=== PATIENT | female | born 1955 | race Caucasian/White ===

== ENCOUNTER 2022-05-15 10:56 | Day surgery (SDC) | payer MEDICARE, BC, SELFPAY ==
[2022-05-15] VITALS (10 sets, daily range): BP systolic 118–163; BP diastolic 70–92; PULSE 62–66; RESP 16–20; TEMP 36.3–36.8; O2SAT 92–98; BMI 39.1
[2022-05-15] MEDS: LACTATED RINGERS 1000 ML 1,000 ML 100 ML IV (11:00)
[2022-05-15] MEDS: SODIUM CHLORIDE 0.9 % (FLUSH) 10 ML SYRINGE IVF (12:00)
[2022-05-15] MEDS: CLINDAMYCIN 900 MG/6 ML VIAL IVPB (12:46)
--- NOTE | 2022-05-15 14:04 | P.GSOP_ITS ---
Operative Note Date of procedure: 05/15/22 Pre-op diagnosis: Right axillary adenopathy Post-op diagnosis: same Type of Procedure: Right axillary lymph node biopsy Indication: The patient is a 66-year-old female who was noted to have enlarged right axillary lymph nodes. Core biopsy was performed which showed a malignant neoplasm favoring lymphoma, however, the sample was not sufficient to complete the diagnosis. Therefore a surgical biopsy was requested. Procedure Description: After discussing the risks and benefits of the procedure, the patient signed informed consent. The operative site was marked and the patient was brought to the operating room and placed on the operating table in supine position. Care was taken to pad the patient's pressure points. The patient was then intubated by anesthesia. The operative site was then prepped and draped in the usual sterile fashion. A time-out was then performed. Local anesthetic was injected into the skin and subcutaneous tissue just inferior to the axillary hairline. An incision was then created with a knife. dissection was taken down through the subcutaneous fat using cautery. The clavipectoral fascia was incised and the axilla was entered. I was able to palpate several nodes deep within the axilla close to the chest wall. I carefully dissected down until I encountered 1 of the lymph nodes. The perinodal tissue was grasped with an Allis and gently pulled into view. I then carefully dissected the lymph node circumferentially with cautery with care not to disrupt the capsule. Small feeding vessels Were clipped. This node measured 2 cm. Once the node was removed this was divided and sent to pathology in RPMI solution as well as formalin. The wound was examined for hemostasis. Small oozing vessels were clipped or cauterized. Hemostasis appeared excellent at this point, however because of the depth of the wound, I did place a piece of Surgicel in the bed where the lymph node was removed. The wound was then closed in layers with 3 0 Vicryl dermal and 4 0 Monocryl running subcuticular suture. Sterile dressings were then applied. The patient was then woken and transported to the recovery area in stable c ondition. The patient tolerated the procedure well. Findings: Multiple enlarged right axillary lymph nodes. Anesthesia: GETA Surgeon: Daisy Edwards MD Estimated blood loss (mL): 10 Pathology: other Pathology Details: 1. right axillary lymph node portion in RPMI solution 2. Right axillary lymph node portion in formalin Condition: stable Disposition: PACU
[2022-05-15] MEDS: HYDROCODONE-ACETAMIN 5-325 MG 1 TAB PO ×2 (14:50→15:10)
--- NOTE | 2022-05-15 15:30 | W.ANESCHARGE ---
Anesthesia Charges Start Date/Time Anesthesia Start Date: 05/15/22 Anesthesia Start Time: 12:38 Stop Date/Time Anesthesia Stop Date: 05/15/22 Anesthesia Stop Time: 14:00 Summary Emergency: No
--- NOTE | 2022-05-15 15:35 | W.ANESCHARGE ---
Anesthesia Charges Start Date/Time Anesthesia Start Date: 05/15/22 Anesthesia Start Time: 12:38 Stop Date/Time Anesthesia Stop Date: 05/15/22 Anesthesia Stop Time: 14:00 Summary Emergency: No
== END 2022-05-15 15:46 | disposition home or self-care (01) ==
PROVIDERS: PCP Family Medicine; Visit Provider Surgery
PROC: (CPT 38500; principal; 2022-05-15 12:30)
DX: C85.94 Non-Hodgkin lymphoma, unspecified, lymph nodes of axilla and upper limb (principal); R59.0 Localized enlarged lymph nodes
CPT/HCPCS: 38525; 00400; 88184; 88305; 88341; 88342; 88365; A9270; J1100; J2405; J2704; J3010; J3490; J7120; S0077

== ENCOUNTER 2022-05-23 10:07 | Outpatient (CLI) | payer MEDICARE, BC, SELFPAY | END 2022-05-23 10:08 | disposition home or self-care (01) | LOC: RAD 10:08 | PROVIDERS: PCP Family Medicine; Visit Provider Family Medicine | DX: C85.90 Non-Hodgkin lymphoma, unspecified, unspecified site (principal) | CPT/HCPCS: 93306 ==

== ENCOUNTER 2022-05-26 08:06 | Outpatient (RCR) | payer MEDICARE, BC, SELFPAY | END 2022-09-09 09:36 | disposition home or self-care (01) | PROVIDERS: PCP Family Medicine; Visit Provider Orthopaedic Surgery Sports Medicine | DX: M25.561 Pain in right knee (principal); Z51.89 Encounter for other specified aftercare | CPT/HCPCS: 97110; 97140 ==

== ENCOUNTER 2022-05-29 11:25 | Outpatient (RCR) | payer MEDICARE, BC, SELFPAY | END 2022-06-15 23:59 | disposition home or self-care (01) | LOC: CCIC 11:25 | PROVIDERS: PCP Family Medicine; Visit Provider Internal Medicine Hematology & Oncology | DX: C81.99 Hodgkin lymphoma, unspecified, extranodal and solid organ sites (principal) | CPT/HCPCS: 99202; 99204; 99205 ==

== ENCOUNTER 2022-09-01 07:01 | Outpatient (CLI) | payer MEDICARE, BC, SELFPAY ==
--- NOTE | 2022-09-01 07:15 | MR_ITS ---
[address] [address] Phone:?[phone] Fax:?[phone] Referring Physician Information: Chang Lacy M.D. [id number] [facility] [address] Phone:?[phone] Fax:?[phone] Patient:Danilo Lara D.O.B:?1955 Sex:?Female Phone:?[phone] [facility] MRN:?[id number] Exam Date:?09/01/2022 ? EXAM: MRI EXAMINATION OF THE RIGHT KNEE CLINICAL INFORMATION: Right knee pain. Status post fall with injury. Possible medial tibial contusion. History of prior surgery. TECHNICAL INFORMATION: Coronal PD and STIR. Sagittal PD and PD fat saturation. Axial PD and T2 fat saturation images acquired. INTERPRETATION: Bones: Minimal subchondral edema signal cystic change involves the series 7 image 20 as well as series 5 image 21 demonstrate residua a 1.9 x 1.3 cm subchondral fracture of the weightbearing surface of the medial tibial plateau. No subchondral collapse. Poorly defined surrounding bone marrow edema signal. Mild marrow edema signal involves the posterior periphery of the medial femoral condyle. Tiny subchondral cystic changes involving the patella. No other fracture. No other abnormal bone marrow edema pattern is identified. Ligaments and tendons: Residua of a subacute to chronic MCL injury. Prominent thickening involves the proximal third of the ligament with moderate attenuation of the femoral attachment. The iliotibial band, fibular collateral ligament, biceps femoris tendon and popliteus tendon all are intact. The anterior cruciate ligament is intact without acute sprain or tear. The posterior cruciate ligament is intact. Extensor Mechanism: The patellar and quadriceps tendons are intact. The medial and lateral retinacula are intact. Knee Joint: There is a small knee joint effusion. There is a moderately large popliteal cyst. There are changes of synovitis within the joint. Do not see evidence for a loose body. Medial Compartment: There is a postsurgical appearance of repair of the posterior root insertion of the medial meniscus. Poorly visualized of meniscal fibers directly adjacent to the repair site, with complex tearing of the directly adjacent portion of the meniscus. No displaced flap fragment or parameniscal cyst. There is no focal chondral defect. 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 Lateral Compartment: There is a horizontal appearance of tearing involving the far posterior horn and posterior root insertion lateral meniscus. No root avulsion injury. No displaced flap fragment or parameniscal cyst. There is no focal chondral defect. No other significant changes of chondromalacia. Patellofemoral articulation: Chondromalacia with associated full-thickness cartilage loss involves the superior two thirds of the midline patella and adjacent medial facet. No other significant chondromalacia. CONCLUSION: 1. There is a 1.9 x 1.3 cm subchondral fracture of the central weightbearing surface of the medial tibial plateau. No subchondral collapse. Poorly defined surrounding bone marrow edema signal and may be subacute. 2. Residua of a subacute to chronic MCL injury. Prominent thickening of the proximal one third of the ligament with moderate attenuation of the femoral attachment. 3. Status post posterior root repair of the medial meniscus. Poor visualization of fibers traversing adjacent to the repair site. Complex tearing of the adjacent portion of the meniscus. 4. Horizontal tearing involves the far posterior horn and posterior root insertion lateral meniscus. No root avulsion injury. 5. Grade II to III chondromalacia through the central weightbearing surfaces of the medial joint compartment. 6. Chondromalacia with full-thickness cartilage loss involving the superior two thirds of the midline patella and directly adjacent medial facet, with tiny subchondral cystic changes. KES Electronically signed on 09/01/2022 9:59:00 AM by Helio Patel M.D.
== END 2022-09-01 07:02 | disposition home or self-care (01) ==
PROVIDERS: PCP Family Medicine; Visit Provider Orthopaedic Surgery Sports Medicine
DX: M25.561 Pain in right knee (principal); M84.361A Stress fracture, right tibia, initial encounter for fracture; M23.251 Derangement of posterior horn of lateral meniscus due to old tear or injury, right knee; M22.41 Chondromalacia patellae, right knee
CPT/HCPCS: 73721

== ENCOUNTER 2022-09-19 14:06 | Emergency (ER) | payer MEDICARE, BC, SELFPAY ==
[2022-09-19] VITALS (12 sets, daily range): BP systolic 149–163; BP diastolic 101–114; PULSE 70–95; TEMP 36; O2SAT 94–99; BMI 37.4
--- NOTE | 2022-09-19 14:21 | ED_ITS ---
HPI - General Adult General Time Seen by Provider: 14:22 Date Seen: 09/19/22 Chief complaint: Nausea/Vomiting Stated complaint: COVID+, vomiting Time Seen by Provider: 09/19/22 14:09 Source: patient Mode of arrival: ambulatory Limitations: no limitations History of Present Illness HPI narrative: 66-year-old female who presents today with nausea vomiting. Patient is on immune therapy for Hodgkin lymphoma has been doing well with that. Diagnosed with COVID 4 days ago, has had cough and some intermittent shortness of breath but no chest pain, no abdominal pain. Started having vomiting today. No lower extremity swelling. No diarrhea. No urinary symptoms. Started Paxil over the couple days ago, also currently taking doxycycline for an ear infection diagnos ed in urgent care a couple days ago. Some lightheadedness with standing, no headache. Has not taken anything for her symptoms at home. Related Data Home Medications Medication Instructions Recorded Confirmed amlodipine 5 mg tablet 5 mg PO DAILY 05/13/22 09/15/22 albuterol sulfate 90 mcg/actuation 2 puff inhalation Q4-6H PRN 05/14/22 09/15/22 aerosol inhaler (ProAir HFA) ascorbate calcium (vitamin C) 500 500 mg PO QDAY 05/14/22 09/15/22 mg tablet biotin 1,000 mcg chewable tablet 1,000 mcg PO QDAY 05/14/22 09/15/22 celecoxib 100 mg capsule (Celebrex) 100 mg PO BID 05/14/22 09/15/22 cholecalciferol (vitamin D3) 1,250 1,250 mcg PO QWEEK 05/14/22 09/15/22 mcg (50,000 unit) tablet diclofenac sodium 75 mg 75 mg PO BID 05/14/22 09/15/22 tablet,delayed release finasteride 5 mg tablet 2.5 mg PO QDAY 05/14/22 09/15/22 furosemide 40 mg tablet (Lasix) 40 mg PO QDAY 05/14/22 09/15/22 levothyroxine 75 mcg capsule 75 mcg PO QDAY 05/14/22 09/15/22 nystatin-triamcinolone topical ea topical 05/14/22 09/15/22 ointment sertraline 200 mg capsule 200 mg PO QDAY 05/14/22 09/15/22 zinc sulfate 50 mg zinc (220 mg) 50 mg PO QDAY 05/14/22 09/15/22 capsule allopurinol 300 mg tablet 300 mg PO QDAY 07/24/22 09/15/22 aspirin 325 mg tablet 325 mg PO QDAY 07/25/22 09/15/22 ondansetron HCl 4 mg tablet 4 mg PO Q12H 07/25/22 09/15/22 prochlorperazine maleate 10 mg 10 mg PO QDAY 07/25/22 09/15/22 tablet gabapentin 300 mg capsule 100 mg PO QDAY 08/19/22 09/15/22 nirmatrelvir 150 mg-ritonavir 100 See Rx Instructions PO .COMPLEX 09/19/22 09/19/22 mg tablets in a dose pack (EUA) (Paxlovid) Previous Rx's Medication Instructions Recorded lisinopril 40 mg tablet See Rx Instructions .Route 05/22/22 .COMPLEX #180 tabs lorazepam 0.5 mg tablet 0.5 mg PO BID-TID PRN anxiety #30 05/30/22 tabs duloxetine 60 mg capsule,delayed 60 mg PO QDAY #30 caps 07/18/22 release metoprolol succinate 100 mg 100 mg PO QDAY #30 tabs 07/18/22 tablet,extended release 24 hr doxycycline hyclate 100 mg tablet 100 mg PO BID 7 days #14 tabs 09/15/22 rivaroxaban 15 mg (42)-20 mg (9) See Rx Instructions PO .COMPLEX 09/19/22 tablets in a starter pack (Xarelto #51 ea DVT-PE Treatment 30-Day Starter) Allergies Allergy/AdvReac Type Severity Reaction Status Date / Time Cephalosporins Allergy Mild Rash Verified 09/19/22 16:18 propoxyphene Allergy Mild Rash Verified 09/19/22 16:18 cefuroxime Allergy Unknown Verified 09/19/22 16:18 chlorthalidone Allergy Unknown Unknown Verified 09/19/22 16:18 clavulanic acid Allergy Unknown Unknown Verified 09/19/22 16:18 Penicillins Allergy Unknown Unknown Verified 09/19/22 16:18 spironolactone Allergy Unknown Unknown Verified 09/19/22 16:18 Sulfa (Sulfonamide Allergy Unknown Unknown Verified 09/19/22 16:18 Antibiotics) Review of Systems Status of ROS: Reports: 10 or more systems reviewed and unremarkable except as noted in History and below PFSH PFSH Medical History (Updated 09/19/22 @ 17:06 by Jeffery Nicholas MD) Diverticulosis DVT (deep venous thrombosis) Hodgkin lymphoma of extranodal or solid organ site Hypertension Hypothyroidism Mixed anxiety and depressive disorder Obesity (BMI 30-39.9) SUDHAKAR on CPAP Surgical History (Updated 08/19/22 @ 08:12 by Annalise Landry) S/P dilation and curettage S/P right knee arthroscopy (02/05/22) Status post knee surgery Family History (Updated 05/23/22 @ 08:31 by Lenka Jauregui) Father COPD (chronic obstructive pulmonary disease) Mother COPD (chronic obstructive pulmonary disease) Hyperlipidemia High blood pressure Osteoporosis Paternal Grandfather Diabetes Paternal Grandmother Diabetes Family/Other High blood pressure Social History Narrative: 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 She does not smoke. She drinks alcohol rarely. Smoking Status: Never smoker How often do you have a drink containing alcohol: never AUDIT-C Alcohol total score: 0 Non-prescribed substance use: denies use Caffeine: Yes Little interest or pleasure in doing things: not at all Feeling down, depressed, or hopeless: several days Exam Narrative: Exam Narrative: General: Well-developed and well-nourished, no acute distress Head: Atraumatic and normocephalic Eyes: Pupils are equal reactive, extraocular motions intact, conjunctiva clear ENT: External nose and ears are normal, posterior pharynx without erythema or exudate Neck: No midline cervical tenderness, full spontaneous range of motion the neck, trachea midline, no adenopathy Heart: Regular rate and rhythm no murmurs or thrills Lungs: Clear to auscultation bilaterally without wheezes or crackles Abdomen: Soft, nontender, nondistended with active bowel sounds Musculoskeletal: No tenderness, deformity, or edema Neurologic: Awake, alert, and oriented x3, no gross focal neurologic deficits, cranial nerves intact as tested Psych: Mood and affect are appropriate Skin: No rashes Const: Vital Signs, click to edit/add: Vital Signs - 24 hr 09/19/22 14:15 09/19/22 14:15 09/19/22 15:00 Temperature 96.8 F L Pulse Rate Pulse Rate [Right] 86 83 72 Blood Pressure Blood Pressure [Le ft Upper Arm] 157/114 H 157/114 H 152/112 H Pulse Oximetry 98 96 97 Oxygen Delivery Me thod Room Air Room Air Room Air 09/19/22 15:30 09/19/22 16:13 09/19/22 16:30 Temperature Pulse Rate 95 74 Pulse Rate [Right] 70 Blood Pressure Blood Pressure [Le ft Upper Arm] 149/101 H Pulse Oximetry 98 99 97 Oxygen Delivery Me thod Room Air 09/19/22 16:32 Temperature Pulse Rate 74 Pulse Rate [Right] Blood Pressure 156/104 H Blood Pressure [Le ft Upper Arm] Pulse Oximetry 96 Oxygen Delivery Me thod Course Course Hospital Course: Patient seen examined, prior records reviewed. Patient with recent diagnosis of COVID, cough and vomiting today. On exam, vital is stable with no tachycardia or hypoxia, afebrile. Lungs are clear, no abdominal tenderness. Consider CT scan of the abdomen and pelvis but with no abdominal pain or tenderness, low likelihood for intra-abdominal pathology. Consider CT scan of the chest to evaluate for pulmonary embolism, no tachycardia, pleuritic chest pain, or shortness of breath. IV fluids are ordered, labs ordered. Reevaluation(s) Reevaluation #1: D-dimer elevated, this may be related to patient's chronic comorbidities that cannot exclude pulmonary embolism. CT PE protocol is ordered. If this is n egative, plan to discharge with medication to help with nausea as remaining labs and clinical exam are reassuring Time: 15:45 Reevaluation #2: CT scan personally reviewed interpreted me wy demonstrates a couple small subsegmental pulmonary emboli. No evidence of heart strain clinically. Patient can be started on Xarelto and discharged with outpatient follow-up. Patient will stop Paxlovid due to potential interaction. Time: 16:30 Reevaluation #3: Discussed CT with radiologist who agrees with my initial interpretation. No evidence for right heart strain on CT. Patient can be started on Xarelto to be discharged. She also be given Robitussin AC and Zofran. Vital Signs Vital signs: Initial Vital Signs Temperature 96.8 F L 09/19/22 14:15 Temperature Source Temporal Artery Scan 09/19/22 14:15 Pulse Rate 86 09/19/22 14:15 Blood Pressure 157/114 H 09/19/22 14:15 Blood Pressure Mean 128 09/19/22 14:15 Blood Pressure Position Sitting 09/19/22 14:15 Pulse Oximetry 98 09/19/22 14:15 Oxygen Delivery Method 09/19/22 14:15 Vital Signs Temperature 96.8 F L 09/19/22 14:15 Pulse Rate 86 09/19/22 14:15 Blood Pressure 157/114 H 09/19/22 14:15 Pulse Oximetry 98 09/19/22 14:15 Oxygen Delivery Method 09/19/22 14:15 Temperature 96.8 F L 09/19/22 14:15 Pulse Rate 74 09/19/22 16:32 Blood Pressure 156/104 H 09/19/22 16:32 Pulse Oximetry 96 09/19/22 16:32 Oxygen Delivery Method 09/19/22 15:30 Medical Decision Making Medical Records Medical records reviewed: Yes I reviewed the patient's medical records Lab Data Lab results reviewed: Yes I reviewed the patient's lab results Labs: Lab Results 09/19/22 09/19/22 Range/Units 14:35 14:35 D-Dimer Quant (PE/DVT) 1.80 H (0.00-0.50) ug/ml Sodium 140 (135-149) mmol/L Potassium 4.7 (3.6-5.1) mmol/L Chloride 101 (96-114) mmol/L Carbon Dioxide 31 (20-32) mmol/L BUN 14 (7-30) mg/dL Creatinine 0.9 (0.5-1.5) mg/dL Estimated Creat Clear 50.47 Estimated GFR 71 ml/min Glucose 109 (60-115) mg/dL Calcium 10.0 (8.4-10.6) mg/dL Total Bilirubin 0.8 (0.1-1.5) mg/dL Direct Bilirubin 0.2 (0.0-0.5) mg/dL AST 31 (12-35) U/L ALT 26 (4-35) U/L Alkaline Phosphatase 105 (40-150) U/L NT-Pro-B Natriuret Pep 313 H (0-125) PG/mL Total Protein 7.9 (6.0-8.3) g/dL Albumin 4.9 (3.3-5.0) g/dL Imaging Data CT scan - chest: Attestation: I have reviewed the pertinent imaging results. My impression: Subsegmental pulmonary emboli bilaterally Radiologist's impression: IMPRESSION: Segmental and subsegmental pulmonary emboli in the right upper, middle and lower lobes as well as the left lower lobe. No significant evidence of right heart strain. Decreased size of right axillary adenopathy and splenomegaly, likely related to treatment related changes. Discharge Plan Discharge Clinical Impression: COVID-19 virus infection, Hodgkin lymphoma of extranodal or solid organ site, Pulmonary embolism Patient Disposition: Home, Self-Care Condition: Stable Instructions: Blood Thinners (ED), COVID-19 (Coronavirus Disease 2019) (ED) Additional Instructions: Stop taking Paxlovid. Start Xarelto. Follow-up with your doctor and oncololgist. Activity Level: No Restrictions Discharge Diet: Regular Prescriptions: New Xarelto DVT-PE Treat 30d Start 15 mg (42)- 20 mg (9) tablets,dose pack See Rx Instructions .ROUTE .COMPLEX Qty: 51 0RF Rx Instructions: take one-15 mg tablet twice daily for 21 days, then one-20 mg tablet once daily; must take with meal/food No Action lorazepam 0.5 mg tablet 0.5 mg PO BID-TID PRN (Reason: anxiety) Qty: 30 1RF allopurinol 300 mg tablet 300 mg PO QDAY Label Comments: TAKE 1 TABLET (300 MG TOTAL) BY MOUTH DAILY. prochlorperazine maleate 10 mg tablet 10 mg PO QDAY ondansetron HCl 4 mg tablet 4 mg PO Q12H aspirin 325 mg tablet 325 mg PO QDAY doxycycline hyclate 100 mg tablet 100 mg PO BID 7 Days Qty: 14 0RF amlodipine 5 mg tablet 5 mg PO DAILY Paxlovid (EUA) 150-100 mg tablets,dose pack See Rx Instructions .ROUTE .COMPLEX Rx Instructions: orally per package directions levothyroxine 75 mcg capsule 75 mcg PO QDAY celecoxib [Celebrex] 100 mg capsule 100 mg PO BID finasteride 5 mg tablet 2.5 mg PO QDAY sertraline 200 mg capsule 200 mg PO QDAY furosemide [Lasix] 40 mg tablet 40 mg PO QDAY nystatin-triamcinolone Ointment topical albuterol sulfate [ProAir HFA] 90 mcg/actuation HFA aerosol inhaler 2 puff inhalation Q4-6H PRN diclofenac sodium 75 mg tablet,delayed release (/EC) 75 mg PO BID biotin 1,000 mcg tablet,chewable 1,000 mcg PO QDAY cholecalciferol (vitamin D3) 1,250 mcg (50,000 unit) tablet 1,250 mcg PO QWEEK ascorbate calcium (vitamin C) 500 mg tablet 500 mg PO QDAY zinc sulfate 50 mg zinc (220 mg) capsule 50 mg PO QDAY lisinopril 40 mg tablet See Rx Instructions .ROUTE .COMPLEX Qty: 180 1RF Dose Instruction: TAKE 1 TABLET BY MOUTH TWICE A DAY Rx Instructions: TAKE 1 TABLET BY MOUTH TWICE A DAY duloxetine 60 mg capsule,delayed release(DR/EC) 60 mg PO QDAY Qty: 30 0RF metoprolol succinate 100 mg tablet extended release 24 hr 100 mg PO QDAY Qty: 30 0RF gabapentin 300 mg capsule 100 mg PO QDAY Follow Up/Referrals: Haseeb Durán MD [Primary Care Provider] - Stand Alone Forms: [facility], [facility] Info Instructions
[2022-09-19] MEDS: ONDANSETRON 2 MG/ML inj 4 MG IVP (14:45)
[2022-09-19] MEDS: 0.9 % SODIUM CHLORIDE 1000 ml 1,000 ML IV (14:45)
[2022-09-19 15:01] LABS: Albumin* 4.9 g/dL (3.3-5.0); Chloride* 101 mmol/L (96-114); Potassium* 4.7 mmol/L (3.6-5.1); Sodium* 140 mmol/L (135-149)
[2022-09-19 15:03] LABS: Creatinine* 0.9 mg/dL (0.5-1.5); Est. Creatinine Clearance* 50.47; Estimated Glomerular Filt Rate 71 ml/min
[2022-09-19 15:04] LABS: Alanine Aminotransferase* 26 U/L (4-35); Alkaline Phosphatase* 105 U/L (40-150); Aspartate Amino Transferase* 31 U/L (12-35); Bilirubin Direct* 0.2 mg/dL (0.0-0.5); Bilirubin Total* 0.8 mg/dL (0.1-1.5); Blood Urea Nitrogen* 14 mg/dL (7-30); Carbon Dioxide* 31 mmol/L (20-32); Glucose* 109 mg/dL (60-115); Total Protein* 7.9 g/dL (6.0-8.3)
--- NOTE | 2022-09-19 15:31 | CRLHL7_ITS ---
For Patients: As a result of the 21st Century Cures Act, medical imaging exams and procedure reports are released immediately into your electronic medical record. You may view this report before your referring provider. If you have questions, please contact your health care provider. INDICATION: COVID positive, hit Hodgkin`s lymphoma right axilla. Cough, elevated D-dimer. History of DVT.. TECHNIQUE: CT chest PE was acquired with 95 cc Isovue 370 IV contrast. COMPARISON: None. FINDINGS: Heart and vasculature: Contrast opacification of the pulmonary arterial tree is adequate. Pulmonary embolism is identified in the right upper lobe segmental arteries ( 1, 75), extending into the subsegmental arteries. As well as in the right lower lobe subsegmental arteries (/113), and in the right middle lobe subsegmental arteries (/99). In addition, left lower lobe segmental artery filling defect is identified (/102), consistent with acute pulmonary embolism.. Heart size is normal. No evidence of right heart strain. Mildly enlarged right and left pulmonary arteries. Thoracic aorta is normal in caliber. Lungs and pleura: No new suspicious nodules. Stable right upper lobe nodule measuring approximately 7 millimeters, unchanged from prior dated May 05, 2022. no pleural effusions, pleural thickening, or pneumothorax. Lymph nodes/mediastinum: Mildly enlarged right axillary lymph nodes are identified, improved since the prior examination 4 example lymph node with a central calcification measures approximately 44 x 23 millimeters, previously 58 by 40 millimeters. Two new clips are identified in the right axilla, probably related to biopsy. Chest wall: No masses. Upper abdomen: No acute or significant findings. Spleen has decreased in size. Bones: Unremarkable for age. IMPRESSION: Segmental and subsegmental pulmonary emboli in the right upper, middle and lower lobes as well as the left lower lobe. No significant evidence of right heart strain. Decreased size of right axillary adenopathy and splenomegaly, likely related to treatment related changes. Findings discussed with Dr. Nicholas at 5 p.m. on 09/19/[address] Sanon. Please note that all CT scans at this facility use dose modulation, iterative reconstruction, and/or weight-based dosing when appropriate to reduce radiation dose to as low as reasonably achievable. Dictated by Paul Sanon MD @ 09/19/2022 5:06:34 PM (Electronically Signed)
[2022-09-19 17:14] LABS: NT Pro B Type NatriureticPept* 313 PG/mL (0-125)
[2022-09-19 17:17] LABS: Troponin I* 0.01 ng/mL (0.01-0.04)
[2022-09-19] MEDS: RIVAROXABAN 10 MG TABLET 15 MG PO (17:49)
== END 2022-09-19 18:07 | disposition home or self-care (01) ==
PROVIDERS: Emergency Provider Family Medicine; PCP Family Medicine
DX: U07.1 COVID-19 (principal)
CPT/HCPCS: 36415; 71260; 80048; 80076; 83880; 84484; 85379; 96374; 99284; 99285; A9270; J2405; J7030; Q9967

== ENCOUNTER 2022-12-09 13:19 | Outpatient (CLI) | payer MEDICARE, BC, SELFPAY | END 2022-12-09 13:20 | disposition home or self-care (01) | LOC: INJ CL 13:20 | PROVIDERS: PCP Family Medicine; Visit Provider Family Medicine | DX: M17.11 Unilateral primary osteoarthritis, right knee (principal); M25.561 Pain in right knee | CPT/HCPCS: 64454 ==

== ENCOUNTER 2022-12-16 10:15 | Outpatient (CLI) | payer MEDICARE, BC, SELFPAY | END 2022-12-16 10:16 | disposition home or self-care (01) | PROVIDERS: PCP Family Medicine; Visit Provider Family Medicine | DX: M17.11 Unilateral primary osteoarthritis, right knee (principal); G89.29 Other chronic pain; M25.561 Pain in right knee | CPT/HCPCS: 64624; J2250; J3010 ==

== ENCOUNTER 2023-03-20 11:27 | Outpatient (CLI) | payer MEDICARE, BC, SELFPAY | END 2023-03-20 11:28 | disposition home or self-care (01) | PROVIDERS: PCP Family Medicine; Visit Provider Family Medicine | DX: E03.9 Hypothyroidism, unspecified (principal); I10 Essential (primary) hypertension; E66.9 Obesity, unspecified | CPT/HCPCS: 80048; 80061; 84443 ==

== ENCOUNTER 2023-06-09 09:00 | Outpatient (CLI) | payer MEDICARE, BC, SELFPAY ==
--- NOTE | 2023-06-09 09:15 | MR_ITS ---
[address] [address] Phone:?[phone] Fax:?[phone] Referring Physician Information: Chang Lacy M.D. [address] [facility] [address] Phone:?[phone] Fax:?[phone] Patient:Danilo Lara D.O.B:?1955 Sex:?Female Phone:?[phone] [facility] MRN:?[id number] Exam Date:?06/09/2023 EXAM: MRI of the RIGHT KNEE, without contrast CLINICAL HISTORY: Chronic right knee pain. Evaluate for internal derangement. History of previous surgery to the right knee. COMPARISONS: MRI 09/01/2022. MRI 01/21/2022. TECHNICAL: MR sequences of the right knee: sagittals: PD, PDFS coronals: PD, STIR axials: PD, T2 FS CONTRAST: None SEDATION: None FINDINGS: Bones: No fracture, bone marrow contusion, or other suspicious bone marrow signal abnormality. 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 Retinacula: The medial and lateral retinacula are intact. Fat pads: The infrapatellar, quadriceps, and prefemoral fat pads are unremarkable. Knee joint: Effusion: Physiologic amount of joint fluid. Popliteal cyst: Small popliteal cyst. Intra-articular bodies: None. Posteromedial corner: The semimembranosus and pes anserine tendons are intact. Medial compartment: Medial meniscus: Surgical changes status post posterior root appear of the medial meniscus are again noted. Full-thickness recurrent tearing is evidenced by edema-like signal within and ill-definition of the postoperative medial meniscus/posterior root and marked medial meniscal extrusion. Cartilage: Marked degenerative subchondral cystic changes within the central portion of the medial tibial plateau and degenerative subchondral sclerosis within the weight-bearing portion of the medial femoral condyle reflecting overlying near full-thickness and full-thickness chondral loss, moderately progressed compared to previous MRI 09/01/2022. Lateral compartment: Lateral meniscus: Intact. Cartilage: Intact. Ligaments: Anterior cruciate ligament: Intact. Posterior cruciate ligament: Intact. Medial collateral ligament: No acute injury. Posterior oblique ligament: Intact. Fibular collateral ligament: Intact. Posterolateral corner: The distal biceps femoris tendon, iliotibial band, popliteus tendon, popliteus muscle, popliteofibular ligament, and arcuate ligament are intact. Extensor mechanism: Patellar tendon: Intact. Quadriceps tendon: Intact. IMPRESSION: 1. Surgical changes status post posterior root appear of the medial meniscus. Full-thickness recurrent tearing is evidenced by edema-like signal within and ill-definition of the postoperative medial meniscus/posterior root and marked medial meniscal extrusion. 2. Marked degenerative subchondral cystic changes within the central portion of the medial tibial plateau and degenerative subchondral sclerosis within the weight-bearing portion of the medial femoral condyle reflecting overlying near full-thickness and full-thickness chondral loss. These medial compartment osteoarthritic changes have moderately progressed compared to previous MRI 09/01/2022. 3. 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 4. Small popliteal cyst. 5. No ligamentous injury or lateral meniscal tear of the right knee. RCB Electronically signed on 06/09/2023 1:02:00 PM by Aftab Reese M.D.
== END 2023-06-09 09:01 | disposition home or self-care (01) ==
PROVIDERS: PCP Family Medicine; Visit Provider Orthopaedic Surgery Sports Medicine
DX: M25.561 Pain in right knee (principal); S83.241A Other tear of medial meniscus, current injury, right knee, initial encounter; M94.261 Chondromalacia, right knee; M71.21 Synovial cyst of popliteal space [Baker], right knee
CPT/HCPCS: 73721

== ENCOUNTER 2023-06-25 14:00 | Outpatient (RCR) | payer MEDICARE, BC, SELFPAY ==
--- NOTE | 2022-06-26 15:29 | OT.OPLE ---
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 Pt states she has really been struggling with remembering things, feeling very stressed. Pt reports minimal pain in right axilla following her surgery, does not feel limited in her ability to use her arm. Pt states she had an appointment in [place] with a final diagnosis of lymphoma, could not remember any other details of the diagnosis (states she has a book that she keeps all of the important information in but she forgot it at home). Pt states she will have a chemo pill and will undergo immunotherapy 1x week for 4 weeks and then she will have a PET scan to see if the treatment is working. Pt states she ius here to learn more about lymphedema and what she needs to do. Medical History Medical History Cancer Treatment/Surgery, Depression,HTN Medical History Comments Pt has had recent RLE knee surgery, still quite painful and swollen, makes walking difficult sometimes. Surgical History Surgical History Knee surgery, Core biopsy RUE axillary LN, LN removal RUE axilla (5.5cm) Contraindications Contraindications Comments Active Cancer Family History Family History of Lymphedema No Living Situation Current Living Situation Private Home/Apartment (Alone) Patient Difficulties Difficulties With Any Of The Following Walking Patient Difficulties Comments Due to RLE knee pain Exercise History Does Patient Exercise Regularly No Exercise Comments Pt states she is working on increasing her activity level but states it is really difficult due to her knee pain , states MD wants her to walk 30 min per day, states this would be too painful for her right now. Pain Pain Yes Pain Comments Pain in right knee Loss of Function/Strength/Mobility Loss Of Function/Strength/Mobility Yes Loss Of Function/Strength/Mobility Due to RLE knee, not cancer Comments surgery Compression History Does Patient Currently Wear Compression No During Daytime Does Patient Currently Wear Compression No At Night Current Swelling (Location/Pitting/Texture) Pitting Scale: 0 = No pitting 1+ Tissue returns to normal almost immediately 2+ Tissue returns after 15-30 seconds 3+ Tissue returns after 1-1/2 minutes 4+ Tissue returns after 2-3 minutes N/A Tissue no longer pits due to induration Tissue texture: Soft or indurated Clinical Presentation Area Pt has swelling in the right axillary region, appears to be related to post-op swelling vs lymphedema. Pt also has significant scar tissue in this area which could likely be impairing lymph drainage from the axilla. Clinical Presentation Pitting No pitting Clinical Presentation Texture Soft, mobile Triggering Event & Start Date of LN removal on 05/15/22 Swelling/Lymphedema Type of Swelling Secondary Staging Staging Stage 1 Positive Stemmer's Sign No Circumferential Measurements Upper Extremity Left Upper Extremity MCP 19.8 Palm 20.5 Wrist 16.5 10cm 22.5 20cm 29.5 30cm 30.5 40cm 37.4 50cm 43.0 Total 219.7 Difference 4 Right Upper Extremity MCP 20.3 Palm 21.0 Wrist 16.5 10cm 23.5 20cm 30.2 30cm 31.7 40cm 37.3 50cm 43.2 Total 223.7 Difference 4 Assessment Assessment Pt presents to OT with significant post op scar tissue in RUE axilla, swelling noted in the surgical field as well. RUE currently measures a total of 4 cm larger than the LUE when comparing total of all measurements. Suspicion for lymphedema at this point is low, swelling is likely due to post-op. Pt demonstrates full AROM and strength throughout BUE and trunk. Pt moves independently except for mild limitations in distance walking due to RLE knee pain. Pt will benefit from skilled OT intervention to addres axillary scar tissue in order to promote lymph drainage from the R upper quadrant and to minimize risk for lymphedema. Problem List Problem List Limited Knowledge of Lymphedema Treatment/Condition /Precautions,Limited Knowledge of Skin Care & Infection Precautions,Significant Risk For Infection For Lymphedema Related Complications,Does Not Have a HEP Patient Goals Patient Goals 1. Pt will be independent and compliant for home program for scar tissue reduction in RUE axilla in order to reduce swelling and risk for lymphedema. 6 weeks 2. There will be a softening of axillary scar tissue in order to promote lymph drainage and reduced risk f lymphedema. 8 weeks 3. Pt will demonstrate a general understanding of the lymphatic system, s/s of lymphedema, treatment of lymphedema, implications of untreated lymphedema, s/s of infection and the correlation of infection related to lymphedema. 3 months 4. Pt will be compliant with quarterly assessments for lymphedema surveillance in order to obtain early intervention with best outcomes if needed. 12 months Treatment Plan Treatment Plan Evaluation,Edema Control, Manual Therapy,Therapeutic Exercise,Therapeutic Activities,Self-Care/Home Management,Caregiver Training, Education Expected Frequency 1-2x Week Expected Duration 12 months Certification Certification I Certify That: Therapy Services Provided, Therapy Plan Established, Therapy Plan Reviewed
--- NOTE | 2022-10-21 18:54 | OT.OPLDN ---
OT Outpatient Lymphedema Daily Note OT Outpatient Lymphedema Daily Note Start: 06/26/22 12:23 Freq: Status: Active Protocol: Document 10/21/22 18:47 AMB (Rec: 10/21/22 18:54 AMB [id number]) E-signed By Awa Tillman, OTR/L, CLT, [employer]IST OT OP Lymphedema Daily/Progress Note Note Type Note Type Recert/Progress Note Visit Number 3 Insurance Information Insurance Information Medicare B Current Condition/Medical Diagnosis Referring Provider Dr Edwards Treatment Diagnosis Lymphedema / Lymphoma Medical Contraindications Depression,HTN,CA Recert Due Recert Due 09/25/22 Subjective Subjective Pt states her scans / tests indicate that her cancer is 95% gone and she is very happy about that. Pt feeling better, less stress. Pt states she did develop COVID a month ago and now has blood clots in her lungs and she is receiving treatment for this. Home Program Home Program Specifics Self scar tissue mobilization initiated today Circumferential Measurements Upper Extremity Left Upper Extremity MCP 19.8 Palm 20.5 Wrist 16.5 10cm 22.5 20cm 29.5 30cm 30.5 40cm 37.4 50cm 43.0 Right Upper Extremity MCP 19.8 Palm 20.5 Wrist 16.2 10cm 23.4 20cm 29.4 30cm 31.3 40cm 37.4 50cm 43.0 Treatment Self Care Provided review of patient education regarding the lymphatic system, s/s of lymphedema, treatment options for lymphedema, implications of untreated lymphedema, infection and it's correlation to lymphedema as well as implications of untreated infection. Discussed risk reduction practices including skin care and monitoring strategies. Discussed the importance of regular exercise and healthy habits. Self Care Activity Minutes (minutes) 20 Therapeutic Activity Minutes (minutes) 7 Other Interventions Re-assessment of limb circumference and ROM. Reviewed scar tissue mobilization and lymphedema surveillance program. Assessment Skin is looking great, AROM of BUE is WNL throughout, total circumferential measurements of the RUE is relatively unchanged from last visit, no concerns for lymphedema at this time. Problem List Limited Knowledge of Lymphedema Treatment/Condition /Precautions,Limited Knowledge of Skin Care & Infection Precautions,Significant Risk For Infection For Lymphedema Related Complications,Does Not Have a HEP Patient Goals Patient Goals 1. Pt will be independent and compliant for home program for scar tissue reduction in RUE axilla in order to reduce swelling and risk for lymphedema. 6 weeks 2. There will be a softening of axillary scar tissue in order to promote lymph drainage and reduced risk f lymphedema. 8 weeks 3. Pt will demonstrate a general understanding of the lymphatic system, s/s of lymphedema, treatment of lymphedema, implications of untreated lymphedema, s/s of infection and the correlation of infection related to lymphedema. 3 months 4. Pt will be compliant with quarterly assessments for lymphedema surveillance in order to obtain early intervention with best outcomes if needed. 12 months Treatment Plan Treatment Plan Evaluation,Edema Control, Manual Therapy,Therapeutic Exercise,Therapeutic Activities,Self-Care/Home Management,Caregiver Training, Education Expected Frequency 1-2x Week Expected Duration 12 months Treatment Minutes Timed Treatment Minutes 27 Total Timed Treatment Minutes 27 Occupational Therapy Billing Units Billing Units Self Care/Home Management 1 Therapeutic Activities 1 Certification Certification I Certify That: Therapy Services Provided, Therapy Plan Established, Therapy Plan Reviewed Recertification Information Recertification Information Initial Certification Date 06/26/22 Recertification Start Date 09/26/22 Recertification Due Date 12/27/22 Reasons to Continue Skilled Therapy Pt is participating in a lymphedema surveillance program and will benefit from continued surveillance to provide early intervention and treatment in the event that she develops lymphedema in order to achieve best outcomes as well as continued pt education on risk reduction practices. Rehabilitation Potential Good Continued Plan of Care and Interventions MT, TA, TE, Self Care Provider Signature Shows Agreement With POC & Medical Necessity Physician Comment/Change Comment or Changes Physician NPI Number #
--- NOTE | 2023-01-20 11:19 | OT.OPLDN ---
OT Outpatient Lymphedema Daily Note OT Outpatient Lymphedema Daily Note Start: 06/26/22 12:23 Freq: Status: Active Protocol: Document 01/20/23 11:02 AMB (Rec: 01/20/23 11:16 AMB [id number]) E-signed By Awa Tillman, OTR/L, CLT, DIRECTOR OF PRIMARY CARE OT OP Lymphedema Daily/Progress Note Note Type Note Type Recert/Progress Note Visit Number 4 Insurance Information Insurance Information Medicare B Current Condition/Medical Diagnosis Referring Provider Dr Edwards Treatment Diagnosis Lymphedema / Lymphoma Medical Contraindications Depression,HTN,CA Recert Due Recert Due 09/25/22 Subjective Subjective Pt feels she is doing well, she has 2 more infusions left and then she will undergo a PET scan in a couple of weeks. Pt has had some right knee pain and has undergone an ablation (she thinks) which was supposed to help, however, pt does not feel it really has. Knee pain has made it difficult for her to walk for exercise. Pt has not noticed any swelling and has no concerns for lymphedema at this time. She continues with her skin care routine and still does her scar massage, states she still gets occasional sharp, shooting pains in her incisional area but it only lasts for a second. Home Program Compliant To Home Program Yes Home Program Specifics Self scar tissue mobilization, skin care routine, and self monitoring. Circumferential Measurements Upper Extremity Left Upper Extremity MCP 19.8 Palm 20.5 Wrist 16.5 10cm 22.5 20cm 29.5 30cm 30.5 40cm 37.4 50cm 43.0 Total 219.7 Right Upper Extremity MCP 19.7 Palm 20.5 Wrist 16.2 10cm 23.5 20cm 29.7 30cm 31.4 40cm 37.0 50cm 42.7 Total 220.7 Treatment Manual Therapy Review of scar tissue mobilization, encouraged pt to continue with this for the next 3-6 months. Manual Therapy Minutes (minutes) 6 Self Care Provided review of patient education regarding the lymphatic system, s/s of lymphedema, treatment options for lymphedema, implications of untreated lymphedema, infection and it's correlation to lymphedema as well as implications of untreated infection. Discussed risk reduction practices including skin care and monitoring strategies. Discussed the importance of regular exercise and healthy habits, Self Care Activity Minutes (minutes) 5 Therapeutic Activity Minutes (minutes) 10 Other Interventions Re-assessment of limb circumference and ROM. Reviewed scar tissue mobilization and lymphedema surveillance program. Assessment No concerns regarding skin care, still seems to be having some occasional pain related to her incision / scar tissue, encouraged to continue with scar tissue mobilization. Measurements are relatively unchanged from last assessment , no concerns for lymphedema at this time. Problem List Limited Knowledge of Lymphedema Treatment/Condition /Precautions,Limited Knowledge of Skin Care & Infection Precautions,Significant Risk For Infection For Lymphedema Related Complications,Does Not Have a HEP Patient Goals Patient Goals 1. Pt will be independent and compliant for home program for scar tissue reduction in RUE axilla in order to reduce swelling and risk for lymphedema. 6 weeks 2. There will be a softening of axillary scar tissue in order to promote lymph drainage and reduced risk f lymphedema. 8 weeks 3. Pt will demonstrate a general understanding of the lymphatic system, s/s of lymphedema, treatment of lymphedema, implications of untreated lymphedema, s/s of infection and the correlation of infection related to lymphedema. 3 months 4. Pt will be compliant with quarterly assessments for lymphedema surveillance in order to obtain early intervention with best outcomes if needed. 12 months Treatment Plan Treatment Plan Evaluation,Edema Control, Manual Therapy,Therapeutic Exercise,Therapeutic Activities,Self-Care/Home Management,Caregiver Training, Education Expected Frequency 1-2x Week Expected Duration 12 months Treatment Minutes Timed Treatment Minutes 21 Total Timed Treatment Minutes 21 Occupational Therapy Billing Units Billing Units Therapeutic Activities 1 Certification Certification I Certify That: Therapy Services Provided, Therapy Plan Established, Therapy Plan Reviewed Recertification Information Recertification Information Initial Certification Date 06/26/22 Recertification Start Date 12/27/22 Recertification Due Date 03/26/23 Reasons to Continue Skilled Therapy Due to breast cancer surgery and treatment, pt is at risk for the development of lymphedema. Pt continues to participate in a lymphedema surveillance program and will benefit from continued surveillance to provide early intervention and treatment in the event that she develops lymphedema in order to achieve best outcomes as well as continued pt education on risk reduction practices. Rehabilitation Potential Good Continued Plan of Care and Interventions MT, TA, TE, Self Care Provider Signature Shows Agreement With POC & Medical Necessity Physician Comment/Change Comment or Changes Physician NPI Number #
--- NOTE | 2023-04-21 12:40 | OT.OPLDN ---
OT Outpatient Lymphedema Daily Note OT Outpatient Lymphedema Daily Note Start: 06/26/22 12:23 Freq: Status: Active Protocol: Document 04/21/23 10:56 AMB (Rec: 04/21/23 12:40 AMB [email or web address]) E-signed By Awa Tillman, OTR/L, CLT, [employer] OPERATOR OT OP Lymphedema Daily/Progress Note Note Type Note Type Recert/Progress Note Visit Number 5 Insurance Information Insurance Information Medicare B Current Condition/Medical Diagnosis Referring Provider Dr Edwards Treatment Diagnosis Lymphedema / Lymphoma Medical Contraindications Depression,HTN,CA Recert Due Recert Due 03/26/23 Subjective Subjective Pt doing well, states her last scan indicated that her cancer was gone and she has been feeling well, she has not noticed any swelling in her right upper quadrant, but still struggling with her memory. Pt states she has occasional pain in her right axilla, surgical area, and her surgeon told her she may have this for a while. Discussed consult with OT to assess and treat for cancer related cognitive impairment. Pt would like to proceed with this. Skirt Maker will request order for OT consult for cognitive assessment / rehabilitation. Home Program Compliant To Home Program Yes Home Program Specifics Self scar tissue mobilization, skin care routine, and self monitoring. Circumferential Measurements Upper Extremity Left Upper Extremity MCP 19.8 Palm 20.5 Wrist 16.5 10cm 22.5 20cm 29.5 30cm 30.5 40cm 37.4 50cm 43.0 Total 219.7 Right Upper Extremity MCP 19.5 Palm 20.3 Wrist 16.2 10cm 23.4 20cm 29.5 30cm 31.4 40cm 37.3 50cm 42.8 Total 220.4 Treatment Manual Therapy Review of self scar tissue mobilization with inst for pt to continue with scar mobilization 1x per day for 3 months as she is experiencing occasional pain in this area which may be related to the scar tissue, pt feels that the massaging does help. Manual Therapy Minutes (minutes) 7 Self Care Provided review of patient education regarding the lymphatic system, s/s of lymphedema, treatment options for lymphedema, implications of untreated lymphedema, infection and it's correlation to lymphedema as well as implications of untreated infection. Discussed risk reduction practices including skin care and monitoring strategies. Discussed the importance of regular exercise and healthy habits, Self Care Activity Minutes (minutes) 5 Therapeutic Activity Minutes (minutes) 10 Other Interventions Re-assessment of limb circumference and ROM. Reviewed scar tissue mobilization and lymphedema surveillance program. Assessment Skin condition is excellent, pt demonstrates full AROM of the RUE throughout, circumferential measurements have stayed nearly the same, there are no s/s of lymphedema at this time. Pt will continue to self monitor and will continue with scar tissue mobilization. Pt feels ready to transition to independent monitoring, she was provided with magnetic tape typewriter operator's contact information and instructed to call if she has any concerns related to lymphedema. Pt is describing cognitive changes that she has been experiencing since her cancer diagnosis. Pt would like referral to OT who specializes in this, magnetic tape typewriter operator will seek referral. Problem List Limited Knowledge of Lymphedema Treatment/Condition /Precautions,Limited Knowledge of Skin Care & Infection Precautions,Significant Risk For Infection For Lymphedema Related Complications,Does Not Have a HEP Patient Goals Patient Goals 1. Pt will be independent and compliant for home program for scar tissue reduction in RUE axilla in order to reduce swelling and risk for lymphedema. 6 weeks 2. There will be a softening of axillary scar tissue in order to promote lymph drainage and reduced risk f lymphedema. 8 weeks 3. Pt will demonstrate a general understanding of the lymphatic system, s/s of lymphedema, treatment of lymphedema, implications of untreated lymphedema, s/s of infection and the correlation of infection related to lymphedema. 3 months This goal is met 4. Pt will be compliant with quarterly assessments for lymphedema surveillance in order to obtain early intervention with best outcomes if needed. 12 months This goal is met Treatment Plan Treatment Plan Evaluation,Edema Control, Manual Therapy,Therapeutic Exercise,Therapeutic Activities,Self-Care/Home Management,Caregiver Training, Education Expected Frequency 1-2x Week Expected Duration 12 months Treatment Minutes Timed Treatment Minutes 22 Total Timed Treatment Minutes 22 Occupational Therapy Billing Units Billing Units Therapeutic Activities 1 Certification Certification I Certify That: Therapy Services Provided, Therapy Plan Established, Therapy Plan Reviewed Recertification Information Recertification Information Initial Certification Date 06/26/22 Recertification Start Date 03/26/23 Recertification Due Date 04/26/23 Reasons to Continue Skilled Therapy Due to cancer surgery with lymph node involvement / removal, pt is at risk for the development of lymphedema. Pt continues to participate in a lymphedema surveillance program and will benefit from continued surveillance to provide early intervention and treatment in the event that she develops lymphedema in order to achieve best outcomes as well as continued pt education on risk reduction practices. Pt's last visit was today, she is transitioning to independent monitoring. Rehabilitation Potential Good Continued Plan of Care and Interventions MT, TA, TE, Self Care Provider Signature Shows Agreement With POC & Medical Necessity Physician Comment/Change Comment or Changes Physician NPI Number # Discharge Note Discharge Note Discharge Summary Pt has been seen for a total of 5 visits with focus on pt education and surveillance for lymphedema following her cancer surgery / treatment. Pt has done very well, she has not shown any s/s of lymphedema and is able to understand the s/s of lymphedema, risk factors, risk reduction practices and what to do is she is concerned about lymphedema, she also understands the s/s of and implications of infection. Date of First Visit for Therapy 06/26/22 Date of Last Visit for Therapy 04/21/23 Pain Level at Discharge 0/10 Interventions Provided During Treatment Manual Therapy,Therapeutic Activities,Therapeutic Exercise,Self Care/Home Management Recommendations/Reason for Discharge Met All Therapy Goals Discharge Instructions Continue with scar tissue mobilization and self monitoring.
--- NOTE | 2023-05-14 09:10 | OT.OPGNE ---
OT Outpatient General/Neuro Eval OT Outpatient General/Neuro Eval Start: 05/13/23 20:31 Freq: Status: Active Protocol: Document 05/12/23 20:33 SMW (Rec: 05/13/23 20:51 SMW Laptop) E-signed By Shannon Gannon OT OT Outpatient Evaluation Details Type Type Eval Complexity Low Insurance Information Insurance Information Insurance Information [employer] Outpatient History/Precautions Medical/Functional History Medical History Reviewed Yes: Hodgkin's lumphoma Prior Level of Function/Mobility Patient lives with spouse in own home. She is I in ADLs, most IADLS and mobility. 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 Cognitive Assessments Performed Cognitive Assessments Performed [place] Cognitive Assessment (MOCA) Results 20/30 Comments Cognitive Assessments Performed Comments Patient surprised at results. Really thought only her memory was impaired. Assessment Assessment Assessment The patient is a 67 year old female referred to outpatient OT for cancer related cogntive changes. She has been undergoing treatment for Hodgkin's Lymphoma. Patient has a history of breast cancer . The patient lives with her supportive spouse in own home. 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 She reports independence in ADLs, most IADLS and mobility. She voices concerns related to her memory. She reports that if she is verbally told something she will not remember. She has also misplaced items that she typically keeps track of. She feels as if it has gotten worse as of late. She was given a memory questionnaire where she marked often on memory related issues. The MoCA was administered with the patient scoring 20/30. Deficits noted in executive function, attention and memory . With a few areas that she was correct, it took her quite awhile to figure out the correct response. She appeared quite shocked at her results. Further assessments are warranted. Patient was educated on use of certified financial planner and will obtain before next appointment. She will benefit from skilled OT services 1x per week x 6 weeks, to complete cognitive assessments , be educated on compensatory strategies and to guide patient and family to resources that are appropriate based on assessments. Occupational Therapy Treatment Plan - OP Potential Rehabilitation Potential Good Set Goals Goals Set with Patient Yes Goals Goals Prior to discharge, the patient will.. 1. complete cognitive assessments in order to determine appropriate community resources. 2. follow through with 3 compensatory memory strategies . 3. verbalize understanding of assessment results. Progress set Treatment Plan Treatment Plan Evaluation,Self-Care/Home Management,Functional Cognitive Skil Expected Frequency 1x Week Expected Duration 4-6 Weeks Certification Certification I Certify That: Therapy Services Provided, Therapy Plan Established, Therapy Plan Reviewed Recertification Information Recertification Information Initial Certification Date 05/12/23 Recertification Start Date 05/12/23 Recertification Due Date 08/11/23 Provider Signature Shows Agreement With POC & Medical Necessity Physician Comment/Change Comment or Changes Physician NPI Number #
== END 2023-10-23 23:59 | disposition home or self-care (01) ==
PROVIDERS: PCP Family Medicine; Visit Provider Surgery
DX: I89.0 Lymphedema, not elsewhere classified (principal); G31.84 Mild cognitive impairment of uncertain or unknown etiology; Z51.89 Encounter for other specified aftercare
CPT/HCPCS: 97140; 97165; 97530; 97535

== ENCOUNTER 2023-11-23 08:59 | Emergency (ER) | payer MEDICARE, BC, SELFPAY ==
[2023-11-23 09:04] VITALS: BP 158/94; PULSE 89; RESP 16; TEMP 35.6; O2SAT 95; BMI 37.4
--- NOTE | 2023-11-23 09:35 | ED_ITS ---
HPI - General Adult General Chief complaint: Cough Stated complaint: COVID +,coughing Time Seen by Provider: 11/23/23 09:30 History of Present Illness HPI narrative: patient has not been feeling very good since last Thursday . has not been sleeping very well, coughing, sore throat, body aches and pains, poor sleeping, nauseated. COVID test at home was + 68-year-old woman presenting to the emergency department concern of cough. Cough is more when lying down. Apparently tested COVID positive at home. Has had poor sleep. Sore throat body aches. She is nauseated. Now 5th day of illness. I think is concerned about secondary infection. Worries might be dehydrated at this point with poor p.o. Nausea as noted but not really with discrete or increased abdominal pain. Does have past medical significant for Hodgkin's lymphoma. Does have a history of sleep apnea. Uses CPAP. No fever documented. Would like something to address her cough. Related Data Home Medications Medication Instructions Recorded Confirmed albuterol sulfate 90 mcg/actuation 2 puff inhalation Q4-6H PRN 05/14/22 11/23/23 aerosol inhaler (ProAir HFA) cpap inhalation 09/25/22 10/26/23 rivaroxaban 10 mg tablet (Xarelto) 10 mg PO QDAY 12/23/22 11/23/23 Previous Rx's Medication Instructions Recorded hydrocortisone-pramoxine 2.5 %-1 % 1 applic IL BID PRN hemorrhoids 09/25/22 rectal cream #30 grams lorazepam 1 mg tablet 1 mg PO BID PRN anxiety #40 tabs 07/01/23 nystatin-triamcinolone 100,000 1 applic topical BID #60 grams 09/25/23 unit/g-0.1 % topical cream bupropion HCl 300 mg 24 hr tablet, 300 mg PO QAM #90 tabs 10/29/23 extended release (Wellbutrin XL) duloxetine 60 mg capsule,delayed 60 mg PO QDAY #90 caps 10/29/23 release furosemide 40 mg tablet (Lasix) 40 mg PO QDAY #90 tabs 10/29/23 gabapentin 300 mg capsule 300 mg PO QDAY #90 caps 10/29/23 levothyroxine 75 mcg tablet 75 mcg PO QDAY #90 tabs 10/29/23 lisinopril 40 mg tablet 40 mg PO BID #180 tabs 10/29/23 metoprolol succinate 100 mg 100 mg PO QDAY #90 tabs 10/29/23 tablet,extended release 24 hr Allergies Allergy/AdvReac Type Severity Reaction Status Date / Time No Known Drug Allergies Allergy Verified 11/23/23 09:09 Review of Systems Status of ROS: Reports: 6 or more systems reviewed and unremarkable except as noted in History and below [facility] Medical History Tear of medial meniscus of right knee ?S83.241A - Other tear of medial meniscus, current injury, right knee, initial encounter (ICD-10) Internal derangement of right knee ?M23.91 - Unspecified internal derangement of right knee (ICD-10) Pulmonary embolism ?I26.99 - Other pulmonary embolism without acute cor pulmonale (ICD-10) YOLIS (generalized anxiety disorder) ?F41.1 - Generalized anxiety disorder (ICD-10) Major depression, recurrent ?F33.9 - Major depressive disorder, recurrent, unspecified (ICD-10) External hemorrhoids ?K64.4 - Residual hemorrhoidal skin tags (ICD-10) COVID-19 virus infection ?U07.1 - COVID-19 (ICD-10) Acute lateral meniscus tear of right knee ?S83.281A - Other tear of lateral meniscus, current injury, right knee, init ial encounter (ICD-10) Complex tear of medial meniscus of right knee ?S83.231A - Complex tear of medial meniscus, current injury, right knee, initial encounter (ICD-10) Hypothyroidism ?E03.9 - Hypothyroidism, unspecified (ICD-10) Hodgkin lymphoma of extranodal or solid organ site ?C81.99 - Hodgkin lymphoma, unspecified, extranodal and solid organ sites (ICD-10) DVT (deep venous thrombosis) ?I82.409 - Acute embolism and thrombosis of unspecified deep veins of unspecified lower extremity (ICD-10) Obesity (BMI 30-39.9) ?E66.9 - Obesity, unspecified (ICD-10) Diverticulosis ?K57.90 - Diverticulosis of intestine, part unspecified, without perforation or abscess without bleeding (ICD-10) SUDHAKAR on CPAP ?G47.33 - Obstructive sleep apnea (adult) (pediatric) (ICD-10) ?Z99.89 - Dependence on other enabling machines and devices (ICD-10) Hypertension ?I10 - Essential (primary) hypertension (ICD-10) Surgical History S/P right knee arthroscopy (02/05/22) ?Z98.890 - Other specified postprocedural states (ICD-10) Status post knee surgery ?Z98.890 - Other specified postprocedural states (ICD-10) S/P dilation and curettage ?Z98.890 - Other specified postprocedural states (ICD-10) Family History Father COPD (chronic obstructive pulmonary disease) Mother COPD (chronic obstructive pulmonary disease) Hyperlipidemia High blood pressure Osteoporosis Paternal Grandfather Diabetes Paternal Grandmother Diabetes Family/Other High blood pressure Social History Narrative: -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 She does not smoke. She drinks alcohol rarely. What is your current living situation?: I presently have a place to live Problems where you live: no known problems In the past 12 months, utilities in danger of being shut off: no In the past 12 mos, have been you worried that your food would run out before you had money to buy more?: never true In the past 12 mos, the food you bought just didn't last and you didn't have money to buy more?: never true Smoking Status: Never smoker Do you use any of these nicotine containing products: None Second hand tobacco smoke exposure: No How often do you have a drink containing alcohol: never How often do you have six or more drinks on one occasion: Never AUDIT-C Alcohol total score: 0 Non-prescribed substance use: denies use Caffeine: Yes How often does anyone, including family, friends and others, physically hurt you : How often does anyone, including family, friends and others, insult or talk down to you: How often does anyone, including family, friends and others, threaten you with harm: How often does anyone, including family, friends and others, scream or curse at you: Little interest or pleasure in doing things: several days Feeling down, depressed, or hopeless: several days service: No Exam Narrative: Exam Narrative: Pleasant. Mildly anxious I think. Just looks uncomfortable. Appears tired. Not tachypneic but mildly labored in her breathing. Lungs sound generally with very faint crepitus. No wheeze. Oropharynx maybe a little sticky. Heart in regular rate and rhythm. Extremities are well perfused without edema. Uncomfortable in the upper abdomen. Sounds somewhat congested nasopharynx. Occasional cough. Oropharynx maybe with some irritation in the far posterior oropharynx consistent with postnasal drip. Const: Vital Signs, click to edit/add: Vital Signs - 24 hr 11/23/23 09:04 Temperature 96.0 F L Pulse Rate [Left P ulse Oximeter] 89 Respiratory Rate 16 Blood Pressure [Le ft Upper Arm] 158/94 H Pulse Oximetry 95 Oxygen Delivery Me thod Room Air Documenting provider has reviewed patient's vital signs: yes Course Vital Signs Vital signs: Initial Vital Signs Temperature 96.0 F L 11/23/23 09:04 Temperature Source Temporal Artery Scan 11/23/23 09:04 Pulse Rate 89 11/23/23 09:04 Respiratory Rate 16 11/23/23 09:04 Blood Pressure 158/94 H 11/23/23 09:04 Blood Pressure Mean 115 H 11/23/23 09:04 Blood Pressure Position Sitting 11/23/23 09:04 Pulse Oximetry 95 11/23/23 09:04 Oxygen Delivery Method Room Air 11/23/23 09:04 Vital Signs Temperature 96.0 F L 11/23/23 09:04 Pulse Rate 89 11/23/23 09:04 Respiratory Rate 16 11/23/23 09:04 Blood Pressure 158/94 H 11/23/23 09:04 Pulse Oximetry 95 11/23/23 09:04 Oxygen Delivery Method Room Air 11/23/23 09:04 Temperature 96.0 F L 11/23/23 09:04 Pulse Rate 89 11/23/23 09:04 Respiratory Rate 16 11/23/23 09:04 Blood Pressure 158/94 H 11/23/23 09:04 Pulse Oximetry 95 11/23/23 09:04 Oxygen Delivery Method Room Air 11/23/23 09:04 Medications Administered Medications: Discontinued Medications Generic Name Dose Route Start Last Admin Trade Name Freq PRN Reason Stop Dose Admin Sodium Chloride 1,000 mls @ 1,000 mls/hr 11/23/23 09:48 11/23/23 11:00 0.9 % Sodium Chloride 1000 Ml IV 11/23/23 10:47 Infused .Q1H ONE Infusion Medical Decision Making MDM Narrative Medical decision making narrative: I think most of her symptoms are related to congestion and inflammation. Probably postnasal drip. With history though I think it is not a bad idea to look for secondary pneumonia. Unlikely DVT especially as anticoagulated with rivaroxaban. Would likely feel better with L of fluids. I do offer this to her and she accepts. IVs established given a L of normal saline. Will also confirm COVID and check CBC and basic if further is found on chest x-ray this would be relevant. Offered ice chips. Chest x-ray reviewed by me looks to be without acute infiltrate. Normal cardiovascular silhouette and no pneumothorax Radiology over-read as below INDICATION: Cough TECHNIQUE: Chest 1 views. COMPARISON: None. FINDINGS: The cardiomediastinal silhouette is within normal limits. No focal airspace consolidation, pleural effusion, or pneumothorax. No displaced fractures. Degenerative changes of the bilateral acromioclavicular joints. IMPRESSION: No acute cardiopulmonary process. Overall somewhat improved with treatment as above. Labs are notable for mildly elevated CRP and confirmed positive COVID. Too long into illness I think benefit from Paxlovid or other. Discussed albeit limited but varied options/medication to try to address cough. See patient discharge plan Medical Records Medical records reviewed: Yes I reviewed the patient's medical records Lab Data Lab results reviewed: Yes I reviewed the patient's lab results Labs: Lab Results 11/23/23 Range/Units 10:05 WBC 3.26 L (4.50-11.00) K/uL RBC 5.23 H (4.00-5.20) m/uL Hgb 15.9 (12.0-16.0) gm/dL Hct 47.6 (33.0-51.0) % MCV 91 (80-100) fL MCH 30 (26-34) pg MCHC 33 (32-36) gm/dL RDW Coeff of Marti 12.9 (11.5-15.5) % Plt Count 125 L (140-440) K/uL Neut % (Auto) 72.1 H (42.0-72.0) % Lymph % (Auto) 12.3 L (20-44) % Mclean % (Auto) 13.8 H (0.0-11.0) % Eos % (Auto) 1.5 (0.0-7.0) % Baso % (Auto) 0.3 (0.0-3.0) % Neut # (Auto) 2.40 (1.7-7.0) K/uL Lymph # (Auto) 0.40 L (0.90-2.90) K/uL Mclean # (Auto) 0.40 (0.00-0.90) K/UL Eos # (Auto) 0.00 (0.00-0.50) K/uL Baso # (Auto) 0.00 (0.00-0.30) K/uL Abs Immat Gran (auto) 0.00 (0.00-0.30) K/uL Imm/Tot Granulo (auto) 0.0 % Sodium 137 (135-149) mmol/L Potassium 3.6 (3.6-5.1) mmol/L Chloride 103 (96-114) mmol/L Carbon Dioxide 25 (20-32) mmol/L Anion Gap 9 (7-15) mEq/L BUN 14 (7-30) mg/dL Creatinine 0.9 (0.5-1.5) mg/dL Estimated Creat Clear 49.12 Estimated GFR 70 ml/min Glucose 110 (60-115) mg/dL Calcium 8.8 (8.4-10.6) mg/dL C-Reactive Protein 2.5 H (0.5-1.0) mg/dL SARS-CoV-2 (PCR) POSITIVE SARS-CoV-2 A (Negative) Influenza Type A (PCR) Negative PCR FLU A (Negative) Influenza Type B (PCR) Negative PCR FLU B (Negative) RSV (PCR) Negative PCR RSV (Negative) Discharge Plan Discharge Clinical Impression: COVID-19, Cough Patient Disposition: Home w/ Parent or Adult Condition: Stable Instructions: COVID-19 (Coronavirus Disease 2019) (ED) Additional Instructions: Stay well-hydrated. You might try sucking on ice chips for your cough. Could try pseudoephedrine for drying/decongestion if postnasal drip might be playing a role; I personally like the 12 hour formulation. Sleep under the mist of a cool mist humidifier. Menthol vapors might also be helpful. Anesthetic throat lozenges or sprays like Sucrets or Chloraseptic might help. Otherwise cough syrup from [facility]. Prescriptions: No Action nystatin-triamcinolone 100,000-0.1 unit/g-% cream 1 applic topical BID Qty: 60 1RF cpap inhalation hydrocortisone-pramoxine 2.5-1 % cream 1 applic IL BID PRN (Reason: hemorrhoids) Qty: 30 1RF bupropion HCl [Wellbutrin XL] 300 mg tablet extended release 24 hr 300 mg PO QAM Qty: 90 1RF duloxetine 60 mg capsule,delayed release(DR/EC) 60 mg PO QDAY Qty: 90 1RF furosemide [Lasix] 40 mg tablet 40 mg PO QDAY Qty: 90 1RF gabapentin 300 mg capsule 300 mg PO QDAY Qty: 90 1RF levothyroxine 75 mcg tablet 75 mcg PO QDAY Qty: 90 1RF lisinopril 40 mg tablet 40 mg PO BID Qty: 180 1RF metoprolol succinate 100 mg tablet extended release 24 hr 100 mg PO QDAY Qty: 90 1RF albuterol sulfate [ProAir HFA] 90 mcg/actuation HFA aerosol inhaler 2 puff inhalation Q4-6H PRN Xarelto 10 mg tablet 10 mg PO QDAY Rx Instructions: for 35 days lorazepam 1 mg tablet 1 mg PO BID PRN (Reason: anxiety) Qty: 40 0RF Follow Up/Referrals: Haseeb Durán MD [Primary Care Provider] - Stand Alone Forms: [facility] Info Instructions
--- NOTE | 2023-11-23 09:48 | CRLHL7_ITS ---
For Patients: As a result of the Cures Act, medical imaging exams and procedure reports are released immediately into your electronic medical record. You may view this report before your referring provider. If you have questions, please contact your health care provider. INDICATION: Cough TECHNIQUE: Chest 1 views. COMPARISON: None. FINDINGS: The cardiomediastinal silhouette is within normal limits. No focal airspace consolidation, pleural effusion, or pneumothorax. No displaced fractures. Degenerative changes of the bilateral acromioclavicular joints. IMPRESSION: No acute cardiopulmonary process. Dictated by Savage Singh MD @ 11/23/2023 10:47:30 AM (Electronically Signed)
[2023-11-23] MEDS: 0.9 % SODIUM CHLORIDE 1000 ml 1,000 ML IV (09:55)
[2023-11-23 10:12] LABS: Basophils Percent Auto 0.3 % (0.0-3.0); Eosinophils Percent Auto 1.5 % (0.0-7.0); Hematocrit 47.6 % (33.0-51.0); Hemoglobin* 15.9 gm/dL (12.0-16.0); Lymphocytes Percent Auto 12.3 % (20-44); Mean Corpuscular HGB Conc 33 gm/dL (32-36); Mean Corpuscular Hemoglobin 30 pg (26-34); Mean Corpuscular Volume 91 fL (80-100); Monocytes Percent Auto 13.8 % (0.0-11.0); Neutrophils Percent Auto 72.1 % (42.0-72.0); Platelet Count* 125 K/uL (140-440); RDW Coefficient of Variation % 12.9 % (11.5-15.5); Red Blood Count 5.23 m/uL (4.00-5.20); White Blood Count* 3.26 K/uL (4.50-11.00)
[2023-11-23 10:14] LABS: Slide Review Reflex No
[2023-11-23 10:26] LABS: Chloride* 103 mmol/L (96-114); Potassium* 3.6 mmol/L (3.6-5.1); Sodium* 137 mmol/L (135-149)
[2023-11-23 10:28] LABS: Creatinine* 0.9 mg/dL (0.5-1.5); Est. Creatinine Clearance* 49.12; Estimated Glomerular Filt Rate 70 ml/min
[2023-11-23 10:29] LABS: Anion Gap 9 mEq/L (7-15); Blood Urea Nitrogen* 14 mg/dL (7-30); Carbon Dioxide* 25 mmol/L (20-32); Glucose* 110 mg/dL (60-115)
[2023-11-23 10:30] LABS: Calcium* 8.8 mg/dL (8.4-10.6)
[2023-11-23 10:32] LABS: C Reactive Protein* 2.5 mg/dL (0.5-1.0)
[2023-11-23 10:52] LABS: PCR FLU A Negative PCR FLU A (Negative); PCR FLU B Negative PCR FLU B (Negative); PCR RSV Negative PCR RSV (Negative); SARS PCR* POSITIVE SARS-CoV-2 (Negative)
--- NOTE | 2023-11-23 10:58 | ED.NURSE ---
Pt report given to zoe fernandez
--- NOTE | 2023-11-23 10:59 | ED.NURSE ---
Report given to oncoming RN
== END 2023-11-23 12:16 | disposition home or self-care (01) ==
PROVIDERS: Emergency Provider Family Medicine; PCP Family Medicine
DX: U07.1 COVID-19 (principal)
CPT/HCPCS: 36415; 71045; 80048; 85025; 86140; 87631; 99283; 99284; J7030

== ENCOUNTER 2023-12-09 11:03 | Outpatient (CLI) | payer MEDICARE, BC, SELFPAY ==
--- OUTSIDE RECORDS SUMMARY | 2023-12-11 07:43 | XMS_ITS ---
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 Past Plans No past plan information found. Radiation Treatments * No radiation treatments are documented for this patient in [facility]. Treatments may have been administered in another system.
--- OUTSIDE RECORDS SUMMARY | 2023-12-11 07:43 | XMS_ITS ---
Author Name Unknown Organization [facility] Address [address] [place] [address] Care Team Providers Care Senior Peoplesoft Developer Name Role Phone Unavailable Unavailable Unavailable Surgery Details Not on file Complications Check Surgery Details section. Procedure Estimated Blood Loss Check Surgery Details section. Procedure Findings Check Surgery Details section. Procedure Specimens Taken Check Surgery Details section.
--- OUTSIDE RECORDS SUMMARY | 2023-12-11 07:43 | XMS_ITS | Encounter Summary ---
Author Name Unknown Organization [facility] Address [address] [place] [address] Care Team Providers Care Garageman Name Role Phone Unavailable Primary Care Provider Unavailabl e Encounter Details Date Type Department Care Team (Latest Contact Info) Description 08/27/2023 12:30 PM CDT Clinical Communication Virtual Review in [place], [place] [address] [place], [place] [id number] Social History Tobacco Use Types Packs/Day Years Used Date Smoking Tobacco: Never Smokeless Tobacco: Never Tobacco Cessation:Counseling Given: Not Answered Alcohol Use Standard Drinks/Week Comments Not Currently 0 (1 standard drink = 0.6 oz pur e alcohol) 1 or 2 drinks a year Humiliation, Afraid, Rape, and Kick questionnair e Answer Date Recorded Within the last year, have y ou been afraid of your partner or ex-partner? No 06/23/2022 Within the last year, have y ou been humiliated or emotionally abused in other ways by your partner or ex-partner? No Within the last year, have y ou been kicked, hit, slapped, or otherwise physically hurt by your partner or ex-partner? No 06/23/2022 Within the last year, have y ou been raped or forced to have any kind of sexual activity by your partner or ex-partner? No 06/23/2022 Social Connection and Isolat ion Panel [NHANES] Answer Date Recorded In a typical week, how many times do you talk on the phone with family, friends, or neighbors? More than three times a week 06/23/2022 How often do you get togethe r with friends or relatives? More than three times a week 06/23/2022 How often do you attend chur ch or restorationism services? Never 06/23/2022 Do you belong to any clubs o r organizations such as orthodoxy groups, unions, fraternal or athletic groups, or school groups? No 06/23/2022 How often do you attend meet ings of the clubs or organizations you belong to? Never 06/23/2022 Are you , , di vorced, , never , or living with a partner? 06/23/2022 AUDIT-C Answer Date Recorded Q1: How often do you have a drink containing alc ohol? Never 06/23/2022 Average Number of Drinks Not on file 022 Frequency of Binge Drinking Not on file 06/2022 Overall Financial Resource Strain (CARDIA) Answe r Date Recorded How hard is it for you to pa y for the very basics like food, housing, medical care, and heating? Not hard at all 08/27/2023 [facility] - Occupational Stress Questionnaire Answer Date Recorded Do you feel stress - tense, restless, nervous, or anxious, or unable to sleep at night because your mind is troubled all the time - these days? To some extent 06/23/2022 Exercise Vital Sign Answer Date Recorde d On average, how many days pe r week do you engage in moderate to strenuous exercise (like a brisk walk)? 0 days 08/27/2023 On average, how many minutes do you engage in exercise at this level? 0 min 08/27/2023 Hunger Vital Sign Answer Date Recorded Within the past 12 months, y ou worried that your food would run out before you got the money to buy more. Never true 08/27/20 23 Within the past 12 months, t he food you bought just didn't last and you didn't have money to get more. Never true 08/27/2023 PRAPARE - Transportation Answer Date Re corded In the past 12 months, has l ack of transportation kept you from medical appointments or from getting medications? No 08/16 In the past 12 months, has l ack of transportation kept you from meetings, work, or from getting things needed for daily living? No 08/27/2023 Nutrition Answer Date Recorded Nutrition: EVOO Fat Source No 08/27 On average, how many serving s of fruits and vegetables do you eat per day (serving size is equal to 1 cup or approximately the size of a tennis ball)? 0-2 08/27/2023 Dental Answer Date Recorded Dental: Regular Dentist Yes 06/24/20 Employment Answer Date Recorded Employment status Employed and actively working without restrictions 08/27/2023 Housing Stability Answer Date Recorded What is your living situation today? I have a [facility] place to live 08/27/2023 Education Answer Date Recorded What is the highest level of school you have completed or the highest degree you have received? 12th grade 06/23/2022 Sex and Gender Information Value Date Recorded Sex Assigned at Female 06/23/2022 9:00 PM CDT Gender Identity Female 06/23/2022 9:00 PM CDT Sexual Orientation Straight 06/23/2022 9: 00 PM CDT documented as of this encounter Plan of Treatment Not on file documented as of this encounter Visit Diagnoses Not on filedocumented in this encounter Additional Health Concerns Infection Onset Date Last Indicated Resolved Time Protective Environment 04/07/2023 04/07/2023 documented as of this encounter
--- OUTSIDE RECORDS SUMMARY | 2023-12-11 07:43 | XMS_ITS | Encounter Summary ---
Author Name Unknown Organization [facility] Address [address] [place] [address] Care Team Providers Care Auto Body Shop Manager Name Role Phone Elsewhere, Pcp Primary Care Provider Unavailabl e Reason for Referral * Outpatient (Routine) - Authorized Specialty Diagnoses / Procedures Referred By Luigi kumar Referred To Contact Diagnoses Loss Memory Procedures PET CT Brain Metabolic Evaluation Neville Lopez M.D. [address] [place] [phone] [facility] Referral ID Status Reason Start Date Expiration Date V isits Requested Visits Authorized [id number] Authorized 10/09/2023 10/08/2024 6 6 ES ASSISTANT Reason for Visit * Outpatient (Routine) - Authorized Specialty Diagnoses / Procedures Referred By Luigi kumar Referred To Contact Diagnoses Loss Memory Procedures PET CT Brain Metabolic Evaluation Neville Lopez M.D. [address] [place] [phone] [facility] Referral ID Status Reason Start Date Expiration Date V isits Requested Visits Authorized [id number] Authorized 10/09/2023 10/08/2024 6 6 Encounter Details Date Type Department Care Team (Latest Contact Info) Description 10/16/2023 12:18 PM STORES ASSISTANT - 10/16/2023 11:59 PM STORES ASSISTANT Hospital Encounter Department of Radiology, [facility], in [place], [place] [address] [place] [phone] Neville Lopez M.D. [address] [place] [phone] Loss Memory Discharge Disposition: Home or Self Care Social History Tobacco Use Types Packs/Day Years Used Date Smoking Tobacco: Never Passive Smoke Exposure: Past Smokeless Tobacco: Never Passive Exposure Comments: ildhood exposure. Alcohol Use Standard Drinks/Week Comments Not Currently [...] week 06/23/2022 How often do you attend [facility] or zoroastrian services? Never 06/23/2022 Do you belong to any clubs o r organizations such as synagogue groups, unions, fraternal or athletic groups, or [...] and heating? Not hard at all 08/27/2023 [facility] Occupat ional Health - Occupational Stress Questionnaire Answer Date Recorded [...] your living situation today? [facility] 08/27/2023 Education Answer Date Recorded What is the highest level of school you have completed or the highest degree you have received? 12th grade 06/23/2022 Sex and Gender Information Value Date Recorded Sex Assigned at Female 06/23/2022 9:00 PM CDT Gender Identity Female 06/23/2022 9:00 PM CDT Sexual Orientation Straight 06/23/2022 9: 00 PM CDT documented as of this encounter Medications at Time of Discharge Medication Sig Dispensed Refills Start Date End Date allopurinoL (ZYLOPRIM) 300 mg tablet Take 1 tablet (300 mg total) by mouth daily. 30 tablet 0 06/24/2022 amLODIPine (NORVASC) 10 mg tablet Take 1 tablet by mouth daily. 0 02/02/2012 biotin 1 mg tablet Take 1 tablet by mouth daily. 0 buPROPion XL (WELLBUTRIN XL) 300 mg 24 hr tablet Take 300 mg by mouth every morning. 0 05/06/2023 celecoxib (CeleBREX) 100 mg capsule Take 100 mg by mouth 2 (two) times a day. 0 03/23/2022 cholecalciferol (VITAMIN D3) 125 mcg (5,000 Unit) tablet Take 125 mcg by mouth daily. 0 05/21/2015 diclofenac sodium (VOLTAREN) 75 mg EC tablet Take 75 mg by mouth 2 (two) times a day. 0 05/06/2022 DULoxetine (CYMBALTA) [address] capsule Take 60 mg by mouth 2 (two) times a day. 0 finasteride (PROSCAR) 5 mg tablet Take 2.5 mg by mouth daily. 0 05/14/2022 furosemide (LASIX) 40 mg tablet Take 1 tablet by mouth every morning. 0 12/22/2011 gabapentin (NEURONTIN) 300 mg capsule Take 1 capsule by mouth daily. 0 03/23/2012 HYDROcodone-acetaminoph en (NORCO) 5-325 mg per tablet Take 1 tablet by mouth every 6 (six) hours as needed. for pain 0 05/15/2022 hydrocortisone (HYTONE) 2.5 % cream Apply topically as needed. 0 07/19/2011 levothyroxine (SYNTHROID, LEVOTHROID) 75 mcg tablet Take 75 mcg by mouth daily. 0 04/20/2022 lisinopriL (PRINIVIL,ZESTRIL) 40 mg tablet Take 40 mg by mouth 2 (two) times a day. 0 02/28/2022 LORazepam (ATIVAN) 0.5 mg tablet Take 0.5 mg by mouth as needed. 0 05/30/2022 metoprolol succinate (TOPROL-XL) 100 mg 24 hr tablet Take 100 mg by mouth daily. 0 03/05/2022 nystatin-triamcinolone (MYCOLOG II) 100,000 Unit/g-0.1 % cream Apply topically 2 (two) times a day as needed. 0 09/25/2022 ondansetron (ZOFRAN) 4 mg tablet Take 1 tablet (4 mg total) by mouth every 8 (eight) hours as needed for nausea or vomiting (Please take as first line treatment and compazine as second line treatment.). 40 tablet 0 12/23/2022 oxyCODONE-acetaminophen (PERCOCET) 5-325 mg per tablet TAKE 1/2 TO 1 TABLET BY MOUTH EVERY 6 TO 8 HOURS NEEDED. MAX DOSE: 6/DAY. 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 30 tablet 3 12/23/2022 12/23/2023 Xarelto 10 mg tablet TAKE 1 TABLET (10 MG TOTAL) BY MOUTH DAILY WITH DINNER. 30 tablet 11 06/26/2023 zinc chelated 50 mg tablet tablet Take 1 tablet by mouth daily. 0 05/21/2015 documented as of this encounter Plan of Treatment Not on file documented as of this encounter Procedures Procedure Name Priority Date/Time Associated Diagnosis Comments PET CT BRAIN METABOLIC EVALUATION RAD - Routine (most inpatients and all outpatients) 10/16/2023 2:50 PM STORES ASSISTANT Loss Memory documented in this encounter Results * PET CT Brain Metabolic Evaluation (10/16/2023 2:50 PM STORES ASSISTANT) Anatomical Region Laterality Modality Brain, Nuclear Medicine PET RST LOS, PET ARZ LOS, Nuclear Medicine PET FLA LOS, Nuclear Medicine N/A Positron Emission Tomography (PET), Positron Emission Tomography (PET) 10/16/2023 2:38 PM STORES ASSISTANT Impressions 10/16/2023 3:42 PM STORES ASSISTANT No significant cerebral hypometabolism to suggest a neurodegenerative disorder. Narrative 10/16/2023 3:42 PM STORES ASSISTANT EXAM: ??PET CT BRAIN METABOLIC EVALUATION Serum glucose at time of F-18 FDG injection was 86 mg/dL. RADIOPHARMACEUTICAL/MEDS: Route: intravenous fludeoxyglucose F 18 injection CARE HOME (FDG F-18),5.05 millicurie TECHNIQUE: F-18 FDG PET/CT scan was performed of the brain with low dose, non-contrast, free-breathing CT images for attenuation correction and anatomic localization (AC/AL), with imaging beginning at approximately 30 minutes after radiotracer injection. Cortex ID performed. COMPARISON: ??MR brain 07/17/2023. INDICATION: ??Neurodegenerative disorder. FINDINGS: ??No significant cerebral hypometabolism. No significant incidental findings. Procedure Note Amanda Abdi M.D. - 10/16/2023 EXAM: PET CT BRAIN METABOLIC EVALUATION Serum glucose at time of F-18 FDG injection was 86 mg/dL. RADIOPHARMACEUTICAL/MEDS: Route: intravenous fludeoxyglucose F 18 injection CARE HOME (FDG F-18),5.05 millicurie TECHNIQUE: F-18 FDG PET/CT scan was performed of the brain with low dose,non-contrast, free-breathing CT images for attenuation correction andanatomic localization (AC/AL), with imaging beginning at approximately 30minutes after radiotracer injection. Cortex ID performed. COMPARISON: MR brain 07/17/2023. INDICATION: Neurodegenerative disorder. FINDINGS: No significant cerebral hypometabolism. No significantincidental findings. IMPRESSION: No significant cerebral hypometabolism to suggest a neurodegenerativedisorder. Neville ZARATE [place] PROCEDURES documented in this encounter Visit Diagnoses Diagnosis Loss Memory documented in this encounter Administered Medications Inactive Administered Medications - up to 3 most recent administrations Medication Order MAR Action Action Date Dose Rate Site fludeoxyglucose F 18 injection CARE HOME (FDG F-18) 4.5-16.5 millicurie, intravenous, Once, On Thu10/16/23 at 1415, For 1 dose, Imaging Protocol Orders Given 10/16/2023 1:47 PM STORES ASSISTANT 5.05 millicuries documented in this encounter Additional Health Concerns Infection Onset Date Last Indicated Resolved Time Protective Environment 04/07/2023 04/07/2023 documented as of this encounter Care Teams Auto Body Shop Manager Relationship Specialty Start Date End Date Elsewhere, Pcp PCP - General Internal Medicine 10/05/23 documented as of this encounter
--- OUTSIDE RECORDS SUMMARY | 2023-12-11 07:43 | XMS_ITS | Encounter Summary ---
Author Name Unknown Organization [facility] Address [address] [place] [address] Care Team Providers Care Sheet Rock Layer Name Role Phone Elsewhere, Pcp Primary Care Provider Unavailabl e Encounter Details Date Type Department Care Team (Late st Contact Info) Description 11/12/2023 Orders Only Department of Neurology in [place], [place] [address] [place] [phone] Max Montgomery M.D. [address] [place] [phone] Social History Tobacco Use Types Packs/Day Years Used Date Smoking Tobacco: Never Passive Smoke Exposure: Past Smokeless Tobacco: Never Passive Exposure Comments:Ch ildhood exposure. Alcohol Use Standard Drinks/Week Comments [...] often do you attend chur ch or samaritan services? Never 06/23/2022 Do you belong to any clubs o r organizations such as hinduism groups, unions, fraternal or athletic groups, or [...] and heating? Not hard at all 08/27/2023 [facility] [place] of Occupat ional Health - Occupational Stress [...] your living situation today? I have a [facility] place to live 08/27/2023 Education Answer [...] documented as of this encounter Care Teams Sheet Rock Layer Relationship Specialty Start Date End Date Elsewhere, Pcp PCP - General Internal Medicine 10/05/23 documented as of this encounter
--- OUTSIDE RECORDS SUMMARY | 2023-12-11 07:43 | XMS_ITS | Encounter Summary ---
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 [address] [place] [phone] [facility] Referral ID Status Reason Start Date Expiration Date V isits Requested Visits Authorized [id number] Authorized 09/23/2023 09/22/2024 1 1 R * Outpatient (Routine) - Authorized Specialty Diagnoses / Procedures Referred By Luigi kumar Referred To Contact Hematology Oncology Connor Bermudez M.D., M.S. [address] [place] [phone] [facility] Referral ID Status Reason Start Date Expiration Date V isits Requested Visits Authorized [id number] Authorized 09/23/2023 09/22/2026 1 1 R Reason for Visit * Outpatient (Routine) - Closed Specialty Diagnoses / Procedures Referred By Luigi kumar Referred To Contact Hematology Oncology Connor Bermudez M.D., M.S. [address] [place] [phone] [facility] Referral ID Status Reason Start Date Expiration Date Visits Re quested Visits Authorized [id number] Closed 08/05/2023 08/04/2026 1 1 Encounter Details Date Type Department Care Team (Late st Contact Info) Description 09/01/2023 10:00 AM CDT Office Visit Division of Hematology in [place], [place] [address] [place] [phone] Connor Bermudez M.D., M.S. 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 Never 06/23/2022 Do you belong to any clubs o r organizations such as gnosticist groups, unions, fraternal or athletic groups, or [...] and heating? Not hard at all 08/27/2023 [facility] of Occupat ional Health - Occupational Stress [...] your living situation today? I have a [facility] place to live 08/27/2023 Education Answer [...] PM CDT documented as of this encounter Last Filed Vital Signs Vital Sign Reading Time Taken Comments Blood Pressure 148/83 09/01/2023 9:47 AM CDT Pulse 66 09/01/2023 9:47 AM CDT Temperature 36.2 ??C (97.2 ??F) 09/01/2023 9:47 AM CD T Respiratory Rate - - Oxygen Saturation - - Inhaled Oxygen Concentration - - Weight 104 kg (229 lb 4.5 oz) 09/01/2023 9:47 AM CDT Height 166 cm (5' 5.35) 09/01/2023 9:47 AM CDT Body Mass Index 37.74 09/01/2023 9:47 AM CDT documented in this encounter Progress Notes * Connor Bermudez M.D., M.S. - 09/01/2023 10:00 AM CDT [facility] - Hematology SUBJECTIVE PRIMARY CARE PHYSICIAN No primary care provider on file. 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 Croft Primary fellow: Dr. Bermudez CHIEF COMPLAINT / REASON FOR VISIT Jaky Lara is a 67 y.o. 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 HISTORY OF PRESENT ILLNESS The patient has a past medical history which includes HTN, hypothyroidism, anxiety, depression, right LE DVT treated with systemic anticoagulation x3 months followed by ASA 325mg, fractured tibia andtorn meniscus 11/2021, and SUDHAKAR on CPAP. History of menorrhagia, previous intolerance to IUD, hormonereplacement therapies. Has uterus and ovaries and in menopause. 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 04/24/2022 Critical Imaging Screening mammogram was found to have suspicious right axillary lymphadenopathy. 04/29/2022 Biopsy/Pathology Right axillary core needle biopsy: Malignant neoplasm, favor lymphoma. No clonal population is detected by B and T cell gene rearrangement analysis. Despite these findings suggesting a possible B-cell malignancy, molecular studies for monoclonal B/T gene rearrangements are negative. 05/15/2022 Biopsy/Pathology Excisional lymph node biopsy: Nodular lymphocyte predominant B-cell lymphoma. 05/15/2022 Critical Imaging PET-CT: Large grouping of hypermetabolic masses/lymphadenopathy associated with the right axilla isidentified, SUV max is 26.5. Other scattered lymph nodes are identified in the right neck, portacaval region, right external iliac ludy chain and right groin. Multiple abnormal hypermetabolic skeletal lesions are identified. Largest lesions involve the left proximal femur and spine. Numerous otherscattered hypermetabolic skeletal lesions are noted as detailed above. Multiple hypermetabolic splenic lesions are noted. 07/01/2022 - Chemotherapy Rituximab: Day 1 Cycle 1 The following portions of the patient's history were reviewed and updated as appropriate: allergies, current medications, family history, medical history, social history, surgical history, and problem list. 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 REVIEW OF SYSTEMS Constitutional: Positive for fatigue. - Negative for fever, loss of appetite, night sweats, weight gain of more than 10 pounds and weightloss of more than 10 pounds. - Frequent daytime sweats, hair loss Eyes: - Negative for double vision, visual problems and sudden loss of vision. ENT: - Negative for sinus congestion. Respiratory: - Negative for coughing up mucus (phlegm), dry cough, shortness of breath and wheezing. Cardiovascular: - Negative for chest pain, pressure or tightness, swelling in the legs or feet and rapid or fluttering heart beat. - Right leg edema Gastrointestinal: - Negative for blood in stool, constipation, diarrhea, nausea and vomiting. Genitourinary: - Negative for blood in urine and frequent urination. Musculoskeletal: Positive for pain or stiffness in the joints, back pain and muscle pain/stiffness. Neurological: - Negative for loss of consciousness, light-headedness, numbness or shooting pain in hands, arms, legs, or feet and headaches. - Patient having short term memory impairment, self-described as brain fog Psychiatric/Behavioral: Positive for loud snoring, little interest or pleasure in doing things overpast two weeks and feeling down, depressed, or hopeless over past two weeks. The following systems were negative: Skin, Eyes, Cardiovascular, Hematologic OBJECTIVE PHYSICAL EXAMINATION Constitutional Appearance: Normal appearance. She is normal weight. HENT Head: Normocephalic and atraumatic. Cardiovascular Rate and Rhythm: Normal rate and regular rhythm. Pulses: Normal pulses. Heart sounds: No murmur heard. No gallop. Pulmonary Effort: Pulmonary effort is normal. No respiratory distress. Breath sounds: Normal breath sounds. No wheezing. Abdominal General: Abdomen is flat. Bowel sounds are normal. There is no distension. Palpations: Abdomen is soft. Tenderness: There is no abdominal tenderness. Musculoskeletal General: No tenderness. Right lower leg: No edema. Left lower leg: No edema. Skin General: Skin is warm and dry. Capillary Refill: Capillary refill takes less than 2 seconds. Findings: No lesion or rash. Neurological General: No focal deficit present. Mental Status: She is alert and oriented to person, place, and time. Mental status is at baseline. Psychiatric Mood and Affect: Mood normal. Behavior: Behavior normal. Thought Content: Thought content normal. LABORATORY DATA Lab data reviewed. RADIOLOGICAL DATA Radiology data reviewed. ASSESSMENT / PLAN # Nodular lymphocyte predominant B-cell lymphoma The patient self-reported palpable lymphadenopathy of the right axilla prior to diagnosis which wasinitially demonstrated on mammography. She subsequently had a needle biopsy followed by an excisional lymph node biopsy of the right axillary lymphadenopathy which was significant for nodular lymphocyte-predominant B-cell lymphoma. At time of diagnosis she had evidence of disease in the axilla, neck, external iliac, groin, skeleton, and spleen. She has no evidence of BOILERMAKING SUPERVISOR disease either on MRI or on CSF sampling. She was placed on Rituximab therapy. The patient was sick with COVID between cycles 5 and 6 and had some ear pain and Eustachian tube dysfunction around that time. Toward the end of therapy, she reported that she had been having ongoingfatigue, some intention tremor. She also has had some cramping in the backs of her legs. 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 Furthermore, I previously obtained a vascular medicine eConsult and her Xeralto was decreased to a prophylactic low-dose of 10 mg p.o. q.day until she is known to be cancer free. We will make that determination at the time of her post- treatment [address] Patient has now completed her therapy. PET CT with CR. She has been having a small amount of discomfort under the right axilla. Patient said she is also having an occasional instance of vertigo, suchas recently when packing / moving boxes. Possibly BPPV, we discussed home Dora maneuvers but I encouraged her to seek specific care for her symptoms. Her lymphoma appears to be well controlled but given her need for a full 8 cycles of Rituximab, we will continue with one additional PET CT to ensure maintained resolution of disease. Updates: CBC with hgb 15.1 CMP with creatinine 1.12, K 5.[address]: No evidence of FDG avid lymphoma. Deauville 2. MR brain: No acute intracranial abnormality. No structural etiology for memory loss is identified. Interval response of previously seen lymphomatous involvement in the right neck. Plan summary Active surveillance every [address], labs, and H&P One additional PET CT to ensure resolution of disease, then no imaging necessary PATIENT EDUCATION Ready to learn, no apparent learning barriers were identified; learning preferences include listening. Explained diagnosis and treatment plan; patient expressed understanding of the content. ADMINISTRATIVE BILLING I personally spent 35 minutes in care of the patient today. Time includes both non face to face andface to face patient care. 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) Expected: 12/24/2023 (Approximate), Expires: 12/24/2024 Scheduled Referrals Name Type Priority Associated Diagnoses Order Schedule Hematology office visit (clinic) [place]; Lymphoma; General Outpatient Referral Routine Expected: 12/24/2023 (Approximate), Expires: 12/24/2024 documented as of this encounter Visit Diagnoses Diagnosis 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
--- OUTSIDE RECORDS SUMMARY | 2023-12-11 07:43 | XMS_ITS | Encounter Summary ---
Author Name Unknown Organization [facility] Address [address] [place] [id number] Care Team Providers Care Engine Watchman Name Role Phone Elsewhere, Pcp Primary Care Provider Unavailabl e Reason for Referral * Outpatient (Routine) - Closed Specialty Diagnoses / Procedures Referred By Luigi kumar Referred To Contact Neurology Neville Lopez M.D. [address] [place] [phone] [facility] Referral ID Status Reason Start Date Expiration Date Visits Re quested Visits Authorized [id number] Closed 10/09/2023 10/08/2026 1 1 H HAIRSPRING ASSEMBLER * Outpatient (Routine) - Authorized Specialty Diagnoses / Procedures Referred By Luigi kumar Referred To Contact Diagnoses Loss Memory Procedures PET CT Brain Metabolic Evaluation Neville Lopez M.D. [address] [place] [phone] [facility] Referral ID Status Reason Start Date Expiration Date V isits Requested Visits Authorized [id number] Authorized 10/09/2023 10/08/2024 6 6 H HAIRSPRING ASSEMBLER * Behavioral Health (Routine) - Closed Specialty Diagnoses / Procedures Referred By Luigi kumar Referred To Contact Psychology / Psychiatry and Psychology Diagnoses Loss Memory Procedures PSY Neuropsychology testing Neville Lopez M.D. [address] [place] [phone] [facility] Referral ID Status Reason Start Date Expiration Date Visits Re quested Visits Authorized [id number] Closed 10/09/2023 10/08/2024 1 1 H HAIRSPRING ASSEMBLER Reason for Visit * Outpatient (Routine) - Closed Specialty Diagnoses / Procedures Referred By Luigi kumar Referred To Contact Neurology Diagnoses Loss Memory Connor Bermudez M.D., M.S. [address] [place] [phone] [facility] Referral ID Status Reason Start Date Expiration Date V isits Requested Visits Authorized [id number] Closed Specialty Services Required 08/05/2023 08/04/2024 1 1 Encounter Details Date Type Department Care Team (Late st Contact Info) Description 10/09/2023 10:00 AM WATCH HAIRSPRING ASSEMBLER Comprehensive Visit Department of Neurology in [place], [place] [address] [place] [phone] Connor Bermudez M.D., M.S. [address] [place] [phone] Max Montgomery M.D. [address] [place] [phone] Neville Lopez M.D. [address] [place] [phone] Loss Memory Social History Tobacco Use Types Packs/Day Years [...] 06/23/2022 How often do you attend chur or church services? Never 06/23/2022 Do you belong to any clubs o r organizations such as denominational groups, unions, fraternal or athletic groups, or [...] and heating? Not hard at all 08/27/2023 [employer] of Occupat ional Health - Occupational Stress [...] your living situation today? I have a [facility] place to live 08/27/2023 Education Answer [...] Sign Reading Time Taken Comments Blood Pressure - - Pulse - - Temperature - - Respiratory Rate - - Oxygen Saturation - - Inhaled Oxygen Concentration - - Weight 105 kg (231 lb 14.8 oz) 10/09/2023 10:00 AM WATCH HAIRSPRING ASSEMBLER Height 163.3 cm (5' 4.29) 10/09/2023 10:[address] Body Mass Index 39.45 10/09/2023 10:00 AM WATCH HAIRSPRING ASSEMBLER documented in this encounter Consult Notes * Max Montgomery M.D. - 10/09/2023 10:00 AM CST I have reviewed the history and physical examination findings as documented by Dr. Lopez. I have not met with Jaky Lara. I agree with the documentation dated 10/09/23. This is a supervisory note.See resident note for details. SUBJECTIVE The patient is here to be evaluated for a decline in memory. Symptoms may have started about 5 years ago but have become significantly worse over the past 2 years. This is against the backdrop of a diagnosis of lymphoma with the right neck adenopathy. She has been treated with rituximab with the last rituximab administration being in May of 2023. Her initial complaints included difficulty remembering where she may have placed something as well as difficulty with short-term memory. She increasingly found the need to use lists and post its and subsequently started having difficulty remembering certain words and directions. 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 The story is somewhat confounded by the fact that she has been dealing with the challenges associated with a diagnosis of a malignancy, her mother in June of 2023 and in Augusthe had COVID. In the post COVID. She developed an episode of pulmonary embolism and is on Xarelto though is expected to be on the same for a relatively short amount of time. Additionally she has concerns regarding anxiety and depression. She takes lorazepam for the former and is on duloxetine and bupropion for the latter. She is also had some issues with the knee and takes gabapentin for the associated pain and her medication list includes Percocet as needed. That said there is a history of good days and bad days and it is somewhat hard to tease out whethermedical issues, illness in family members as well as anxiety and depression related to some of these issues could be confounding her performance on the Kokmen short test of mental status. There is a questionable history of talking in her sleep but no definite history of dream enacting behaviors and while she reports an intermittent tremulousness, her exam does not show a tremor and lacks extrapyramidal features. Her brain MRI was not necessarily done with the dementia protocol but there does not seem to be anyobvious the lobar atrophy and certainly no evidence of a space-occupying lesion. Past social and family history Past history is remarkable for hypertension, possible congestive heart failure, DVT, hypothyroidismas well as sleep apnea. Most importantly she has been treated for lymphoma involving the right sideof the neck. There is no family history of a significant neurologic illness. 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 Medication history Her medications were reviewed and include duloxetine, bupropion, lorazepam, metoprolol, lisinopril,allopurinol OBJECTIVE Her performance on the Kokmen short test of Mental status was suboptimal, specifically she scored 24/38. She missed 2 on attention, needed 3 trials, missed 3 on calculation, 2 on construction, 2 on knowledge and 3 on recall. The rest of her neurologic exam is age-appropriate with there being some gait difficulty because of a right knee issues. In particular no psychomotor slowing or tremors or extrapyramidal findings were identified ASSESSMENT/ PLAN #1 Loss Memory The patient is here to be evaluated for a decline in memory. Symptoms may have started about 5 years ago but have become significantly worse over the past 2 years. This is against the backdrop of a diagnosis of lymphoma with the right neck adenopathy. She has been treated with rituximab with the last rituximab administration being in May of 2023. Her initial complaints included difficulty remembering where she may have placed something as well as difficulty with short-term memory. She increasingly found the need to use lists and post its and subsequently started having difficulty remembering certain words and directions. 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 The story is somewhat confounded by the fact that she has been dealing with the challenges associated with a diagnosis of a malignancy, her mother in June of 2023 and in Augusthe had COVID. In the post COVID. She developed an episode of pulmonary embolism and is on Xarelto though is expected to be on the same for a relatively short amount of time. Additionally she has concerns regarding anxiety and depression. She takes lorazepam for the former and is on duloxetine and bupropion for the latter. She is also had some issues with the knee and takes gabapentin for the associated pain and her medication list includes Percocet as needed. Her performance on the Kokmen short test of Mental status was suboptimal, specifically she scored 24/38. That said there is a history of good days and bad days and it is somewhat hard to tease out whethermedical issues, illness in family members as well as anxiety and depression related to some of these issues could be confounding her performance on the Kokmen short test of mental status. There is a questionable history of talking in her sleep but no definite history of dream enacting behaviors and while she reports an intermittent tremulousness, her exam does not show a tremor and lacks extrapyramidal features. Her brain MRI was not necessarily done with the dementia protocol but there does not seem to be anyobvious the lobar atrophy and certainly no evidence of a space-occupying lesion. I think to tease through some of these issues will need to get a formal neuropsychometric assessment as well as a PET scan. She will be seeing Dr Lopez after this and based on the results of the testing may or may not require evaluation for CSF Alzheimer disease related biomarkers. Max Montgomery M.D. H HAIRSPRING ASSEMBLER * Neville Lopez M.D. - 10/09/2023 10:00 AM CST SUBJECTIVE CHIEF COMPLAINT / REASON FOR VISIT Jaky Lara is a 67 y.o. female who presents for evaluation of memory loss HISTORY OF PRESENT ILLNESS Ms. 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 Her accompanies her for this visit. Her past medical comorbidities include the diagnosis of nodular lymphocyte predominant B-cell lymphoma for which she received rituximab therapy. Her last therapy was in May 2023. Her most recent PETscan in July did not show any residual disease. MRI and CSF studies in the past have not shown any involvement of the brain. Most recent brain MRI in July of 2023 did not show any involvement of the PROFESSOR IN FAMILY STUDIES. There was noted some mild to moderate atrophy which I agree with on my review. No obvious predilection of atrophy to any particular area of the brain. She also has a historyof DVT that she states was sometime prior to COVID perhaps in 2019 in the setting of driving her bus. She also has a history of pulmonary embolism in the setting of COVID for which she is on a prophylactic dose of Xarelto that 10 mg currently. She also has a history of right lower extremity knee pain for which she occasionally will take opioid medications including Percocet and Hixson, but this isinfrequent perhaps once a month or so. She is also on nightly gabapentin for this. She also has a history of depression is currently on duloxetine and Wellbutrin. She also has a history of anxiety and is on lorazepam p.r.n. for which she states she takes it about 2 to 3 times a week. Her highest level of education is high school graduate. 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 She lives with her at home. She tells me that perhaps 5 years ago she would and her noticed that she had become more frequently misplacing her phone, while at, and other daily items. Over the past 2 years or so there has been some significant worsening. She has been having trouble remembering her appointments as well as her driving schedule for her school children. She even forgot to continuous pickling line pickler 1 of her children once for the 1st time about 3 weeks ago. This has not happened since. She will occasionally also forget her medication and will need frequent reminders. They have been using posted notes throughout the house to help remind her of these tasks. Long-term memory they state is overall preserved. They also note that she will have occasional tremor in the hand that will occur predominantly with activity and is intermittent. There was no obvious resting tremor noted. This also startedabout 1-2 years ago. Over the past 3-6 months, she started using a CPAP machine and her notes that she has been talking in her sleep at night. He is not able to make out what she is saying jacy does not have his hearing aids in overnight. No physical movements noted though. No other parkinsonian symptoms. No auditory or visual hallucinations. No changes in behavior or personality. No hypersexuality, increased spending, or gambling compulsions. Also of note during this past 2 years, it has been a stressful time for her. She has been dealing with a new diagnosis of cancer, had a COVID infection, and her mother had been ill and recently in June. She has been taking the of her mother especially hard and will have episodesof crying and tearfulness throughout the day. Her evaluation including a TSH and B12 have overall been within normal limits. MRI of the brain as previously mentioned did not show any territorial atrophy but rather does show some wwir-[id number] generalized brain atrophy. REVIEW OF SYSTEMS: Per HPI OBJECTIVE PHYSICAL EXAM Neurologic: Mental status: Kokmen: -2 attention, 3 trials required for registration, -3 calculation, -2 construciton, -2 knowledge, -3 recall. No signs of apraxia or L- R confusion Speech: Clear. Language: No evidence of aphasia. Cranial nerves: PERRL, EOMI, visual ibarra intact to confrontation, facial movements full and symmetric, sensation intact to light touch in the V1-V3 distributions, hearing intact to voice, tongue protrudes in midline, there is equal elevation of the soft palate, shoulder shrug is appropriate in strength. Motor: Bilateral upper and lower extremity strength evaluated including: (R, L) deltoids (0,0), biceps (0,0), triceps (0,0), wrist extension (0,0), finger extension (0,0), interossei (0,0), iliopsoas(0,0), knee flexion (0,0), knee extension (0,0), ankle dorsiflexion (0,0), toe extension (0,0). Tone is normal in bilateral upper and lower extremities. Sensory: Sensation is intact to light touch of distal extremities bilaterally. Reflexes: biceps (0,0), triceps (0,0), brachioradialis (0,0), patellar (0,0) and Achilles (0,0). Plantar flexor responses are flexor-flexor. Coordination: Finger to nose and heel to martinez are normal bilaterally. Cheryl in fingers, hands, and feet are normal Gait: Antalgic gait, no parkinsonian features or postural instability ASSESSMENT / PLAN # Memory loss- possible neurodegenerative process # Depression # Anxiety # Hypertension She presents today for about 5 years ago of subtle memory loss that has not progressed over the past 2 years especially. Over the last 2 years, she has been going through a difficult period of life including with a diagnosis of cancer, COVID infection, illness of her mother and ultimately the passing of her mother. She is still undergoing the grieving process and has good days and bad days. She is on Wellbutrin, duloxetine, and as needed lorazepam for her depression and anxiety. This is suboptimally controlled at this time. I encouraged her to speak with her primary care physician who prescribes his medications to better optimize her mood. That being said, her history and her examination with a Kokmen of 24 (though likely confounded by her mood) is concerning for possible underlying neurodegenerative process. MRI was also performed which was not done with dementia protocol but did not show any obvious territorial degeneration a rather obzv-[id number] degeneration throughout. I am unsure what to make of the episodes of talking in her sleep though there is no other signs of REM sleep behavior disorder or parkinsonian features. Concerning her history of tremors, I am not able to continuous pickling line pickler any kinetic, rest or postural tremor on my evaluation today. This may be related to her anxiety and can continue to be monitor at this time as it is not affecting her day-to-day life. I worry about Alzheimer's disease pathology most though further testing is required before I am able to confidently make a conclusion. For all this, I have recommended a formal neuropsychometric testing as well as PET scan. I will then plan on seeing her back with reassessment of her Kokmen and hopefully with improvement of her moodto better identify her true baseline. Dependent of all this, we may have to proceed with CSF AD biomarker testing. She may ultimately become a candidate for anti amyloid therapy but this requires a few things including further data to possibly solidify the diagnosis of Alzheimer's disease, if she is able to come off the her Xarelto, and improvement of her Kokmen test score after treatment of her anxiety and depression. This will be discussed during further follow-up. Plan: -PET brain -Neuropsychiatric testing -Follow-up with me Neville Lopez PGY-[address] Montgomery H HAIRSPRING ASSEMBLER documented in this encounter Plan of Treatment Scheduled Referrals Name Type Priority Associated Diagnoses Orde r Schedule Neurology office visit (clinic) Outpatient Referral Routine Expected: 01/09/2024 (Approximate), Expires: 01/09/2025 documented as of this encounter Results * PET CT Brain Metabolic Evaluation (10/16/2023 2:50 PM WATCH HAIRSPRING ASSEMBLER) Anatomical Region Laterality Modality Brain, Nuclear Medicine PET RST LOS, PET ARZ LOS, Nuclear Medicine PET FLA LOS, Nuclear Medicine N/A Positron Emission Tomography (PET), Positron Emission Tomography (PET) 10/16/2023 2:38 PM WATCH HAIRSPRING ASSEMBLER Impressions 10/16/2023 3:42 PM WATCH HAIRSPRING ASSEMBLER No significant cerebral hypometabolism to suggest a neurodegenerative disorder. Narrative 10/16/2023 3:42 PM WATCH HAIRSPRING ASSEMBLER EXAM: ??PET CT BRAIN METABOLIC EVALUATION Serum glucose at time of F-18 FDG injection was 86 mg/dL. RADIOPHARMACEUTICAL/MEDS: Route: intravenous fludeoxyglucose F 18 injection CORRECTION (FDG F-18),5.05 millicurie TECHNIQUE: F-18 FDG PET/CT [...] RADIOPHARMACEUTICAL/MEDS: Route: intravenous fludeoxyglucose F 18 injection CORRECTION (FDG F-18),5.05 millicurie TECHNIQUE: F-18 FDG PET/CT scan was performed of the brain with low dose,non-contrast, free-breathing CT images for attenuation correction andanatomic localization (AC/AL), with imaging beginning at approximately 30minutes after radiotracer injection. Cortex ID performed. COMPARISON: MR brain 07/17/2023. INDICATION: Neurodegenerative disorder. FINDINGS: No significant cerebral hypometabolism. No significantincidental findings. IMPRESSION: No significant cerebral hypometabolism to suggest a neurodegenerativedisorder. Neville Lopez M.D. IMG NM PROCEDURES documented in this encounter Visit Diagnoses Diagnosis Loss Memory Loss Memory documented in this encounter Additional Health Concerns Infection Onset Date Last Indicated Resolved Time Protective Environment 04/07/2023 04/07/2023 documented as of this encounter Care Teams Engine Watchman Relationship Specialty Start Date End Date Elsewhere, Pcp PCP - General Internal Medicine 10/05/23 documented as of this encounter
--- OUTSIDE RECORDS SUMMARY | 2023-12-11 07:43 | XMS_ITS | Encounter Summary ---
Author Name Unknown Organization [facility] Address [address] [place] [id number] Care Team Providers Care Latin American Studies Professor Name Role Phone Elsewhere, Pcp Primary Care Provider Unavailabl e Reason for Visit * Outpatient (Routine) - Closed Specialty Diagnoses / Procedures Referred By Luigi kumar Referred To Contact Neurology Neville Lopez M.D. [address] [place] [phone] [facility] Referral ID Status Reason Start Date Expiration Date Visits Re quested Visits Authorized [id number] Closed 10/09/2023 10/08/2026 1 1 Encounter Details Date Type Department Care Team (Late st Contact Info) Description 11/19/2023 2:00 PM SHAPER AND PRESSER Telemedicine Department of Neurology in [place], [place] [address] [place] [phone] Neville Lopez M.D. [address] [place] [phone] Loss Memory (Primary Dx) Social History Tobacco Use Types [...] often do you attend chur ch or anglican services? Never 06/23/2022 Do you belong to any clubs o r organizations such as adventist groups, unions, fraternal or athletic groups, or [...] and heating? Not hard at all 08/27/2023 [facility] [employer] of Occupat ional Health - Occupational Stress [...] your living situation today? I have a [facility] place to live 08/27/2023 Education Answer Date Recorded What is the highest level of school you have completed or the highest degree you have received? 12th grade 06/23/2022 Sex and Gender Information Value Date Recorded Sex Assigned at Female 06/23/2022 9:00 PM CDT Gender Identity Female 06/23/2022 9:00 PM CDT Sexual Orientation Straight 06/23/2022 9: 00 PM CDT documented as of this encounter Consult Notes * Neville Lopez M.D. - 11/19/2023 2:00 PM CST Brief Neurology Progress Note Ms. Lara his unfortunately ill with COVID and was not able to make it to this video visit. I did speak with her daughter and her who has been authorized to visit on her behalf. She was initially planning on getting lumbar puncture on 11/20/2023 to assess for AD biomarkers butgiven her COVID illness, she has not able to make at this time. She was holding her Xarelto for this procedure but she should continue this at this time and hold for 72 hours prior to her lumbar puncture when it is rescheduled. She can be started about 48 to 72 hours after the procedure was completed. I spoke with the patient's daughter and regarding the results of the neuropsychiatric testing as well as the PET scan and the relevant data that we have now. Her cognitive difficulty precededher lymphoma diagnosis as well as treatment. However, it is possible that there is some worsening secondary to those treatments and also her mood as previously described, she is grieving for the lossof her mother who relatively recently. That being said, the neuropsychiatric testing revealed concerning deficits that may not be entirely explained by her cancer diagnosis, cancer treatment, and mood. This fits with the history and I am also concerned that there could be a neurodegenerative process going on at this time. On further review of the PET scan, there may be some areas of hypometabolism around the temporoparietal lobe that could represent early Alzheimer's disease. CSF studies would be best to help differentiate this at this time. We will try to obtain this after her COVID illness. We also spoke about options if testing was positive for Alzheimer's disease, we discussed that she would not be a treatment for anti amyloid fusions at this time given her recent cancer treatment however medications such as donepezil could be considered. If CSF studies were negative, this could be related to her mood and this would need to be addressed further and we can follow clinically with periodic visits if needed. We will discuss further after her lumbar puncture is completed after she feels well. Neville Lopez PGY 4 ER AND PRESSER documented in this encounter Plan of Treatment Not on file documented as of this encounter Visit Diagnoses Diagnosis Loss Memory- Primary documented in this encounter Additional Health Concerns Infection Onset Date Last Indicated Resolved Time Protective Environment 04/07/2023 04/07/2023 documented as of this encounter Care Teams Latin American Studies Professor Relationship Specialty Start Date End Date Elsewhere, Pcp PCP - General Internal Medicine 10/05/23 documented as of this encounter
--- OUTSIDE RECORDS SUMMARY | 2023-12-11 07:43 | XMS_ITS | Encounter Summary ---
Author Name Unknown Organization [facility] Address [address] [place] [address] Care Team Providers Care Aviation Metalsmith Name Role Phone Unavailable Primary Care Provider Unavailabl e Encounter Details Date Type Department Care Team (Latest Contact Info) Description 09/01/2023 8:20 AM CDT - 09/01/2023 11:59 PM CDT Hospital Encounter Department of Laboratory Medicine and Pathology, [facility] in [place], [place] [address] [place] [address] Connor Bermudez M.D., M.S. 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 Never 06/23/2022 Do you belong to any clubs o r organizations such as druze groups, unions, fraternal or athletic groups, or [...] and heating? Not hard at all 08/27/2023 [facility] Occupat ional Health - Occupational Stress [...] your living situation today? 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) documented in this encounter Results * (ABNORMAL) Comprehensive Metabolic Panel (09/01/2023 8:29 AM CDT) Potassium, S 5.3(H) 3.6 - 5.2 mmol/L 09/01/2023 9:40 AM CDT DTL Sodium, S 142 135 - 145 mmol/L 09/01/2023 9:40 AM CDT DTL Chloride, S 105 98 - 107 mmol/L 09/01/2023 9:40 AM CDT DTL Bicarbonate, S 30(H) 22 - 29 mmol/L 09/01/2023 9:40 AM CDT DTL Anion Gap 7 7 - 15 09/01/2023 9:40 AM CDT DTL BUN (Blood Urea Nitrogen), S 15 6 - 21 mg/dL 09/01/2023 9:40 AM CDT DTL Creatinine 1.12(H) 0.59 - 1.04 mg/dL 09/01/2023 9:40 AM CDT DTL Estimated GFR (eGFR) 54(L) >=60 mL/min/BS A 09/01/2023 9:40 AM CDT DTL Comment: Estimated GFR calculated using the 2020 CKD_EPI creatinine equation. Calcium, Total, S 9.7 8.8 - 10.2 mg/dL 09/01/2023 9:40 AM CDT DTL Glucose, S 112 70 - 140 mg/dL 09/01/2023 9:40 AM CDT DTL Protein, Total, S 6.4 6.3 - 7.9 g/dL 09/01/2023 9:40 AM CDT DTL Albumin, S 4.5 3.5 - 5.0 g/dL 09/01/2023 9:40 AM CDT DTL Aspartate Aminotransferase (AST), S 25 8 - 43 U/L 09/01/2023 9:40 AM CDT DTL Alkaline Phosphatase, S 91 35 - 104 U/L 09/01/2023 9:40 AM CDT DTL Alanine Aminotransferase (ALT), S 20 7 - 45 U/L 09/01/2023 9:40 AM CDT DTL Bilirubin, Total, S 0.7 0.0 - 1.2 mg/dL 09/01/2023 9:40 AM CDT DTL Blood (Blood, Venous) 09/01/2023 8:29 AM CDT 09/01/2023 9:19 AM CDT Connor Bermudez M.D., M.S. LAB BLOOD ADD- ON [address] [address], [facility] 200 [place] [address] * (ABNORMAL) CBC with Differential, Blood (09/01/2023 8:29 AM CDT) Hemoglobin 15.7(H) 11.6 - 15.0 g/dL 09/01/2023 9:29 AM CDT DTL Hematocrit 47.1(H) 35.5 - 44.9 % 09/01/2023 9:29 AM CDT DTL Erythrocytes 5.05 3.92 - 5.13 x10(12)/L 09/01/2023 9:29 AM CDT DTL MCV 93.3 78.2 - 97.9 fL 09/01/2023 9:29 AM CDT DTL RBC Distrib Width 13.7 12.2 - 16.1 % 09/01/2023 9:29 AM CDT DTL Platelet Count 181 157 - 371 x10(9)/L 09/01/2023 9:29 AM CDT DTL Leukocytes 4.8 3.4 - 9.6 x10(9)/L 09/01/2023 9:29 AM CDT DTL Neutrophils 3.66 1.56 - 6.45 x10(9)/L 09/01/2023 9:29 AM CDT DHPM Lymphocytes 0.47(L) 0.95 - 3.07 x10(9)/L 09/01/2023 9:29 AM CDT DTL Monocytes 0.45 0.26 - 0.81 x10(9)/L 09/01/2023 9:29 AM CDT DTL Eosinophils 0.14 0.03 - 0.48 x10(9)/L 09/01/2023 9:29 AM CDT DTL Basophils 0.05 0.01 - 0.08 x10(9)/L 09/01/2023 9:29 AM CDT DTL Blood (Blood, Venous) 09/01/2023 8:29 AM CDT 09/01/2023 8:58 AM CDT Connor Bermudez M.D., M.S. LAB BLOOD ADD- ON [facility] 200 [place] [address], [facility] DTL [facility] [address] [place] [address] DHPM 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
--- OUTSIDE RECORDS SUMMARY | 2023-12-11 07:43 | XMS_ITS | Encounter Summary ---
Author Name Unknown Organization [facility] Address [address] [place] [address] Care Team Providers Care Auto Dismantler Name Role Phone Elsewhere, Pcp Primary Care Provider Unavailabl e Reason for Visit * Reason Onset Date Comments Pre-visit Intake 10/05/2023 Encounter Details Date Type Department Care Team (Latest Contact Info) Description 10/05/2023 9:45 AM PROJECT COORDINATOR RN Clinical Communication Virtual Review in [place], [place] 200 [place] [address] Pre-visit Intake Social History Tobacco Use Types Packs/Day Years Used Date Smoking Tobacco: Never Passive Smoke Exposure: Past Smokeless Tobacco: Never Tobacco Cessation:Counseling Given: Not Answered Passive Exposure Comments:Childhood exposure. Alcohol Use Standard Drinks/Week Comments Not [...] often do you attend chur ch or amish services? Never 06/23/2022 Do you belong to any clubs o r organizations such as mormon groups, unions, fraternal or athletic groups, or [...] and heating? Not hard at all 08/27/2023 [facility]at ional Health - [...] your living situation today? I have a [facility] place to live 08/27/2023 Education Answer Date [...] as of this encounter Care Teams Auto Dismantler Relationship Specialty Start Date End Date Elsewhere, Pcp PCP - General Internal Medicine 10/05/23 documented as of this encounter
--- OUTSIDE RECORDS SUMMARY | 2023-12-11 07:43 | XMS_ITS | Encounter Summary ---
Author Name Unknown Organization [facility] Address [address] [place] [address] Care Team Providers Care Funeral Car Driver Name Role Phone Elsewhere, Pcp Primary Care Provider Unavailabl e Encounter Details Date Type Department Care Team (Late st Contact Info) Description 10/16/2023 Orders Only Department of Neurology in [place], [place] [address] [place] [address] Max Montgomery M.D. [address] [place] [address] Social History Tobacco Use Types Packs/Day Years [...] often do you attend chur ch or roman catholic services? Never 06/23/2022 Do you belong to any clubs o r organizations such as religious groups, unions, fraternal or athletic groups, or [...] and heating? Not hard at all 08/27/2023 [facility] of Occupat ional Health - Occupational Stress [...] your living situation today? I have a [facility] place to live 08/27/2023 Education Answer [...] documented as of this encounter Care Teams Funeral Car Driver Relationship Specialty Start Date End Date Elsewhere, Pcp PCP - General Internal Medicine 10/05/23 documented as of this encounter
--- OUTSIDE RECORDS SUMMARY | 2023-12-11 07:43 | XMS_ITS | Encounter Summary ---
Author Name Unknown Organization [facility] Address [address] [place] [address] Care Team Providers Care Tune Up Mechanic Name Role Phone Unavailable Primary Care Provider Unavailabl e Reason for Referral * Outpatient (Routine) - Closed Specialty Diagnoses / Procedures Referred By Luigi kumar Referred To Contact Hematology Oncology Connor Bermduez M.D., M.S. [address] [place] [phone] [facility] Referral ID Status Reason Start Date Expiration Date Visits Re quested Visits Authorized [id number] Closed 08/05/2023 08/04/2026 1 1 * Outpatient (Routine) - Closed Specialty Diagnoses / Procedures Referred By Luigi kumar Referred To Contact Neurology Diagnoses Loss Memory Connor Bermudez M.D., M.S. [address] [place] [phone] [facility] Referral ID Status Reason Start Date Expiration Date V isits Requested Visits Authorized [id number] Closed Specialty Services Required 08/05/2023 08/04/2024 1 1 Encounter Details Date Type Department Care Team (Late st Contact Info) Description 08/05/2023 Orders Only Department of Oncology in [place], [place] [address] [place] [phone] Connor Bermudez M.D., M.S. 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 Never 06/23/2022 Do you belong to any clubs o r organizations such as samaritan groups, unions, fraternal or athletic groups, or [...] food, housing, medical care, and heating? Not very hard 06/23/2022 [facility] Questionnaire Answer Date Recorded [...] to strenuous exercise (like a brisk walk)? 1 day 06/23/2022 On average, how many minutes do you engage in exercise at this level? 20 min 06/23/2022 Hunger Vital Sign Answer Date Recorded Within the past 12 months, y ou worried that your food would run out before you got the money to buy more. Never true 06/23/20 22 Within the past 12 months, t he food you bought just didn't last and you didn't have money to get more. Never true 06/23/2022 PRAPARE - Transportation Answer Date Re corded In the past 12 months, has l ack of transportation kept you from medical appointments or from getting medications? No 06/2022 In the past 12 months, has l ack of transportation kept you from meetings, work, or from getting things needed for daily living? No 06/23/2022 Housing Stability Vital Sign Answer Raghu e Recorded In the last 12 months, was t here a time when you were not able to pay the mortgage or rent on time? No 06/23/2022 In the last 12 months, how many places have you lived? 1 06/23/2022 In the last 12 months, was t here a time when you did not have a steady place to sleep or slept in a custodial (including now)? No 06/23/2022 Nutrition Answer Date Recorded Nutrition: EVOO Fat Source No 06/23 On average, how many serving s of fruits and vegetables do you eat per day (serving size is equal to 1 cup or approximately the size of a tennis ball)? 0-1 06/23/2022 Dental Answer Date Recorded Dental: Regular Dentist Yes 06/24/20 Employment Answer Date Recorded Employment status Employed and actively working without restrictions 06/23/2022 Education Answer Date Recorded What is the highest level of school you have completed or the highest degree you have received? 12th grade 06/23/2022 Sex and Gender Information Value Date Recorded Sex Assigned at Female 06/23/2022 9:00 PM CDT Gender Identity Female 06/23/2022 9:00 PM CDT Sexual Orientation Straight 06/23/2022 9: 00 PM CDT documented as of this encounter Plan of Treatment Scheduled Referrals Name Type Priority Associated Diagnoses Order Schedule Neurology - General consult (clinic) Outpatient Referral Routine Loss Memory Expected: 08/05/2023 (Approximate), Expires: 11/04/2024 Hematology office visit (clinic) [place]; Lymphoma; General Outpatient Referral Routine Expected: 09/01/2023, Expires: 11/04/2024 documented as of this encounter Results * (ABNORMAL) Comprehensive Metabolic [...] Bermudez M.D., M.S. LAB BLOOD ADD- ON [facility] 200 [place] [address], [facility] [place] [address] [place] [address] * (ABNORMAL) CBC with Differential, Blood (09/01/2023 [...] Bermudez M.D., M.S. 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
--- OUTSIDE RECORDS SUMMARY | 2023-12-11 07:43 | XMS_ITS | Referral Summary ---
Author Name Unknown Organization [facility] Address [address] [place] [address] Care Team Providers Care Wood Mechanist Name Role Phone Elsewhere, Pcp Primary Care Provider Unavailabl e Source Comments Patient records contain information from all sites at [facility]. For routine questions regarding patient records, call [phone] during business hours, M-F 8:00 AM - 5:00 PM Central Time. Record requests for emergency care only can be directed to [phone] at any time.[facility] Encounters Date Type Department Care Team Description 11/19/2023 2:00 PM TABLE MACHINE OPERATOR Telemedicine Department of Neurology in [place], [place] [address] [place] [address] Neville Lopez M.D. Loss Memory (Primary Dx) 11/12/2023 Orders Only Department of Neurology in [place], [place] [address] [place] [address] Neville Lopez M.D. Loss Memory (Primary Dx) 11/12/2023 Orders Only Department of Neurology in [place], [place] [address] [place] [address] Max Montgomery M.D. 10/16/2023 Orders Only Department of Neurology in [place], [place] [address] [place] [address] Max Montgomery M.D. 10/16/2023 12:18 PM TABLE MACHINE OPERATOR - 10/16/2023 11:59 PM TABLE MACHINE OPERATOR Hospital Encounter Department of Radiology, [facility], in [place], [place] [address] [place] [address] Neville Lopez M.D. Loss Memory Discharge Disposition: Home or Self Care 10/09/2023 10:00 AM TABLE MACHINE OPERATOR Comprehensive Visit Department of Neurology in [place], [place] [address] [place] [phone] Connor Bermudez M.D., M.S. Max Montgomery M.D. Neville Lopez M.D. Loss Memory 10/05/2023 9:45 AM TABLE MACHINE OPERATOR Clinical Communication Virtual Review in [place], [place] 200 [place] [address] Pre-visit Intake from Last 3 Months Allergies Active Allergy Reactions Criticality Noted Date Comments Amoxicillin-Pot Clavulanate Hives (Reselect Reaction) 07/06/2007 Cefuroxime Other (see comments) 07/06/2007 Chlorthalidone Rash 05/11/2008 Propoxyphene-Acetaminophen Other (see comments) 07/06/2007 Spironolactone Rash 05/11/2008 Medications Medication Sig Dispensed Refills Start Date End Date Status amLODIPine (NORVASC) 10 mg tablet Take 1 tablet by mouth daily. 0 02/02/2012 Active celecoxib (CeleBREX) 100 mg capsule Take 100 mg by mouth 2 (two) times a day. 0 03/23/2022 Active cholecalciferol (VITAMIN D3) 125 mcg (5,000 Unit) tablet Take 125 mcg by mouth daily. 0 05/21/2015 Active diclofenac sodium (VOLTAREN) 75 mg EC tablet Take 75 mg by mouth 2 (two) times a day. 0 05/06/2022 Active finasteride (PROSCAR) 5 mg tablet Take 2.5 mg by mouth daily. 0 05/14/2022 Active furosemide (LASIX) 40 mg tablet Take 1 tablet by mouth every morning. 0 12/22/2011 Active gabapentin (NEURONTIN) 300 mg capsule Take 1 capsule by mouth daily. 0 03/23/2012 Active HYDROcodone-acetami nophen (NORCO) 5-325 mg per tablet Take 1 tablet by mouth every 6 (six) hours as needed. for pain 0 05/15/2022 Active hydrocortisone (HYTONE) 2.5 % cream Apply topically as needed. 0 07/19/2011 Active levothyroxine (SYNTHROID, LEVOTHROID) 75 mcg tablet Take 75 mcg by mouth daily. 0 04/20/2022 Active lisinopriL (PRINIVIL,ZESTRIL) 40 mg tablet Take 40 mg by mouth 2 (two) times a day. 0 02/28/2022 Active LORazepam (ATIVAN) 0.5 mg tablet Take 0.5 mg by mouth as needed. 0 05/30/2022 Active metoprolol succinate (TOPROL-XL) 100 mg 24 hr tablet Take 100 mg by mouth daily. 0 03/05/2022 Active zinc chelated 50 mg tablet tablet Take 1 tablet by mouth daily. 0 05/21/2015 Active allopurinoL (ZYLOPRIM) 300 mg tablet Take 1 tablet (300 mg total) by mouth daily. 30 tablet 0 06/24/2022 Active biotin 1 mg tablet Take 1 tablet by mouth daily. 0 Active DULoxetine (CYMBALTA) [address] capsule Take 60 mg by mouth 2 (two) times a day. 0 Active nystatin-triamcinol one (MYCOLOG II) 100,000 Unit/g-0.1 % cream Apply topically 2 (two) times a day as needed. 0 09/25/2022 Active oxyCODONE-acetamino phen (PERCOCET) 5-325 mg per tablet TAKE 1/2 TO 1 TABLET BY MOUTH EVERY 6 TO 8 HOURS NEEDED. MAX DOSE: 6/DAY. WEAN TOLERATED 0 02/14/2022 Active prochlorperazine (COMPAZINE) 10 mg tabletIndications:N odular Lymphocyte Predominant Hodgkin Lymphoma Extranodal And Solid Organ Sites (HCC) Take 1 tablet (10 mg total) by mouth every 6 (six) hours as needed for nausea or vomiting. 30 tablet 3 12/23/2022 12/23/2023 Active ondansetron (ZOFRAN) 4 mg tablet Take 1 tablet (4 mg total) by mouth every 8 (eight) hours as needed for nausea or vomiting (Please take as first line treatment and compazine as second line treatment.). 40 tablet 0 12/23/2022 Active buPROPion XL (WELLBUTRIN XL) 300 mg 24 hr tablet Take 300 mg by mouth every morning. 0 05/06/2023 Active Xarelto 10 mg tablet TAKE 1 TABLET (10 MG TOTAL) BY MOUTH DAILY WITH DINNER. 30 tablet 11 06/26/2023 Active Hospital, Clinic, or Other Facility Administered Medication Ordered Dose Route Frequency Start Date End Date Status lidocaine (PF) 10 mg/mL (1 %) injection 5 mL (XYLOCAINE) 5 mL Ifil Once 11/20/2023 Active Active Problems Problem Noted Date Diagnosed Date Thrombosis Deep Vein Personal History 10/30/2022 Other Gym Attendant Current Drug Therapy 06/27/2022 Nodular Lymphocyte Predomina nt Hodgkin Lymphoma Extranodal And Solid Organ Sites 06/09/2022 Social History Tobacco Use Types Packs/Day Years [...] often do you attend chur ch or rastafarian services? Never 06/23/2022 Do you belong to [...] and heating? Not hard at all 08/27/2023 [facility] Occupat ional Health - [...] Date Recorded Dental: Regular Dentist Yes 06/24/20 22 Employment Answer Date Recorded Employment status Employed and actively working without restrictions 08/27/2023 Housing Stability Answer Date Recorded What is your living situation today? I have a [facility] place to live 08/27/2023 Education Answer Date Recorded What is the highest level of school you have completed or the highest degree you have received? 12th grade 06/23/2022 Sex and Gender Information Value Date Recorded Sex Assigned at Female 06/23/2022 9:00 PM CDT Gender Identity Female 06/23/2022 9:00 PM CDT Sexual Orientation Straight 06/23/2022 9: 00 PM CDT Last Filed Vital Signs Vital Sign Reading Time Taken Comments Blood Pressure 148/83 09/01/2023 9:47 AM CDT Pulse 66 09/01/2023 9:47 AM CDT Temperature 36.2 ??C (97.2 ??F) 09/01/2023 9:47 AM CD T Respiratory Rate 16 10/28/2022 1:29 PM TABLE MACHINE OPERATOR Oxygen Saturation 95% 07/01/2022 1:50 PM CDT Inhaled Oxygen Concentration - - Weight 105 kg (231 lb 14.8 oz) 10/09/2023 10:00 AM TABLE MACHINE OPERATOR Height 163.3 cm (5' 4.29) 10/09/2023 10:[address] Body Mass Index 39.45 10/09/2023 10:00 AM TABLE MACHINE OPERATOR Plan of Treatment Not on file Procedures Procedure Name Priority Date/Time Associated Diagnosis Comments PET CT BRAIN METABOLIC EVALUATION RAD - Routine (most inpatients and all outpatients) 10/16/2023 2:50 PM TABLE MACHINE OPERATOR Loss Memory from Last 3 Months Results * PET CT Brain Metabolic Evaluation (10/16/2023 2:50 PM TABLE MACHINE OPERATOR) Anatomical Region Laterality Modality Brain, Nuclear Medicine PET RST LOS, PET ARZ LOS, Nuclear Medicine PET FLA LOS, Nuclear Medicine N/A Positron Emission Tomography (PET), Positron Emission Tomography (PET) 10/16/2023 2:38 PM TABLE MACHINE OPERATOR Impressions 10/16/2023 3:42 PM TABLE MACHINE OPERATOR No significant cerebral hypometabolism to suggest a neurodegenerative disorder. Narrative 10/16/2023 3:42 PM TABLE MACHINE OPERATOR EXAM: ??PET CT BRAIN METABOLIC EVALUATION Serum glucose at time of F-18 FDG injection was 86 mg/dL. RADIOPHARMACEUTICAL/MEDS: Route: intravenous fludeoxyglucose F 18 injection PRISON (FDG F-18),5.05 millicurie TECHNIQUE: F-18 FDG PET/CT [...] RADIOPHARMACEUTICAL/MEDS: Route: intravenous fludeoxyglucose F 18 injection PRISON (FDG F-18),5.05 millicurie TECHNIQUE: F-18 FDG PET/CT [...] neurodegenerativedisorder. Neville Lopez M.D. IMG NM PROCEDURES from Last 3 Months Additional Health Concerns Infection Onset Date Last Indicated Protective Environment 04/07/2023 3 Care Teams Wood Mechanist Relationship Specialty Start Date End Date Elsewhere, Pcp PCP - General Internal Medicine 10/05/23
--- OUTSIDE RECORDS SUMMARY | 2023-12-11 07:43 | XMS_ITS | Encounter Summary ---
Author Name Unknown Organization [facility] Address [address] [place] [address] Care Team Providers Care Light Bulb Replacer Name Role Phone Elsewhere, Pcp Primary Care Provider Unavailabl e Reason for Referral * Outpatient (Routine) - Authorized Specialty Diagnoses / Procedures Referred By Luigi kumar Referred To Contact Diagnoses Loss Memory Procedures Lumbar puncture neurology Neville Lopez M.D. [address] [place] [phone] [facility] Referral ID Status Reason Start Date Expiration Date V isits Requested Visits Authorized [id number] Authorized 11/12/2023 11/11/2024 1 1 LATOR OPERATOR Encounter Details Date Type Department Care Team ([facility] st Contact Info) Description 11/12/2023 Orders Only Department of Neurology in [place], [place] [address] [place] [phone] Neville Lopez M.D. [address] [place] [phone] Loss Memory (Primary Dx) Social History Tobacco [...] How often do you attend chur or mosque services? Never 06/23/2022 Do you belong to [...] and heating? Not hard at all 08/27/2023 [facility] Occupat ional Health - Occupational Stress [...] your living situation today? I have a [facility] place to live 08/27/2023 Education Answer [...] of this encounter Plan of Treatment Scheduled Orders Name Type Priority Associated Diagnoses Order Schedule Lumbar puncture neurology Neurology Routine Loss Memory Expected: 11/19/2023, Expires: 02/10/2025 Cell Count and Differential, CSF Lab Routine Loss Memory Expected: 11/12/2023 (Approximate), Expires: 02/10/2025 Protein, Total, CSF Lab Routine Loss Memory Expected: 11/12/2023 (Approximate), Expires: 02/10/2025 Glucose, CSF Lab Routine Loss Memory Expected: 11/12/2023 (Approximate), Expires: 02/10/2025 Bacterial Culture, Aerobic + Susceptibility Microbiology Routine Loss Memory Expected: 11/12/2023 (Approximate), Expires: 02/10/2025 Malignant Cells, CSF Pathology and Cytology Routine Loss Memory Expected: 11/12/2023 (Approximate), Expires: 02/10/2025 Leukemia/Lymphoma Immunophenotyping by Flow Cytometry, Body Fluid Lab Routine Loss Memory Expected: 11/12/2023 (Approximate), Expires: 02/10/2025 Alzheimer? s Disease Evaluation, CSF Lab Routine Loss Memory Expected: 11/12/2023 (Approximate), Expires: 02/10/2025 documented as of this encounter Visit Diagnoses Diagnosis Loss Memory- Primary documented in this encounter Additional Health Concerns Infection Onset Date Last Indicated Resolved Time Protective Environment 04/07/2023 04/07/2023 documented as of this encounter Care Teams Light Bulb Replacer Relationship Specialty Start Date End Date Elsewhere, Pcp PCP - General Internal Medicine 10/05/23 documented as of this encounter
--- OUTSIDE RECORDS SUMMARY | 2023-12-11 07:43 | XMS_ITS | Clinical Summary ---
Author Name Unknown Organization [facility] Address [address] [place] [address] Care Team Providers Care Photographic Process Worker Name Role Phone Elsewhere, Pcp Primary Care Provider Unavailabl e Source Comments Patient records contain information from all sites at [facility]. For routine questions regarding patient records, call [phone] during business hours, M-F 8:00 AM - 5:00 PM Central Time. 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 Loss Memory (Primary Dx) 11/12/2023 Orders Only Department of Neurology in [place], [place] [address] [place] [phone] Neville Lopez M.D. Loss Memory (Primary Dx) 11/12/2023 Orders Only Department of Neurology in [place], [place] [address] [place] [phone] Max Montgomery M.D. 10/16/2023 12:18 PM CONSTRUCTION TECHNOLOGY INSTRUCTOR - 10/16/2023 11:59 PM CONSTRUCTION TECHNOLOGY INSTRUCTOR Hospital Encounter Department of Radiology, [facility], in [place], [place] [address] [place] [address] Neville Lopez M.D. Loss Memory Discharge Disposition: Home or Self Care 10/16/2023 Orders Only Department of Neurology in [place], [place] [address] [place] [phone] Max Montgomery M.D. 10/09/2023 10:00 AM CONSTRUCTION TECHNOLOGY INSTRUCTOR Comprehensive Visit Department of Neurology in [place], [place] [address] [place] [address] Connor Bermudez M.D., M.S. Max Montgomery M.D. Neville Lopez M.D. Loss Memory 10/05/2023 9:45 AM CONSTRUCTION TECHNOLOGY INSTRUCTOR Clinical Communication Virtual Review in [place], [place] [address] [place] [address] Pre-visit Intake from Last 3 Months Family History Medical History Relation Name Comments Arthritis Mother Paris Kinga Hypertension Mother Paris Kinga Lung cancer Mother Paris Kinga Osteoporosis Mother Paris Kinga Diabetes Paternal Grandmother Farideh Donato Hypertension Sister Thania Bailey Relation Name Status Comments Mother Paris Donato Paternal Grandmother Farideh Donato Sister Thania Bailey Social History Tobacco Use Types Packs/Day Years [...] week 06/23/2022 How often do you attend [facility] or adventist services? Never 06/23/2022 Do you belong to any clubs o r organizations such as mandaeism groups, unions, fraternal or athletic groups, or [...] heating? Not hard at all 08/27/2023 [facility] [place] [employer] of Occupat ional Health - Occupational Stress [...] T Respiratory Rate 16 10/28/2022 1:29 PM CONSTRUCTION TECHNOLOGY INSTRUCTOR Oxygen Saturation 95% 07/01/2022 1:50 PM CDT Inhaled Oxygen Concentration - - Weight 105 kg (231 lb 14.8 oz) 10/09/2023 10:00 AM CONSTRUCTION TECHNOLOGY INSTRUCTOR Height 163.3 cm (5' 4.29) 10/09/2023 10:[address] Body Mass Index 39.45 10/09/2023 10:00 AM CONSTRUCTION TECHNOLOGY INSTRUCTOR Plan of Treatment Health Maintenance Due Date Last Done Comments Bone Density Scan (Osteoporosis Screen) 1956 CT Colonography 1955 Cologuard 1955 Colonoscopy 1955 Colorectal Cancer Screening 1956 FIT 1956 Zoster Vaccines (1 of 2) 02/03/2013 12/09/2012 Mammogram 04/24/2023 04/24/2022 COVID-19 Vaccine ( season) 2023 03/24/2022, 10/28/2021, 01/23/2021, Additional history exists Influenza Vaccine (#1) 2023 2, 09/02/2021, 09/13/2020, Additional history exists Depression Screening (Annual PHQ-2) 11/16/2023 Fall Risk Screen (Annual) 11/16/2023 Office Visit for Blood Pressure Check / Re-check 12/02/2023 09/01/2023 Thyroid Stimulating Hormone (TSH) test for thyroid function 07/17/2024 07/17/2023 Creatinine Level (Kidney Function Test) 09/01/2024 09/01/2023, 07/17/2023, 05/26/2023, Additional history exists Potassium Level 09/01/2024 09/01/2023, 0 11/2022, 05/26/2023, Additional history exists Sodium Level 09/01/2024 09/01/2023, 11/2022, 05/26/2023, Additional history exists Fasting Glucose for Diabetes Screening 09/01/2026 09/01/2023, 07/17/2023, 05/26/2023, Additional history exists DTaP,Tdap,and Td Vaccines (4 - Td or Tdap) 03/20/2033 03/20/2023, 06/18/2012, 03/23/2006 Hepatitis C Screening Completed 06/26/2022 Pneumococcal vaccine (65+ years) Completed 03/20/2023 HPV Vaccines Aged Out No longer eligi ble based on patient's age to complete this topic Procedures Procedure Name Priority Date/Time Associated Diagnosis Comments PET CT BRAIN METABOLIC EVALUATION RAD - Routine (most inpatients and all outpatients) 10/16/2023 2:50 PM CONSTRUCTION TECHNOLOGY INSTRUCTOR Loss Memory from Last 3 Months Results * PET CT Brain Metabolic Evaluation (10/16/2023 2:50 PM CONSTRUCTION TECHNOLOGY INSTRUCTOR) Anatomical Region Laterality Modality Brain, Nuclear Medicine PET RST LOS, PET ARZ LOS, Nuclear Medicine PET FLA LOS, Nuclear Medicine N/A Positron Emission Tomography (PET), Positron Emission Tomography (PET) 10/16/2023 2:38 PM CONSTRUCTION TECHNOLOGY INSTRUCTOR Impressions 10/16/2023 3:42 PM CONSTRUCTION TECHNOLOGY INSTRUCTOR No significant cerebral hypometabolism to suggest a neurodegenerative disorder. Narrative 10/16/2023 3:42 PM CONSTRUCTION TECHNOLOGY INSTRUCTOR EXAM: ??PET CT BRAIN METABOLIC EVALUATION Serum glucose at time of F-18 FDG injection was 86 mg/dL. RADIOPHARMACEUTICAL/MEDS: Route: intravenous fludeoxyglucose F 18 injection NURSING HOME (FDG F-18),5.05 millicurie TECHNIQUE: F-18 FDG [...] RADIOPHARMACEUTICAL/MEDS: Route: intravenous fludeoxyglucose F 18 injection NURSING HOME (FDG F-18),5.05 millicurie TECHNIQUE: F-18 FDG [...] Indicated Protective Environment 04/07/2023 3 Care Teams Photographic Process Worker Relationship Specialty Start Date End Date Elsewhere, Pcp PCP - General Internal Medicine 10/05/23
--- OUTSIDE RECORDS SUMMARY | 2023-12-11 07:44 | XMS_ITS | Encounter Summary ---
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 [address] [place] [phone] [address] [facility] [place] [address] [place] [phone] Referral ID Status Reason Start Date Expiration Date V isits Requested Visits Authorized [id number] Authorized 06/24/2022 06/24/2023 99 99 Encounter Details Date Type Department Care Team (Latest Contact Info) Description 05/26/2023 7:20 AM CDT - 05/26/2023 11:59 PM CDT Hospital Encounter Department of Laboratory Medicine and Pathology, [facility] in [place], [place] [address] [place] [phone] Connor Bermudez M.D., M.S. [address] [place] [phone] Nodular Lymphocyte Predominant Hodgkin Lymphoma Extranodal And [...] often do you attend chur ch or jehovah's witness services? Never 06/23/2022 Do you belong to any clubs o r organizations such as faith groups, unions, fraternal or athletic groups, or [...] care, and heating? Not very hard 06/23/2022 [facility] [place] of Occupat ional Health - Occupational Stress [...] money to buy more. Never true 06/23/20 Within the past 12 months, t he [...] place to sleep or slept in a mcc (including now)? No 06/23/2022 Nutrition Answer Date [...] 1 capsule by mouth daily. 0 03/23/2012 HYDROcodone-acetaminop hen (NORCO) 5-325 mg per tablet Take 1 [...] second line treatment.). 40 tablet 0 12/23/2022 oxyCODONE-acetaminophe n (PERCOCET) 5-325 mg per tablet TAKE 1/2 TO 1 TABLET BY MOUTH EVERY 6 TO 8 HOURS NEEDED. MAX DOSE: 6/DAY. WEAN TOLERATED 0 02/14/2022 prochlorperazine (COMPAZINE) 10 mg tabletIndications:Nodu lar Lymphocyte Predominant Hodgkin Lymphoma Extranodal And Solid Organ Sites (HCC) Take 1 tablet (10 mg total) by mouth every 6 (six) hours as needed for nausea or vomiting. 30 tablet 3 12/23/2022 12/23/2023 zinc chelated 50 mg tablet tablet Take 1 tablet by mouth daily. 0 05/21/2015 LORazepam (ATIVAN) 1 mg tablet Take 0.5 tablets (0.5 mg total) by mouth See Admin Instructions. Take 1st tablet 2 hours before MRI. Take 2nd tablet 20 minutes before MRI. Take 3rd tablet only if poorly tolerating MRI. 3 tablet 0 05/26/2023 08/27/2023 Xarelto 20 mg tablet Take 20 mg by mouth daily. 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 LAB BLOOD NON ADD-ON Performing Organization Address City/[facility]/ZIP Co de Phone Number [facility] [address] [place] [address], [facility] [address] [place] [address] * Phosphorus Inorganic (05/26/2023 7:45 AM CDT) Pathologist [facility] Phosphorus (Inorganic), S 3.2 2.5 - 4.5 mg/dL 05/26/2023 8:40 AM CDT DTL Blood (Blood, Venous) 05/26/2023 7:45 AM CDT 05/26/2023 8:20 AM CDT Connor Bermudez M.D., M.S. LAB BLOOD ADD- ON Performing Organization Address City/[facility]/ZIP Co de Phone Number [facility] [address] [place] [address], [facility] [address] [place] [address] * Uric Acid (05/26/2023 7:45 AM CDT) Uric Acid, S 4.6 2.7 - 6.1 mg/dL 05/26/2023 8:40 AM CDT DTL Blood (Blood, Venous) 05/26/2023 7:45 AM CDT 05/26/2023 8:20 AM CDT Connor Bermudez M.D., M.S. LAB BLOOD ADD- ON [facility] [address] [place] [address], [facility] [address] [place] [address] * (ABNORMAL) Comprehensive Metabolic Panel (05/26/2023 7:45 AM CDT) Pathologist [facility] Potassium, S 5.0 3.6 - 5.2 mmol/L 05/26/2023 8:40 AM CDT DTL Sodium, S 141 135 - 145 mmol/L 05/26/2023 8:40 AM CDT DTL Chloride, S 104 98 - 107 mmol/L 05/26/2023 8:40 AM CDT DTL Bicarbonate, S 28 22 - 29 mmol/L 05/26/2023 8:40 AM CDT DTL Anion Gap 9 7 - 15 05/26/2023 8:40 AM CDT DTL BUN (Blood Urea Nitrogen), S 19 6 - 21 mg/dL 05/26/2023 8:40 AM CDT DTL Creatinine 1.12(H) 0.59 - 1.04 mg/dL 05/26/2023 8:40 AM CDT DTL Estimated GFR (eGFR) 54(L) >=60 mL/min/BS A 05/26/2023 8:40 AM CDT DTL Comment: Estimated GFR calculated using the 2020 CKD_EPI creatinine equation. Calcium, Total, S 9.3 8.8 - 10.2 mg/dL 05/26/2023 8:40 AM CDT DTL Glucose, S 132 70 - 140 mg/dL 05/26/2023 8:40 AM CDT DTL Protein, Total, S 6.0(L) 6.3 - 7.9 g/dL 05/26/2023 8:40 AM CDT DTL Albumin, S 4.3 3.5 - 5.0 g/dL 05/26/2023 8:40 AM CDT DTL Aspartate Aminotransferase (AST), S 20 8 - 43 U/L 05/26/2023 8:40 AM CDT DTL Alkaline Phosphatase, S 86 35 - 104 U/L 05/26/2023 8:40 AM CDT DTL Alanine Aminotransferase (ALT), S 22 7 - 45 U/L 05/26/2023 8:40 AM CDT DTL Bilirubin, Total, S 0.7 <=1.2 mg/dL 05/26/2023 8:40 AM CDT DTL Blood (Blood, Venous) 05/26/2023 7:45 AM CDT 05/26/2023 8:20 AM CDT Connor Bermudez M.D., M.S. LAB BLOOD ADD- ON [facility] [address] [place] [address], [facility] [address] [place] [address] * (ABNORMAL) CBC with Differential, Blood (05/26/2023 7:45 AM CDT) Hemoglobin 14.8 11.6 - 15.0 g/dL 05/26/2023 8:24 AM CDT DTL Hematocrit 44.5 35.5 - 44.9 % 05/26/2023 8:24 AM CDT DTL Erythrocytes 4.86 3.92 - 5.13 x10(12)/L 05/26/2023 8:24 AM CDT DTL MCV 91.6 78.2 - 97.9 fL 05/26/2023 8:24 AM CDT DTL RBC Distrib Width 13.7 12.2 - 16.1 % 05/26/2023 8:24 AM CDT DTL Platelet Count 156(L) 157 - 371 x10(9)/L 05/26/2023 8:24 AM CDT DTL Leukocytes 5.0 3.4 - 9.6 x10(9)/L 05/26/2023 8:24 AM CDT DTL Neutrophils 3.85 1.56 - 6.45 x10(9)/L 05/26/2023 8:24 AM CDT DTL Lymphocytes 0.48(L) 0.95 - 3.07 x10(9)/L 05/26/2023 8:24 AM CDT DTL Monocytes 0.49 0.26 - 0.81 x10(9)/L 05/26/2023 8:24 AM CDT DTL Eosinophils 0.13 0.03 - 0.48 x10(9)/L 05/26/2023 8:24 AM CDT DTL Basophils 0.03 0.01 - 0.08 x10(9)/L 05/26/2023 8:24 AM CDT DTL Blood (Blood, Venous) 05/26/2023 7:45 AM CDT 05/26/2023 8:02 AM CDT Connor Bermudez M.D., M.S. 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
--- OUTSIDE RECORDS SUMMARY | 2023-12-11 07:44 | XMS_ITS | Encounter Summary ---
Author Name Unknown Organization [facility] Address [address] [place] [address] Care Team Providers Care Manager Home Healthcare Name Role Phone Unavailable Primary Care Provider Unavailabl e Reason for Visit * Reason Comments Med Refill Xarelto Encounter Details Date Type Department Care Team (Late st Contact Info) Description 06/22/2023 Refill Department of Oncology in [place], [place] [address] [place] [phone] Connor Bermudez M.D., M.S. [address] [place] [address] Med Refill (Xarelto) Social History Tobacco Use Types Packs/Day Years [...] often do you attend chur ch or zoroastrian services? Never 06/23/2022 Do you [...] care, and heating? Not very hard 06/23/2022 [facility] of Occupat ional Health - Occupational Stress [...] place to sleep or slept in a fpc (including now)? No 06/23/2022 Nutrition Answer Date [...] PM CDT documented as of this encounter Miscellaneous Notes * Telephone Encounter - Jo Brian - 06/22/2023 12:00 PM CDT Surescripts Xarelto Rx created refill request. documented in this encounter Plan of Treatment Not on file documented as of this encounter Visit Diagnoses Not on filedocumented in this encounter Additional Health Concerns Infection Onset Date Last Indicated Resolved Time Protective Environment 04/07/2023 04/07/2023 documented as of this encounter
--- OUTSIDE RECORDS SUMMARY | 2023-12-11 07:44 | XMS_ITS | Encounter Summary ---
Author Name Unknown Organization [facility] Address [address] [place] [address] Care Team Providers Care Magnetic Tester Name Role Phone Unavailable Primary Care Provider Unavailabl e Reason for Visit * Reason Onset Date Comments PET? Timeframe? 05/27/2023 Encounter Details Date Type Department Care Team (Latest Contact Info) Description 05/27/2023 Clinical Communication Division of Hematology in [place], [place] [address] [place] [phone] Connor Bermudez M.D., M.S. [address] [place] [phone] PET? Timeframe? Social History Tobacco Use Types Packs/Day Years [...] often do you attend chur ch or adventist services? Never 06/23/2022 Do you belong to any clubs o r organizations such as catholic groups, unions, fraternal or athletic groups, or [...] care, and heating? Not very hard 06/23/2022 [facility] of Occupat ional Health - Occupational [...] place to sleep or slept in a snf (including now)? No 06/23/2022 Nutrition Answer Date [...]
--- OUTSIDE RECORDS SUMMARY | 2023-12-11 07:44 | XMS_ITS | Encounter Summary ---
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 [address] [place] [phone] [facility] [place] [facility] Referral ID Status Reason Start Date Expiration Date Visits Re quested Visits Authorized [id number] Closed 06/08/2023 06/07/2024 1 1 Encounter Details Date Type Department Care Team (Latest Contact Info) Description 07/17/2023 9:09 AM CDT - 07/17/2023 11:59 PM CDT Hospital Encounter Department of Radiology, [facility], in [place], [place] [address] [place] [address] Connor Bermudez M.D., M.S. [address] [place] [phone] Nodular Lymphocyte Predominant Hodgkin Lymphoma Extranodal And [...] often do you attend chur ch or uatsdin services? Never 06/23/2022 Do you belong to [...] care, and heating? 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 Deauville 2. Narrative 07/17/2023 12:56 PM CDT EXAM: ??PET CT WHOLE BODY FDG Serum glucose at time of F-18 FDG injection was 111 mg/dL. Patient followed standard dietary/fasting requirements for this exam. RADIOPHARMACEUTICAL/MEDS: Route: intravenous fludeoxyglucose F 18 injection CUSTODIAL (FDG F-18),6.2 millicurie TECHNIQUE: ??F-18 FDG PET/CT scan was performed from the vertex through the toes with low dose, non-contrast, free-breathing CT images for attenuation correction and anatomic localization (AC/AL), with imaging beginning at approximately 60 minutes after radiotracer injection. COMPARISON: ??02/16/2023 and 09/29/2022 FDG PET/CT. INDICATION: ??Restaging nodular lymphocyte predominant B-cell lymphoma. Subsequent treatment strategy. The patient reports no recent vaccinations. FINDINGS: ??No focal FDG uptake within the head and neck, thorax, abdomen, pelvis, or extremities to suggest residual lymphoma. Stable mild FDG uptake within the right axillary lymph nodes. Interval partial resolution of the FDG avid inflammatory uptake within the right knee. Stable 6 mm solid pulmonary nodule in the right upper lobe. Injection artifact within the left antecubital region. Otherwise, no significant change in the remainder of incidental CT findings. Procedure Note Alonso Galindo M.D. - 07/17/2023 EXAM: PET CT WHOLE BODY FDG Serum glucose at time of F-18 FDG injection was 111 mg/dL. Patientfollowed standard dietary/fasting requirements for this exam. RADIOPHARMACEUTICAL/MEDS: Route: intravenous fludeoxyglucose F 18 injection CUSTODIAL (FDG F-18),6.2 millicurie TECHNIQUE: F-18 FDG PET/CT scan was performed from the vertex through thetoes with low dose, non-contrast, free-breathing CT images for attenuation correction andanatomic localization (AC/AL), with imaging beginning at approximately 60 minutes after radiotracerinjection. COMPARISON: 02/16/2023 and 09/29/2022 FDG PET/CT. INDICATION: Restaging nodular lymphocyte predominant B-cell lymphoma.Subsequent treatment strategy. The patient reports no recent vaccinations. FINDINGS: No focal FDG uptake within the head and neck, thorax, abdomen,pelvis, or extremities to suggest residual lymphoma. Stable mild FDG uptake within the rightaxillary lymph nodes. Interval partial resolution of the FDG avid inflammatory uptake within theright knee. Stable 6 mm solid pulmonary nodule in the right upper lobe. Injection artifact within the left antecubital region. Otherwise, nosignificant change in the remainder of incidental CT findings. IMPRESSION: No evidence of FDG avid lymphoma. Milena 2. Connor Bermudez M.D., M.S. 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
--- OUTSIDE RECORDS SUMMARY | 2023-12-11 07:44 | XMS_ITS | Encounter Summary ---
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 [address] [place] [phone] [address] [facility] [place] [address] [place] [phone] Referral ID Status Reason Start Date Expiration Date V isits Requested Visits Authorized [id number] Authorized 06/24/2022 06/24/2023 99 99 Encounter Details Date Type Department Care Team (Late st Contact Info) Description 05/26/2023 9:30 AM CDT Office Visit Division of Hematology in [place], [place] [address] [place] [phone] Connor Bermudez M.D., M.S. [address] [place] [phone] Nodular Lymphocyte Predominant Hodgkin Lymphoma Extranodal And [...] often do you attend chur ch or worship services? Never 06/23/2022 Do you belong to any clubs o r organizations such as advent groups, unions, fraternal or athletic groups, or [...] care, and heating? Not very hard 06/23/2022 [facility]at ional [facility] - [...] medical appointments or from getting medications? No 080 06/2022 In the past 12 months, has [...] place to sleep or slept in a fci (including now)? No 06/23/2022 Nutrition Answer Date [...] Sign Reading Time Taken Comments Blood Pressure 143/84 05/26/2023 9:27 AM CDT Pulse 61 05/26/2023 9:27 AM CDT Temperature 36.8 ??C (98.2 ??F) 05/26/2023 9:27 AM CD T Respiratory Rate - - Oxygen Saturation - - Inhaled Oxygen Concentration - - Weight 104 kg (229 lb 15 oz) 05/26/2023 9:27 AM CDT Height 162.5 cm (5' 3.98) 05/26/2023 9:27 AM CD T Body Mass Index 39.5 05/26/2023 9:27 AM CDT documented in this encounter Progress Notes * Connor Bermudez M.D., M.S. - 05/26/2023 9:30 AM CDT [facility] - Hematology SUBJECTIVE PRIMARY CARE PHYSICIAN No primary care provider on file. 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 Croft Primary fellow: Dr. Bermudez [...] history, and problem list. 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 REVIEW [...] self-reported palpable lymphadenopathy of the right axilla earlier this year which was initially demonstrated on mammography. She subsequently had a needle biopsy followed by an excisional lymph node biopsy of the right axillary lymphadenopathy which was significant for nodular lymphocyte- predominant B-cell lymphoma. At time of diagnosis she had evidence of disease in the axilla, neck, external iliac, groin, skeleton, and spleen. She has no evidence of TOMOGRAPHIC TECH disease either on MRI or on CSF sampling. The patient was sick with COVID between cycles 5 and 6 and had some ear pain and Eustachian tube dysfunction around that time. More recently, she reports that she has been having ongoing fatigue, some intention tremor. She also has had some cramping in the backs of her legs. 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 Today she presents for consideration of rituximab therapy, cycle 8. She has since completed 7 cycles of rituximab therapy. She demonstrated an excellent response on restaging PET scan with now complete metabolic resolution of her previous widespread disease. She had two minor foci, 1 in the area ofher right axilla and the 2nd involving her right kidney, but her most recent PET CT demonstrates decreased axillary node size and avidity below mediastinal blood pool. She will complete her therapy today and follow with a PET CT in three months. Furthermore, I previously obtained a vascular medicine eConsult and her Xeralto was decreased to a prophylactic low-dose of 10 mg p.o. q.day until she is known to be cancer free. We will make that determination at the time of her post- treatment [address] At this time the patient reports that her biggest complication right now is maintaining her memory in the setting of her memory loss. She is seeing a practiiner at [facility] but those records areunavailable to us. Her memory loss predates her rituximab therapy but is now a significant burden. We will discuss with Dr. Croft in regards to any additional memory considerations of her diagnosis and treatment. We will initiate a workup for progressive memory loss as well, including screening B12, thyroid hormone, and proceeding with a brain MRI. Updates: CBC with platelets 156 CMP with creatinine 1.12 (baseline 1.0) Uric acid 4.6 LDH 184 Plan summary Continue with cycle 8 of Rituximab of 8 cycles planned Follow up with PET CT in 3 months Brain MRI, thyroid cascade, vitamin B12 PATIENT EDUCATION Ready to learn, no apparent learning barriers were identified; learning preferences include listening. Explained diagnosis and treatment plan; patient expressed understanding of the content. ADMINISTRATIVE BILLING I personally spent 35 minutes in care of the patient today. Time includes both non face to face andface to face patient care. documented in this encounter Plan of Treatment Not on file documented as of this encounter Results * PET CT Whole [...] RADIOPHARMACEUTICAL/MEDS: Route: intravenous fludeoxyglucose F 18 injection MCFP (FDG F-18),6.2 millicurie TECHNIQUE: ??F-18 FDG PET/CT [...] RADIOPHARMACEUTICAL/MEDS: Route: intravenous fludeoxyglucose F 18 injection MCFP (FDG F-18),6.2 millicurie TECHNIQUE: F-18 FDG PET/CT [...] lymphoma. Milena 2. Connor Bermudez M.D., M.S. IMG NM PROCEDU RES * LD (Lactate Dehydrogenase) (07/17/2023 9:04 AM CDT) [facility] Nieves LD 192 122 - 222 U/L 07/17/2023 10:00 AM CDT DTL Blood (Blood, Venous) 07/17/2023 9:04 AM CDT 07/17/2023 9:44 AM CDT Connor Bermudez M.D., M.S. LAB BLOOD NON ADD-ON [facility] [address] [place] [address], [facility] DTL [facility] [address] [place] [address] * (ABNORMAL) Comprehensive Metabolic Panel (07/17/2023 9:04 AM CDT) Pathologist [facility] Potassium, S 4.4 3.6 - 5.2 mmol/L 07/17/2023 10:08 AM CDT DTL Sodium, S 142 135 - 145 mmol/L 07/17/2023 10:08 AM CDT DTL Chloride, S 105 98 - 107 mmol/L 07/17/2023 10:08 AM CDT DTL Bicarbonate, S 28 22 - 29 mmol/L 07/17/2023 10:08 AM CDT DTL Anion Gap 9 7 - 15 07/17/2023 10:08 AM CDT DTL BUN (Blood Urea Nitrogen), S 17 6 - 21 mg/dL 07/17/2023 10:08 AM CDT DTL Creatinine 1.21(H) 0.59 - 1.04 mg/dL 07/17/2023 10:08 AM CDT DTL Estimated GFR (eGFR) 49(L) >=60 mL/min/BS A 07/17/2023 10:08 AM CDT DTL Comment: Estimated GFR calculated using the 2020 CKD_EPI creatinine equation. Calcium, Total, S 8.9 8.8 - 10.2 mg/dL 07/17/2023 10:08 AM CDT DTL Glucose, S 114 70 - 140 mg/dL 07/17/2023 10:08 AM CDT DTL Protein, Total, S 6.1(L) 6.3 - 7.9 g/dL 07/17/2023 10:08 AM CDT DTL Albumin, S 4.2 3.5 - 5.0 g/dL 07/17/2023 10:08 AM CDT DTL Aspartate Aminotransferase (AST), S 21 8 - 43 U/L 07/17/2023 10:08 AM CDT DTL Alkaline Phosphatase, S 83 35 - 104 U/L 07/17/2023 10:08 AM CDT DTL Alanine Aminotransferase (ALT), S 19 7 - 45 U/L 07/17/2023 10:08 AM CDT DTL Bilirubin, Total, S 0.6 <=1.2 mg/dL 07/17/2023 10:08 AM CDT DTL Blood (Blood, Venous) 07/17/2023 9:04 AM CDT 07/17/2023 9:36 AM CDT Connor Bermudez M.D., M.S. LAB BLOOD ADD- ON [facility] [address] [place] [address], [facility] [address] [place] [address] * (ABNORMAL) CBC with Differential, Blood (07/17/2023 9:04 AM CDT) Hemoglobin 15.1(H) 11.6 - 15.0 g/dL 07/17/2023 9:29 AM CDT DTL Hematocrit 44.7 35.5 - 44.9 % 07/17/2023 9:29 AM CDT DTL Erythrocytes 4.89 3.92 - 5.13 x10(12)/L 07/17/2023 9:29 AM CDT DTL MCV 91.4 78.2 - 97.9 fL 07/17/2023 9:29 AM CDT DTL RBC Distrib Width 13.2 12.2 - 16.1 % 07/17/2023 9:29 AM CDT DTL Platelet Count 167 157 - 371 x10(9)/L 07/17/2023 9:29 AM CDT DTL Leukocytes 4.3 3.4 - 9.6 x10(9)/L 07/17/2023 9:29 AM CDT DTL Neutrophils 3.14 1.56 - 6.45 x10(9)/L 07/17/2023 9:29 AM CDT DHPM Lymphocytes 0.50(L) 0.95 - 3.07 x10(9)/L 07/17/2023 9:29 AM CDT DTL Monocytes 0.45 0.26 - 0.81 x10(9)/L 07/17/2023 9:29 AM CDT DTL Eosinophils 0.20 0.03 - 0.48 x10(9)/L 07/17/2023 9:29 AM CDT DTL Basophils 0.04 0.01 - 0.08 x10(9)/L 07/17/2023 9:29 AM CDT DTL Blood (Blood, Venous) 07/17/2023 9:04 AM CDT 07/17/2023 9:21 AM CDT Connor Bermudez M.D., M.S. LAB BLOOD ADD- ON Performing Organization Address City/[facility]/ZIP Co de Phone Number [address] [place] [address] * Thyroid Function [place] (07/17/2023 9:04 AM CDT) Pathologist [facility] TSH, Sensitive 2.7 0.3 - 4.2 mIU/L 07/17/2023 10:08 AM CDT DTL Blood (Blood, Venous) 07/17/2023 9:04 AM CDT 07/17/2023 9:36 AM CDT Connor Bermudez M.D., M.S. LAB BLOOD ADD- ON [facility] [address] [place], [place] [phone] [place] [address] [place] [address] * Vitamin B12 Assay (07/17/2023 9:04 AM CDT) Vitamin B12 Assay, S 317 180 - 914 ng/L 07/17/2023 10:37 AM CDT DTL Comment: ----ADDITIONAL INFORMATION---- In patients being evaluated for vitamin B12 deficiency who have intrinsic factor blocking antibodies (IFBA), false elevations of B12 may occur due to IFBA interference thus potentially obscuring a physiological deficiency of B12. If observed B12 concentrations are discordant with clinical presentation, measurement of methylmalonic acid (MMA) should be considered. Blood (Blood, Venous) 07/17/2023 9:04 AM CDT 07/17/2023 9:36 AM CDT Connor Bermudez M.D., M.S. LAB BLOOD ADD- ON [facility] [address] [place] [address], [facility] DTL [facility] [address] [place] [address] * MR Brain without and with IV Contrast (07/17/2023 8:40 AM CDT) Anatomical Region Laterality Modality Head, Brain, Neuroradiology RST LOS, Neuroradiology ARZ LOS, Neuroradiology FLA LOS N/A Magnetic Resonance 07/17/2023 9:22 AM CDT Impressions 07/17/2023 9:34 AM CDT 1. No acute intracranial abnormality. No structural etiology for memory loss is identified. 2. Interval response of previously seen lymphomatous involvement in the right neck. Narrative 07/17/2023 9:34 AM CDT EXAM: MR BRAIN WITHOUT AND WITH IV CONTRAST COMPARISON: MR brain 06/13/2022. FINDINGS: Several sequences are partially compromised by motion artifact. Negative for acute infarct, hemorrhage, mass, extra-axial collection, or hydrocephalus. No pathologic enhancement of the brain parenchyma or leptomeninges. Mild generalized cerebral parenchymal volume loss. Scattered foci of bilateral white matter FLAIR hyperintensity consistent with moderate leukoaraiosis are not significantly changed. Major intracranial flow voids are intact. New-complete resolution of previous indeterminate enhancement in the posterior calvarium to the right of midline Previously seen abnormal enhancement involving the right paraspinal soft tissues at C1-2 is markedly reduced. Likewise, the previously seen prominent right level IIb lymph node is no longer apparent. Procedure Note Compa Walls M.D. - 07/17/2023 EXAM: MR BRAIN WITHOUT AND WITH IV CONTRAST COMPARISON: MR brain 06/13/2022. FINDINGS: Several sequences are partially compromised by motion artifact. Negativefor acute infarct, hemorrhage, mass, extra-axial collection, or hydrocephalus. No pathologicenhancement of the brain parenchyma or leptomeninges. Mild generalized cerebral parenchymal volumeloss. Scattered foci of bilateral white matter FLAIR hyperintensity consistent with moderateleukoaraiosis are not significantly changed. Major intracranial flow voids are intact. New-complete resolution of previous indeterminate enhancement in theposterior calvarium to the right of midline Previously seen abnormal enhancement involving the rightparaspinal soft tissues at C1-2 is markedly reduced. Likewise, the previously seen prominent rightlevel IIb lymph node is no longer apparent. IMPRESSION: 1. No acute intracranial abnormality. No structural etiology for memoryloss is identified. 2. Interval response of previously seen lymphomatous involvement in theright neck. Connor Bermudez M.D., M.S. 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
--- OUTSIDE RECORDS SUMMARY | 2023-12-11 07:44 | XMS_ITS | Encounter Summary ---
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 [address] [place] [phone] [facility] Referral ID Status Reason Start Date Expiration Date Visits Re quested Visits Authorized [id number] Closed 05/26/2023 05/25/2024 1 1 Encounter Details Date Type Department Care Team (Latest Contact Info) Description 07/17/2023 6:59 AM CDT - 07/17/2023 9:08 AM CDT Hospital Encounter Department of Radiology, [facility] in [place], [place] 200 [place] [phone] Connor Bermudez M.D., M.S. 200 [place] [address] Nodular Lymphocyte Predominant Hodgkin Lymphoma Extranodal And [...] often do you attend chur ch or synagogue services? Never 06/23/2022 Do you belong to any clubs o r organizations such as protestant groups, unions, fraternal or athletic groups, or [...] and heating? Not very hard 06/23/2022 [facility] Occupat ional Health - [...] place to sleep or slept in a penitentiary (including now)? No 06/23/2022 Nutrition Answer Date [...] 10/10/2022 08/27/2023 documented as of this encounter Nursing Notes * Jannette Kingsley R.N. - 07/17/2023 7:30 AM CDT Outpatient, keeping PIV in for later exam or refused to keep in for later exam requiring PIV: Is PIV being left in? YES If no, did patient refuse? NO Why is PIV being left in? 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) documented in this encounter Results * MR Brain without and with IV Contrast (07/17/2023 8:40 AM CDT) Anatomical Region Laterality Modality Head, Brain, Neuroradiology RST LOS, Neuroradiology ARRUST, Neuroradiology FLA [facility] N/A Magnetic Resonance 07/17/2023 9:22 AM CDT [...] MAR Action Action Date Dose Rate Site gadobutrol injection 0.01-30 mL (GADAVIST) 0.01-30 mL, intravenous, Once in imaging, contrast, Starting on Thu07/17/23 at 0727, For 1 dose, Imaging Protocol Orders, Dose per Radiant Medication Guidelines Intrathecal doses greater than 0.25 mL not recommended. Given 07/17/2023 8:13 AM CDT 10 mL documented in this encounter Additional Health Concerns Infection Onset Date Last Indicated Resolved Time Protective Environment 04/07/2023 04/07/2023 documented as of this encounter
--- OUTSIDE RECORDS SUMMARY | 2023-12-11 07:44 | XMS_ITS | Encounter Summary ---
Author Name Unknown Organization [facility] Address [address] [place] [address] Care Team Providers Care Chief Human Resources Officer Name Role Phone Unavailable Primary Care Provider Unavailabl e Encounter Details Date Type Department Care Team (Late st Contact Info) Description 06/28/2023 Orders Only Division of Hematology in [place], [place] [address] [place] [address] Mica Romero M.D. [address] [place] [address] Social History Tobacco Use Types Packs/Day Years [...] often do you attend chur ch or church services? Never 06/23/2022 Do you [...] care, and heating? Not very hard 06/23/2022 [facility] Occupat ional Health - Occupational [...] place to sleep or slept in a nursing home (including now)? No 06/23/2022 Nutrition Answer Date [...]
--- OUTSIDE RECORDS SUMMARY | 2023-12-11 07:44 | XMS_ITS | Encounter Summary ---
Author Name Unknown Organization [facility] Address [address] [place] [address] Care Team Providers Care [employer] Name Role Phone Unavailable Primary Care Provider Unavailabl e Reason for Visit * Reason Onset Date Comments treatment date change 04/07/2023 Encounter Details Date Type Department Care Team (Latest Contact Info) Description 04/07/2023 Clinical Communication Division of Hematology in [place], [place] [address] [place] [address] Connor Bermudez M.D., M.S. [address] [place] [phone] treatment date change Social History Tobacco Use Types Packs/Day Years [...] often do you attend chur ch or hinduism services? Never 06/23/2022 Do you belong to any clubs o r organizations such as muslim groups, unions, fraternal or athletic groups, or [...] care, and heating? Not very hard 06/23/2022 [facility]at ional [facility] - [...]
--- OUTSIDE RECORDS SUMMARY | 2023-12-11 07:44 | XMS_ITS | Encounter Summary ---
Author Name Unknown Organization [facility] Address [address] [place] [address] Care Team Providers Care Police Aide Name Role Phone Unavailable Primary Care Provider Unavailabl e Encounter Details Date Type Department Care Team (Late st Contact Info) Description 04/14/2023 Orders Only Department of Oncology in [place], [place] [address] [place] [address] Connor Bermudez M.D., M.S. [address] [place] [address] Social History Tobacco Use Types Packs/Day Years [...] often do you attend chur ch or jew services? Never 06/23/2022 Do you belong to any clubs o r organizations such as zoroastrianism groups, unions, fraternal or athletic groups, or [...] care, and heating? Not very hard 06/23/2022 [facility]at ional Health - [...] place to sleep or slept in a longterm (including now)? No 06/23/2022 Nutrition Answer Date [...]
--- OUTSIDE RECORDS SUMMARY | 2023-12-11 07:44 | XMS_ITS | Encounter Summary ---
Author Name Unknown Organization [facility] Address [address] [place] [address] Care Team Providers Care Bee Raiser Name Role Phone Unavailable Primary Care Provider Unavailabl e Encounter Details Date Type Department Care Team (Late st Contact Info) Description 04/14/2023 Clinical Communication Division of Hematology in [place], [place] [address] [place] [address] Connor Bermudez M.D., M.S. [address] [place] [address] Social History Tobacco Use Types Packs/Day Years [...] often do you attend chur ch or zoroastrianism services? Never 06/23/2022 Do you belong to any clubs o r organizations such as scientology groups, unions, fraternal or athletic groups, or [...] care, and heating? Not very hard 06/23/2022 [facility] Occupat ional Health - Occupational [...] place to sleep or slept in a correction (including now)? No 06/23/2022 Nutrition Answer Date [...]
--- OUTSIDE RECORDS SUMMARY | 2023-12-11 07:44 | XMS_ITS | Encounter Summary ---
Author Name Unknown Organization [facility] Address [address] [place] [address] Care Team Providers Care Welt Edge Rounder Name Role Phone Unavailable Primary Care Provider Unavailabl e Encounter Details Date Type Department Care Team (Late st Contact Info) Description 06/26/2023 Orders Only Department of Oncology in [place], [place] [address] [place] [address] Mica Romero M.D. [address] [place] [address] Social History Tobacco Use Types Packs/Day Years [...] often do you attend chur ch or moravian services? Never 06/23/2022 Do you belong to [...] and heating? Not very hard 06/23/2022 [facility] Occupat ional Health - Occupational [...]
--- OUTSIDE RECORDS SUMMARY | 2023-12-11 07:44 | XMS_ITS | Encounter Summary ---
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 [address] [place] [phone] [address] [place] [address] [place] [phone] Referral ID Status Reason Start Date Expiration Date V isits Requested Visits Authorized [id number] Authorized 06/24/2022 06/24/2023 99 99 Encounter Details Date Type Department Care Team (Late st Contact Info) Description 05/26/2023 10:00 AM CDT Infusion Department of Oncology in [place], [place] [address] [place] [phone] Connor Bermudez M.D., M.S. [address] [place] [phone] Nodular Lymphocyte Predominant Hodgkin Lymphoma Extranodal And [...] week 06/23/2022 How often do you attend [facility] or orthodoxy services? Never 06/23/2022 Do you belong to any clubs o r organizations such as yarsani groups, unions, fraternal or athletic groups, or [...] care, and heating? Not very hard 06/23/2022 [facility] [place] of Occupat ional Health - Occupational Stress [...] place to sleep or slept in a senior care (including now)? No 06/23/2022 Nutrition Answer Date [...] Sites (HCC)- Primary documented in this encounter Administered Medications Inactive Administered Medications - up to 3 most recent administrations Medication Order MAR Action Action Date Dose Rate Site acetaminophen tablet 650 mg (TYLENOL) 650 mg, oral, Once, On Thu05/26/23 at 1100, For 1 dose, Administer 30 minutes prior to riTUXimab. Given 05/26/2023 10:55 AM CDT 650 mg diphenhydrAMINE 50 mg in NaCl 0.9% IVPB (BENADRYL) 50 mg, intravenous, at 204 mL/hr, Administer over 15 Minutes, Once, On Thu05/26/23 at 1100, For 1 dose New Bag 05/26/2023 11:08 AM CDT 50 mg 204 mL/hr hydrocortisone sodium succinate (PF) injection 100 mg (Solu-CORTEF) 100 mg, intravenous, Once, On Thu05/26/23 at 1100, For 1 dose, IV push over 30 seconds per 100 mg (For doses 500 mg or less) Given 05/26/2023 11:02 AM CDT 100 mg rituximab-pvvr 800 mg in NaCl 0.9% IVPB (RUXIENCE) 800 mg (rounded from 810 mg = 375 mg/m2 ? 2.16 m2 Treatment Plan BSA from Measured weight), intravenous, Once, On Thu05/26/23 at 1130, For 1 dose, Initial infusion: Start rate of 50 mg/hour; if there is no reaction, increase the rate by 50 mg/hour increments every 30 minutes, to a maximum rate of 400 mg/hour., Restriction Criteria (Pharmacy will review and approve if criteria met): Meets rituximab algorithm criteria Rate/Dose Change 05/26/2023 2:46 PM CDT 350 mL/hr Rate/Dose Change 05/26/2023 2:12 PM CDT Rate/Dose Change 05/26/2023 1:35 PM CDT 250 mL/ hr documented in this encounter Additional Health Concerns Infection Onset Date Last Indicated Resolved Time Protective Environment 04/07/2023 04/07/2023 documented as of this encounter
--- OUTSIDE RECORDS SUMMARY | 2023-12-11 07:45 | XMS_ITS | Encounter Summary ---
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 [address] [place] [phone] [facility] Referral ID Status Reason Start Date Expiration Date Visits Re quested Visits Authorized [id number] Closed 01/06/2023 01/06/2024 1 1 Encounter Details Date Type Department Care Team (Latest Contact Info) Description 02/16/2023 7:13 AM CDT - 02/16/2023 11:59 PM CDT Hospital Encounter Department of Radiology, [facility], in [place], [place] 200 [place] [phone] Connor Bermudez M.D., M.S. [address] [place] [phone] Nodular Lymphocyte Predominant Hodgkin Lymphoma Extranodal And [...] often do you attend chur ch or congregational services? Never 06/23/2022 Do you belong to any clubs o r organizations such as moravian groups, unions, fraternal or athletic groups, or [...] care, and heating? Not very hard 06/23/2022 [facility] Occupat ional Health - [...] place to sleep or slept in a residential (including now)? No 06/23/2022 Nutrition Answer Date [...] Take 1 tablet by mouth daily. 0 celecoxib (CeleBREX) 100 mg capsule Take 100 [...] 1 tablet by mouth daily. 0 05/21/2015 cholecalciferol (VITAMIN D3) 50 mcg (2,000 Unit) capsule daily. 0 05/21/2015 023 rivaroxaban (XARELTO) 10 mg tablet Take 1 tablet (10 mg total) by mouth daily with dinner. 30 tablet 11 12/23/2022 05/26/2023 sertraline (ZOLOFT) 100 mg tablet Take 200 mg by mouth daily. 0 05/26/2023 Xarelto 20 mg tablet Take 20 mg by mouth daily. 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 Low level FDG uptake involving a few right axillary and a right external iliac lymph node, low mediastinal blood pool activity. [place]ville: 2 Narrative 02/16/2023 9:47 AM CDT EXAM: ??PET CT WHOLE BODY FDG Serum glucose at time of F-18 FDG injection was 103 mg/dL. Patient followed standard dietary/fasting requirements for this exam. RADIOPHARMACEUTICAL/MEDS: Route: intravenous fludeoxyglucose F 18 injection RETIREMENT (FDG F-18),9.91 millicurie TECHNIQUE: ??F-18 FDG PET/CT scan was performed from the orbits through the thighs with low dose, non-contrast, free-breathing CT images for attenuation correction and anatomic localization (AC/AL), with imaging beginning at approximately 60 minutes after radiotracer injection. COMPARISON: ??FDG PET/CT 09/29/2022, 07/29/2022 INDICATION: ??Restaging nodular lymphocyte predominant B-cell lymphoma. Interval rituximab. Subsequent treatment strategy. The patient reports no recent vaccinations. FINDINGS: ??Decreased size and persistent mild FDG uptake involving a few right axillary lymph nodes. For reference, a lymph node containing a biopsy clip (image 139) currently measures 10 mm short axis compared to 2.0 cm previously with current SUV max 2.4, previously 2.7. The current SUV max is below mediastinal blood pool activity. A right external iliac lymph node is minimally changed in size (image 106, 10 mm short axis compared to 12 mm previously) but demonstrates decreased FDG uptake which is now below mediastinal blood pool activity. No new FDG avid lymphadenopathy. The spleen is normal in size and demonstrates normal FDG uptake. Normal bone marrow FDG uptake. Scattered degenerative/inflammatory musculoskeletal FDG uptake, including the right knee joint and lower lumbar facet joints, and joints within the feet. Significant incidental findings on the low-dose unenhanced CT fusion images: 6 mm solid pulmonary nodule in the right upper lobe is stable (image 134). Bilateral dependent subsegmental atelectasis. Scattered colonic diverticulosis. Degenerative changes in the spine. Procedure Note Alonso Galindo M.D. - 02/16/2023 EXAM: PET CT WHOLE BODY FDG Serum glucose at time of F-18 FDG injection was 103 mg/dL. Patientfollowed standard dietary/fasting requirements for this exam. RADIOPHARMACEUTICAL/MEDS: Route: intravenous fludeoxyglucose F 18 injection RETIREMENT (FDG F-18),9.91 millicurie TECHNIQUE: F-18 FDG PET/CT scan was performed from the orbits through thethighs with low dose, non-contrast, free-breathing CT images for attenuation correction andanatomic localization (AC/AL), with imaging beginning at approximately 60 minutes after radiotracerinjection. COMPARISON: FDG PET/CT 09/29/2022, 07/29/2022 INDICATION: Restaging nodular lymphocyte predominant B-cell lymphoma.Interval rituximab. Subsequent treatment strategy. The patient reports no recent vaccinations. FINDINGS: Decreased size and persistent mild FDG uptake involving a fewright axillary lymph nodes. For reference, a lymph node containing a biopsy clip (image 139) currentlymeasures 10 mm short axis compared to 2.0 cm previously with current SUV max 2.4, previously 2.7.The current SUV max is below mediastinal blood pool activity. A right external iliac lymph node is minimally changed in size (image 106,10 mm short axis compared to 12 mm previously) but demonstrates decreased FDG uptake which is nowbelow mediastinal blood pool activity. No new FDG avid lymphadenopathy. The spleen is normal in size anddemonstrates normal FDG uptake. Normal bone marrow FDG uptake. Scattered degenerative/inflammatory musculoskeletal FDG uptake, includingthe right knee joint and lower lumbar facet joints, and joints within the feet. Significant incidental findings on the low-dose unenhanced CT fusionimages: 6 mm solid pulmonary nodule in the right upper lobe is stable (image 134). Bilateral dependentsubsegmental atelectasis. Scattered colonic diverticulosis. Degenerative changes in the spine. IMPRESSION: Interval complete metabolic response. Low level FDG uptake involving a fewright axillary and a right external iliac lymph node, low mediastinal blood poolactivity. [place]auville: 2 Connor Bermduez M.D., M.S. 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
--- OUTSIDE RECORDS SUMMARY | 2023-12-11 07:45 | XMS_ITS | Encounter Summary ---
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 [address] [place] [phone] [address] [place] [address] [place] [phone] Referral ID Status Reason Start Date Expiration Date V isits Requested Visits Authorized [id number] Authorized 06/24/2022 06/24/2023 99 99 Encounter Details Date Type Department Care Team (Late st Contact Info) Description 12/23/2022 11:15 AM BENEFITS CLERK Infusion Department of Oncology in [place], [place] [address] [place] [phone] Connor Bermudez M.D., M.S. [address] [place] [phone] Nodular Lymphocyte Predominant Hodgkin Lymphoma Extranodal And [...] week 06/23/2022 How often do you attend [facility] or rastafarian services? Never 06/23/2022 Do you [...] care, and heating? Not very hard 06/23/2022 [facility] [place] of Occupat ional Health - Occupational Stress [...] Sign Reading Time Taken Comments Blood Pressure 164/82 12/23/2022 11:56 AM BENEFITS CLERK Pulse - - Temperature - - Respiratory Rate - - Oxygen Saturation - - Inhaled Oxygen Concentration - - Weight - - Height - - Body Mass Index - - documented in this encounter Plan of Treatment [...] mg (TYLENOL) 650 mg, oral, Once, On Thu12/23/22 at 1130, For 1 dose, Administer 30 minutes prior to riTUXimab. Given 12/23/2022 11:36 AM BENEFITS CLERK 650 mg diphenhydrAMINE 50 mg in NaCl 0.9% IVPB (BENADRYL) 50 mg, intravenous, at 204 mL/hr, Administer over 15 Minutes, Once, On Thu12/23/22 at 1130, For 1 dose New Bag 12/23/2022 11:46 AM BENEFITS CLERK 50 mg 204 mL/hr hydrocortisone sodium succinate (PF) injection 100 mg (Solu-CORTEF) 100 mg, intravenous, Once, On Thu12/23/22 at 1130, For 1 dose, IV push over 30 seconds per 100 mg (For doses 500 mg or less) Given 12/23/2022 11:41 AM BENEFITS CLERK 100 mg rituximab-pvvr 800 mg in NaCl 0.9% IVPB (RUXIENCE) 800 mg (rounded from 810 mg = 375 mg/m2 ? 2.16 m2 Treatment Plan BSA from Measured weight), intravenous, Once, On Thu12/23/22 at 1200, For 1 dose, Proceed with initial rate of 100 mg/hr and increase by 100 mg/hr every 30 minutes to a maximum of 400 mg/hr., Restriction Criteria (Pharmacy will review and approve if criteria met): Meets rituximab algorithm criteria Rate/Dose Change 12/23/2022 1:59 PM BENEFITS CLERK 400 mL/hr Rate/Dose Change 12/23/2022 1:30 PM BENEFITS CLERK 300 mL/ hr New Bag 12/23/2022 12:24 PM BENEFITS CLERK 800 mg documented in this encounter
--- OUTSIDE RECORDS SUMMARY | 2023-12-11 07:45 | XMS_ITS | Clinical Summary ---
Author Name Unknown Organization [facility] Address [place], [place] [address] Care Team Providers Care News Broadcaster Name Role Phone Haseeb Durán MD Primary Care Provider + Allergies Active Allergy Reactions Criticality Noted Date Comments Amoxicillin-Pot Clavulanate Hives 07/06/20 07 Aspirin 07/06/2007 Cefuroxime *Unknown 07/06/2007 Chlorthalidone Rash 05/11/2008 Propoxyphene-Acetaminophen *Unknown 7 Spironolactone Rash 05/11/2008 Medications Medication Sig Dispensed Refills Start Date End Date Status hydrocortisone (ANUSOL-HC) 2.5 % rectal cream Apply topically to affected area(s) 3 times daily. 1 Tube 0 07/19/2011 Active furosemide (LASIX) 40 mg tabletIndications:Un specified essential hypertension Take 1 tablet by mouth every morning. 90 tablet 4 12/22/2011 Active hyoscyamine SR (LEVBID) 0.375 mg CR tablet Take 1 tablet by mouth every 12 hours if needed. 60 tablet 11 12/22/2011 Active amLODIPine (NORVASC) 10 mg tabletIndications:Un specified essential hypertension TAKE ONE TABLET BY MOUTH DAILY 90 tablet 3 02/02/2012 Active gabapentin (NEURONTIN) 100 mg capsule Take 1 capsule by mouth at bedtime. Taking three capsules at bedtime 0 03/23/2012 Active amitriptyline (ELAVIL) 25 mg tablet Take 1 tablet by mouth at bedtime. 0 03/23/2012 Active metoprolol succinate (TOPROL XL) 100 mg Sustained-Release tablet Take 1 tablet by mouth once daily. 0 05/21/2015 Active sertraline (ZOLOFT) 50 mg tablet Take 1.5 tablets by mouth once daily. 0 05/21/2015 Active furosemide (LASIX) 40 mg tablet Take 1 tablet by mouth every morning. 0 05/21/2015 Active gabapentin (NEURONTIN) 100 mg capsule Take 1 capsule by mouth 3 times daily. 0 05/21/2015 Active progesterone micronized (PROMETRIUM) 100 mg capsule Take 1 capsule by mouth at bedtime. 0 05/21/2015 Active Cholecalciferol, Vitamin D3, (VITAMIN D-3) 5,000 unit tab Take by mouth once daily. 0 05/21/2015 Active calcium citrate-vitamin D3 500/300 FLAVIO-D3 chew chewable tablet One daily 0 05/21/2015 Active zinc 50 mg tablet Take 1 tablet by mouth once daily. 0 05/21/2015 Active Estradiol (EVAMIST) 1.53 mg/spray (1.7%) spry One spray daily 0 05/21/2015 Active vit A,C & X-bfaudv-fncksulj (OCUVITE WITH LUTEIN) 1,000 unit-200 mg-60 unit-2 mg tab Take 1 tablet by mouth once daily. 0 05/21/2015 Active lisinopril (PRINIVIL; ZESTRIL) 40 mg tabletIndications:Un specified essential hypertension Take 1 tablet by mouth once daily. 90 tablet 4 05/21/2015 Active levothyroxine (SYNTHROID) 50 mcg tabletIndications:Co ngenital hypothyroidism without goiter Take 1 tablet by mouth before breakfast. 90 tablet 3 08/09/2015 Active allopurinoL (ZYLOPRIM) 300 mg tablet Take 300 mg by mouth. 0 06/24/2022 Active Biotin 1 mg tablet Take by mouth. 0 Ac tive celecoxib (CELEBREX) 100 mg capsule Take 100 mg by mouth. 0 03/23/2022 Active Xarelto 20 mg tablet TAKE ONE TABLET BY MOUTH EVERY DAY. MUST ADMINISTER WITH EVENING MEAL. 0 11/14/2022 Active LORazepam (ATIVAN) 0.5 mg tab one time if needed. 0 05/30/2022 Activ e nystatin-triamcinolo ne (MYCOLOG) cream APPLY TOPICALLY TWICE A DAY. 0 09/25/2022 Active ondansetron (ZOFRAN ODT) 4 mg disintegrating tablet 0 09/19/2022 Active oxyCODONE-acetaminop hen (PERCOCET) 5-325 mg per tablet TAKE 1/2 TO 1 TABLET BY MOUTH EVERY 6 TO 8 HOURS NEEDED. MAX DOSE: 6/DAY. WEAN TOLERATED 0 02/14/2022 Active HYDROcodone-acetamin ophen ([place]) 5-325 mg per tabletIndications:Po st-traumatic osteoarthritis of right knee Take 1 Tablet by mouth 3 times daily if needed for Pain. Max acetaminophen dose: 4000mg in 24 hrs. 18 Tablet 0 03/05/2023 Active Active Problems Problem Noted Date Diagnosed Date Congenital hypothyroidism without goiter 015 Overview: Started medication 05/2015 Menopausal hot flushes 05/23/2015 Overview: Responded well to gabapentin. IUD (intrauterine device) in place 11/26/2010 Overview: Placed 10/2008 Mirena Diverticulosis of colon (without mention of hemo rrhage) 08/02/2010 Overview: Colonoscopy 07/2010 diverticulosis repeat in 10 years Unspecified essential hypertension 10/19/2007 Contact dermatitis and other eczema, due to unspecified cause 10/19/2007 Immunizations Name Administration Dates Next Due AMB Influenza, IIV4 PF (=>6 mos Flulaval,Fluzone Fluarix)(Flu Clinic Only) 09/01/2014 Influenza RIV4 (Age 18+ Year s) PRESERV FREE 09/02/2021,09/13/2020 Influenza, IIV3 (Age 6-35 mos) 08/24/2013 Influenza, IIV3 (Age >=3 years) 08/25/20 12,08/29/2011,09/04/2010,08/29,09/15/2007 Influenza, IIV4 08/26/2017,09/15/2016 Influenza, Inactivated AIIV4 (Age 65+ Years) Preserv Free 08/04/2022 Influenza, Injectable, Mdck, Quadrivalent, W/preservative 08/23/2018 Td (Age >=7 Years) 06/20/2004 Tdap 06/18/2012,03/23/2006 06/18/2022 Zoster (Zostavax-ZVL, live) 12/09/2012 Family History Medical History Relation Name Comments Hyperlipidemia Father Other Father COPD of th is at 74 Hyperlipidemia Mother Hypertension Mother Other Mother copd newly diag nosed 2007 Diabetes Paternal Grandmother Relation Name Status Comments Father Mother Alive Paternal Grandmother Social History Tobacco Use Types Packs/Day Years Used Date Smoking Tobacco: Never Smokeless Tobacco: Never Tobacco Cessation:Counseling Given: No Alcohol Use Standard Drinks/Week Comments Yes 0 (1 standard drink = 0.6 oz pur e alcohol) rarely 0-1 drinks per month Social Connections Answer Date Recorded Frequency of Communication with Friends and Fami ly Not on file 11/19/2022 Sex and Gender Information Value Date Recorded Sex Assigned at Not on file Gender Identity Not on file Sexual Orientation Not on file Obstetrics History Last Filed Vital Signs Vital Sign Reading Time Taken Comments Blood Pressure 159/94 03/05/2023 8:31 AM CDT Pulse 58 03/05/2023 8:31 AM CDT Temperature 36.6 ??C (97.9 ??F) 03/05/2023 8:31 AM CD T Respiratory Rate 20 07/20/2008 1:54 PM CDT Oxygen Saturation 97% 03/05/2023 8:31 AM CDT Inhaled Oxygen Concentration - - Weight 101.9 kg (224 lb 9.6 oz) 023 11:10 AM CDT Height 165.1 cm (5' 5) 05/21/2015 9:40 AM CDT Body Mass Index 37.38 05/21/2015 9:40 AM CDT Plan of Treatment Health Maintenance Due Date Last Done Comments Depression screening for age 12+ 1968 BMI (ht and wt on same day) for age 18+ 1974 Hepatitis C screening for ag e 18-79 1974 Zoster (shingles) series for age 50+ (2 of 3) 02/03/2013 12/09/2012 Mammogram for age 45-75 04/20/2016 04/20/20 15 (Completed outside of [facility]), 01/13/2013, 01/11/2013, Additional history exists Lipids for age 45-75 04/20/2020 04/20/2015, 12/22/2011, 11/28/2010, Additional history exists Colonoscopy through age 75 08/02/2020 08/02/2010, DEXA/DXA scan for age 65+ 2021 Medicare Wellness for age 65+ 2021 Pneumococcal series for age 65+ (1 of 1 - PCV) 2021 Tetanus booster 06/18/2022 06/18/2012, 05/06/2006, 06/20/2004 COVID-19 vaccine series (2022-24 season) 2023 03/24/2022, 10/28/2021, 01/23/2021, Additional history exists Influenza for age 65+ 07/17/2023 08/04/2022 , 09/02/2021, 09/13/2020, Additional history exists Tdap Completed 06/18/2012, 03/23/2006 Care Teams News Broadcaster Relationship Specialty Start Date End Date Haseeb Durán MD [address] [facility] [place] [address] PCP - General Family Practice 05/12/22
--- OUTSIDE RECORDS SUMMARY | 2023-12-11 07:45 | XMS_ITS | Encounter Summary ---
Author Name Unknown Organization [facility] Address [address] [place] [address] Care Team Providers Care Magazine Hand Name Role Phone Unavailable Primary Care Provider Unavailabl e Encounter Details Date Type Department Care Team (Latest Contact Info) Description 12/22/2022 11:15 AM COURIER DRIVER Clinical Communication Virtual Review in [place], [place] [address] [place], [place] [phone] Social History Tobacco Use Types Packs/Day Years [...] often do you attend chur ch or cheondoism services? Never 06/23/2022 Do you belong to any clubs o r organizations such as worship groups, unions, fraternal or athletic groups, or [...] care, and heating? Not very hard 06/23/2022 [facility] Occupat ional Health - [...] place to sleep or slept in a jail (including now)? No 06/23/2022 Nutrition Answer Date [...]
--- OUTSIDE RECORDS SUMMARY | 2023-12-11 07:45 | XMS_ITS | Encounter Summary ---
Author Name Unknown Organization [facility] Address [address] [place] [address] Care Team Providers Care Commercial Lending Assistant Name Role Phone Unavailable Primary Care Provider Unavailabl e Encounter Details Date Type Department Care Team (Late st Contact Info) Description 01/16/2023 Orders Only Division of Hematology in [place], [place] [address] [place] [phone] Amparo Bhakta Nodular Lymphocyte Predominant Hodgkin Lymphoma Extranodal And [...] often do you attend chur ch or lutheran services? Never 06/23/2022 Do you belong to any clubs o r organizations such as jain groups, unions, fraternal or athletic groups, or [...] care, and heating? Not very hard 06/23/2022 [facility] of Occupat ional Health - Occupational [...] to sleep or slept in a senior living (including now)? No 06/23/2022 Nutrition Answer Date [...] documented as of this encounter Results * Miscellaneous Research, B (02/17/2023 7:33 AM CDT) Number of Specimens 3 02/17/2023 7:33 AM CDT HSS Blood (Blood, Venous) 02/17/2023 7:33 AM CDT 02/17/2023 7:33 AM CDT Connor Bermudez M.D., M.S. 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
--- OUTSIDE RECORDS SUMMARY | 2023-12-11 07:45 | XMS_ITS | Encounter Summary ---
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 [address] [place] [phone] [address] Hem [place] [address] [place] [phone] Referral ID Status Reason Start Date Expiration Date V isits Requested Visits Authorized [id number] Authorized 06/24/2022 06/24/2023 99 99 Encounter Details Date Type Department Care Team (Late st Contact Info) Description 02/17/2023 10:00 AM CDT Infusion Department of Oncology in [place], [place] [address] [place] [phone] Connor Bermudez M.D., M.S. [address] [place] [phone] Nodular Lymphocyte Predominant Hodgkin Lymphoma Extranodal And [...] week 06/23/2022 How often do you attend [facility] or muslim services? Never 06/23/2022 Do you belong to any clubs o r organizations such as judaism groups, unions, fraternal or athletic groups, or [...] care, and heating? Not very hard 06/23/2022 [facility] of Occupat ional Health - Occupational Stress [...] place to sleep or slept in a fdc (including now)? No 06/23/2022 Nutrition Answer Date [...] mg (TYLENOL) 650 mg, oral, Once, On Thu02/17/23 at 1030, For 1 dose, Administer 30 minutes prior to riTUXimab. Given 02/17/2023 10:30 AM CDT 650 mg diphenhydrAMINE 50 mg in NaCl 0.9% IVPB (BENADRYL) 50 mg, intravenous, at 204 mL/hr, Administer over 15 Minutes, Once, On Thu02/17/23 at 1030, For 1 dose New Bag 02/17/2023 10:36 AM CDT 50 mg 204 mL/hr hydrocortisone sodium succinate (PF) injection 100 mg (Solu-CORTEF) 100 mg, intravenous, Once, On Thu02/17/23 at 1030, For 1 dose, IV push over 30 seconds per 100 mg (For doses 500 mg or less) Given 02/17/2023 10:30 AM CDT 100 mg rituximab-pvvr 800 mg in NaCl 0.9% IVPB (RUXIENCE) 800 mg (rounded from 810 mg = 375 mg/m2 ? 2.16 m2 Treatment Plan BSA from Measured weight), intravenous, Once, On Thu02/17/23 at 1100, For 1 dose, Proceed with initial rate of 100 mg/hr and increase by 100 mg/hr every 30 minutes to a maximum of 400 mg/hr., Restriction Criteria (Pharmacy will review and approve if criteria met): Meets rituximab algorithm criteria Rate/Dose Change 02/17/2023 12:55 PM CDT 400 mL/hr Rate/Dose Change 02/17/2023 12:25 PM CDT Rate/Dose Change 02/17/2023 11:54 AM CDT 200 mL /hr documented in this encounter
--- OUTSIDE RECORDS SUMMARY | 2023-12-11 07:45 | XMS_ITS | Encounter Summary ---
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 [address] [place] [phone] [address] Hem [place] [address] [place] [phone] Referral ID Status Reason Start Date Expiration Date V isits Requested Visits Authorized [id number] Authorized 06/24/2022 06/24/2023 99 99 Encounter Details Date Type Department Care Team (Late st Contact Info) Description 02/17/2023 9:15 AM CDT Office Visit Department of Oncology in [place], [place] [address] [place] [phone] Connor Bermudez M.D., M.S. 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 Never 06/23/2022 Do you belong to any clubs o r organizations such as christian groups, unions, fraternal or athletic groups, or [...] care, and heating? Not very hard 06/23/2022 [facility] of Occupat ional Health - Occupational Stress [...] Sign Reading Time Taken Comments Blood Pressure 165/95 02/17/2023 9:10 AM CDT Pulse 76 02/17/2023 9:10 AM CDT Temperature 36.8 ??C (98.2 ??F) 02/17/2023 9:10 AM CD T Respiratory Rate - - Oxygen Saturation - - Inhaled Oxygen Concentration - - Weight 100 kg (220 lb 7.4 oz) 02/17/2023 9:10 AM CDT Height 162 cm (5' 3.78) 02/17/2023 9:10 AM CDT Body Mass Index 38.1 02/17/2023 9:10 AM CDT documented in this encounter Progress Notes * Connor Bermudez M.D., M.S. - 02/17/2023 9:15 AM CDT [facility] - Hematology SUBJECTIVE PRIMARY CARE PHYSICIAN No primary care provider on file. 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 Croft Primary fellow: Dr. Bermudez [...] list. 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 She has no evidence of MANUFACTURING APPLICATIONS ENGINEER disease either on MRI or on CSF sampling. Today she presents for consideration of rituximab therapy, cycle 7. She has since completed 6 cycles of rituximab therapy. She demonstrated an excellent response on restaging PET scan with now complete metabolic resolution of her previous widespread disease. She had two minor foci, 1 in the area ofher right axilla and the 2nd involving her right kidney, but her most recent PET CT demonstrates decreased axillary node size and avidity below mediastinal blood pool. We had previously planned to proceed with kidney MRI if she had suspicious findings on her cycle [address], but given her continued improvement and no obvious disease, the MRI can be deferred at this time. The patient was sick with COVID between cycles 5 and 6 and had some ear pain and Eustachian tube dysfunction around that time. More recently, she reports that she has been having ongoing fatigue, some intention tremor. She also has had some cramping in the backs of her legs. 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 Furthermore, I previously obtained a vascular medicine eConsult and her Xeralto was decreased to a prophylactic low-dose of 10 mg p.o. q.day until she is known to be cancer free. Updates: CBC with hgb 16.0 CMP within normal limits Uric acid and LDH normal PET CT: Interval complete metabolic response. Low level FDG uptake involving a few right axillary and a right external iliac lymph node, low mediastinal blood pool activity. Deauville: 2 Plan summary Continue with cycle 7 of Rituximab of 8 cycles planned Discuss PET findings with Dr. Croft to ensure no MRI is needed Case discussed with Dr. Croft. PATIENT EDUCATION Ready to learn, no apparent [...]
--- OUTSIDE RECORDS SUMMARY | 2023-12-11 07:45 | XMS_ITS | Encounter Summary ---
Author Name Unknown Organization [facility] Address [address] [place] [address] Care Team Providers Care Maintenance And Repair Worker Name Role Phone Unavailable Primary Care Provider Unavailabl e Reason for Visit * Reason Comments February 17Lymph/Est Encounter Details Date Type Department Care Team (Latest Contact Info) Description 12/05/2022 Clinical Communication Division of Hematology in [place], [place] [address] [place] [phone] Connor Bermudez M.D., M.S. [address] [place] [address] February 17Lymph/Est Social History Tobacco Use Types Packs/Day Years [...] often do you attend chur ch or hoahaoism services? Never 06/23/2022 Do you belong to any clubs o r organizations such as spiritism groups, unions, fraternal or athletic groups, or [...] care, and heating? Not very hard 06/23/2022 [facility] of Occupat ional Health - Occupational [...] encounter Miscellaneous Notes * Telephone Encounter - Kaycee Valenzuela - 12/05/2022 5:41 PM CST Please schedule chemo for the following patient: Patient Name: Jaky Lara Date(s) chemo is requested: 02/17 Time Preferred: After provider visit Labs to be scheduled with Chemo: no New tx patient: no Is this request to be scheduled within 3 business days? No Preferred Patient Communication: Portal message? Yes Route new communications to: RST HEM CHEMO REQUESTS Thank you. PREP WORKER documented in this encounter Plan of Treatment Not on file documented as of this encounter Visit Diagnoses Not on filedocumented in this encounter
--- OUTSIDE RECORDS SUMMARY | 2023-12-11 07:45 | XMS_ITS | Encounter Summary ---
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 [address] [place] [phone] [address] Hem [place] [address] [place] [phone] Referral ID Status Reason Start Date Expiration Date V isits Requested Visits Authorized [id number] Authorized 06/24/2022 06/24/2023 99 99 Encounter Details Date Type Department Care Team ([facility] st Contact Info) Description 12/23/2022 10:00 AM BACK HAND Office Visit Department of Oncology in [place], [place] 200 [place] [address] Connor Bermudez M.D., M.S. [address] [place] [address] Nodular Lymphocyte Predominant Hodgkin Lymphoma Extranodal And [...] often do you attend chur ch or sikhism services? Never 06/23/2022 Do you belong to any clubs o r organizations such as baptist groups, unions, fraternal or athletic groups, or [...] care, and heating? Not very hard 06/23/2022 [facility] - Occupational Stress Questionnaire Answer Date [...] Sign Reading Time Taken Comments Blood Pressure 175/95 12/23/2022 9:51 AM BACK HAND Pulse 54 12/23/2022 9:51 AM BACK HAND Temperature 36.8 ??C (98.2 ??F) 12/23/2022 9:51 AM CS T Respiratory Rate - - Oxygen Saturation - - Inhaled Oxygen Concentration - - Weight 100 kg (220 lb 7.4 oz) 12/23/2022 9:51 AM BACK HAND Height 166 cm (5' 5.35) 12/23/2022 9:51 AM BACK HAND Body Mass Index 36.29 12/23/2022 9:51 AM BACK HAND documented in this encounter Progress Notes * Connor Bermudez M.D., M.S. - 12/23/2022 10:00 AM CST Images from the original note were not included. [facility] - Hematology SUBJECTIVE PRIMARY CARE PHYSICIAN No primary care provider on file. 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 Croft Primary fellow: Dr. Bermudez [...] social history, surgical history, and problem list. REVIEW OF SYSTEMS Constitutional: Positive for fatigue. - Negative for fever, loss of appetite, night sweats, weight gain of more than 10 pounds and weightloss of more than 10 pounds. - Frequent daytime sweats, hair loss Eyes: - Negative for double vision, visual problems and sudden loss of vision. ENT: Positive for sinus congestion. Respiratory: Positive for coughing up mucus (phlegm). - Negative for dry cough, shortness of breath and wheezing. Cardiovascular: - Negative for chest pain, pressure or tightness, swelling in the legs or feet and rapid or fluttering heart beat. - Right leg edema Gastrointestinal: Positive for constipation. - Negative for blood in stool, diarrhea, nausea and vomiting. Genitourinary: - Negative [...] and spleen. She has no evidence of COMMERCIAL INSURANCE UNDERWRITER disease either on MRI or on CSF sampling. Today she presents for consideration of rituximab therapy, cycle 6. She has since completed 5 cycles of rituximab therapy. She demonstrated an excellent response on restaging PET scan with near complete metabolic resolution of her previous widespread disease but does have 2 minor foci, 1 in the area of her right axilla and the 2nd involving her right kidney. Due to evidence of some residual disease we made the decision to continue with additional rituximabtherapy given its excellent tolerance and efficacy. Cycle 5 was taken without incident. We will obtain another PET-CT after her cycle 6 to determine the trajectory of her residual disease. If she does have persistent disease at that time we will reflex to a kidney MRI to better categorize the abnormality. She does explain that she had some left ear pain in the interval between cycle 5 and cycle 6. This also correlates with her post-COVID course and may be attributable to Eustachian tube dysfunction. She also reports some short term memory loss and was asking about side effects of the Rituxan. At this time she demonstrates excellent cognitive ability with one minor instance of work finding difficulty. I think that post-COVID mental fog is likely and I would recommend mini mental status exams withher primary care provider. Furthermore, I obtained a vascular medicine eConsult and we will continue her Xeralto at a prophylactic low-dose of 10 mg p.o. q.day until she is known to be cancer free. Updates: CBC grossly within normal limits CMP within normal limits LDH 202 Uric acid 3.8 Plan summary Proceed with rituximab infusion, cycle 6 of 8 planned Patient will have repeat PET CT after cycle 6; if persistent disease in the kidney will reflex to MRI Changing anticoagulation from xeralto 20mg to 10mg PATIENT EDUCATION Ready to learn, no apparent learning barriers were identified; learning preferences include listening. Explained diagnosis and treatment plan; patient expressed understanding of the content. ADMINISTRATIVE BILLING I personally spent 35 minutes in care of the patient today. Time includes both non face to face andface to face patient care. HAND documented in this encounter Plan of Treatment [...] RADIOPHARMACEUTICAL/MEDS: Route: intravenous fludeoxyglucose F 18 injection SHELTER (FDG F-18),9.91 millicurie TECHNIQUE: ??F-18 FDG PET/CT [...] RADIOPHARMACEUTICAL/MEDS: Route: intravenous fludeoxyglucose F 18 injection SHELTER (FDG F-18),9.91 millicurie TECHNIQUE: F-18 FDG PET/CT [...] low mediastinal blood poolactivity. Deauville: 2 Connor Bermudez M.D., M.S. 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
== END 2023-12-09 11:04 | disposition home or self-care (01) ==
LOC: NFLDREF 12-11 07:41
PROVIDERS: PCP Family Medicine; Referring Provider Family Medicine; Visit Provider Family Medicine
DX: R35.0 Frequency of micturition (principal)
CPT/HCPCS: 81015; 87086

== ENCOUNTER 2023-12-16 14:11 | Outpatient (CLI) | payer MEDICARE, BC, SELFPAY ==
--- OUTSIDE RECORDS SUMMARY | 2023-12-16 14:14 | XMS_ITS ---
Author Name Unknown Organization [facility] Address [address] [place] [address] Care Team Providers Care Service Dismantler Name Role Phone Elsewhere, Pcp Primary Care Provider Unavailabl e Active Problems Problem Noted Date Diagnosed Date Thrombosis Deep Vein Personal History 10/30/2022 Other Oysterman Current Drug Therapy 06/27/2022 Nodular Lymphocyte Predomina [...] treatments are documented for this patient in [facility]. Treatments may have been administered in another system.
--- OUTSIDE RECORDS SUMMARY | 2023-12-16 14:14 | XMS_ITS | Referral Summary ---
Author Name Unknown Organization [facility] Address [address] [place] [address] Care Team Providers Care Hazmat Technician Name Role Phone Elsewhere, Pcp Primary Care Provider Unavailabl e Source Comments Patient records contain information from all sites at [facility]. For routine questions regarding patient records, call [phone] during business hours, M-F 8:00 AM - 5:00 PM Central Time. Record requests for emergency care only can be directed to [phone] at any time.[facility] Encounters Date Type Department Care Team Description 11/19/2023 2:00 PM INFORMATION TECH Telemedicine Department of Neurology in [place], [place] [address] [place] [address] Neville Lopez M.D. Loss Memory (Primary Dx) 11/12/2023 Orders Only Department of Neurology in [place], [place] [address] [place] [address] Neville Lopez M.D. Loss Memory (Primary Dx) 11/12/2023 Orders Only Department of Neurology in [place], [place] [address] [place] [phone] Max Montgomery M.D. 10/16/2023 Orders Only Department of Neurology in [place], [place] [address] [place] [address] Max Montgomery M.D. 10/16/2023 12:18 PM INFORMATION TECH - 10/16/2023 11:59 PM INFORMATION TECH Hospital Encounter Department of Radiology, [facility], in [place], [place] [address] [place] [address] Neville Lopez M.D. Loss Memory Discharge Disposition: Home or Self Care 10/09/2023 10:00 AM INFORMATION TECH Comprehensive Visit Department of Neurology in [place], [place] [address] [place] [phone] Connor Bermudez M.D., M.S. Max Montgomery M.D. Neville Lopez M.D. 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 Never 06/23/2022 Do you belong to [...] and heating? Not hard at all 08/27/2023 [facility] of Occupat ional Health - Occupational Stress [...] T Respiratory Rate 16 10/28/2022 1:29 PM INFORMATION TECH Oxygen Saturation 95% 07/01/2022 1:50 PM CDT Inhaled Oxygen Concentration - - Weight 105 kg (231 lb 14.8 oz) 10/09/2023 10:00 AM INFORMATION TECH Height 163.3 cm (5' 4.29) 10/09/2023 10:[address] Body Mass Index 39.45 10/09/2023 10:00 AM INFORMATION TECH Plan of Treatment Upcoming Encounters Date Type Department Care Team (Latest Contact Info) Description 01/04/2024 8:50 AM INFORMATION TECH Appointment Department of Laboratory Medicine and Pathology, [facility] in [address] [phone] Connor Bermudez M.D., M.S. [address] [place] [phone] 01/04/2024 10:45 AM INFORMATION TECH Appointment Department of Radiology, [facility] in [place], [place] [address] [place] [phone] Connor Bermudez M.D., M.S. [address] [place] [phone] 01/08/2024 10:45 AM INFORMATION TECH Clinical Communication Virtual Review in [place], [place] 200 [place] [address] 01/12/2024 9:30 AM INFORMATION TECH Office Visit Division of Hematology in [place], [place] [address] [place] [address] Connor Bermudez M.D., M.S. [address] [place] [address] Procedures Procedure Name Priority Date/Time Associated Diagnosis Comments PET CT BRAIN METABOLIC EVALUATION RAD - Routine (most inpatients and all outpatients) 10/16/2023 2:50 PM INFORMATION TECH Loss Memory from Last 3 Months Results * PET CT Brain Metabolic Evaluation (10/16/2023 2:50 PM INFORMATION TECH) Anatomical Region Laterality Modality Brain, Nuclear Medicine PET RST LOS, PET ARZ LOS, Nuclear Medicine PET FLA LOS, Nuclear Medicine N/A Positron Emission Tomography (PET), Positron Emission Tomography (PET) 10/16/2023 2:38 PM INFORMATION TECH Impressions 10/16/2023 3:42 PM INFORMATION TECH No significant cerebral hypometabolism to suggest a neurodegenerative disorder. Narrative 10/16/2023 3:42 PM INFORMATION TECH EXAM: ??PET CT BRAIN METABOLIC EVALUATION Serum glucose at time of F-18 FDG injection was 86 mg/dL. RADIOPHARMACEUTICAL/MEDS: Route: intravenous fludeoxyglucose F 18 injection JAIL (FDG F-18),5.05 millicurie TECHNIQUE: F-18 FDG PET/CT [...] RADIOPHARMACEUTICAL/MEDS: Route: intravenous fludeoxyglucose F 18 injection JAIL (FDG F-18),5.05 millicurie TECHNIQUE: F-18 FDG PET/CT scan was performed of the brain with low dose,non-contrast, free-breathing CT images for attenuation correction andanatomic localization (AC/AL), with imaging beginning at approximately 30minutes after radiotracer injection. Cortex ID performed. COMPARISON: MR brain 07/17/2023. INDICATION: Neurodegenerative disorder. FINDINGS: No significant cerebral hypometabolism. No significantincidental findings. IMPRESSION: No significant cerebral hypometabolism to suggest a neurodegenerativedisorder. Neville ZARATE NM PROCEDURES from Last 3 Months Additional Health Concerns Infection Onset Date Last Indicated Protective Environment 04/07/2023 3 Care Teams Hazmat Technician Relationship Specialty Start Date End Date Elsewhere, Pcp PCP - General Internal Medicine 10/05/23
--- OUTSIDE RECORDS SUMMARY | 2023-12-16 14:14 | XMS_ITS | Encounter Summary ---
Author Name Unknown Organization [facility] Address [address] [place] [address] Care Team Providers Care Serology Teacher Name Role Phone Elsewhere, Pcp Primary Care Provider Unavailabl e Reason for Referral * Outpatient (Routine) - Authorized Specialty Diagnoses / Procedures Referred By Luigi kumar Referred To Contact Diagnoses Loss Memory Procedures Lumbar puncture neurology Neville Lopez M.D. [address] [place] [phone] [facility] Referral ID Status Reason Start Date Expiration Date V isits Requested Visits Authorized [id number] Authorized 11/12/2023 11/11/2024 1 1 GER UTILIZATION REVIEW Encounter Details Date Type Department Care Team ([facility] st Contact Info) Description 11/12/2023 Orders Only Department of Neurology in [place], [place] [address] [place] [phone] Neville Lopez M.D. [address] [place] [phone] Loss Memory (Primary Dx) Social History Tobacco [...] How often do you attend chur or adventist services? Never 06/23/2022 Do you belong to any clubs o r organizations such as tenriism groups, unions, fraternal or athletic groups, or [...] and heating? Not hard at all 08/27/2023 [facility] of Occupat ional Health - Occupational Stress [...] your living situation today? I have a [facility] place to live 08/27/2023 Education Answer [...] as of this encounter Plan of Treatment Upcoming Encounters Date Type Department Care Team (Latest Contact Info) Description 01/04/2024 8:50 AM MANAGER UTILIZATION REVIEW Appointment Department of Laboratory Medicine and Pathology, [facility], in [place], [place] 200 [place] [address] Connor Bermudez M.D., M.S. [address] [place] [address] 01/04/2024 10:45 AM MANAGER UTILIZATION REVIEW Appointment Department of Radiology, [facility], in [place], [place] [address] [place] [phone] Connor Bermudez M.D., M.S. [address] [place] [phone] 01/08/2024 10:45 AM MANAGER UTILIZATION REVIEW Clinical Communication Virtual Review in [place], [place] 200 [place] [address] 01/12/2024 9:30 AM MANAGER UTILIZATION REVIEW Office Visit Division of Hematology in [address] [phone] Connor Bermudez M.D., M.S. [address] [place] [phone] Scheduled Orders Name Type Priority Associated Diagnoses [...] documented as of this encounter Care Teams Serology Teacher Relationship Specialty Start Date End Date Elsewhere, Pcp PCP - General Internal Medicine 10/05/23 documented as of this encounter
--- OUTSIDE RECORDS SUMMARY | 2023-12-16 14:14 | XMS_ITS | Encounter Summary ---
Author Name Unknown Organization [facility] Address [address] [place] [address] Care Team Providers Care Ceo Na Name Role Phone Elsewhere, Pcp Primary Care Provider Unavailabl e Reason for Visit * Outpatient (Routine) - Closed Specialty Diagnoses / Procedures Referred By Luigi kumar Referred To Contact Neurology Neville Lopez M.D. [address] [place] [phone] [facility] Referral ID Status Reason Start Date Expiration Date Visits Re quested Visits Authorized [id number] Closed 10/09/2023 10/08/2026 1 1 Encounter Details Date Type Department Care Team (Late st Contact Info) Description 11/19/2023 2:00 PM PLAYGROUND MONITOR Telemedicine Department of Neurology in [place], [place] [address] [place] [phone] Neville Lopez M.D. [address] [place] [phone] Loss Memory (Primary Dx) Social History Tobacco [...] often do you attend chur ch or presybeterian services? Never 06/23/2022 Do you belong to any clubs o r organizations such as holiness groups, unions, fraternal or athletic groups, or [...] and heating? Not hard at all 08/27/2023 [facility] [place] of Occupat ional Health - Occupational Stress [...] your living situation today? I have a [facility] place to live 08/27/2023 Education Answer [...] she feels well. Neville Lopez PGY 4 GROUND MONITOR documented in this encounter Plan of Treatment Upcoming Encounters Date Type Department Care Team (Latest Contact Info) Description 01/04/2024 8:50 AM PLAYGROUND MONITOR Appointment Department of Laboratory Medicine and Pathology, [place], [place] [address] [place] [phone] Connor Bermudez M.D., M.S. [address] [place] [phone] 01/04/2024 10:45 AM PLAYGROUND MONITOR Appointment Department of Radiology, [facility] in [place], [place] [address] [place] [phone] Connor Bermudez M.D., M.S. [address] [place] [phone] 01/08/2024 10:45 AM PLAYGROUND MONITOR Clinical Communication Virtual Review in [place], [place] 200 [place] [address] 01/12/2024 9:30 AM PLAYGROUND MONITOR Office Visit Division of Hematology in [address] [phone] Connor Bermudez M.D., M.S. [address] [place] [phone] documented as of this encounter Visit Diagnoses Diagnosis Loss Memory- Primary documented in this encounter Additional Health Concerns Infection Onset Date Last Indicated Resolved Time Protective Environment 04/07/2023 04/07/2023 documented as of this encounter Care Teams Ceo Na Relationship Specialty Start Date End Date Elsewhere, Pcp PCP - General Internal Medicine 10/05/23 documented as of this encounter
--- OUTSIDE RECORDS SUMMARY | 2023-12-16 14:14 | XMS_ITS | Clinical Summary ---
Author Name Unknown Organization [facility] Address [address] [place] [address] Care Team Providers Care Collections Specialist Name Role Phone Elsewhere, Pcp Primary Care Provider Unavailabl e Source Comments Patient records contain information from all sites at [facility]. For routine questions regarding patient records, call [phone] during business hours, M-F 8:00 AM - 5:00 PM Central Time. 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 Loss Memory (Primary Dx) 11/12/2023 Orders Only Department of Neurology in [place], [place] [address] [place] [phone] Neville Lopez M.D. Loss Memory (Primary Dx) 11/12/2023 Orders Only Department of Neurology in [place], [place] [address] [place] [phone] Max [place] M.D. 10/16/2023 12:18 PM CD REACTOR OPERATOR - 10/16/2023 11:59 PM CD REACTOR OPERATOR Hospital Encounter Department of Radiology, [facility], in [place], [place] [address] [place] [address] Neville Lopez M.D. Loss Memory Discharge Disposition: Home or Self Care 10/16/2023 Orders Only Department of Neurology in [place], [place] [address] [place] [phone] Max [place] M.D. 10/09/2023 10:00 AM CD REACTOR OPERATOR Comprehensive Visit Department of Neurology in [place], [place] [address] [place] [address] Connor Bermudez M.D., M.S. Max [place] M.D. Neville Lopez M.D. Loss Memory 10/05/2023 9:45 AM CD REACTOR OPERATOR Clinical Communication Virtual Review in [place], [place] 200 [place] [address] Pre-visit Intake from Last 3 Months Family [...] week 06/23/2022 How often do you attend [facility] or zoroastrianism services? Never 06/23/2022 Do you [...] and heating? Not hard at all 08/27/2023 [facility] [place] of Occupat ional Health - Occupational Stress [...] your living situation today? I have a [facility] place to live 08/27/2023 Education Answer [...] T Respiratory Rate 16 10/28/2022 1:29 PM CD REACTOR OPERATOR Oxygen Saturation 95% 07/01/2022 1:50 PM CDT Inhaled Oxygen Concentration - - Weight 105 kg (231 lb 14.8 oz) 10/09/2023 10:00 AM CD REACTOR OPERATOR Height 163.3 cm (5' 4.29) 10/09/2023 10:[address] Body Mass Index 39.45 10/09/2023 10:00 AM CD REACTOR OPERATOR Plan of Treatment Upcoming Encounters Date Type Department Care Team (Latest Contact Info) Description 01/04/2024 8:50 AM CD REACTOR OPERATOR Appointment Department of Laboratory Medicine and Pathology, [facility] [place] in [place], [place] [address] [place] [address] Connor Bermudez M.[place] [phone] 01/04/2024 10:45 AM CD REACTOR OPERATOR Appointment Department of Radiology, [facility] in [place], [place] [address] [place] [address] Connor Bermudez M.D., M.S. [address] [place] [phone] 01/08/2024 10:45 AM CD REACTOR OPERATOR Clinical Communication Virtual Review in [place], [place] 200 [place] [address] 01/12/2024 9:30 AM CD REACTOR OPERATOR Office Visit Division of Hematology in [place], [place] [address] [place] [phone] Connor Bermudez M.D., M.S. [address] [place] [phone] Health Maintenance Due Date Last Done Comments Bone Density Scan (Osteoporosis Screen) 1956 CT Colonography 1955 Cologuard 1955 Colonoscopy 1955 Colorectal Cancer Screening 1956 FIT 1956 Zoster Vaccines (1 of 2) 02/03/2013 12/09/2012 Mammogram 04/24/2023 04/24/2022 COVID-19 Vaccine ( season) 2023 03/24/2022, 10/28/2021, 01/23/2021, Additional history exists Influenza Vaccine (#1) 2023 , 09/02/2021, 09/13/2020, Additional history exists Depression Screening (Annual PHQ-2) 11/16/2023 Fall Risk Screen (Annual) 11/16/2023 Office Visit for Blood Pressure Check / Re-check 12/02/2023 09/01/2023 Thyroid Stimulating Hormone (TSH) test for thyroid function 07/17/2024 07/17/2023 Creatinine Level (Kidney Function Test) 09/01/2024 09/01/2023, 07/17/2023, 05/26/2023, Additional history exists Potassium Level 09/01/2024 09/01/2023, 0 11/2022, 05/26/2023, Additional history exists Sodium Level 09/01/2024 09/01/2023, 0 11/2022, 05/26/2023, Additional history exists Fasting Glucose [...] inpatients and all outpatients) 10/16/2023 2:50 PM CD REACTOR OPERATOR Loss Memory from Last 3 Months Results * PET CT Brain Metabolic Evaluation (10/16/2023 2:50 PM CD REACTOR OPERATOR) Anatomical Region Laterality Modality Brain, Nuclear Medicine PET RST LOS, PET ARZ LOS, Nuclear Medicine PET FLA LOS, Nuclear Medicine N/A Positron Emission Tomography (PET), Positron Emission Tomography (PET) 10/16/2023 2:38 PM CD REACTOR OPERATOR Impressions 10/16/2023 3:42 PM CD REACTOR OPERATOR No significant cerebral hypometabolism to suggest a neurodegenerative disorder. Narrative 10/16/2023 3:42 PM CD REACTOR OPERATOR EXAM: ??PET CT BRAIN METABOLIC EVALUATION Serum glucose at time of F-18 FDG injection was 86 mg/dL. RADIOPHARMACEUTICAL/MEDS: Route: intravenous fludeoxyglucose F 18 injection PENITENTIARY (FDG F-18),5.05 millicurie TECHNIQUE: F-18 FDG PET/CT [...] RADIOPHARMACEUTICAL/MEDS: Route: intravenous fludeoxyglucose F 18 injection PENITENTIARY (FDG F-18),5.05 millicurie TECHNIQUE: F-18 FDG PET/CT [...] Indicated Protective Environment 04/07/2023 3 Care Teams Collections Specialist Relationship Specialty Start Date End Date Elsewhere, Pcp PCP - General Internal Medicine 10/05/23
--- OUTSIDE RECORDS SUMMARY | 2023-12-16 14:14 | XMS_ITS ---
Author Name Unknown Organization [facility] Address [address] [place] [address] Care Team Providers Care Bore Mill Operator For Plastic Name Role Phone Unavailable Unavailable Unavailable Surgery Details Not on file Complications Check Surgery Details section. Procedure Estimated Blood Loss Check Surgery Details section. Procedure Findings Check Surgery Details section. Procedure Specimens Taken Check Surgery Details section.
--- OUTSIDE RECORDS SUMMARY | 2023-12-16 14:15 | XMS_ITS | Encounter Summary ---
Author Name Unknown Organization [facility] Address [address] [place] [address] Care Team Providers Care Mathematics Technician Name Role Phone Elsewhere, Pcp Primary Care Provider Unavailabl e Encounter Details Date Type Department Care Team (Late st Contact Info) Description 11/12/2023 Orders Only Department of Neurology in [place], [place] [address] [place] [address] Max [place] M.D. [address] [place] [address] Social History Tobacco Use Types Packs/Day Years [...] often do you attend chur ch or pentecostal services? Never 06/23/2022 Do you belong to any clubs o r organizations such as mu-ism groups, unions, fraternal or athletic groups, or [...] and heating? Not hard at all 08/27/2023 [facility] [place] of Occupat ional Health - Occupational Stress [...] your living situation today? I have a [facility] place to live 08/27/2023 Education [...] (Latest Contact Info) Description 01/04/2024 8:50 AM CLOCKSMITH Appointment Department of Laboratory Medicine and Pathology, [facility] in [place], [place] [address] [place] [phone] Connor Bermudez M.D., M.S. [address] [place] [phone] 01/04/2024 10:45 AM CLOCKSMITH Appointment Department of Radiology, [facility] in [place], [place] [address] [place] [phone] Connor Bermudez M.D., M.S. [address] [place] [phone] 01/08/2024 10:45 AM CLOCKSMITH Clinical Communication Virtual Review in [place], [place] 200 [place] [address] 01/12/2024 9:30 AM CLOCKSMITH Office Visit Division of Hematology in [place], [place] [address] [place] [address] Connor Bermudez M.D., M.S. [address] [place] [phone] documented as of this encounter Visit Diagnoses Not on filedocumented in this encounter Additional Health Concerns Infection Onset Date Last Indicated Resolved Time Protective Environment 04/07/2023 04/07/2023 documented as of this encounter Care Teams Mathematics Technician Relationship Specialty Start Date End Date Elsewhere, Pcp PCP - General Internal Medicine 10/05/23 documented as of this encounter
--- OUTSIDE RECORDS SUMMARY | 2023-12-16 14:15 | XMS_ITS | Encounter Summary ---
Author Name Unknown Organization [facility] Address [address] [place] [address] Care Team Providers Care C Software Developer Name Role Phone Unavailable Primary Care Provider Unavailabl e Encounter Details Date Type Department Care Team (Latest Contact Info) Description 08/27/2023 12:30 PM CDT Clinical Communication Virtual Review in [place], [place] [address] [place], [place] [phone] Social History Tobacco Use Types Packs/Day Years [...] heating? Not hard at all 08/27/2023 [facility] - Occupational Stress Questionnaire Answer Date Recorded [...] your living situation today? I have a [facility] place to live 08/27/2023 Education Answer Date [...] (Latest Contact Info) Description 01/04/2024 8:50 AM RESEARCH PHYSIOLOGIST Appointment Department of Laboratory Medicine and Pathology, [facility] in [place], [place] [address] [place] [phone] Connor Bermudez M.D., M.S. [address] [place] [phone] 01/04/2024 10:45 AM RESEARCH PHYSIOLOGIST Appointment Department of Radiology, [facility] in [place], [place] [address] [place] [phone] Connor Bermudez M.D., M.S. [address] [place] [phone] 01/08/2024 10:45 AM RESEARCH PHYSIOLOGIST Clinical Communication Virtual Review in [place], [place] 200 [place] [address] 01/12/2024 9:30 AM RESEARCH PHYSIOLOGIST Office Visit Division of Hematology in [place], [place] [address] [place] [phone] Connor Bermudez M.D., M.S. [address] [place] [phone] documented as of this encounter Visit Diagnoses Not on filedocumented in this encounter Additional Health Concerns Infection Onset Date Last Indicated Resolved Time Protective Environment 04/07/2023 04/07/2023 documented as of this encounter
--- OUTSIDE RECORDS SUMMARY | 2023-12-16 14:15 | XMS_ITS | Encounter Summary ---
Author Name Unknown Organization [facility] Address [address] [place] [address] Care Team Providers Care Subway Car Repairer Name Role Phone Unavailable Primary Care Provider Unavailabl e Encounter Details Date Type Department Care Team (Latest Contact Info) Description 09/01/2023 8:20 AM CDT - 09/01/2023 11:59 PM CDT Hospital Encounter Department of Laboratory Medicine and Pathology, [facility] in [place], [place] [address] [place] [address] Connor Bermudez M.D., M.S. [address] [place] [phone] Nodular Lymphocyte Predominant Hodgkin Lymphoma Extranodal And [...] often do you attend chur ch or mandaeism services? Never 06/23/2022 Do you belong to any clubs o r organizations such as bahai groups, unions, fraternal or athletic groups, or [...] and heating? Not hard at all 08/27/2023 [facility] of Occupat ional Health [...] your living situation today? I have a [facility] place to live 08/27/2023 Education Answer [...] (Latest Contact Info) Description 01/04/2024 8:50 AM LEARNING SOLUTIONS SPECIALIST Appointment Department of Laboratory Medicine and Pathology, [facility] in [address] [phone] Connor Bermudez M.D., M.S. [address] [place] [phone] 01/04/2024 10:45 AM LEARNING SOLUTIONS SPECIALIST Appointment Department of Radiology, [address] [phone] Connor Bermudez M.D., M.S. [address] [place] [phone] 01/08/2024 10:45 AM LEARNING SOLUTIONS SPECIALIST Clinical Communication Virtual Review in [address] [address] 01/12/2024 9:30 AM LEARNING SOLUTIONS SPECIALIST Office Visit Division of Hematology in [address] [phone] Connor Bermudez M.D., M.S. [address] [place] [phone] documented as of this encounter Procedures Procedure [...] M.D., M.S. LAB BLOOD ADD- ON [facility] [address] [place] [address], [facility] Formerly named [facility] [address] [place] [address] * (ABNORMAL) CBC with Differential, Blood (09/01/2023 [...] M.D., M.S. 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
--- OUTSIDE RECORDS SUMMARY | 2023-12-16 14:15 | XMS_ITS | Encounter Summary ---
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 [address] [place] [phone] 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 [address] [place] [phone] [facility] Referral ID Status Reason Start Date Expiration Date Visits Re quested Visits Authorized [id number] Closed 05/26/2023 05/25/2024 1 1 Encounter Details Date Type Department Care Team (Latest Contact Info) Description 07/17/2023 6:59 AM CDT - 07/17/2023 9:08 AM CDT Hospital Encounter Department of Radiology, [facility] in [place], [place] 200 [place] [address] Connor Bermudez M.D., M.S. 200 [place] [address] Nodular Lymphocyte Predominant Hodgkin Lymphoma Extranodal And [...] often do you attend chur ch or spiritism services? Never 06/23/2022 Do you belong to [...] care, and heating? Not very hard 06/23/2022 [facility] of Occupat ional Health - Occupational [...] place to sleep or slept in a prison (including now)? No 06/23/2022 Nutrition Answer Date [...] (Latest Contact Info) Description 01/04/2024 8:50 AM DARKROOM WORKER Appointment Department of Laboratory Medicine and Pathology, [facility] in [address] [phone] Connor Bermudez M.D., M.S. [address] [place] [phone] 01/04/2024 10:45 AM DARKROOM WORKER Appointment Department of Radiology, [facility] in [address] [phone] Connor Bermudez M.D., M.S. [address] [place] [phone] 01/08/2024 10:45 AM DARKROOM WORKER Clinical Communication Virtual Review in [address] [address] 01/12/2024 9:30 AM DARKROOM WORKER Office Visit Division of Hematology in [address] [phone] Connor Bermudez M.D., M.S. [address] [place] [phone] documented as of this encounter Procedures Procedure [...]
--- OUTSIDE RECORDS SUMMARY | 2023-12-16 14:15 | XMS_ITS | Encounter Summary ---
Author Name Unknown Organization [facility] Address [address] [place] [address] Care Team Providers Care Haul Cane Brakeman Name Role Phone Elsewhere, Pcp Primary Care Provider Unavailabl e Reason for Visit * Reason Onset Date Comments Pre-visit Intake 10/05/2023 Encounter Details Date Type Department Care Team (Latest Contact Info) Description 10/05/2023 9:45 AM HAND PASTER Clinical Communication Virtual Review in [place], [place] 200 [place] [address] Pre-visit Intake Social History Tobacco Use Types [...] often do you attend chur ch or baptist services? Never 06/23/2022 Do you belong to any clubs o r organizations such as islam groups, unions, fraternal or athletic groups, or [...] your living situation today? I have a [facility] place to live 08/27/2023 Education Answer Date [...] (Latest Contact Info) Description 01/04/2024 8:50 AM HAND PASTER Appointment Department of Laboratory Medicine and Pathology, [facility] in [address] [phone] Connor Bermudez M.D., M.S. [address] [place] [phone] 01/04/2024 10:45 AM HAND PASTER Appointment Department of Radiology, [facility] in [place], [place] [address] [place] [phone] Connor Bermudez M.D., M.S. [address] [place] [phone] 01/08/2024 10:45 AM HAND PASTER Clinical Communication Virtual Review in [place], [place] 200 [place] [address] 01/12/2024 9:30 AM HAND PASTER Office Visit Division of Hematology in [place], [place] [address] [place] [address] Connor Bermudez M.D., M.S. [address] [place] [phone] documented as of this encounter Visit Diagnoses Not on filedocumented in this encounter Additional Health Concerns Infection Onset Date Last Indicated Resolved Time Protective Environment 04/07/2023 04/07/2023 documented as of this encounter Care Teams Haul Cane Brakeman Relationship Specialty Start Date End Date Elsewhere, Pcp PCP - General Internal Medicine 10/05/23 documented as of this encounter
--- OUTSIDE RECORDS SUMMARY | 2023-12-16 14:15 | XMS_ITS | Encounter Summary ---
Author Name Unknown Organization [facility] Address [address] [place] [address] Care Team Providers Care Swimming Pool Maintenance Name Role Phone Unavailable Primary Care Provider Unavailabl e Reason for Referral * Outpatient (Routine) - Closed Specialty Diagnoses / Procedures Referred By Luigi kumar Referred To Contact Hematology Oncology Connor Bermudez M.D., M.S. [address] [place] [phone] [facility] Referral ID Status Reason Start Date Expiration Date Visits Re quested Visits Authorized [id number] Closed 08/05/2023 08/04/2026 1 1 * Outpatient (Routine) - Closed Specialty Diagnoses / Procedures Referred By Luigi kumar Referred To Contact Neurology Diagnoses Loss Memory Connor Bermudez M.D., M.S. [address] [place] [phone] [facility] Referral ID Status Reason Start Date Expiration Date V isits Requested Visits Authorized [id number] Closed Specialty Services Required 08/05/2023 08/04/2024 1 1 Encounter Details Date Type Department Care Team (Late st Contact Info) Description 08/05/2023 Orders Only Department of Oncology in [place], [place] [address] [place] [phone] Connor Bermudez M.D., M.S. 200 [place] [address] Nodular Lymphocyte Predominant Hodgkin Lymphoma Extranodal And [...] any clubs o r organizations such as adventism groups, unions, fraternal or athletic groups, or [...] care, and heating? Not very hard 06/23/2022 [facility] - Occupational Stress Questionnaire Answer Date [...] place to sleep or slept in a alf (including now)? No 06/23/2022 Nutrition Answer Date [...] (Latest Contact Info) Description 01/04/2024 8:50 AM OFFICE MOVER Appointment Department of Laboratory Medicine and Pathology, [facility] in [address] [phone] Connor Bermudez M.D., M.S. [address] [place] [phone] 01/04/2024 10:45 AM OFFICE MOVER Appointment Department of Radiology, [facility] in [address] [phone] Connor Bermudez M.D., M.S. [address] [place] [phone] 01/08/2024 10:45 AM OFFICE MOVER Clinical Communication Virtual Review in [address] [address] 01/12/2024 9:30 AM OFFICE MOVER Office Visit Division of Hematology in [address] [phone] Connor Bermudez M.D., M.S. [address] [place] [phone] Scheduled Referrals Name Type Priority Associated Diagnoses Order Schedule Neurology - General consult (clinic) Outpatient Referral Routine Loss Memory Expected: 08/05/2023 (Approximate), Expires: 11/04/2024 Hematology office visit (clinic) [facility]; Lymphoma; General Outpatient Referral Routine Expected: 09/01/2023, [...] Bermudez M.D., M.S. LAB BLOOD ADD- ON [facility] [address] [place] [address], [facility] DTL [facility] [address] [place] [address] * (ABNORMAL) CBC with Differential, Blood (09/01/2023 [...] Bermudez M.D., M.S. 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
--- OUTSIDE RECORDS SUMMARY | 2023-12-16 14:15 | XMS_ITS | Encounter Summary ---
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 [address] [place] [phone] [facility] Referral ID Status Reason Start Date Expiration Date V isits Requested Visits Authorized [id number] Authorized 09/23/2023 09/22/2024 1 1 INSPECTOR * Outpatient (Routine) - Authorized Specialty Diagnoses / Procedures Referred By Luigi kumar Referred To Contact Hematology Oncology Connor Bermudez M.D., M.S. [address] [place] [phone] [facility] Referral ID Status Reason Start Date Expiration Date V isits Requested Visits Authorized [id number] Authorized 09/23/2023 09/22/2026 1 1 INSPECTOR Reason for Visit * Outpatient (Routine) - Closed Specialty Diagnoses / Procedures Referred By Luigi kumar Referred To Contact Hematology Oncology Connor Bermudez M.D., M.S. [address] [place] [address] [facility] Referral ID Status Reason Start Date Expiration Date Visits Re quested Visits Authorized [id number] Closed 08/05/2023 08/04/2026 1 1 Encounter Details Date Type Department Care Team (Late st Contact Info) Description 09/01/2023 10:00 AM CDT Office Visit Division of Hematology in [place], [place] [address] [place] [address] Connor Bermudez M.D., M.S. [address] [place] [phone] Nodular Lymphocyte Predominant Hodgkin Lymphoma Extranodal And [...] week 06/23/2022 How often do you attend [facility] or sikh services? Never 06/23/2022 Do you belong to any clubs o r organizations such as mandaen groups, unions, fraternal or athletic groups, or [...] and heating? Not hard at all 08/27/2023 [facility] Occupat ional Health [...] living situation today? I have a [facility] place to live 08/27/2023 Education [...] M.D., M.S. - 09/01/2023 10:00 AM CDT [facility] - Hematology SUBJECTIVE PRIMARY CARE PHYSICIAN No primary care provider on file. PRIMARY BARSTOW DIRECTOR FUNDRAISING Primary surgical product sales consultant: Dr. Croft Primary fellow: Dr. Bermudez [...] and spleen. She has no evidence of TENSION MACHINE OPERATOR disease either on MRI or on CSF [...] to face andface to face patient care. INSPECTOR documented in this encounter Plan of Treatment Upcoming Encounters Date Type Department Care Team (Latest Contact Info) Description 01/04/2024 8:50 AM WEED INSPECTOR Appointment Department of Laboratory Medicine and Pathology, [facility], in [place] [address] [address] [place] [address] Connor Bermudez M.D., M.S. [address] [place] [phone] 01/04/2024 10:45 AM WEED INSPECTOR Appointment Department of Radiology, [facility], in [place], [place] [address] [place] [phone] Connor Bermudez M.D., M.S. [address] [place] [phone] 01/08/2024 10:45 AM WEED INSPECTOR Clinical Communication Virtual Review in [place], [place] 200 [place] [address] 01/12/2024 9:30 AM WEED INSPECTOR Office Visit Division of Hematology in [address] [phone] Connor Bermudez M.D., M.S. 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
--- OUTSIDE RECORDS SUMMARY | 2023-12-16 14:15 | XMS_ITS | Encounter Summary ---
Author Name Unknown Organization [facility] Address [address] [place] [address] Care Team Providers Care Certified Orthotist Practice Manager Name Role Phone Elsewhere, Pcp Primary Care Provider Unavailabl e Reason for Referral * Outpatient (Routine) - Closed Specialty Diagnoses / Procedures Referred By Luigi kumar Referred To Contact Neurology Neville Lopez M.D. [address] [place] [phone] [facility] Referral ID Status Reason Start Date Expiration Date Visits Re quested Visits Authorized [id number] Closed 10/09/2023 10/08/2026 1 1 RATORY CHEMIST * Outpatient (Routine) - Authorized Specialty Diagnoses / Procedures Referred By Luigi kumar Referred To Contact Diagnoses Loss Memory Procedures PET CT Brain Metabolic Evaluation Neville Lopez M.D. [address] [place] [phone] [facility] Referral ID Status Reason Start Date Expiration Date V isits Requested Visits Authorized [id number] Authorized 10/09/2023 10/08/2024 6 6 RATORY CHEMIST * Behavioral Health (Routine) - Closed Specialty Diagnoses / Procedures Referred By Luigi kumar Referred To Contact Psychology / Psychiatry and Psychology Diagnoses Loss Memory Procedures PSY Neuropsychology testing Neville Lopez M.D. [address] [place] [phone] [facility] Referral ID Status Reason Start Date Expiration Date Visits Re quested Visits Authorized [id number] Closed 10/09/2023 10/08/2024 1 1 RATORY CHEMIST Reason for Visit * Outpatient (Routine) - Closed Specialty Diagnoses / Procedures Referred By Luigi kumar Referred To Contact Neurology Diagnoses Loss Memory Connor Bermudez M.D., M.S. [address] [place] [phone] [facility] Referral ID Status Reason Start Date Expiration Date V isits Requested Visits Authorized [id number] Closed Specialty Services Required 08/05/2023 08/04/2024 1 1 Encounter Details Date Type Department Care Team (Late st Contact Info) Description 10/09/2023 10:00 AM LABORATORY CHEMIST Comprehensive Visit Department of Neurology in [place], [place] [address] [place] [phone] Connor Bermudez M.D., M.S. [address] [place] [phone] Max Montgomery M.D. [address] [place] [phone] Neville Lopez M.D. [address] [place] [phone] Loss Memory Social History Tobacco Use Types [...] How often do you attend chur or voodoo services? Never 06/23/2022 Do you [...] today? 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 Medication history Her medications were reviewed and [...] Alzheimer disease related biomarkers. Max Montgomery M.D. RATORY CHEMIST * Neville Lopez M.D. - 10/09/2023 10:00 [...] did not show any involvement of the FREIGHT SEPARATOR. There was noted some mild to moderate [...] will take opioid medications including Percocet and Collins, but this isinfrequent perhaps once a month [...] is high school graduate. 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 She lives with her at home. She [...] her school children. She even forgot to subassembly supervisor 1 of her children once for the [...] territorial atrophy but rather does show some bcsj-my-errskmvs generalized brain atrophy. REVIEW OF SYSTEMS: Per [...] show any obvious territorial degeneration a rather wplo-hc-dfjvqguv degeneration throughout. I am unsure what to make of the episodes of talking in her sleep though there is no other signs of REM sleep behavior disorder or parkinsonian features. Concerning her history of tremors, I am not able to subassembly supervisor any kinetic, rest or postural tremor on [...] Neville Lopez PGY-[address] Montgomery RATORY CHEMIST documented in this encounter Plan of Treatment Upcoming Encounters Date Type Department Care Team (Latest Contact Info) Description 01/04/2024 8:50 AM LABORATORY CHEMIST Appointment Department of Laboratory Medicine and Pathology, [facility] in [place], [place] [address] [place] [phone] Connor Bermudez M.D., M.S. [address] [place] [phone] 01/04/2024 10:45 AM LABORATORY CHEMIST Appointment Department of Radiology, [facility] in [place], [place] [address] [place] [phone] Connor Bermudez M.D., M.S. [address] [place] [phone] 01/08/2024 10:45 AM LABORATORY CHEMIST Clinical Communication Virtual Review in [place], [place] [address] [place] [address] 01/12/2024 9:30 AM LABORATORY CHEMIST Office Visit Division of Hematology in [place], [place] [address] [place] [phone] Connor Bermudez M.D., M.S. [address] [place] [phone] Scheduled Referrals Name Type Priority Associated Diagnoses Orde r Schedule Neurology office visit (clinic) Outpatient Referral Routine Expected: 01/09/2024 (Approximate), Expires: 01/09/2025 documented as of this encounter Results * PET CT Brain Metabolic Evaluation (10/16/2023 2:50 PM LABORATORY CHEMIST) Anatomical Region Laterality Modality Brain, Nuclear Medicine PET RST LOS, PET ARZ LOS, Nuclear Medicine PET FLA LOS, Nuclear Medicine N/A Positron Emission Tomography (PET), Positron Emission Tomography (PET) 10/16/2023 2:38 PM LABORATORY CHEMIST Impressions 10/16/2023 3:42 PM LABORATORY CHEMIST No significant cerebral hypometabolism to suggest a neurodegenerative disorder. Narrative 10/16/2023 3:42 PM LABORATORY CHEMIST EXAM: ??PET CT BRAIN METABOLIC EVALUATION Serum [...] documented as of this encounter Care Teams Certified Orthotist Practice Manager Relationship Specialty Start Date End Date Elsewhere, Pcp PCP - General Internal Medicine 10/05/23 documented as of this encounter
--- OUTSIDE RECORDS SUMMARY | 2023-12-16 14:15 | XMS_ITS | Encounter Summary ---
Author Name Unknown Organization [facility] Address [address] [place] [address] Care Team Providers Care Ceramic Coater Name Role Phone Elsewhere, Pcp Primary Care Provider Unavailabl e Encounter Details Date Type Department Care Team (Late st Contact Info) Description 10/16/2023 Orders Only Department of Neurology in [place], [place] [address] [place] [phone] Max oMntgomery M.D. [address] [place] [phone] Social History Tobacco Use Types Packs/Day Years [...] often do you attend chur ch or islam services? Never 06/23/2022 Do you belong to [...] and heating? Not hard at all 08/27/2023 [facility] of Occupat ional Health - Occupational Stress [...] your living situation today? I have a [facility] place to live 08/27/2023 Education Answer [...] (Latest Contact Info) Description 01/04/2024 8:50 AM TANK TRUCK DRIVER Appointment Department of Laboratory Medicine and Pathology, [facility] in [place], [place] [address] [place] [phone] Connor Bermudez M.D., M.S. [address] [place] [phone] 01/04/2024 10:45 AM TANK TRUCK DRIVER Appointment Department of Radiology, [facility] in [place], [place] [address] [place] [phone] Connor Bermudez M.D., M.S. [address] [place] [phone] 01/08/2024 10:45 AM TANK TRUCK DRIVER Clinical Communication Virtual Review in [place], [place] 200 [place] [address] 01/12/2024 9:30 AM TANK TRUCK DRIVER Office Visit Division of Hematology in [place], [place] [address] [place] [address] Connor Bermudez M.D., M.S. [address] [place] [address] documented as of this encounter Visit Diagnoses Not on filedocumented in this encounter Additional Health Concerns Infection Onset Date Last Indicated Resolved Time Protective Environment 04/07/2023 04/07/2023 documented as of this encounter Care Teams Ceramic Coater Relationship Specialty Start Date End Date Elsewhere, Pcp PCP - General Internal Medicine 10/05/23 documented as of this encounter
--- OUTSIDE RECORDS SUMMARY | 2023-12-16 14:15 | XMS_ITS | Encounter Summary ---
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 [address] [place] [phone] [facility] Referral ID Status Reason Start Date Expiration Date Visits Re quested Visits Authorized [id number] Closed 06/08/2023 06/07/2024 1 1 Encounter Details Date Type Department Care Team (Latest Contact Info) Description 07/17/2023 9:09 AM CDT - 07/17/2023 11:59 PM CDT Hospital Encounter Department of Radiology, [facility], in [place], [place] [address] [place] [address] Connor Bermudez M.D., M.S. [address] [place] [phone] Nodular Lymphocyte Predominant Hodgkin Lymphoma Extranodal And [...] care, and heating? Not very hard 06/23/2022 [facility] of Occupat ional Health - [...] place to sleep or slept in a usp (including now)? No 06/23/2022 Nutrition Answer Date [...] (Latest Contact Info) Description 01/04/2024 8:50 AM GEOGRAPHIC INFORMATION SYSTEMS ANALYST Appointment Department of Laboratory Medicine and Pathology, [facility] in [address] [phone] Connor Bermudez M.D., M.S. [address] [place] [phone] 01/04/2024 10:45 AM GEOGRAPHIC INFORMATION SYSTEMS ANALYST Appointment Department of Radiology, [address] [phone] Connor Bermudez M.D., M.S. [address] [place] [phone] 01/08/2024 10:45 AM GEOGRAPHIC INFORMATION SYSTEMS ANALYST Clinical Communication Virtual Review in [address] [address] 01/12/2024 9:30 AM GEOGRAPHIC INFORMATION SYSTEMS ANALYST Office Visit Division of Hematology in [address] [phone] Connor Bermudez M.D., M.S. [address] [place] [phone] documented as of this encounter Procedures Procedure [...] RADIOPHARMACEUTICAL/MEDS: Route: intravenous fludeoxyglucose F 18 injection HALF-WAY (FDG F-18),6.2 millicurie TECHNIQUE: ??F-18 FDG PET/CT [...] RADIOPHARMACEUTICAL/MEDS: Route: intravenous fludeoxyglucose F 18 injection HALF-WAY (FDG F-18),6.2 millicurie TECHNIQUE: F-18 FDG PET/CT [...] Dose Rate Site fludeoxyglucose F 18 injection HALF-WAY (FDG F-18) 4.5-16.5 millicurie, intravenous, Once, On Thu07/17/23 at 1015, For 1 dose, Imaging Protocol Orders Given 07/17/2023 9:41 AM CDT 6.2 millicuries documented in this encounter Additional Health Concerns Infection Onset Date Last Indicated Resolved Time Protective Environment 04/07/2023 04/07/2023 documented as of this encounter
--- OUTSIDE RECORDS SUMMARY | 2023-12-16 14:15 | XMS_ITS | Encounter Summary ---
Author Name Unknown Organization [facility] Address [address] [place] [address] Care Team Providers Care Medical Intern Name Role Phone Elsewhere, Pcp Primary Care Provider Unavailabl e Reason for Referral * Outpatient (Routine) - Authorized Specialty Diagnoses / Procedures Referred By Luigi kumar Referred To Contact Diagnoses Loss Memory Procedures PET CT Brain Metabolic Evaluation Neville Lopez M.D. [address] [place] [phone] [facility] Referral ID Status Reason Start Date Expiration Date V isits Requested Visits Authorized [id number] Authorized 10/09/2023 10/08/2024 6 6 TS PHOTOGRAPHER Reason for Visit * Outpatient (Routine) - Authorized Specialty Diagnoses / Procedures Referred By Luigi kumar Referred To Contact Diagnoses Loss Memory Procedures PET CT Brain Metabolic Evaluation Neville Lopez M.D. [address] [place] [phone] [facility] Referral ID Status Reason Start Date Expiration Date V isits Requested Visits Authorized [id number] Authorized 10/09/2023 10/08/2024 6 6 Encounter Details Date Type Department Care Team (Latest Contact Info) Description 10/16/2023 12:18 PM SPORTS PHOTOGRAPHER - 10/16/2023 11:59 PM SPORTS PHOTOGRAPHER Hospital Encounter Department of Radiology, [facility], in [place], [place] [address] [place] [phone] Neville Lopez M.D. [address] [place] [phone] Loss Memory Discharge Disposition: Home or Self [...] 06/23/2022 How often do you attend [facility] or islam services? Never 06/23/2022 Do you belong to any clubs o r organizations such as latter day groups, unions, fraternal or athletic groups, or [...] and heating? Not hard at all 08/27/2023 [facility] [place] of Occupat ional Health - Occupational Stress [...] your living situation today? [facility] 08/27/2023 Education Answer Date [...] (Latest Contact Info) Description 01/04/2024 8:50 AM SPORTS PHOTOGRAPHER Appointment Department of Laboratory Medicine and Pathology, [place], [place] 200 [place] [address] Connor Bermudez M.D., M.S. [address] [place] [phone] 01/04/2024 10:45 AM SPORTS PHOTOGRAPHER Appointment Department of Radiology, [place], [place] 200 [place] [address] Connor Bermudez M.D., M.S. [address] [place] [phone] 01/08/2024 10:45 AM SPORTS PHOTOGRAPHER Clinical Communication Virtual Review in [place], [place] 200 [place] [address] 01/12/2024 9:30 AM SPORTS PHOTOGRAPHER Office Visit Division of Hematology in [place], [place] [address] [place] [phone] Connor Bermudez M.D., M.S. [address] [place] [phone] documented as of this encounter Procedures Procedure Name Priority Date/Time Associated Diagnosis Comments PET CT BRAIN METABOLIC EVALUATION RAD - Routine (most inpatients and all outpatients) 10/16/2023 2:50 PM SPORTS PHOTOGRAPHER Loss Memory documented in this encounter Results * PET CT Brain Metabolic Evaluation (10/16/2023 2:50 PM SPORTS PHOTOGRAPHER) Anatomical Region Laterality Modality Brain, Nuclear Medicine PET RST LOS, PET ARZ LOS, Nuclear Medicine PET FLA LOS, Nuclear Medicine N/A Positron Emission Tomography (PET), Positron Emission Tomography (PET) 10/16/2023 2:38 PM SPORTS PHOTOGRAPHER Impressions 10/16/2023 3:42 PM SPORTS PHOTOGRAPHER No significant cerebral hypometabolism to suggest a neurodegenerative disorder. Narrative 10/16/2023 3:42 PM SPORTS PHOTOGRAPHER EXAM: ??PET CT BRAIN METABOLIC EVALUATION Serum [...] to suggest a neurodegenerativedisorder. Neville Lopez M.D. [facility] documented in this encounter Visit Diagnoses Diagnosis Loss Memory documented in this encounter Administered Medications Inactive Administered Medications - up to 3 most recent administrations Medication Order MAR Action Action Date Dose Rate Site fludeoxyglucose F 18 injection PENITENTIARY (FDG F-18) 4.5-16.5 millicurie, intravenous, Once, On Thu10/16/23 at 1415, For 1 dose, Imaging Protocol Orders Given 10/16/2023 1:47 PM SPORTS PHOTOGRAPHER 5.05 millicuries documented in this encounter Additional Health Concerns Infection Onset Date Last Indicated Resolved Time Protective Environment 04/07/2023 04/07/2023 documented as of this encounter Care Teams Medical Intern Relationship Specialty Start Date End Date Elsewhere, Pcp PCP - General Internal Medicine 10/05/23 documented as of this encounter
--- OUTSIDE RECORDS SUMMARY | 2023-12-16 14:16 | XMS_ITS | Encounter Summary ---
Author Name Unknown Organization [facility] Address [address] [place] [address] Care Team Providers Care Supervising Editor News Reel Name Role Phone Unavailable Primary Care Provider Unavailabl e Encounter Details Date Type Department Care Team (Late st Contact Info) Description 04/14/2023 Orders Only Department of Oncology in [place], [place] [address] [place] [address] Connor Bermudez M.D., M.S. [address] [place] [phone] Social History Tobacco Use Types Packs/Day Years [...] care, and heating? Not very hard 06/23/2022 [facility] of Occupat ional Health - Occupational [...] place to sleep or slept in a retirement (including now)? No 06/23/2022 Nutrition Answer Date [...] (Latest Contact Info) Description 01/04/2024 8:50 AM RESTAURANT LINE SERVER Appointment Department of Laboratory Medicine and Pathology, [place], [place] 200 [place] [address] Connor Bermudez M.D., M.S. [address] [place] [phone] 01/04/2024 10:45 AM RESTAURANT LINE SERVER Appointment Department of Radiology, [facility] in [place], [place] 200 [place] [address] Connor Bermudez M.D., M.S. [address] [place] [phone] 01/08/2024 10:45 AM RESTAURANT LINE SERVER Clinical Communication Virtual Review in [place], [place] 200 [place] [address] 01/12/2024 9:30 AM RESTAURANT LINE SERVER Office Visit Division of Hematology in [place], [place] [address] [place] [phone] Connor Bermudez M.D., M.S. [address] [place] [phone] documented as of this encounter Visit Diagnoses Not on filedocumented in this encounter Additional Health Concerns Infection Onset Date Last Indicated Resolved Time Protective Environment 04/07/2023 04/07/2023 documented as of this encounter
--- OUTSIDE RECORDS SUMMARY | 2023-12-16 14:16 | XMS_ITS | Encounter Summary ---
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 [address] [place] [phone] Rst Hem [place] [address] [place] [phone] Referral ID Status Reason Start Date Expiration Date V isits Requested Visits Authorized [id number] Authorized 06/24/2022 06/24/2023 99 99 Encounter Details Date Type Department Care Team (Late st Contact Info) Description 02/17/2023 10:00 AM CDT Infusion Department of Oncology in [place], [place] [address] [place] [phone] Connor Bermudez M.D., M.S. [address] [place] [phone] Nodular Lymphocyte Predominant Hodgkin Lymphoma Extranodal And [...] week 06/23/2022 How often do you attend [facility] or buddhism services? Never 06/23/2022 Do you belong to [...] care, and heating? Not very hard 06/23/2022 [facility] [place] of Occupat ional Health - Occupational Stress [...] place to sleep or slept in a mcfp (including now)? No 06/23/2022 Nutrition Answer Date [...] (Latest Contact Info) Description 01/04/2024 8:50 AM SUPERVISOR CALIBRATION Appointment Department of Laboratory Medicine and Pathology, [facility], in [place], [place] [address] [place] [phone] Connor Bermudez M.D., M.S. [address] [place] [phone] 01/04/2024 10:45 AM SUPERVISOR CALIBRATION Appointment Department of Radiology, [facility] in [place], [place] [address] [place] [phone] Connor Bermudez M.D., M.S. [address] [place] [phone] 01/08/2024 10:45 AM SUPERVISOR CALIBRATION Clinical Communication Virtual Review in [place], [place] 200 [place] [address] 01/12/2024 9:30 AM SUPERVISOR CALIBRATION Office Visit Division of Hematology in [address] [phone] Connor Bermudez M.D., M.S. [address] [place] [phone] documented as of this encounter Visit Diagnoses [...]
--- OUTSIDE RECORDS SUMMARY | 2023-12-16 14:16 | XMS_ITS | Encounter Summary ---
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 [address] [place] [phone] Rst Hem [place] [address] [place] [phone] Referral ID Status Reason Start Date Expiration Date V isits Requested Visits Authorized [id number] Authorized 06/24/2022 06/24/2023 99 99 Encounter Details Date Type Department Care Team (Late st Contact Info) Description 02/17/2023 9:15 AM CDT Office Visit Department of Oncology in [place], [place] [address] [place] [phone] Connor Bermudez M.D., M.S. [address] [place] [phone] Nodular Lymphocyte Predominant Hodgkin Lymphoma Extranodal And [...] 06/23/2022 How often do you attend [facility] or christian services? Never 06/23/2022 Do you belong to any clubs o r organizations such as sikh groups, unions, fraternal or athletic groups, or [...] care, and heating? Not very hard 06/23/2022 [facility] of Occupat ional Health - Occupational Stress [...] M.D., M.S. - 02/17/2023 9:15 AM CDT [facility] - Hematology SUBJECTIVE PRIMARY CARE PHYSICIAN No primary care provider on file. PRIMARY [place] LAW ENFORCEMENT DIRECTOR Primary alliance consultant: Dr. Croft Primary fellow: Dr. Bermudez [...] and spleen. She has no evidence of FIELD COURT RESEARCHER disease either on MRI or on CSF [...] (Latest Contact Info) Description 01/04/2024 8:50 AM REHAB TRAINER Appointment Department of Laboratory Medicine and Pathology, [facility] in [address] [phone] Connor Bermudez M.D., M.S. [address] [place] [phone] 01/04/2024 10:45 AM REHAB TRAINER Appointment Department of Radiology, [facility], in [place], [place] [address] [place] [phone] Connor Bermudez M.D., M.S. [address] [place] [phone] 01/08/2024 10:45 AM REHAB TRAINER Clinical Communication Virtual Review in [place], [place] 200 [place] [address] 01/12/2024 9:30 AM REHAB TRAINER Office Visit Division of Hematology in [address] [phone] Connor Bermudez M.D., M.S. 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
--- OUTSIDE RECORDS SUMMARY | 2023-12-16 14:16 | XMS_ITS | Encounter Summary ---
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 [address] [place] [phone] Rst Hem [place] [address] [place] [phone] Referral ID Status Reason Start Date Expiration Date V isits Requested Visits Authorized [id number] Authorized 06/24/2022 06/24/2023 99 99 Encounter Details Date Type Department Care Team (Late st Contact Info) Description 05/26/2023 10:00 AM CDT Infusion Department of Oncology in [place], [place] [address] [place] [phone] Connor Bermudez M.D., M.S. [address] [place] [phone] Nodular Lymphocyte Predominant Hodgkin Lymphoma Extranodal And [...] week 06/23/2022 How often do you attend [facility] or caodaism services? Never 06/23/2022 Do you belong to any clubs o r organizations such as pentecostalism groups, unions, fraternal or athletic groups, or [...] care, and heating? Not very hard 06/23/2022 [facility] [place] of Occupat ional Health - Occupational Stress [...] (Latest Contact Info) Description 01/04/2024 8:50 AM MAIL MESSENGER CONTRACTOR Appointment Department of Laboratory Medicine and Pathology, [facility], in [place], [place] [address] [place] [phone] Connor Bermudez M.D., M.S. [address] [place] [phone] 01/04/2024 10:45 AM MAIL MESSENGER CONTRACTOR Appointment Department of Radiology, [facility] in [place], [place] [address] [place] [phone] Connor Bermudez M.D., M.S. [address] [place] [phone] 01/08/2024 10:45 AM MAIL MESSENGER CONTRACTOR Clinical Communication Virtual Review in [place], [place] 200 [place] [address] 01/12/2024 9:30 AM MAIL MESSENGER CONTRACTOR Office Visit Division of Hematology in [address] [phone] Connor Bermudez M.D., M.S. [address] [place] [phone] documented as of this encounter Visit Diagnoses [...]
--- OUTSIDE RECORDS SUMMARY | 2023-12-16 14:16 | XMS_ITS | Encounter Summary ---
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 [address] [place] [phone] Rst Hem [place] [address] [place] [phone] Referral ID Status Reason Start Date Expiration Date V isits Requested Visits Authorized [id number] Authorized 06/24/2022 06/24/2023 99 99 Encounter Details Date Type Department Care Team (Latest Contact Info) Description 05/26/2023 7:20 AM CDT - 05/26/2023 11:59 PM CDT Hospital Encounter Department of Laboratory Medicine and Pathology, [facility] in [place], [place] [address] [place] [phone] Connor Bermudez M.D., M.S. [address] [place] [phone] Nodular Lymphocyte Predominant Hodgkin Lymphoma Extranodal And [...] often do you attend chur ch or episcopalian services? Never 06/23/2022 Do you belong to any clubs o r organizations such as roman catholic groups, unions, fraternal or athletic groups, [...] care, and heating? Not very hard 06/23/2022 [facility] [place] of Occupat ional Health - Occupational Stress [...] (Latest Contact Info) Description 01/04/2024 8:50 AM CORE JAVA SOFTWARE ENGINEER Appointment Department of Laboratory Medicine and Pathology, [place], [place] [address] [place] [phone] Connor Bermudez M.D., M.S. [address] [place] [phone] 01/04/2024 10:45 AM CORE JAVA SOFTWARE ENGINEER Appointment Department of Radiology, [facility] in [place], [place] [address] [place] [phone] Connor Bermudez M.D., M.S. [address] [place] [phone] 01/08/2024 10:45 AM CORE JAVA SOFTWARE ENGINEER Clinical Communication Virtual Review in [place], [place] 200 [place] [address] 01/12/2024 9:30 AM CORE JAVA SOFTWARE ENGINEER Office Visit Division of Hematology in [place], [place] [address] [place] [phone] Connor Bermudez M.D., M.S. [address] [place] [phone] documented as of this encounter Procedures Procedure [...] LAB BLOOD NON ADD-ON Performing Organization Address City/[facility]/ZIP Co de Phone Number [facility] 200 [place] [address], [facility] 200 [place] [address] * Phosphorus Inorganic (05/26/2023 7:45 AM CDT) Phosphorus (Inorganic), S 3.2 2.5 - 4.5 mg/dL 05/26/2023 8:40 AM CDT DTL Blood (Blood, Venous) 05/26/2023 7:45 AM CDT 05/26/2023 8:20 AM CDT Connor Bermudez M.D., M.S. LAB BLOOD ADD- ON Performing Organization Address [facility] Co de Phone Number [facility] [address] [place], [place] [phone] [place] [address] 200 [place] [address] * Uric Acid (05/26/2023 7:45 AM CDT) Uric Acid, S 4.6 2.7 - 6.1 mg/dL 05/26/2023 8:40 AM CDT DTL Blood (Blood, Venous) 05/26/2023 7:45 AM CDT 05/26/2023 8:20 AM CDT Connor Bermudez M.D., M.S. LAB BLOOD ADD- ON [facility] [address] [place] [address] 200 [place] [address] * (ABNORMAL) Comprehensive Metabolic Panel (05/26/2023 7:45 AM CDT) Potassium, S 5.0 3.6 - 5.2 mmol/L [...] Bermudez M.D., M.S. LAB BLOOD ADD- ON [facility] [address] [place] [address], [facility] DTL [facility] [address] [place] [address] * (ABNORMAL) CBC with Differential, Blood (05/26/2023 [...] Bermudez M.D., M.S. 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
--- OUTSIDE RECORDS SUMMARY | 2023-12-16 14:16 | XMS_ITS | Encounter Summary ---
Author Name Unknown Organization [facility] Address [address] [place] [address] Care Team Providers Care Technology Teacher Name Role Phone Unavailable Primary Care Provider Unavailabl e Reason for Visit * Reason Comments Med Refill Xarelto Encounter Details Date Type Department Care Team (Late st Contact Info) Description 06/22/2023 Refill Department of Oncology in [place], [place] [address] [place] [phone] Connor Bermudez M.D., M.S. [address] [place] [phone] Med Refill (Xarelto) Social History Tobacco Use [...] care, and heating? Not very hard 06/23/2022 [facility] of Occupat ional Health - Occupational [...] place to sleep or slept in a chcf (including now)? No 06/23/2022 Nutrition Answer Date [...] (Latest Contact Info) Description 01/04/2024 8:50 AM BOAT PILOT Appointment Department of Laboratory Medicine and Pathology, [facility], in [place], [place] 200 [place] [address] Connor Bermudez M.D., M.S. [address] [place] [phone] 01/04/2024 10:45 AM BOAT PILOT Appointment Department of Radiology, [facility], in [place], [place] [address] [place] [phone] Connor Bermudez M.D., M.S. [address] [place] [phone] 01/08/2024 10:45 AM BOAT PILOT Clinical Communication Virtual Review in [place], [place] 200 [place] [address] 01/12/2024 9:30 AM BOAT PILOT Office Visit Division of Hematology in [address] [phone] Connor Bermudez M.D., M.S. [address] [place] [phone] documented as of this encounter Visit Diagnoses Not on filedocumented in this encounter Additional Health Concerns Infection Onset Date Last Indicated Resolved Time Protective Environment 04/07/2023 04/07/2023 documented as of this encounter
--- OUTSIDE RECORDS SUMMARY | 2023-12-16 14:16 | XMS_ITS | Encounter Summary ---
Author Name Unknown Organization [facility] Address [address] [place] [address] Care Team Providers Care Wood Cabinet Finisher Name Role Phone Unavailable Primary Care Provider Unavailabl e Reason for Visit * Reason Onset Date Comments PET? Timeframe? 05/27/2023 Encounter Details Date Type Department Care Team (Latest Contact Info) Description 05/27/2023 Clinical Communication Division of Hematology in [place], [place] [address] [place] [phone] Connor Bermudez M.D., M.S. [address] [place] [phone] PET? Timeframe? Social History Tobacco Use Types [...] often do you attend chur ch or buddhism services? Never 06/23/2022 Do you [...] care, and heating? Not very hard 06/23/2022 [facility] of Occupat ional Health - Occupational Stress [...] place to sleep or slept in a halfway (including now)? No 06/23/2022 Nutrition Answer Date [...] (Latest Contact Info) Description 01/04/2024 8:50 AM VICE PRESIDENT OF SOFTWARE DEVELOPMENT Appointment Department of Laboratory Medicine and Pathology, [facility] in [place], [place] [address] [place] [address] Connor Bermudez M.D., M.S. [address] [place] [phone] 01/04/2024 10:45 AM VICE PRESIDENT OF SOFTWARE DEVELOPMENT Appointment Department of Radiology, [facility] in [place], [place] [address] [place] [address] Connor Bermudez M.D., M.S. [address] [place] [phone] 01/08/2024 10:45 AM VICE PRESIDENT OF SOFTWARE DEVELOPMENT Clinical Communication Virtual Review in [place], [place] 200 [place] [address] 01/12/2024 9:30 AM VICE PRESIDENT OF SOFTWARE DEVELOPMENT Office Visit Division of Hematology in [place], [place] [address] [place] [phone] Connor Bermudez M.D., M.S. [address] [place] [phone] documented as of this encounter Visit Diagnoses Not on filedocumented in this encounter Additional Health Concerns Infection Onset Date Last Indicated Resolved Time Protective Environment 04/07/2023 04/07/2023 documented as of this encounter
--- OUTSIDE RECORDS SUMMARY | 2023-12-16 14:16 | XMS_ITS | Encounter Summary ---
Author Name Unknown Organization [facility] Address [address] [place] [address] Care Team Providers Care Mechanotherapist Name Role Phone Unavailable Primary Care Provider Unavailabl e Reason for Visit * Reason Onset Date Comments treatment date change 04/07/2023 Encounter Details Date Type Department Care Team (Latest Contact Info) Description 04/07/2023 Clinical Communication Division of Hematology in [place], [place] [address] [place] [address] Connor Bermudez M.D., M.S. [address] [place] [address] treatment date change Social History Tobacco Use [...] often do you attend chur ch or judaism services? Never 06/23/2022 Do you belong to any clubs o r organizations such as nondenominational groups, unions, fraternal or athletic groups, or [...] care, and heating? Not very hard 06/23/2022 [facility] of Occupat ional Health - Occupational Stress [...] place to sleep or slept in a group home (including now)? No 06/23/2022 Nutrition Answer [...] (Latest Contact Info) Description 01/04/2024 8:50 AM MECHANICAL EXPERT Appointment Department of Laboratory Medicine and Pathology, [place], [place] [address] [place] [address] Connor Bermudez M.D., M.S. [address] [place] [phone] 01/04/2024 10:45 AM MECHANICAL EXPERT Appointment Department of Radiology, [facility] in [place], [place] [address] [place] [address] Connor Bermudez M.D., M.S. [address] [place] [phone] 01/08/2024 10:45 AM MECHANICAL EXPERT Clinical Communication Virtual Review in [place], [place] 200 [place] [address] 01/12/2024 9:30 AM MECHANICAL EXPERT Office Visit Division of Hematology in [address] [phone] Connor Bermudez M.D., M.S. [address] [place] [phone] documented as of this encounter Visit Diagnoses Not on filedocumented in this encounter Additional Health Concerns Infection Onset Date Last Indicated Resolved Time Protective Environment 04/07/2023 04/07/2023 documented as of this encounter
--- OUTSIDE RECORDS SUMMARY | 2023-12-16 14:16 | XMS_ITS | Encounter Summary ---
Author Name Unknown Organization [facility] Address [address] [place] [address] Care Team Providers Care Manager Security Name Role Phone Unavailable Primary Care Provider Unavailabl e Encounter Details Date Type Department Care Team (Late st Contact Info) Description 06/28/2023 Orders Only Division of Hematology in [place], [place] [address] [place] [address] Mica Romero M.D. [address] [place] [address] Social History Tobacco Use Types Packs/Day Years [...] care, and heating? Not very hard 06/23/2022 [facility] of Occupat ional Health - [...] (Latest Contact Info) Description 01/04/2024 8:50 AM HYDROMETER CALIBRATOR Appointment Department of Laboratory Medicine and Pathology, [place], [place] [address] [place] [address] Connor Bermudez M.D., M.S. [address] [place] [phone] 01/04/2024 10:45 AM HYDROMETER CALIBRATOR Appointment Department of Radiology, [place], [place] [address] [place] [address] Connor Bermudez M.D., M.S. [address] [place] [phone] 01/08/2024 10:45 AM HYDROMETER CALIBRATOR Clinical Communication Virtual Review in [place], [place] 200 [place] [address] 01/12/2024 9:30 AM HYDROMETER CALIBRATOR Office Visit Division of Hematology in [place], [place] [address] [place] [phone] Connor Bermudez M.D., M.S. [address] [place] [phone] documented as of this encounter Visit Diagnoses Not on filedocumented in this encounter Additional Health Concerns Infection Onset Date Last Indicated Resolved Time Protective Environment 04/07/2023 04/07/2023 documented as of this encounter
--- OUTSIDE RECORDS SUMMARY | 2023-12-16 14:16 | XMS_ITS | Encounter Summary ---
Author Name Unknown Organization [facility] Address [address] [place] [address] Care Team Providers Care Bee Farmer Name Role Phone Unavailable Primary Care Provider Unavailabl e Encounter Details Date Type Department Care Team (Late st Contact Info) Description 06/26/2023 Orders Only Department of Oncology in [place], [place] [address] [place] [address] Mica Romero M.D. [address] [place] [address] Social History Tobacco Use Types Packs/Day Years [...] often do you attend chur ch or restorationist services? Never 06/23/2022 Do you belong to [...] care, and heating? Not very hard 06/23/2022 [facility] of Occupat ional Health - [...] (Latest Contact Info) Description 01/04/2024 8:50 AM LOKIE DRIVER Appointment Department of Laboratory Medicine and Pathology, [place], [place] 200 [place] [address] Connor Bermudez M.D., M.S. [address] [place] [phone] 01/04/2024 10:45 AM LOKIE DRIVER Appointment Department of Radiology, [place], [place] [address] [place] [address] Connor Bermudez M.D., M.S. [address] [place] [phone] 01/08/2024 10:45 AM LOKIE DRIVER Clinical Communication Virtual Review in [place], [place] 200 [place] [address] 01/12/2024 9:30 AM LOKIE DRIVER Office Visit Division of Hematology in [place], [place] [address] [place] [phone] Connor Bermudez M.D., M.S. [address] [place] [phone] documented as of this encounter Visit Diagnoses Not on filedocumented in this encounter Additional Health Concerns Infection Onset Date Last Indicated Resolved Time Protective Environment 04/07/2023 04/07/2023 documented as of this encounter
--- OUTSIDE RECORDS SUMMARY | 2023-12-16 14:16 | XMS_ITS | Encounter Summary ---
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 [address] [place] [phone] [facility] [place] [address] [place] [phone] Referral ID Status Reason Start Date Expiration Date V isits Requested Visits Authorized [id number] Authorized 06/24/2022 06/24/2023 99 99 Encounter Details Date Type Department Care Team (Late st Contact Info) Description 05/26/2023 9:30 AM CDT Office Visit Division of Hematology in [place], [place] [address] [place] [phone] Connor Bermudez M.D., M.S. [address] [place] [phone] Nodular Lymphocyte Predominant Hodgkin Lymphoma Extranodal And [...] care, and heating? Not very hard 06/23/2022 [facility] of Occupat ional Health - [...] place to sleep or slept in a half-way (including now)? No 06/23/2022 Nutrition Answer Date [...] M.D., M.S. - 05/26/2023 9:30 AM CDT [facility] - Hematology SUBJECTIVE PRIMARY CARE PHYSICIAN No primary care provider on file. PRIMARY [place] LICENSED DISPENSING OPTICIAN Primary project consultant: Dr. Croft Primary fellow: Dr. Bermudez [...] history, and problem list. 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 She has no evidence of CONSULTING NETWORKING ENGINEER disease either on MRI or on [...] loss. She is seeing a practiiner at [facility] but those records areunavailable to us. Her [...] (Latest Contact Info) Description 01/04/2024 8:50 AM EXTRACTOR FILLER Appointment Department of Laboratory Medicine and Pathology, [facility] in [address] [phone] Connor Bermudez M.D., M.S. [address] [place] [phone] 01/04/2024 10:45 AM EXTRACTOR FILLER Appointment Department of Radiology, [facility] in [address] [phone] Connor Bermudez M.D., M.S. [address] [place] [phone] 01/08/2024 10:45 AM EXTRACTOR FILLER Clinical Communication Virtual Review in [address] [address] 01/12/2024 9:30 AM EXTRACTOR FILLER Office Visit Division of Hematology in [address] [address] Connor Bermudez M.D., M.S. [address] [place] [phone] documented as of this encounter Results * [...] RADIOPHARMACEUTICAL/MEDS: Route: intravenous fludeoxyglucose F 18 injection SENIOR LIVING (FDG F-18),6.2 millicurie TECHNIQUE: ??F-18 FDG PET/CT [...] RADIOPHARMACEUTICAL/MEDS: Route: intravenous fludeoxyglucose F 18 injection SENIOR LIVING (FDG F-18),6.2 millicurie TECHNIQUE: F-18 FDG PET/CT [...] LD (Lactate Dehydrogenase) (07/17/2023 9:04 AM CDT) [facility] LD 192 122 - 222 U/L 07/17/2023 10:00 AM CDT DTL Blood (Blood, Venous) 07/17/2023 9:04 AM CDT 07/17/2023 9:44 AM CDT Connor Bermudez M.D., M.S. LAB BLOOD NON ADD-ON [facility] [address] [place], [place] [phone] [place] [address] [facility], [place] [address] [place] [address] * (ABNORMAL) Comprehensive Metabolic Panel (07/17/2023 9:04 AM CDT) [facility] Potassium, S 4.4 3.6 - 5.2 mmol/L [...] AM CDT 07/17/2023 9:36 AM CDT Connor Bermduez M.D., M.S. LAB BLOOD ADD- ON [facility] [address] [place] [address], [facility] DTL [facility] [address] [place] [address] * (ABNORMAL) CBC with Differential, Blood (07/17/2023 [...] Bermudez M.D., M.S. LAB BLOOD ADD- ON [facility] 200 [place] [address], [facility] 200 [place] [address] [facility] 200 [place] [address] * Thyroid Function [place] (07/17/2023 9:04 AM CDT) TSH, Sensitive 2.7 0.3 - 4.2 mIU/L 07/17/2023 10:08 AM CDT DT Blood (Blood, Venous) 07/17/2023 9:04 AM CDT 07/17/2023 9:36 AM CDT Connor Bermudez M.D., M.S. LAB BLOOD ADD- ON Performing Organization Address City/[facility]/ZIP Co de Phone Number [facility] 200 [place], [place] [address] [place] 200 [place] [address] * Vitamin B12 Assay (07/17/2023 9:04 AM CDT) Pathologist [facility] [place] Vitamin B12 Assay, S 317 180 - 914 ng/L 07/17/2023 10:37 AM CDT DT Comment: ----ADDITIONAL INFORMATION---- In patients being evaluated [...] Bermudez M.D., M.S. LAB BLOOD ADD- ON [facility] 200 [place] [address], [facility] 200 [place] [address] * MR Brain without and with IV [...]
--- OUTSIDE RECORDS SUMMARY | 2023-12-16 14:16 | XMS_ITS | Encounter Summary ---
Author Name Unknown Organization [facility] Address [address] [place] [address] Care Team Providers Care Stock Sorter Name Role Phone Unavailable Primary Care Provider Unavailabl e Encounter Details Date Type Department Care Team (Late st Contact Info) Description 04/14/2023 Clinical Communication Division of Hematology in [place], [place] [address] [place] [address] Connor Bermudez M.D., M.S. [address] [place] [address] Social History Tobacco Use Types Packs/Day Years [...] any clubs o r organizations such as christianity groups, unions, fraternal or athletic groups, or [...] care, and heating? Not very hard 06/23/2022 [facility] of Occupat ional Health - Occupational [...] (Latest Contact Info) Description 01/04/2024 8:50 AM BUSINESS PROCESS REPRESENTATIVE Appointment Department of Laboratory Medicine and Pathology, [place], [place] 200 [place] [address] Connor Bermudez M.D., M.S. [address] [place] [phone] 01/04/2024 10:45 AM BUSINESS PROCESS REPRESENTATIVE Appointment Department of Radiology, [facility] in [place], [place] 200 [place] [address] Connor Bermudez M.D., M.S. [address] [place] [phone] 01/08/2024 10:45 AM BUSINESS PROCESS REPRESENTATIVE Clinical Communication Virtual Review in [place], [place] 200 [place] [address] 01/12/2024 9:30 AM BUSINESS PROCESS REPRESENTATIVE Office Visit Division of Hematology in [place], [place] [address] [place] [phone] Connor Bermudez M.D., M.S. [address] [place] [phone] documented as of this encounter Visit Diagnoses Not on filedocumented in this encounter Additional Health Concerns Infection Onset Date Last Indicated Resolved Time Protective Environment 04/07/2023 04/07/2023 documented as of this encounter
--- OUTSIDE RECORDS SUMMARY | 2023-12-16 14:17 | XMS_ITS | Encounter Summary ---
Author Name Unknown Organization [facility] Address [address] [place] [address] Care Team Providers Care Community Representative Name Role Phone Unavailable Primary Care Provider Unavailabl e Reason for Visit * Reason Comments February 17Lymph/Est Encounter Details Date Type Department Care Team (Latest Contact Info) Description 12/05/2022 Clinical Communication Division of Hematology in [place], [place] [address] [place] [phone] Connor Bermudez M.D., M.S. [address] [place] [address] February 17Lymph/Est Social History Tobacco Use Types [...] often do you attend chur ch or yazdanism services? Never 06/23/2022 Do you belong to any clubs o r organizations such as jehovah's witness groups, unions, fraternal or athletic groups, or [...] care, and heating? Not very hard 06/23/2022 [facility] of Occupat ional Health - Occupational Stress [...] to: RST HEM CHEMO REQUESTS Thank you. LETTERER documented in this encounter Plan of Treatment Upcoming Encounters Date Type Department Care Team (Latest Contact Info) Description 01/04/2024 8:50 AM GOLD LETTERER Appointment Department of Laboratory Medicine and Pathology, [facility], in [place], [place] [address] [place] [phone] Connor Bermudez M.D., M.S. [address] [place] [phone] 01/04/2024 10:45 AM GOLD LETTERER Appointment Department of Radiology, [facility] in [place], [place] [address] [place] [phone] Connor Bermudez M.D., M.S. [address] [place] [phone] 01/08/2024 10:45 AM GOLD LETTERER Clinical Communication Virtual Review in [place], [place] 200 [place] [address] 01/12/2024 9:30 AM GOLD LETTERER Office Visit Division of Hematology in [place], [place] [address] [place] [phone] Connor Bermudez M.D., M.S. [address] [place] [phone] documented as of this encounter Visit Diagnoses Not on filedocumented in this encounter
--- OUTSIDE RECORDS SUMMARY | 2023-12-16 14:17 | XMS_ITS | Encounter Summary ---
Author Name Unknown Organization [facility] Address [address] [place] [address] Care Team Providers Care Body And Fender Mechanic Name Role Phone Unavailable Primary Care Provider Unavailabl e Encounter Details Date Type Department Care Team (Latest Contact Info) Description 12/22/2022 11:15 AM FEATHER EDGER Clinical Communication Virtual Review in [place], [place] [address] [place], [place] [phone] Social History Tobacco Use Types Packs/Day Years [...] and heating? Not very hard 06/23/2022 [facility] of Occupat ional Health - Occupational [...] (Latest Contact Info) Description 01/04/2024 8:50 AM FEATHER EDGER Appointment Department of Laboratory Medicine and Pathology, [facility] in [place], [place] [address] [place] [phone] Connor Bermudez M.D., M.S. [address] [place] [phone] 01/04/2024 10:45 AM FEATHER EDGER Appointment Department of Radiology, [facility] in [place], [place] [address] [place] [phone] Connor Bermudez M.D., M.S. [address] [place] [phone] 01/08/2024 10:45 AM FEATHER EDGER Clinical Communication Virtual Review in [address] [address] 01/12/2024 9:30 AM FEATHER EDGER Office Visit Division of Hematology in [address] [phone] Connor Bermudez M.D., M.S. [address] [place] [phone] documented as of this encounter Visit Diagnoses Not on filedocumented in this encounter
--- OUTSIDE RECORDS SUMMARY | 2023-12-16 14:17 | XMS_ITS | Encounter Summary ---
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 [address] [place] [phone] [facility] Referral ID Status Reason Start Date Expiration Date Visits Re quested Visits Authorized [id number] Closed 01/06/2023 01/06/2024 1 1 Encounter Details Date Type Department Care Team (Latest Contact Info) Description 02/16/2023 7:13 AM CDT - 02/16/2023 11:59 PM CDT Hospital Encounter Department of Radiology, [facility], in [place], [place] 200 [place] [address] Connor Bermudez M.D., M.S. [address] [place] [address] Nodular Lymphocyte Predominant Hodgkin Lymphoma Extranodal And [...] often do you attend chur ch or gnosticist services? Never 06/23/2022 Do you belong to [...] care, and heating? Not very hard 06/23/2022 [facility] of Occupat ional Health - Occupational [...] (Latest Contact Info) Description 01/04/2024 8:50 AM AUTOMATIC LEHR OPERATOR Appointment Department of Laboratory Medicine and Pathology, [facility] in [address] [address] Connor Bermudez M.D., M.S. [address] [place] [phone] 01/04/2024 10:45 AM AUTOMATIC LEHR OPERATOR Appointment Department of Radiology, [facility] in [place], [place] [address] [place] [phone] Connor Bermudez M.D., M.S. [address] [place] [phone] 01/08/2024 10:45 AM AUTOMATIC LEHR OPERATOR Clinical Communication Virtual Review in [address] [address] 01/12/2024 9:30 AM AUTOMATIC LEHR OPERATOR Office Visit Division of Hematology in [address] [phone] Connor Bermudez M.D., M.S. [address] [place] [phone] documented as of this encounter Procedures Procedure [...] RADIOPHARMACEUTICAL/MEDS: Route: intravenous fludeoxyglucose F 18 injection SNF (FDG F-18),9.91 millicurie TECHNIQUE: ??F-18 FDG PET/CT [...] RADIOPHARMACEUTICAL/MEDS: Route: intravenous fludeoxyglucose F 18 injection SNF (FDG F-18),9.91 millicurie TECHNIQUE: F-18 FDG PET/CT [...] poolactivity. [place]: 2 Connor Bermudez M.D., M.S. 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
--- OUTSIDE RECORDS SUMMARY | 2023-12-16 14:17 | XMS_ITS | Encounter Summary ---
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 [address] [place] [phone] R[address] Hem [place] [address] [place] [phone] Referral ID Status Reason Start Date Expiration Date V isits Requested Visits Authorized [id number] Authorized 06/24/2022 06/24/2023 99 99 Encounter Details Date Type Department Care Team ([facility] st Contact Info) Description 12/23/2022 10:00 AM ROUTER OPERATOR PIN Office Visit Department of Oncology in [place], [place] 200 [place] [address] Connor Bermudez M.D., M.S. [address] [place] [phone] Nodular Lymphocyte Predominant Hodgkin Lymphoma Extranodal And [...] often do you attend chur ch or advent services? Never 06/23/2022 Do you belong to [...] care, and heating? Not very hard 06/23/2022 [facility] - Occupational Stress Questionnaire Answer Date Recorded [...] Comments Blood Pressure 175/95 12/23/2022 9:51 AM ROUTER OPERATOR PIN Pulse 54 12/23/2022 9:51 AM ROUTER OPERATOR PIN Temperature 36.8 ??C (98.2 ??F) 12/23/2022 9:51 AM CS T Respiratory Rate - - Oxygen Saturation - - Inhaled Oxygen Concentration - - Weight 100 kg (220 lb 7.4 oz) 12/23/2022 9:51 AM ROUTER OPERATOR PIN Height 166 cm (5' 5.35) 12/23/2022 9:51 AM ROUTER OPERATOR PIN Body Mass Index 36.29 12/23/2022 9:51 AM ROUTER OPERATOR PIN documented in this encounter Progress Notes * Connor Bermudez M.D., M.S. - 12/23/2022 10:00 AM CST Images from the original note were not included. [facility] - Hematology SUBJECTIVE PRIMARY CARE PHYSICIAN No primary care provider on file. PRIMARY FOREST RISK MGR Primary showroom consultant: Dr. Croft Primary fellow: Dr. Bermudez [...] and spleen. She has no evidence of COURT RECORDING MONITOR disease either on MRI or on CSF [...] to face andface to face patient care. ER OPERATOR PIN documented in this encounter Plan of Treatment Upcoming Encounters Date Type Department Care Team (Latest Contact Info) Description 01/04/2024 8:50 AM ROUTER OPERATOR PIN Appointment Department of Laboratory Medicine and Pathology, [facility], in [place], [place] [address] [place] [address] Connor Bermudez M.D., M.S. [address] [place] [address] 01/04/2024 10:45 AM ROUTER OPERATOR PIN Appointment Department of Radiology, [facility], in [place], [place] [address] [place] [phone] Connor Bermudez M.D., M.S. [address] [place] [phone] 01/08/2024 10:45 AM ROUTER OPERATOR PIN Clinical Communication Virtual Review in [place], [place] 200 [place] [address] 01/12/2024 9:30 AM ROUTER OPERATOR PIN Office Visit Division of Hematology in [place], [place] [address] [place] [phone] Connor Bermudez M.D., M.S. [address] [place] [phone] documented as of this encounter Results * [...] fludeoxyglucose F 18 injection CARE HOME (FDG F-18),9.91 millicurie TECHNIQUE: ??F-18 FDG PET/CT [...] fludeoxyglucose F 18 injection CARE HOME (FDG F-18),9.91 millicurie TECHNIQUE: F-18 FDG PET/CT [...]
--- OUTSIDE RECORDS SUMMARY | 2023-12-16 14:17 | XMS_ITS | Clinical Summary ---
Author Name Unknown Organization [facility] Address [place], [place] [address] Care Team Providers Care Mica Miner Blasting Name Role Phone Haseeb Durán MD Primary [...] daily 0 05/21/2015 Active vit A,C & F-xecgdb-aowkfqzg (OCUVITE WITH LUTEIN) 1,000 unit-200 mg-60 unit-2 [...] WEAN TOLERATED 0 02/14/2022 Active HYDROcodone-acetamin ophen (Keno) 5-325 mg per tabletIndications:Po st-traumatic osteoarthritis of [...] 45-75 04/20/2016 04/20/20 15 (Completed outside of [facility]), 01/13/2013, 01/11/2013, Additional history exists Lipids for [...] exists Tdap Completed 06/18/2012, 03/23/2006 Care Teams Mica Miner Blasting Relationship Specialty Start Date End Date Haseeb Durán MD [address] [facility] [place] [address] PCP - General Family Practice 05/12/22
--- OUTSIDE RECORDS SUMMARY | 2023-12-16 14:17 | XMS_ITS | Encounter Summary ---
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 [address] [place] [phone] [address] Hem [place] [address] [place] [phone] Referral ID Status Reason Start Date Expiration Date V isits Requested Visits Authorized [id number] Authorized 06/24/2022 06/24/2023 99 99 Encounter Details Date Type Department Care Team (Late st Contact Info) Description 12/23/2022 11:15 AM FIRST RESPONDER Infusion Department of Oncology in [place], [place] [address] [place] [phone] Connor Bermudez M.D., M.S. [address] [place] [phone] Nodular Lymphocyte Predominant Hodgkin Lymphoma Extranodal And [...] week 06/23/2022 How often do you attend [facility] or church services? Never 06/23/2022 Do you belong to any clubs o r organizations such as uatsdin groups, unions, fraternal or athletic groups, or [...] care, and heating? Not very hard 06/23/2022 [facility] [place] [facility] - Occupational Stress [...] Comments Blood Pressure 164/82 12/23/2022 11:56 AM FIRST RESPONDER Pulse - - Temperature - - Respiratory Rate - - Oxygen Saturation - - Inhaled Oxygen Concentration - - Weight - - Height - - Body Mass Index - - documented in this encounter Plan of Treatment Upcoming Encounters Date Type Department Care Team (Latest Contact Info) Description 01/04/2024 8:50 AM FIRST RESPONDER Appointment Department of Laboratory Medicine and Pathology, [facility] in [address] [phone] Connor Bermudez M.D., M.S. [address] [place] [phone] 01/04/2024 10:45 AM FIRST RESPONDER Appointment Department of Radiology, [address] [phone] Connor Bermudez M.D., M.S. [address] [place] [phone] 01/08/2024 10:45 AM FIRST RESPONDER Clinical Communication Virtual Review in [address] [address] 01/12/2024 9:30 AM FIRST RESPONDER Office Visit Division of Hematology in [address] [phone] Connor Bermudez M.D., M.S. [address] [place] [phone] documented as of this encounter Visit Diagnoses [...] prior to riTUXimab. Given 12/23/2022 11:36 AM FIRST RESPONDER 650 mg diphenhydrAMINE 50 mg in NaCl 0.9% IVPB (BENADRYL) 50 mg, intravenous, at 204 mL/hr, Administer over 15 Minutes, Once, On Thu12/23/22 at 1130, For 1 dose New Bag 12/23/2022 11:46 AM FIRST RESPONDER 50 mg 204 mL/hr hydrocortisone sodium succinate (PF) injection 100 mg (Solu-CORTEF) 100 mg, intravenous, Once, On Thu12/23/22 at 1130, For 1 dose, IV push over 30 seconds per 100 mg (For doses 500 mg or less) Given 12/23/2022 11:41 AM FIRST RESPONDER 100 mg rituximab-pvvr 800 mg in NaCl [...] algorithm criteria Rate/Dose Change 12/23/2022 1:59 PM FIRST RESPONDER 400 mL/hr Rate/Dose Change 12/23/2022 1:30 PM FIRST RESPONDER 300 mL/ hr New Bag 12/23/2022 12:24 PM FIRST RESPONDER 800 mg documented in this encounter
--- OUTSIDE RECORDS SUMMARY | 2023-12-16 14:17 | XMS_ITS | Encounter Summary ---
Author Name Unknown Organization [facility] Address [address] [place] [address] Care Team Providers Care Contact Representative Name Role Phone Unavailable Primary Care Provider Unavailabl e Encounter Details Date Type Department Care Team (Late st Contact Info) Description 01/16/2023 Orders Only Division of Hematology in [place], [place] [address] [place] [address] Amparo Bhakta Nodular Lymphocyte Predominant Hodgkin Lymphoma [...] often do you attend chur ch or yazidism services? Never 06/23/2022 Do you belong to [...] (Latest Contact Info) Description 01/04/2024 8:50 AM DEVELOPMENTAL EDUCATION INSTRUCTOR Appointment Department of Laboratory Medicine and Pathology, [place], [place] [address] [place] [address] Connor Bermudez M.D., M.S. [address] [place] [phone] 01/04/2024 10:45 AM DEVELOPMENTAL EDUCATION INSTRUCTOR Appointment Department of Radiology, [place], [place] [address] [place] [address] Connor Bermudez M.D., M.S. [address] [place] [phone] 01/08/2024 10:45 AM DEVELOPMENTAL EDUCATION INSTRUCTOR Clinical Communication Virtual Review in [place], [place] [address] [place] [address] 01/12/2024 9:30 AM DEVELOPMENTAL EDUCATION INSTRUCTOR Office Visit Division of Hematology in [place], [place] [address] [place] [phone] Connor Bermudez M.D., M.S. [address] [place] [phone] documented as of this encounter Results * Miscellaneous Research, B (02/17/2023 7:33 AM CDT) Number of Specimens 3 02/17/2023 7:33 AM CDT HSS Blood (Blood, Venous) 02/17/2023 7:33 AM CDT 02/17/2023 7:33 AM CDT Connor Bermudez M.D., M.S. 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
--- NOTE | 2023-12-16 15:00 | CRLHL7_ITS ---
For Patients: As a result of the Century Cures Act, medical imaging exams and procedure reports are released immediately into your electronic medical record. You may view this report before your referring provider. If you have questions, please contact your health care provider. DXA BONE MINERAL DENSITY STUDY Reason for exam: PRIMARY OSTEOARTHRITIS RT KNEE. Current height (in): 65. Weight (lb): 230. Menopause age: 59. Ethnicity: White. 1. Have you had a previous hip or vertebral fracture? No. 2. Have you had any fractures during your adult life which did not result from significant trauma (e.g., auto accident)? Yes. 3. Did either of your parents have a hip fracture? No. 4. Do you smoke? No. 5. Have you ever taken Glucocorticoids? No. 6. Do you have rheumatoid arthritis? No. 7. Do you have secondary osteoporosis? No. 8. Do you drink 3 or more alcoholic drinks per day? No. 9. Are you being treated for osteoporosis? No. 10. Have you ever taken any of the following medications: Actonel, Evista, Fosamax, Miacalcin, Reclast, Boniva, Forteo, HRT (i.e. estrogen/hormone therapy), Protelos, Prolia, Vitamin D, Calcium, other ??? please specify. ANSWER: Yes, Fosamax, HRT. 11. Do you have any of the following medical conditions: Anorexia or bulimia, asthma or emphysema, end stage renal disease, hyperparathyroidism, any seizure disorders, cancer, inflammatory bowel diseases, hysterectomy, other ??? please specify. ANSWER: Yes, Cancer. 12. What was your maximum height (inches)? 64. 13. Do you perform weight bearing exercise regularly? No. 14. Do you regularly consume dairy products? Yes. 15. Do you drink caffeinated beverages? Yes. 16. At what age did your period start? 16. 17. Are you premenopausal? No. 18. How many full term pregnancies have you had? 2. 19. Have you ever missed your period for more than 6 months in a row (not including or menopause)? No. TECHNIQUE: Bone mineral density study was performed using the ImageTag. FINDINGS: The results of the study expressed as bone mineral density (BMD) are as follows: Lumbar spine L1 to L3: BMD: 1.232 g/cm2. T-score: 1.9. Z-score: 3.8. Neck Left: BMD: 0.826 g/cm2. T-score: -0.2. Z-score: 1.4. Right: BMD: 0.859 g/cm2. T-score: 0.1. Z-score: 1.7. Total Left: BMD: 1.100 g/cm2. T-score: 1.3 . Z-score: 2.6. Right: BMD: 1.154 g/cm2. T-score: 1.7 . Z-score: 3.1. IMPRESSION: Normal bone density. *Comparison exams done prior to 04/2020 were performed on different unit, Maxta. COMPARISON: Compared with scan of 07/11/2021, the bone mineral density has decreased by 0.2 percent at the spine and decreased by 1.3 percent at the hip. Haseeb Orlando M.D. Diagnostic Radiologist [email or web address] SP/Dictated by: Haseeb Orlando MD @ 12/16/2023 3:50:00 PM (Electronically Signed)
== END 2023-12-16 14:12 | disposition home or self-care (01) ==
LOC: RAD 14:12
PROVIDERS: PCP Family Medicine; Visit Provider Family Medicine
DX: M17.11 Unilateral primary osteoarthritis, right knee (principal); Z78.0 Asymptomatic menopausal state
CPT/HCPCS: 77080

== ENCOUNTER 2023-12-29 13:54 | Outpatient (CLI) | payer MEDICARE, BC, SELFPAY ==
--- NOTE | 2023-12-29 14:00 | MM_ITS ---
INDICATION: SCREENING MAMMOGRAPHY. COMPARISON: 04/24/2022, 11/30/2020, 09/16/2019 TECHNIQUE: 3D BILATERAL DIGITAL TOMOSYNTHESIS MAMMOGRAM WITH COMPUTER ASSISTED DETECTION BREAST DENSITY: SCATTERED FIBROGLANDULAR DENSITIES. FINDINGS: NO SUSPICIOUS MASSES ARE PRESENT BILATERALLY. NO ARCHITECTURAL DISTORTION. NO ADENOPATHY OR SUSPICIOUS CALCIFICATIONS. IMPRESSION: NO EVIDENCE OF MALIGNANCY. RECOMMENDATIONS: ANNUAL BILATERAL SCREENING MAMMOGRAPHY. BI-RADS CATEGORY 1. NEGATIVE..
== END 2023-12-29 13:55 | disposition home or self-care (01) ==
LOC: MAMMO 13:54
PROVIDERS: PCP Family Medicine; Visit Provider Obstetrics & Gynecology
DX: Z12.31 Encounter for screening mammogram for malignant neoplasm of breast (principal)
CPT/HCPCS: 77063; 77067

== ENCOUNTER 2024-03-03 12:08 | Outpatient (RCR) | payer MEDICARE, BC, SELFPAY ==
[2024-03-03 12:44] LABS: Creatinine* 0.9 mg/dL (0.5-1.5); Est. Creatinine Clearance* 51.11; Estimated Glomerular Filt Rate 70 ml/min
== END 2024-08-30 23:59 | disposition home or self-care (01) ==
LOC: CCIC 12:08
PROVIDERS: PCP Family Medicine; Visit Provider Internal Medicine
DX: C85.14 Unspecified B-cell lymphoma, lymph nodes of axilla and upper limb (principal)
CPT/HCPCS: 36415; 82565; 99211

== ENCOUNTER 2024-05-25 10:47 | Outpatient (CLI) | payer MEDICARE, BC, SELFPAY ==
--- OUTSIDE RECORDS SUMMARY | 2024-05-25 10:51 | XMS_ITS ---
Author Organization [facility] Address [address] [place] [address] Care Team Providers Care Air Conditioning Insulation Installer Name Role Phone Unavailable Unavailable Unavailable Surgery Details Not on file Complications Check Surgery Details section. Procedure Estimated Blood Loss Check Surgery Details section. Procedure Findings Check Surgery Details section. Procedure Specimens Taken Check Surgery Details section.
--- OUTSIDE RECORDS SUMMARY | 2024-05-25 10:51 | XMS_ITS | Encounter Summary ---
Author Organization [facility] Address [address] [place] [address] Care Team Providers Care Digital Traffic Coordinator Name Role Phone Elsewhere, Pcp Primary Care Provider Unavailabl e Reason for Referral * Outpatient (Routine) - Authorized Specialty Diagnoses / Procedures Referred By Luiig kumar Referred To Contact Nephrology and Hypertension Lyric Isaacs M.D., Ph.D. [address] [place] [phone] [facility] Referral ID Status Reason Start Date Expiration Date V isits Requested Visits Authorized [id number] Authorized 05/14/2024 11/13/2025 1 1 Reason for Visit * Reason Comments Hypertension * Outpatient (Routine) - Closed Specialty Diagnoses / Procedures Referred By Luigi kumar Referred To Contact Nephrology and Hypertension Lyric Isaacs M.D., Ph.D. [address] [place] [phone] [facility] Referral ID Status Reason Start Date Expiration Date Visits Re quested Visits Authorized [id number] Closed 05/04/2024 11/03/2025 1 1 Encounter Details Date Type Department Care Team (Late st Contact Info) Description 05/11/2024 10:30 AM CDT Virtual Visit Division of Nephrology and Hypertension in [place], [place] [address] [place] [phone] Lyric Isaacs M.D., Ph.D. [address] [place] [phone] Elda Hutchins R.N., C.M.S.R.N. 200 [place] [phone] Hypertension Essential Primary [I10] (Primary Dx) Social History Tobacco Use Types [...] week 06/23/2022 How [facility] or gn[facility]ism services? Never 06/23/2022 Do you belong to [...] at all 08/27/2023 [facility] Questionnaire Answer Date [...] living? No 08/27/2023 Nutrition Answer Date Recorded On average, how many serving s of [...] PM CDT documented as of this encounter Progress Notes * Elda Hutchins R.N., Nalini.R.N. - 05/11/2024 10:30 AM CDT Provider Name: Lyric Pate M.D., Ph.D. Reason for Visit: BP Check (1 week follow-up) Consult conducted via real-time audio/video technology by Elda Hutchins R.N., JaneenRJaron. in [facility] to the patient in Patient's Home Relevant History: hypertension and sleep apnea, Hodgkin's lymphoma, lower extremity DVT. Tobacco Use: Social History Tobacco Use Smoking Status Never Passive exposure: Past (Childhood exposure.) Smokeless Tobacco Never Alcohol Use: Social History Substance and Sexual Activity Alcohol Use Not Currently Comment: 1 or 2 drinks a year Exercise: She goes for walks approximately 2 days/week. Dietary Assessment: does not add salt to food, rarely eats out, limits processed foods, does not read food labels for sodium content, drinks 3 servings of caffeine per week, and drinks 60-80 ounces amount of fluids per day. Home blood pressure trends are: Average of 14 readings provided: 139/80 (range 111-171/55-99). Pulse 61-81. Home BP Monitor: Yes Date last assessed: She will have this checked for accuracy by her local PCP. Patient's weight is: Patient's weight is stable. Plan of Care: Home blood pressures are: above goal. Dizziness/Lightheadedness: denies dizziness or lightheadedness. Recommendations: Reviewed low sodium diet, with goal of 2,000 mg or less per day. Avoid processed foods. Maintain good hydration, goal of 2-3 liters of fluid intake daily. Recommend gradually increasing exercise with a goal of 30 minutes per day, most days of the week, as tolerated. Avoid NSAIDs and decongestants. Avoid IV contrast dye. Recommend having home blood pressure monitor assessed for accuracy on an annual basis. Instructed patient to call Nephrology & Hypertension Nurses if blood pressure is greater than 130/80 consistently, or less than 100 systolic or develops dizziness/lightheadedness. Medications: Continue on current medications for now. She was recently switched from metoprolol to carvedilol 25mg BID on 05/04/24. She also continues on amlodipine 10 mg daily, furosemide 40 mg daily, zyzqgemotx21 mg BID, and triamterene-HCTZ 37.5-25 mg daily. Patient Contact Information: Preferred contact: online message Preferred pharmacy: [facility] in [place], [place] I will review today's visit with Dr. Sanjeev Pate and update patient with her recommendations. documented in this encounter Plan of Treatment Upcoming Encounters Date Type Department Care Team (Late st Contact Info) Description 06/01/2024 10:00 AM CDT Nurse Only Division of Nephrology and Hypertension in [address] [phone] Lyric Isaacs M.D., Ph.D. [address] [place] [phone] Lyric Briones, R.N. 07/01/2024 3:45 PM CDT Clinical Communication Virtual Review in [address] [phone] 07/05/2024 8:30 AM CDT Appointment Department of Radiology, [facility], in [place], [place] [address] [place] [phone] Connor Bermudez M.D., M.S. 07/05/2024 9:00 AM CDT Lab Department of Laboratory Medicine and Pathology, [facility], in [address] [phone] Connor Bermudez M.D., M.S. 07/05/2024 2:00 PM CDT Office Visit Division of Hematology in [address] [phone] Keyla Willoughby M.B.B.S. [address] [place] [address] Scheduled Referrals Name Type Priority Associated Diagnoses Order Schedule Nephrology nurse visit (clinic) Outpatient Referral Routine Expected: 05/25/2024, Expires: 08/11/2025 documented as of this encounter Goals Goal Patient Goal Type Associated Problems Recent Progress Patient-Stated? Author [facility] Home Blood Pressure Monitoring Care Plan Care Plan [facility] Home Blood Pressure Monitoring Care Plan No Elda Hutchins R.N., C.M.S.R.N. Track your blood pressure daily Care Plan Track your blood pressure daily No Elda Hutchins R.N., C.M.S.R.N. Optional weight tracking - daily Care Plan Optional weight tracking - daily No Elda Hutchins R.N., C.M.S.R.N. documented as of this encounter Visit Diagnoses Diagnosis Hypertension Essential Primary [I10]- Primary documented in this encounter Additional Health Concerns Active Problems Noted Date Diagnosed Date [facility] Home Blood Pressure Monitoring Care Plan 05/11/2024 Track your blood pressure daily 05/11/2024 Optional weight tracking - daily 05/11/2024 Infection Onset Date Last Indicated Resolved Time Protective Environment 04/07/2023 04/07/2023 documented as of this encounter Care Teams Digital Traffic Coordinator Relationship Specialty Start Date End Date Elsewhere, Pcp PCP - General Internal Medicine 10/05/23 documented as of this encounter
--- OUTSIDE RECORDS SUMMARY | 2024-05-25 10:51 | XMS_ITS ---
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 Past Plans Hematology / Oncology Treatment 1 Plan Name Start Date Discontinue Date Treatment Medications Discontinue Reason Plan Provider Cycles RiTUXimab Weekly ( Lymphoma ) 2 05/09/2024 riTUXimab-pvvr (Ruxience) IVPB (RESTRICTED) (Ruxience) Discontinuation of Plans with No Action >1 year-System Maintenance Mica Romero M.D. 5 of 5 cycles started Radiation Treatments * Plan Last Treated On Elapsed Days Fractions Treated Prescribed Fraction Dose Prescribed Total Dose [id number] 04/01/2024 18 15 of 15 300 cGy 4,500 cGy Reference Point Last Treated On Elapsed Days Session Dose Total Dose [id number] 04/01/2024 18 300 cGy 4,500 cGy
--- OUTSIDE RECORDS SUMMARY | 2024-05-25 10:51 | XMS_ITS | Clinical Summary ---
Author Organization [facility] Address [address] [place] [address] Care Team Providers Care Quarry Boss Name Role Phone Elsewhere, Pcp Primary Care Provider Unavailabl e Source Comments Patient records contain information from all sites at [facility]. For routine questions regarding patient records, call [phone] during business hours, M-F 8:00 AM - 5:00 PM Central Time. Record requests for emergency care only can be directed to [phone] at any time.[facility] Allergies Active Allergy Reactions Criticality Noted Date Comments Amoxicillin-Pot Clavulanate Hives (Reselect Reaction) Low 07/06/2007 Cefuroxime Other (see comments) 07/06/2007 Chlorthalidone Rash Low 05/11/2008 Propoxyphene-Acetaminophen Other (see comments) 07/06/2007 Spironolactone Rash Low 05/11/2008 Medications Medication Sig Dispensed Refills Start Date End Date Status amLODIPine (NORVASC) 10 mg tablet Take 1 tablet by mouth daily. 02/02/20 12 Active cholecalciferol (VITAMIN D3) 125 mcg (5,000 Unit) tablet Take 125 mcg by mouth daily. 05/21/20 15 Active finasteride (PROSCAR) 5 mg tablet Take 2.5 mg by mouth daily. 05/14/20 22 Active furosemide (LASIX) 40 mg tablet Take 1 tablet by mouth every morning. 12/22/19 12 Active HYDROcodone-mera taminophen (NORCO) 5-325 mg per tablet Take 1 tablet by mouth every 6 (six) hours as needed. for pain 05/15/20 22 Active hydrocortisone (HYTONE) 2.5 % cream Apply topically as needed. 07/19/20 11 Active levothyroxine (SYNTHROID, LEVOTHROID) 75 mcg tablet Take 75 mcg by mouth daily. 04/20/20 Active lisinopriL (PRINIVIL,ZESTR IL) 40 mg tablet Take 40 mg by mouth 2 (two) times a day. 02/29/20 Active LORazepam (ATIVAN) 0.5 mg tablet Take 0.5 mg by mouth as needed. 05/30/20 Active zinc chelated 50 mg tablet tablet Take 1 tablet by mouth daily. 05/21/20 Active biotin 1 mg tablet Take 1 tablet by mouth daily. Active DULoxetine (CYMBALTA) [address] capsule Take 60 mg by mouth daily. Active nystatin-triamc inolone (MYCOLOG II) 100,000 Unit/g-0.1 % cream Apply topically 2 (two) times a day as needed. 09/25/20 Active oxyCODONE-aceta minophen (PERCOCET) 5-325 mg per tablet TAKE 1/2 TO 1 TABLET BY MOUTH EVERY 6 TO 8 HOURS NEEDED. MAX DOSE: 6/DAY. WEAN TOLERATED 02/15/20 Active buPROPion XL (WELLBUTRIN XL) 300 mg 24 hr tablet Take 300 mg by mouth every morning. 05/06/20 23 Active Xarelto 10 mg tablet TAKE 1 TABLET (10 MG TOTAL) BY MOUTH DAILY WITH DINNER. 30 tablet 11 06/26/20 23 Active Stool Softener-Stimul ant Laxat 8.6-50 mg per tablet Take 2 tablets by mouth at bedtime. 12/09/19 Active albuterol 90 mcg/actuation inhaler Inhale 2 puffs as needed. 05/14/20 Active triamterene-hyd roCHLOROthiazid e (MAXZIDE-25) 37.5-25 mg per tablet Take by mouth every morning. 02/26/20 24 Active mometasone (ELOCON) 0.1 % cream Apply 1 Application topically daily. Apply to skin of the right armpit, supraclavicular region and neck once daily to start. 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 30 tablet 2 04/11/20 24 Active carvediloL (Coreg) 25 mg tablet Take 1 tablet (25 mg total) by mouth 2 (two) times a day with meals. 180 tablet 3 05/04/20 24 025 Active valsartan (Diovan) 160 mg tablet Take 1 tablet (160 mg total) by mouth 2 (two) times a day. 180 tablet 3 05/14/20 24 Active metoprolol succinate (TOPROL-XL) 100 mg 24 hr tablet Take 100 mg by mouth daily. 03/05/20 22 024 Discontinued(Th erapy completed) codeine-guaiFEN esin (ROBITUSSIN-AC) 10-100 mg/5 mL liquid Take 10 mL by mouth every 6 (six) hours as needed for cough. 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 Elda Hutchins RJaron., C.M.S.R.N. Hypertension Essential Primary [I10] (Primary Dx) 05/04/2024 4:13 PM CDT - 05/04/2024 11:59 PM CDT Hospital Encounter Department of Laboratory Medicine and Pathology, [facility] in [place], [place] [address] [place] [address] Lyric Isaacs M.D., Ph.D. Hypertension Essential Primary Discharge Disposition: Home or Self Care 05/04/2024 3:15 PM CDT Comprehensive Visit Division of Nephrology and Hypertension in [place], [place] [address] [place] [phone] Lyric Isaacs M.D., Ph.D. Hypertension Essential Primary 05/04/2024 10:00 AM CDT Diagnostic Division of Nephrology and Hypertension in [place], [place] [address] [place] [phone] Connor Bermudez M.D., M.S. YvonneleesaThania Hypertension Essential Primary 05/03/2024 12:00 PM CDT Office Visit Department of Oncology in [place], [place] [address] [place] [phone] Connor Bermudez M.D., M.S. 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 Hypertension Essential Primary Discharge Disposition: Home or Self Care 05/03/2024 9:52 AM CDT - 05/03/2024 11:59 PM CDT Hospital Encounter Department of Laboratory Medicine and Pathology, [facility] in [address] [address] Connor Bermudez M.D., M.S. Hypertension Essential Primary Discharge Disposition: Home or Self Care 04/07/2024 Clinical Communication Division of Hematology in [address] [address] Connor Bermudez M.D., M.S. May 04? 04/06/2024 Refill Department of Oncology in [address] [address] Connor Bermudez M.D., M.S. Med Refill (prochlorperazine ) 04/01/2024 8:58 AM CDT - 04/01/2024 11:59 PM CDT Hospital Encounter Department of Radiation Oncology in [address] [address] Milad Nair M.D. Discharge Disposition: Home or Self Care 04/01/2024 Documentation Department of Radiation Oncology in [address] [address] Milad Nair M.D. 03/31/2024 10:02 AM CDT - 03/31/2024 11:59 PM CDT Hospital Encounter Department of Radiation Oncology in [address] [address] Milad Nair M.D. Discharge Disposition: Home or Self Care 03/30/2024 10:06 AM CDT - 04/07/2024 8:26 PM CDT Hospital Encounter Department of Radiation Oncology in [address] [address] Milad Nair M.D. 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 Discharge Disposition: Home or Self Care 03/29/2024 10:02 AM CDT - 03/29/2024 11:59 PM CDT Hospital Encounter Department of Radiation Oncology in [address] [address] Milad Nair M.D. Discharge Disposition: Home or Self Care 03/28/2024 10:05 AM CDT - 03/28/2024 11:59 PM CDT Hospital Encounter Department of Radiation Oncology in [address] [address] Milad Nair M.D. Discharge Disposition: Home or Self Care 03/25/2024 9:57 AM CDT - 03/25/2024 11:59 PM CDT Hospital Encounter Department of Radiation Oncology in [address] [address] Milad Nair M.D. Discharge Disposition: Home or Self Care 03/24/2024 9:54 AM CDT - 03/24/2024 11:59 PM CDT Hospital Encounter Department of Radiation Oncology in [address] [address] Milad Nair M.D. Discharge Disposition: Home or Self Care 03/23/2024 10:16 AM CDT - 03/25/2024 10:33 PM CDT Hospital Encounter Department of Radiation Oncology in [address] [address] Milad Nair M.D. 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 Discharge Disposition: Home or Self Care 03/22/2024 9:59 AM CDT - 03/22/2024 11:59 PM CDT Hospital Encounter Department of Radiation Oncology in [address] [address] Milad Nair M.D. Discharge Disposition: Home or Self Care 03/21/2024 9:59 AM CDT - 03/21/2024 11:59 PM CDT Hospital Encounter Department of Radiation Oncology in [address] [address] Milad Nair M.D. Discharge Disposition: Home or Self Care 03/18/2024 9:56 AM CDT - 03/18/2024 3:20 PM CDT Hospital Encounter Department of Radiation Oncology in [address] [address] Milad Nair M.D. Grieman, Kari A, Delilah. 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 Discharge Disposition: Home or Self Care 03/18/2024 Clinical Communication Division of Hematology in [address] [address] Connor Bermudez M.D., M.S. Order Request 03/17/2024 9:48 AM CDT - 03/17/2024 11:59 PM CDT Hospital Encounter Department of Radiation Oncology in [address] [address] Milad Nair M.D. Discharge Disposition: Home or Self Care 03/17/2024 Orders Only Department of Oncology in [address] [address] Connor Bermudez M.D., M.S. Hypertension Essential Primary (Primary Dx) 03/16/2024 10:00 AM CDT - 03/18/2024 11:41 AM CDT Hospital Encounter Department of Radiation Oncology in [address] [address] Milad Nair M.D. 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 Discharge Disposition: Home or Self Care 03/15/2024 11:00 AM CDT Virtual Visit Department of Oncology in [place], [place] [address] [place] [address] Connor Bermudez M.D., M.S. 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 Discharge Disposition: Home or Self Care 03/15/2024 Clinical Communication Department of Cardiovascular Medicine in [place], [place] [address] [place] [address] Imaging EngineerLópez M.D. Triage 03/14/2024 9:03 AM CDT - 03/14/2024 11:59 PM CDT Hospital Encounter Department of Radiation Oncology in [address] [address] Milad Nair M.D. Discharge Disposition: Home or Self Care 03/03/2024 2:30 PM CDT - 03/09/2024 12:14 PM CDT Hospital Encounter Department of Radiation Oncology in [address] [address] Milad Nair M.D. 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 from Last 3 Months Family History Medical History Relation Name Comments Arthritis Mother Paris Donato Hypertension Mother Paris Donato Lung cancer Mother Paris Donato Osteoporosis Mother Paris Kinga Diabetes Paternal Grandmother Farideh Donato Hypertension Sister Thania Bailey Relation Name Status Comments Mother Paris Donato Paternal Grandmother Fraideh Donato Sister Thania Bailey Social History Tobacco [...] any clubs o r organizations such as jewish groups, unions, fraternal or athletic groups, or [...] and heating? Not hard at all 08/27/2023 [facility] - Occupational [...] your living situation today? I have a [facility] to live 08/27/2023 Education Answer Date [...] Sign Reading Time Taken Comments Blood Pressure 146/79 05/03/2024 12:06 PM CDT Pulse 61 05/03/2024 12:06 PM CDT Temperature 36.7 ??C (98.1 ??F) 05/03/2024 12:06 PM C DT Respiratory Rate 16 10/28/2022 1:29 PM [employer] Oxygen Saturation 98% 01/28/2024 8:49 AM CDT Inhaled Oxygen Concentration - - Weight 103 kg (227 lb 4.7 oz) 05/04/2024 3:15 PM CDT Height 164.8 cm (5' 4.88) 05/04/2024 3:15 PM CD T Body Mass Index 37.96 05/04/2024 3:15 PM CDT Plan of Treatment Upcoming Encounters Date Type Department Care Team (Late st Contact Info) Description 06/01/2024 10:00 AM CDT Nurse Only Division of Nephrology and Hypertension in [place], [place] [address] [place] [address] Lyric Isaacs M.D., Ph.D. [address] [place] [address] Lyric Briones, RJaronPhoenix 07/01/2024 3:45 PM CDT Clinical Communication Virtual Review in [place], [place] [address] [place] [address] 07/05/2024 8:30 AM CDT Appointment Department of Radiology, [facility], in [place], [place] [address] [place] [phone] Connor Bermudez M.D., M.S. 07/05/2024 9:00 AM CDT Lab Department of Laboratory Medicine and Pathology, [facility], in [place], [place] [address] [place] [phone] Connor Bermudez M.D., M.S. 07/05/2024 2:00 PM CDT Office Visit Division of Hematology in [place], [place] [address] [place] [phone] Keyla Willoughby M.B.B.S. [address] [place] [phone] Health Maintenance Due Date Last Done Comments Bone Density Scan (Osteoporosis Screen) 1956 CT Colonography 1955 Cologuard 1955 Colonoscopy 1955 Colorectal Cancer Screening 1955 FIT 1956 Zoster Vaccines (1 of 2) 02/03/2013 12/09/2012 Mammogram 04/24/2023 04/24/2022 Depression Screening (Annual PHQ-2) 11/16/2023 COVID-19 Vaccine ( season) 2024 02/26/2024, 03/24/2022, 10/28/2021, Additional history exists Thyroid Stimulating Hormone (TSH) test for thyroid function 07/17/2024 07/17/2023 Influenza Vaccine (#1) 2024 2, 09/02/2021, 09/13/2020, Additional history exists Creatinine Level (Kidney Function Test) 05/03/2025 05/03/2024, 01/04/2024, 09/01/2023, Additional history exists Potassium Level 05/03/2025 05/03/2024, 12/17, 09/01/2023, Additional history exists Sodium Level 05/03/2025 05/03/2024, 12/17, 09/01/2023, Additional history exists Fasting Glucose for Diabetes Screening 05/03/2027 05/03/2024, 01/04/2024, 09/01/2023, Additional history exists DTaP,Tdap,and Td Vaccines (4 - Td or Tdap) 03/20/2033 03/20/2023, 06/18/2012, 03/23/2006 Hepatitis C Screening Completed 06/26/2022 Pneumococcal vaccine (65+ years) Completed 03/20/2023 Fall Risk Screen (Annual) Completed 03/18/2024 HPV Vaccines Aged Out No longer eligi ble based on patient's age to complete this topic Goals Goal Patient Goal Type Associated Problems Recent Progress Patient-Stated? Author [facility] Home Blood Pressure Monitoring Care Plan Care Plan [facility] Home Blood Pressure Monitoring Care Plan No Elda Hutchins R.N., C.M.S.R.N. Track your blood pressure daily Care Plan Track your blood pressure daily No Elda Hutchins R.N., C.M.S.R.N. Optional weight tracking - daily Care Plan Optional weight tracking - daily No Elda Hutchins R.N., C.M.S.R.N. Your care team has been informed Care Plan Your care team has been informed No Patient, Online Services Procedures Procedure Name Priority Date/Time Associated Diagnosis Comments NEP BLOOD PRESSURE CHECK 6 HR Routine 05/04/2024 4:33 PM CDT Hypertension Essential Primary RENIN ACTIVITY, P Routine 05/04/2024 4:2 0 PM CDT Hypertension Essential Primary ALDOSTERONE, P Routine 05/04/2024 4:20 PM CDT Hypertension Essential Primary DIPSTICK, U Routine 05/03/2024 11:26 AM CDT PH, U Routine 05/03/2024 11:26 AM CDT OSMOLALITY, U Routine 05/03/2024 11:26 AM CDT MICROSCOPIC AUTOMATED Routine 05/03/2024 11:26 AM CDT URINALYSIS WITH MICROSCOPIC Routine 05/03/2024 11:26 AM CDT Hypertension Essential Primary BASIC METABOLIC PANEL, S/P Routine 05/03/2024 10:08 AM CDT Hypertension Essential Primary ARIA COURSE COMPLETE TREATMENT INFORMATION Routine 04/01/2024 9:12 AM CDT ARIA DAILY TREATMENT INFORMATION Routine 04/01/2024 9:12 AM CDT ARIA DAILY TREATMENT INFORMATION Routine 03/31/2024 10:27 AM CDT ARIA DAILY TREATMENT INFORMATION Routine 03/30/2024 10:25 AM CDT ARIA DAILY TREATMENT INFORMATION Routine 03/29/2024 10:24 AM CDT ARIA DAILY TREATMENT INFORMATION Routine 03/28/2024 10:29 AM CDT ARIA DAILY TREATMENT INFORMATION Routine 03/25/2024 10:20 AM CDT ARIA DAILY TREATMENT INFORMATION Routine 03/24/2024 10:13 AM CDT ARIA DAILY TREATMENT INFORMATION Routine 03/23/2024 10:47 AM CDT ARIA DAILY TREATMENT INFORMATION Routine 03/22/2024 10:25 AM CDT ARIA DAILY TREATMENT INFORMATION Routine 03/21/2024 10:22 AM CDT ECG Routine 03/18/2024 1:23 PM CDT Hypertension Essential Primary ARIA DAILY TREATMENT INFORMATION Routine 03/18/2024 10:29 AM CDT ARIA DAILY TREATMENT INFORMATION Routine 03/17/2024 10:18 AM CDT ARIA DAILY TREATMENT INFORMATION Routine 03/16/2024 10:30 AM CDT ARIA DAILY TREATMENT INFORMATION Routine 03/15/2024 9:09 AM CDT ARIA DAILY TREATMENT INFORMATION Routine 03/14/2024 9:41 AM CDT ARIA COURSE COMPLETE TREATMENT INFORMATION Routine 03/11/2024 10:26 AM CDT ARIA COURSE COMPLETE TREATMENT INFORMATION Routine 03/11/2024 10:21 AM CDT INITIAL RAD ONC TREATMENT PLANNING CT SIMULATION Routine 03/03/2024 2:30 PM CDT 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 PFT ORDERABLES MMODAL NA * Aldosterone (05/04/2024 4:20 PM CDT) Pathologist [facility] Aldosterone, P 7.3 <=21 ng/dL 05/07/2024 1:10 AM CDT [facility] Comment: ----ADDITIONAL INFORMATION---- Reference range for patients 11 years and older is based on upright A.M. collection from subjects without sodium restrictions. This test was developed and its performance characteristics determined by [facility] in a manner consistent with CLIA requirements. This test has not been cleared or approved by the U.S. Food and Drug Administration. Blood (Blood, Venous) 05/04/2024 4:20 PM CDT 05/05/2024 9:25 AM CDT Lyric Pate M.D., Ph.D. LAB BL OOD NON ADD-ON [facility] [address] [place] [address] [facility] [address] [place] [facility] [place] [address] * Renin Activity (05/04/2024 4:20 PM CDT) [facility] Renin Activity, P <0.6 ng/mL/h 024 3:42 PM CDT [facility] Comment: ----REFERENCE VALUE---- (Peripheral vein specimen) Na-deplete, upright: ??Mean: 5.9 ??Range: 2.9-10.8 Na-replete, upright: ??Mean: 1.0 ??Range: < or =0.6-3.0 ----ADDITIONAL INFORMATION---- Testing performed by Liquid Chromatography-Tandem Mass Spectrometry (LC-MS/MS). This test was developed and its performance characteristics determined by [facility] in a manner consistent with CLIA requirements. This test has not been cleared or approved by the U.S. Food and Drug Administration. Blood (Blood, Venous) 05/04/2024 4:20 PM CDT 05/05/2024 7:01 AM CDT Lyric Pate M.D., Ph.D. LAB BL OOD NON ADD-ON Performing Organization Address City/[facility] Co de Phone Number [facility] [address] [place] [address] [facility] [address] [place] [address] [place] [address] * Dipstick, Urine (05/03/2024 11:26 AM CDT) Hemoglobin, QL, U Negative Negative 05/03/2024 12:34 PM CDT DTL Leukocyte Esterase, U Negative Negative 05/03/2024 12:34 PM CDT DTL Nitrite, U Negative Negative 05/03/2024 12:34 PM CDT DTL Ketone, U Negative Negative mg/dL 05/03/2024 12:34 PM CDT DTL Glucose, U Negative Negative mg/dL 05/03/2024 12:34 PM CDT DTL Urine 05/03/2024 11:2 6 AM CDT 05/03/2024 11:51 AM CDT Connor Bermudez M.D., M.S. LAB URINE ORDE DOLORES Performing Organization Address City/[facility] Co de Phone Number [facility] [address] [place] [address], [facility] [address] [place] [address] * Microscopic Automated (05/03/2024 11:26 AM CDT) Microscopy Normal 05/03/2024 12:34 PM CDT DTL RBC None Seen <3 /hpf 05/03/2024 12:34 PM CDT DTL WBC 1-3 /hpf 05/03/2024 12:34 PM CDT D[facility] Comment: ----REFERENCE VALUE---- <4 ??(Males) <11 (Females) Squamous Epithelial Cells, U 1-3 /hpf 05/03/2024 12:34 PM CDT DTL Urine 05/03/2024 11:2 6 AM CDT 05/03/2024 11:51 AM CDT Connor Bermudez M.D., M.S. LAB URINE ORDE DOLORES Performing Organization Address City/[facility] Co de Phone Number [facility] [address] [place], [place] [address] [address] [place] [address] * pH, Urine (05/03/2024 11:26 AM CDT) pH, U 5.3 4.5 - 8.0 05/03/2024 1:0 0 PM CDT DTL Urine 05/03/2024 11:2 6 AM CDT 05/03/2024 11:51 AM CDT Connor Bermudez M.D., M.S. LAB URINE THERON DOLORES Performing Organization Address [facility] Co de Phone Number [facility] [address] [place], [place] [address] [address] [place] [address] * Osmolality, Urine (05/03/2024 11:26 AM CDT) Pathologist [facility] Osmolality, U 763 150 - 1150 mOsm/kg 05/03/2024 1:00 PM CDT DTL Urine 05/03/2024 11:2 6 AM CDT 05/03/2024 11:51 AM CDT Connor Bermudez M.D., M.S. LAB URINE THERON OCONNORRAMONE Performing Organization Address City/[facility] Co de Phone Number [facility] [address] [place], [place] [address] [address] [place] [address] * Urinalysis, with Microscopic: Urine, Midstream (05/03/2024 11:26 AM CDT) Source Urine, Urine, Midstream 05/03/2024 11:51 AM CDT DTL Color, U Yellow 05/03/2024 11:51 AM CDT DTL Clarity, U Clear 05/03/2024 11:51 AM CDT DTL Protein, U 11 <26 mg/dL 05/03/2024 12:36 PM CDT DTL Protein/Osmol ality 0.14 <0.42 ratio 05/03/2024 1:00 PM CDT DTL Predicted 24 HR Protein, U 115 <229 mg/24 h 05/03/2024 1:00 PM CDT DTL Predicted Range 28-467 mg/24 h 05/03/2024 1:00 PM CDT DTL Urine (Urine, Midstream) 05/03/2024 11:26 AM CDT 05/03/2024 11:51 AM CDT Connor Bermudez M.D., M.S. LAB URINE THERON BERNAL [facility] [address] [place] [address], [facility] [address] * (ABNORMAL) Basic Metabolic Panel (05/03/2024 10:08 AM CDT) Potassium, S 4.5 3.6 - 5.2 mmol/L 05/03/2024 11:02 AM CDT DTL Sodium, S 143 135 - 145 mmol/L 05/03/2024 11:02 AM CDT DTL Chloride, S 106 98 - 107 mmol/L 05/03/2024 11:02 AM CDT DTL Bicarbonate, S 29 22 - 29 mmol/L 05/03/2024 11:02 AM CDT DTL Anion Gap 8 7 - 15 05/03/2024 11:02 AM CDT DTL BUN (Blood Urea Nitrogen), S 19 6 - 21 mg/dL 05/03/2024 11:02 AM CDT DTL Creatinine 1.12(H) 0.59 - 1.04 mg/dL 05/03/2024 11:02 AM CDT DTL Estimated GFR (eGFR) 54(L) >=60 mL/min/BSA 05/03/2024 11:02 AM CDT DTL Comment: Estimated GFR calculated using the 2020 CKD_EPI creatinine equation. Calcium, Total, S 9.4 8.8 - 10.2 mg/dL 05/03/2024 11:02 AM CDT DTL Glucose, S 119 70 - 140 mg/dL 05/03/2024 11:02 AM CDT DTL Blood (Blood, Venous) 05/03/2024 10:08 AM CDT 05/03/2024 10:45 AM CDT Connor Bermudez M.D., M.S. LAB BLOOD ADD- ON [facility] [address] [place] [address], [facility] DTL [facility] [address] [place] [address] * Aria Course Complete Treatment Information (04/01/2024 9:12 AM CDT) Only the most recent of3 resultswithin the time period is included. Course ID [id number] OTERO ARIA Course Start Date 4 08:52 CDT OTERO ARIA Course End Date 4 11:14 CDT OTERO ARIA First Treatment Date 4 09:38 CDT [facility] Last Treatment Date 4 09:12 CDT OTERO ARIA Treatment Elapsed Days 18 [facility] Reference Point [id number] OTERO ARIA Dosage Given to Date cGy 4500 OTER[facility] Plan ID [id number] OTERO ARIA Fractions Treated to Date 15 OTERO ARIA Planned Total Fractions 15 OTERO ARIA Prescribed Dose Per Fraction 300 OTERO ARIA Prescription Dose in cGy 4500 [facility] Plan Primary Reference Point [id number] [facility] 04/01/2024 9:12 AM CDT Provider Not In System RADIATION ONCOLOG Y ORDERABLES Performing Organization Address City/[facility]/ZIP Co de Phone Number LÓPEZ HELM na * Aria Daily Treatment Information (04/01/2024 9:12 AM CDT) Only the most recent of15 resultswithin the time period is included. Course ID [id number] OTERO ARIA Course Start Date 4 08:52 CDT OTERO ARIA First Treatment Date 4 09:38 CDT OTERO ARIA Last Treatment Date 4 09:12 CDT OTERO ARIA Treatment Elapsed Days 18 OTERO [facility] Reference Point [id number] OTERO ARIA Dosage Given to Date cGy 4500 OTERO ARIA Session Dosage Given 300 OTERO ARIA Plan ID [id number] OTERO ARIA Fractions Treated to Date 15 OTERO ARIA Planned Total Fractions 15 OTERO ARIA Prescribed Dose Per Fraction 300 OTERO ARIA Prescription Dose in cGy 4500 OTERO ARIA Plan Primary Reference Point [id number] OTERO ARIA 04/01/2024 9:12 AM CDT Provider Not In System RADIATION ONCOLOG Y ORDERABLES Performing Organization Address City/[facility] Co de Phone Number LÓPEZ HELM na * ECG 12 Lead (03/18/2024 1:23 PM CDT) Ventricular Rate ECG/Min 65 BPM MUSE ME Interval 212 ms MUSE QRSD Interval 98 ms MUSE QT Interval 400 ms MUSE QTC Interval 416 ms MUSE P [place] 55 degrees MUSE R [place] -4 degrees MUSE T Wave [place] -6 degrees MUSE 03/18/2024 1:23 PM CDT 03/18/2024 1:34 PM CDT Impressions MUSE - 03/18/2024 1:34 PM CDT Sinus rhythm with 1st degree A-V block Minimal voltage criteria for LVH, may be normal variant T wave abnormality, consider inferior ischemia No previous ECGs available Reviewed by JIMI Lazar Narrative Procedure Note Jimmy Blas M.D. - 03/18/2024 IMPRESSION: Sinus rhythm with 1st degree A-V block Minimal voltage criteria for LVH, may be normal variant T wave abnormality, consider inferior ischemia No previous ECGs available Reviewed by JIMI Lazar Connor Bermudez M.D., M.S. ECG ORDERABLES Performing Organization Address City/[facility]/ZIP Co de Phone Number MUSE NA * Initial Rad Onc Treatment Planning CT Simulation (03/03/2024 2:30 PM CDT) Narrative OTERO VOLODYMYR - 03/03/2024 2:30 PM CDT Abigail Kendrick, RTT ? 03/03/2024 ??2:50 PM Initial Rad Onc Treatment Planning CT Simulation Performed by: Milad Nair M.D. Authorized by: Milad Nair M.D. ?? Milad Nair M.D. RADIATION ONCOLOGY ORDERABLES Performing Organization Address City/[facility] Co de Phone Number LÓPEZ HELM na * Thyroid Function [place] (07/17/2023 9:04 AM CDT) Pathologist [facility] TSH, Sensitive 2.7 0.3 - 4.2 mIU/L 07/17/2023 10:08 AM CDT DTL Blood (Blood, Venous) 07/17/2023 9:04 AM CDT 07/17/2023 9:36 AM CDT Connor Bermudez M.D., M.S. LAB BLOOD ADD- ON Performing Organization Address City/[facility] Co de Phone Number [facility] [address] [place] [address] * HCV Ab Scrn w/Reflex to HCV PCR, Serum (06/26/2022 2:34 PM CDT) Pathologist [facility] HCV Ab Screen, S Negative Negative 06/27/20 2:12 AM CDT ECLR Comment: Biotin has been identified by the slipcover cutter as a potential interfering substance. Higher concentrations of biotin may be found in multivitamins, hair/nail supplements, and workout supplements. If the result does not match clinical observations, repeat testing after patient refrains from the use of supplements for at least 12 hours. Blood (Blood, Venous) 06/26/2022 2:34 PM CDT 06/26/2022 9:22 PM CDT Narrative [facility] - 06/27/2022 2:12 AM CDT Specimen Information: Specimen ID: [id number] Specimen Type: Blood Specimen Collection Start Date: 06/26/2022 ??2:35 PM Specimen Received Date: 06/26/2022 ??9:22 PM Specimen ID: [id number] Specimen Type: Blood Specimen Collection Start Date: 06/26/2022 ??2:34 PM Specimen Received Date: 06/26/2022 ??9:23 PM Mica Romero M.D. LAB MICROBIOLOGY - BLOOD ORDERABLES Performing Organization Address [facility] Co de Phone Number [facility] [address] [place] [address], [facility] ECLR [facility] [place] [address] * DIAGNOSTIC MAMMO, BILAT, W/CAD-Outside Mammogram (04/24/2022 10:00 AM CDT) Narrative [facility] - 05/09/2022 1:18 PM CDT This order has been created and auto-finalized to support the import of outside images. If available, original interpretation can be found on the Media Tab in Chart Review, in Document Viewer, or as an image in QREADS. If a re-interpretation or overread is required please follow defined workflow. ?? Provider Not In System IMG BI PROCEDURES Performing Organization Address City/State/[facility] Co de Phone Number [facility] NA from Last 3 Months or Most Recently Relevant to Health Maintenance Additional Health Concerns Active Problems Noted Date Diagnosed Date [facility] Home Blood Pressure Monitoring Care Plan 05/11/2024 Track your blood pressure daily 05/11/2024 Optional weight tracking - daily 05/11/2024 Your care team has been informed 05/23/2024 Infection Onset Date Last Indicated Protective Environment 04/07/2023 3 Care Teams [employer]arry [employer] Relationship Specialty Start Date End Date Elsewhere, Pcp PCP - General Internal Medicine 10/05/23
--- OUTSIDE RECORDS SUMMARY | 2024-05-25 10:51 | XMS_ITS | Referral Summary ---
Author Organization [facility] Address [address] [place] [address] Care Team Providers Care Pumper Gager Apprentice Name Role Phone Elsewhere, Pcp Primary Care Provider Unavailabl e Source Comments Patient records contain information from all sites at [facility]. For routine questions regarding patient records, call [phone] during business hours, M-F 8:00 AM - 5:00 PM Central Time. Record requests for emergency care only can be directed to [phone] at any time.[facility] Encounters Date Type Department Care Team Description 05/11/2024 10:30 AM CDT Virtual Visit Division of Nephrology and Hypertension in [place], [place] [address] [place] [address] Lyric Isaacs M.D., Ph.D. Elda Hutchins RJaron., C.M.S.R.N. Hypertension Essential Primary [I10] (Primary Dx) 05/04/2024 4:13 PM CDT - 05/04/2024 11:59 PM CDT Hospital Encounter Department of Laboratory Medicine and Pathology, [facility], in [place], [place] [address] [place] [address] Lyric Isaacs M.D., Ph.D. Hypertension Essential Primary Discharge Disposition: Home or Self Care 05/04/2024 3:15 PM CDT Comprehensive Visit Division of Nephrology and Hypertension in [place], [place] [address] [place] [address] Lyric Isaacs M.D., Ph.D. Hypertension Essential Primary 05/04/2024 10:00 AM CDT Diagnostic Division of Nephrology and Hypertension in [place], [place] [address] [place] [address] Connor Bermudez M.D., M.S. Thania Bolton Hypertension Essential Primary 05/03/2024 9:52 AM CDT - 05/03/2024 11:59 PM CDT Hospital Encounter Department of Laboratory Medicine and Pathology, [place], [place] [address] [place] [address] Connor Bermudez M.D., M.S. Hypertension Essential Primary Discharge Disposition: Home or Self Care 05/03/2024 9:52 AM CDT - 05/03/2024 11:59 PM CDT Hospital Encounter Department of Laboratory Medicine and Pathology, [facility] in [place], [place] [address] [place] [address] Connor Bermudez M.D., M.S. Hypertension Essential Primary Discharge Disposition: Home or Self Care 05/03/2024 12:00 PM CDT Office Visit Department of Oncology in [place], [place] [address] [place] [address] Connor Bermudez M.D., M.S. 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 May 0403/30/2024 10:06 AM CDT - 04/07/2024 8:26 PM CDT Hospital Encounter Department of Radiation Oncology in [place], [place] [address] [place] [address] Milad Nair M.D. 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 Med Refill (prochlorperazine ) 04/01/2024 Documentation Department of Radiation Oncology in [address] [address] Milad Nair M.D. 04/01/2024 8:58 AM CDT - 04/01/2024 11:59 PM CDT Hospital Encounter Department of Radiation Oncology in [address] [address] Milad Nair M.D. Discharge Disposition: Home or Self Care 03/31/2024 10:02 AM CDT - 03/31/2024 11:59 PM CDT Hospital Encounter Department of Radiation Oncology in [address] [address] Milad Nair M.D. Discharge Disposition: Home or Self Care 03/30/2024 10:06 AM CDT - 03/30/2024 11:59 PM CDT Hospital Encounter Department of Radiation Oncology in [address] [address] Milad Nair M.D. Discharge Disposition: Home or Self Care 03/29/2024 10:02 AM CDT - 03/29/2024 11:59 PM CDT Hospital Encounter Department of Radiation Oncology in [address] [address] Milad Nair M.D. Discharge Disposition: Home or Self Care 03/28/2024 10:05 AM CDT - 03/28/2024 11:59 PM CDT Hospital Encounter Department of Radiation Oncology in [address] [address] Milad Nair M.D. Discharge Disposition: Home or Self Care 03/25/2024 9:57 AM CDT - 03/25/2024 11:59 PM CDT Hospital Encounter Department of Radiation Oncology in [address] [address] Milad Nair M.D. Discharge Disposition: Home or Self Care 03/23/2024 10:16 AM CDT - 03/25/2024 10:33 PM CDT Hospital Encounter Department of Radiation Oncology in [address] [address] Milad Nair M.D. 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 Discharge Disposition: Home or Self Care 03/23/2024 10:16 AM CDT - 03/23/2024 11:59 PM CDT Hospital Encounter Department of Radiation Oncology in [address] [address] Milad Nair M.D. Discharge Disposition: Home or Self Care 03/22/2024 9:59 AM CDT - 03/22/2024 11:59 PM CDT Hospital Encounter Department of Radiation Oncology in [address] [address] Milad Nair M.D. Discharge Disposition: Home or Self Care 03/21/2024 9:59 AM CDT - 03/21/2024 11:59 PM CDT Hospital Encounter Department of Radiation Oncology in [address] [address] Milad Nair M.D. Discharge Disposition: Home or Self Care 03/18/2024 Clinical Communication Division of Hematology in [place] [address] [place] [address] Connor Bermudez M.D., M.S. Order Request 03/18/2024 9:56 AM CDT - 03/18/2024 3:20 PM CDT Hospital Encounter Department of Radiation Oncology in [address] [address] Milad Nair M.D. Grieman, Kari A, R.N. 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 Discharge Disposition: Home or Self Care 03/16/2024 10:00 AM CDT - 03/18/2024 11:41 AM CDT Hospital Encounter Department of Radiation Oncology in [address] [address] Milad Nair M.D. 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 Hypertension Essential Primary (Primary Dx) 03/17/2024 9:48 AM CDT - 03/17/2024 11:59 PM CDT Hospital Encounter Department of Radiation Oncology in [address] [address] Milad Nair M.D. Discharge Disposition: Home or Self Care 03/16/2024 10:00 AM CDT - 03/16/2024 11:59 PM CDT Hospital Encounter Department of Radiation Oncology in [address] [address] Milad Nair M.D. Discharge Disposition: Home or Self Care 03/15/2024 Clinical Communication Department of Cardiovascular Medicine in [place], [place] [address] [place] [phone] Stationary Engineer ApprenticeLópez M.D. Triage 03/15/2024 8:44 AM CDT - 03/15/2024 11:59 PM CDT Hospital Encounter Department of Radiation Oncology in [address] [address] Milad Nair M.D. Discharge Disposition: Home or Self Care 03/15/2024 11:00 AM CDT Virtual Visit Department of Oncology in [place], [place] [address] [place] [address] Connor Bermudez M.D., M.S. 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 Discharge Disposition: Home or Self Care 03/03/2024 2:00 PM CDT - 03/10/2024 11:21 AM CDT Hospital Encounter Department of Radiation Oncology in [address] [address] Milad Nair M.D. 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 from Last 3 Months Allergies Active Allergy [...] Take 75 mcg by mouth daily. 04/20/20 22 Active lisinopriL (PRINIVIL,ZESTR IL) 40 mg tablet Take 40 mg by mouth 2 (two) times a day. 02/29/20 22 Active LORazepam (ATIVAN) 0.5 mg tablet Take 0.5 mg by mouth as needed. 05/30/20 22 Active zinc chelated 50 mg tablet tablet Take 1 tablet by mouth daily. 05/21/20 15 Active biotin 1 mg tablet Take 1 tablet by mouth daily. Active DULoxetine (CYMBALTA) [address] capsule Take 60 mg by mouth daily. Active nystatin-triamc inolone (MYCOLOG II) 100,000 Unit/g-0.1 % cream Apply topically 2 (two) times a day as needed. 09/25/20 22 Active oxyCODONE-aceta minophen (PERCOCET) 5-325 mg per tablet TAKE 1/2 TO 1 TABLET BY MOUTH EVERY 6 TO 8 HOURS NEEDED. MAX DOSE: 6/DAY. WEAN TOLERATED 02/15/20 22 Active buPROPion XL (WELLBUTRIN XL) 300 mg 24 hr tablet Take 300 mg by mouth every morning. 05/06/20 23 Active Xarelto 10 mg tablet TAKE 1 TABLET (10 MG TOTAL) BY MOUTH DAILY WITH DINNER. 30 tablet 11 06/26/20 23 Active Stool Softener-Stimul ant Laxat 8.6-50 mg per tablet Take 2 tablets by mouth at bedtime. 12/09/19 24 Active albuterol 90 mcg/actuation inhaler Inhale 2 puffs as needed. 05/14/20 22 Active triamterene-hyd roCHLOROthiazid e (MAXZIDE-25) 37.5-25 mg per tablet Take by mouth every morning. 02/26/20 24 Active mometasone (ELOCON) 0.1 % cream Apply 1 Application topically daily. Apply to skin of the right armpit, supraclavicular region and neck once daily to start. 45 g 1 03/23/20 24 Active prochlorperazin e (COMPAZINE) 10 mg tabletIndicatio [...] Thrombosis Deep Vein Personal History 10/30/2022 Other Fire Regulator Current Drug Therapy 06/27/2022 Nodular Lymphocyte Predomina [...] week 06/23/2022 How often do you attend [facility] or oriental orthodox services? Never 06/23/2022 Do you belong to [...] and heating? Not hard at all 08/27/2023 [facility] [place] [facility]at [facility] - Occupational Stress [...] your living situation today? I have a [facility] place to live 08/27/2023 Education Answer [...] DT Respiratory Rate 16 10/28/2022 1:29 PM TRACK RIDER Oxygen Saturation 98% 01/28/2024 8:49 AM CDT [...] Only Division of Nephrology and Hypertension in [place], [place] [address] [place] [address] Lyric Isaacs M.D., Ph.D. [address] [place] [address] Lyric Briones, R.N. 07/01/2024 3:45 PM CDT Clinical Communication Virtual Review in [place], [place] [address] [place] [address] 07/05/2024 8:30 AM CDT Appointment Department of Radiology, [facility], in [place], [place] [address] [place] [address] Connor Bermudez M.D., M.S. 07/05/2024 9:00 AM CDT Lab Department of Laboratory Medicine and Pathology, [facility], in [place], [place] [address] [place] [address] Connor Bermudez M.D., M.S. 07/05/2024 2:00 PM CDT Office Visit Division of Hematology in [place], [place] [address] [place] [address] Keyla Willoughby M.B.B.S. [address] [place] [address] Goals Goal Patient Goal Type Associated Problems Recent Progress Patient-Stated? Author [facility] Home Blood Pressure Monitoring Care Plan Care Plan [facility] Home Blood Pressure Monitoring Care Plan [...] NA * Aldosterone (05/04/2024 4:20 PM CDT) Aldosterone, P 7.3 <=21 ng/dL 05/07/2024 1:10 AM CDT [facility] Comment: ----ADDITIONAL INFORMATION---- Reference range for patients 11 years and older is based on upright A.M. collection from subjects without sodium restrictions. This test was developed and its performance characteristics determined by [facility] in a manner consistent with CLIA requirements. This test has not been cleared or approved by the U.S. Food and Drug Administration. Blood (Blood, Venous) 05/04/2024 4:20 PM CDT 05/05/2024 9:25 AM CDT Lyric Pate M.D., Ph.D. LAB BL OOD NON ADD-ON Performing Organization Address [facility] Co de Phone Number [facility] [address] [place] [address] [facility] [address] [place] [address] [place] [address] * Renin Activity (05/04/2024 4:20 PM CDT) [facility] Renin Activity, P <0.6 ng/mL/h 024 3:42 PM CDT [facility] Comment: ----REFERENCE VALUE---- (Peripheral vein specimen) Na-deplete, upright: ??Mean: 5.9 ??Range: 2.9-10.8 Na-replete, upright: ??Mean: 1.0 ??Range: < or =0.6-3.0 ----ADDITIONAL INFORMATION---- Testing performed by Liquid Chromatography-Tandem Mass Spectrometry (LC-MS/MS). This test was developed and its performance characteristics determined by [facility] in a manner consistent with CLIA requirements. This test has not been cleared or approved by the U.S. Food and Drug Administration. Blood (Blood, Venous) 05/04/2024 4:20 PM CDT 05/05/2024 7:01 AM CDT Lyric Pate M.D., Ph.D. LAB BL OOD NON ADD-ON Performing Organization Address City/[facility]/ZIP Co de Phone Number [facility] [address] [place] [address] [facility] [address] [place] [address] [place] [address] * Dipstick, Urine (05/03/2024 11:26 AM CDT) [...] CDT Connor Bermudez M.D., M.S. LAB URINE ORDLittle BERNAL Performing Organization Address [facility] Co de Phone Number [facility] [address] [place] [address], [facility] [address] [place] [address] * Microscopic Automated (05/03/2024 11:26 AM CDT) Pathologist [facility] Microscopy Normal 05/03/2024 12:34 PM CDT DTL RBC None Seen <3 /hpf 05/03/2024 12:34 PM CDT DTL WBC 1-3 /hpf 05/03/2024 12:34 PM CDT DTL Comment: ----REFERENCE VALUE---- <4 ??(Males) <11 (Females) Squamous Epithelial Cells, U 1-3 /hpf 05/03/2024 12:34 PM CDT DTL Urine 05/03/2024 11:2 6 AM CDT 05/03/2024 11:51 AM CDT Connor Bermudez M.D., M.S. LAB URINE ORDE DOLORES [facility] [address] [place], [place] [address] [address] [place] [address] * pH, Urine (05/03/2024 11:26 AM CDT) pH, U 5.3 4.5 - 8.0 05/03/2024 1:0 0 PM CDT DTL Urine 05/03/2024 11:2 6 AM CDT 05/03/2024 11:51 AM CDT Connor Bermudez M.D., M.S. LAB URINE ORDE DOLORES Performing Organization Address City/[facility] Co de Phone Number [facility] [address] [place], [place] [address] [address] [place] [address] * Osmolality, Urine (05/03/2024 11:26 AM CDT) Pathologist [facility] Osmolality, U 763 150 - 1150 mOsm/kg 05/03/2024 1:00 PM CDT DTL Urine 05/03/2024 11:2 6 AM CDT 05/03/2024 11:51 AM CDT Connor Bermudez M.D., M.S. LAB URINE ORDE DOLORES Performing Organization Address [facility] Co de Phone Number [facility] [address] [place], [place] [address] [address] [place] [address] * Urinalysis, with Microscopic: Urine, Midstream (05/03/2024 [...] CDT Connor Bermudez M.D., M.S. LAB URINE ZAINE DOLORES [facility] [address] [place] [address], [facility] [address] [place] [address] * (ABNORMAL) Basic Metabolic Panel (05/03/2024 10:08 AM CDT) Pathologist [facility] Potassium, S 4.5 3.6 - 5.2 mmol/L [...] Bermudez M.D., M.S. LAB BLOOD ADD- ON [facility] [address] [place] [address], [facility] DTL [facility] [address] [place] [address] * Aria Course Complete Treatment Information (04/01/2024 [...] Elapsed Days 18 OTERO ARIA Reference Point [id number] OTERO ARIA Dosage Given to Date cGy 4500 OTERO ARIA Plan ID [id number] OTERO ARIA Fractions Treated to Date 15 OTERO ARIA Planned Total Fractions 15 OTERO ARIA Prescribed Dose Per Fraction 300 OTERO ARIA Prescription Dose in cGy 4500 OTERO ARIA Plan Primary Reference Point [id number] [facility] 04/01/2024 9:12 AM CDT Provider Not In System RADIATION ONCOLOG Y ORDERABLES Performing Organization Address City/[facility]/ZIP Co de Phone Number LÓPEZ HELM na [...] Elapsed Days 18 OTERO ARIA Reference Point [id number] OTERO ARIA Dosage Given to Date cGy 4500 OTERO ARIA Session Dosage Given 300 OTERO ARIA Plan ID [id number] OTERO ARIA Fractions Treated to Date 15 OTERO ARIA Planned Total Fractions 15 OTERO ARIA Prescribed Dose Per Fraction 300 OTERO ARIA Prescription Dose in cGy 4500 OTERO ARIA Plan Primary Reference Point [id number] OTERO ARIA 04/01/2024 9:12 AM CDT Provider Not In System RADIATION ONCOLOG Y ORDERABLES Performing Organization Address City/[facility]/ZIP Co de Phone Number LÓEPZ HELM na * ECG 12 Lead (03/18/2024 1:23 PM CDT) Ventricular Rate ECG/Min 65 BPM MUSE AZ Interval 212 ms MUSE QRSD Interval 98 ms MUSE QT Interval 400 ms MUSE QTC Interval 416 ms MUSE P [place] 55 degrees MUSE R [place] -4 degrees MUSE T Wave [place] -6 degrees MUSE 03/18/2024 1:23 PM CDT [...] Lazar Connor Bermudez M.D., M.S. ECG ORDERABLES MUSE NA * Initial Rad Onc Treatment Planning CT Simulation (03/03/2024 2:30 PM CDT) Narrative [place] [facility] - 03/03/2024 2:30 PM CDT Abigail Kendrick R, RTT ? 03/03/2024 ??2:50 PM Initial Rad Onc Treatment Planning CT Simulation Performed by: Milad Nair M.D. Authorized by: Milad Nair M.D. ?? Milad Nair M.D. RADIATION ONCOLOGY ORDERABLES [place] [facility] na * Thyroid Function [place] (07/17/2023 9:04 AM CDT) Pathologist [facility] TSH, Sensitive 2.7 0.3 - 4.2 mIU/L 07/17/2023 10:08 AM CDT DTL Blood (Blood, Venous) 07/17/2023 9:04 AM CDT 07/17/2023 9:36 AM CDT Connor Bermudez M.D., M.S. LAB BLOOD ADD- ON Performing Organization Address City/[facility] [place] [address], [facility] [place] [address] * HCV Ab Scrn w/Reflex to HCV PCR, Serum (06/26/2022 2:34 PM CDT) Pathologist [facility] HCV Ab Screen, S Negative Negative 06/27/20 2:12 AM CDT ECL[facility] Comment: Biotin has been identified by the [employer] as a potential interfering substance. Higher concentrations of biotin may be found in multivitamins, hair/nail supplements, and workout supplements. If the result does not match clinical observations, repeat testing after patient refrains from the use of supplements for at least 12 hours. Blood (Blood, Venous) 06/26/2022 2:34 PM CDT 06/26/2022 9:22 PM CDT Narrative [facility] - 06/27/2022 2:12 AM CDT Specimen Information: Specimen ID: [id number] Specimen Type: Blood Specimen Collection Start Date: 06/26/2022 ??2:35 PM Specimen Received Date: 06/26/2022 ??9:22 PM Specimen ID: [id number] Specimen Type: Blood Specimen Collection Start Date: 06/26/2022 ??2:34 PM Specimen Received Date: 06/26/2022 ??9:23 PM Mica Romero M.D. LAB MICROBIOLOGY - BLOOD ORDERABLES Performing Organization Address City/[facility] Co de Phone Number [facility] [address] [place] [address], [facility] ECLR [facility] [place] [address] * DIAGNOSTIC MAMMO, BILAT, W/CAD-Outside Mammogram (04/24/2022 [...] System IMG BI PROCEDURES Performing Organization Address City/[facility] Co de Phone Number IIPA NA from Last 3 Months or Most Recently Relevant to Health Maintenance Additional Health Concerns Active Problems Noted Date Diagnosed Date [facility] Home Blood Pressure Monitoring Care Plan 05/11/2024 Track your blood pressure daily 05/11/2024 Optional weight tracking - daily 05/11/2024 Your care team has been informed 05/23/2024 Infection Onset Date Last Indicated Protective Environment 04/07/2023 3 Care Teams Pumper Gager Apprentice Relationship Specialty Start Date End Date Elsewhere, Pcp PCP - General Internal Medicine 10/05/23
--- OUTSIDE RECORDS SUMMARY | 2024-05-25 10:52 | XMS_ITS | Encounter Summary ---
Author Organization [facility] Address [address] [place] [address] Care Team Providers Care Director Of Graduate Admissions Name Role Phone Elsewhere, Pcp Primary Care Provider Unavailabl e Reason for Referral * Outpatient (Routine) - Authorized Specialty Diagnoses / Procedures Referred By Luigi kumar Referred To Contact Radiation Oncology Milad Nair M.D. [address] [place] [address] [facility] Region Referral ID Status Reason Start Date Expiration Date V isits Requested Visits Authorized [id number] Authorized 04/07/2024 10/07/2025 1 1 Scheduling Instructions AFTER PET/CT, labs and visit with hematology * Outpatient (Routine) - Authorized Specialty Diagnoses / Procedures Referred By Luigi kumar Referred To Contact Hematology Milad Nair M.D. [address] [place] [address] Connor Bermudez M.D., M.S. Referral ID Status Reason Start Date Expiration Date V isits Requested Visits Authorized [id number] Authorized 04/07/2024 10/07/2025 1 1 Scheduling Instructions Needs to be assigned to new hematologic provider because Dr. Bermudez is graduating from fellowship. 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 [address] [place] [address] 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 [address] [place] [address] [facility] Region Referral ID Status Reason Start Date Expiration Date V isits Requested Visits Authorized [id number] Authorized 03/01/2024 03/01/2025 10 10 Encounter Details Date Type Department Care Team (Latest Contact Info) Description 03/30/2024 10:06 AM CDT - 04/07/2024 8:26 PM CDT Hospital Encounter Department of Radiation Oncology in [place] [id number] [place] [phone] Milad Nair M.D. [address] [place] [phone] Nodular Lymphocyte Predominant Hodgkin Lymphoma Extranodal And [...] How often do you attend chur or adventism services? Never 06/23/2022 Do you belong to any clubs o r organizations such as confucianism groups, unions, fraternal or athletic groups, or [...] and heating? Not hard at all 08/27/2023 [facility] of Occupat ional Health - Occupational [...] your living situation today? I have a [facility] place to live 08/27/2023 Education Answer [...] Sign Reading Time Taken Comments Blood Pressure 177/86 03/30/2024 10:49 AM CDT Pulse 60 03/30/2024 10:49 AM CDT Temperature 36.7 ??C (98 ??F) 03/30/2024 10:49 AM CDT Respiratory Rate - - Oxygen Saturation - - Inhaled Oxygen Concentration - - Weight - - Height - - Body Mass Index - - documented in this encounter Medications at Time of Discharge Medication Sig Dispensed Refills Start Date End Date albuterol 90 mcg/actuation inhaler Inhale 2 puffs as needed. 05/14/2022 amLODIPine (NORVASC) 10 mg tablet Take 1 tablet by mouth daily. 02/02/2012 biotin 1 mg tablet Take 1 tablet by mouth daily. buPROPion XL (WELLBUTRIN XL) 300 mg 24 hr tablet Take 300 mg by mouth every morning. 05/06/2023 cholecalciferol (VITAMIN D3) 125 mcg (5,000 Unit) tablet Take 125 mcg by mouth daily. 05/21/2015 DULoxetine (CYMBALTA) [address] capsule Take 60 mg by mouth daily. finasteride (PROSCAR) 5 mg tablet Take 2.5 mg by mouth daily. 05/14/2022 furosemide (LASIX) 40 mg tablet Take 1 tablet by mouth every morning. 12/22/2011 HYDROcodone-acetamin ophen (NORCO) 5-325 mg per tablet Take 1 tablet by mouth every 6 (six) hours as needed. for pain 05/15/2022 hydrocortisone (HYTONE) 2.5 % cream Apply topically as needed. 07/19/2011 levothyroxine (SYNTHROID, LEVOTHROID) 75 mcg tablet Take 75 mcg by mouth daily. 04/20/2022 lisinopriL (PRINIVIL,ZESTRIL) 40 mg tablet Take 40 mg by mouth 2 (two) times a day. 02/28/2022 LORazepam (ATIVAN) 0.5 mg tablet Take 0.5 mg by mouth as needed. 05/30/2022 mometasone (ELOCON) 0.1 % cream Apply 1 Application topically daily. Apply to skin of the right armpit, supraclavicular region and neck once daily to start. 45 g 1 03/23/2024 nystatin-triamcinolo ne (MYCOLOG II) 100,000 Unit/g-0.1 % cream Apply topically 2 (two) times a day as needed. 09/25/2022 oxyCODONE-acetaminop hen (PERCOCET) 5-325 mg per tablet TAKE 1/2 TO 1 TABLET BY MOUTH EVERY 6 TO 8 HOURS NEEDED. MAX DOSE: 6/DAY. WEAN TOLERATED 02/14/2022 prochlorperazine (COMPAZINE) 10 mg tabletIndications:No dular Lymphocyte Predominant Hodgkin Lymphoma Extranodal And Solid Organ Sites (HCC) TAKE 1 TABLET (10 MG TOTAL) BY MOUTH EVERY 6 HOURS NEEDED FOR NAUSEA OR VOMITING. 30 tablet 2 04/11/2024 Stool Softener-Stimulant Laxat 8.6-50 mg per tablet Take 2 tablets by mouth at bedtime. 12/09/2023 triamterene-hydroCHL OROthiazide (MAXZIDE-25) 37.5-25 mg per tablet Take by mouth every morning. 02/26/2024 Xarelto 10 mg tablet TAKE 1 TABLET (10 MG TOTAL) BY MOUTH DAILY WITH DINNER. 30 tablet 11 06/26/2023 zinc chelated 50 mg tablet tablet Take 1 tablet by mouth daily. 05/21/2015 codeine-guaiFENesin (ROBITUSSIN-AC) 10-100 mg/5 mL liquid Take 10 mL by mouth every 6 (six) hours as needed for cough. 01/12/2024 05/11/2024 metoprolol succinate (TOPROL-XL) 100 mg 24 hr tablet Take 100 mg by mouth daily. 03/05/2022 05/04/2024 prochlorperazine (COMPAZINE) 10 mg tabletIndications:No dular Lymphocyte Predominant Hodgkin Lymphoma Extranodal And Solid Organ Sites (HCC) Take 1 tablet (10 mg total) by mouth every 6 (six) hours as needed for nausea or vomiting. 30 tablet 3 12/23/2022 04/11/2024 documented as of this encounter Progress Notes * Milad Nair M.D. - 03/30/2024 10:45 AM CDT SUBJECTIVE CHIEF COMPLAINT/REASON FOR VISIT Evaluation for side effects while receiving radiation treatment for 1. 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 Nair HISTORY OF PRESENT ILLNESS Jaky Lara is a 68 y.o. 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 Treatment Course: 1xAxilla Plan ID Fractions Dose / Fraction (cGy) Dose Treated (cGy) Dose Planned (cGy) First Treatment Last Treatment Elapsed Days [id number] 300 3900 4500 03/14/2024 03/30/2024 16 Course Summary 03/14/2024 03/30/2024 16 Oncology History Nodular Lymphocyte Predominant Hodgkin Lymphoma [...] hypermetabolic splenic lesions are noted. 07/01/2022 - 05/2023 Chemotherapy Rituximab monotherapy 07/01/2022 07/09/2022 07/15/2022 07/22/2022 10/28/2022 12/23/2022 02/17/2023 05/26/2023 10/09/[address]: Near complete metabolic response but with persistent avidity in the right axillary LAD and distal right external iliac node 07/[address]: Complete metabolic response 01/04/2024 Critical Imaging PET-CT New considerably FDG avid (SUV max 13.1) 12 x 9 mm right axillary node anterior to a surgical clip.Couple of additional new subcentimeter FDG avid medial subpectoral right axillary nodes. No other FDG avid adenopathy. 01/28/2024 Biopsy/Pathology A. Lymph node, axilla, right, fine needle aspiration and core biopsy: Involved by lymphoma, compatible with the patient's known nodular lymphocyte predominant B-cell lymphoma (nodular lymphocyte predominant Hodgkin lymphoma per WHO nomenclature). See comment. COMMENT The growth pattern present in the biopsy, which may or may not be primary care sales representative of the entire lymph node, is entirely diffuse (Fan pattern E; see PMID [id number]). 03/14/2024 - Radiation Therapy Radiation Therapy Treatment Details (Noted on 03/01/2024) Site: Axillary lymph node Technique: No technique specified Goal: Palliative Planned Treatment Start Date: 03/14/2024 The patient was seen and examined today with Dr. Nair . The patient reports 5 out of 10 chronic back pain. Patient is applying mometasone twice a day to treatment field area and Aquaphor to the treatment field area twice a day. She denies chest or axillary discomfort or new acute symptoms. PATIENT REPORTED SYMPTOM SCREEN FATIGUE (Scale: 0 = no fatigue; 10 = worst fatigue you can imagine): 9 PAIN (Scale: 0 = no pain; 10 = worst pain you can imagine): 5 OVERALL QUALITY OF LIFE (Scale: 0 = as bad as can be; 10 = as good as can be): 7 OBJECTIVE BP (!) 177/86 (BP Location: Left arm, Patient Position: Sitting, Cuff Size: Regular) Pulse 60 Temp 36.7 ??C (Temporal) PHYSICAL EXAMINATION General: Alert and oriented, in no apparent distress. Skin: No skin changes noted to right axilla region. ASSESSMENT / PLAN #1 Stage IV nodular lymphocyte-predominant B-cell lymphoma diagnosed April 29, 2022 with multiple bony sites, bulky right axillary adenopathy, and splenic involvement on initial PET/CT scan #2 Eight cycles of rituximab from July 01, 2022 through May 26, 2023 with complete resolution onPET/CT scan on July 17, 2023 #3 Biopsy-proven right axillary recurrence of nodular lymphocyte-predominant B- cell lymphoma on January 28, 2024 with disease limited to the right axilla on PET/CT scan on January 04, 2024 #4 Radiotherapy to right axilla initiated on March 14, 2024; anticipated completion on April 01, 2024 The patient is tolerating radiation treatment well overall. Patient will continue with current skincare routine through out radiation therapy and for 2 weeks post completion of treatment. We discussed lotion then as needed if dryness develops. We also discussed use of SPF if outside in sun. Patient follows up with nephrology and hypertension clinic on May 04, 2024 on our [facility]. Patient states that her primary care provider has been Dr. Dur[facility] at [facility]. Patient reports that she plans to change to different primary care provider now. Dr. Nair will place orders today for 3 month return visit here in [place]. Dr. Nair will also place orders for PET/CT and labs to occur on our [facility] in 3 months. We have sent communication to Dr. Bermudez regarding follow up plan and to inquire about Hematology follow up care going forward. She willcontinue with radiation treatment as planned. She can contact our care team with any questions or co ncerns. Signed by: Renée Long R.N. 03/30/2024 11:08 AM CDT I saw and evaluated the patient and participated in the lawson portions of the service. I reviewed thedocumentation of Renée Long R.N. and agree with the findings and plan. The patient appears well on exam. She is tolerating treatment well with fatigue is her only apparent side effect. She will finish treatment as planned on Thursday. She will be seen in hypertension clinic on May 04, 2024. Dr. Bermudez is graduating from his fellowship, so we will put in for a follow-up in Hematology Clinic in 3months with a repeat PET/CT scan and laboratories on the same day. I will see the patient in follow-up soon after to check on her progress. She understands that she can contact us in the interim withquestions or concerns. She and her verbalized satisfaction with this plan. Signed by: Milad Nair M.D. 04/07/2024 8:17 PM CDT [facility] [address] [place] [address] documented in this encounter Miscellaneous Notes * Addendum Note - Rosalba Crocker CPhoenixNPhoenixAPhoenix - 03/30/2024 10:45 AM CDTEncounter addended by: Rosalba Crocker C.N.APhoenix on: 04/08/2024 7:47 AM Actions taken: Letter saved documented in this encounter Plan of Treatment Upcoming Encounters Date Type Department Care Team (Late st Contact Info) Description 06/01/2024 10:00 AM CDT Nurse Only Division of Nephrology and Hypertension in [place], [place] [address] [place] [phone] Lyric Isaacs M.D., Ph.D. [address] [place] [phone] Lyric Briones, R.NPhoenix 07/01/2024 3:45 PM CDT Clinical Communication Virtual Review in [address] [phone] 07/05/2024 8:30 AM CDT Appointment Department of Radiology, [address] [phone] Connor Bermudez M.D., M.S. 07/05/2024 9:00 AM CDT Lab Department of Laboratory Medicine and Pathology, [address] [phone] Connor Bermudez M.D., M.S. 07/05/2024 2:00 PM CDT Office Visit Division of Hematology in [address] [phone] Keyla Willoughby M.B.B.S. 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) Once for 1 Occurrences starting 03/30/2024 until 03/30/2024 Scheduled Referrals Name Type Priority Associated Diagnoses Orde r Schedule Return to provider in another specialty Outpatient Referral Routine Expected: 07/04/2024, Expires: 07/08/2025 Radiation Oncology office visit (clinic) Outpatient Referral Routine Expected: 07/07/2024 (Approximate), Expires: 04/07/2025 documented as of this encounter Visit Diagnoses Diagnosis 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
--- OUTSIDE RECORDS SUMMARY | 2024-05-25 10:52 | XMS_ITS | Encounter Summary ---
Author Organization [facility] Address [address] [place] [address] Care Team Providers Care Director Agency & Strategic Partnerships Name Role Phone Elsewhere, Pcp Primary Care Provider Unavailabl e Encounter Details Date Type Department Care Team (Late st Contact Info) Description 05/04/2024 10:00 AM CDT Diagnostic Division of Nephrology and Hypertension in [place], [place] [address] [place] [address] Connor Bermudez M.D., M.S. Thania Bolton [address] [place] [address] Hypertension Essential Primary Social History Tobacco Use Types Packs/Day Years [...] often do you attend chur ch or evangelical services? Never 06/23/2022 Do you belong to any clubs o r organizations such as episcopal groups, unions, fraternal or athletic groups, or [...] and heating? Not hard at all 08/27/2023 [facility] of Occupat ional Health - Occupational Stress [...] living situation today? I have a [facility] place to live 08/27/2023 Education Answer [...] Only Division of Nephrology and Hypertension in [place], [place] [address] [place] [phone] Lyric Isaacs M.D., Ph.D. [address] [place] [phone] Lyric Briones L, R.N. 07/01/2024 3:45 PM CDT Clinical Communication Virtual Review in [place], [place] 200 [place] [address] 07/05/2024 8:30 AM CDT Appointment Department of Radiology, [facility], in [place], [place] [address] [place] [phone] Connor Bermudez M.D., M.S. 07/05/2024 9:00 AM CDT Lab Department of Laboratory Medicine and Pathology, [facility], in [place], [place] [address] [place] [address] Connor Bermudez M.D., M.S. 07/05/2024 2:00 PM CDT Office Visit Division of Hematology in [place], [place] [address] [place] [address] Keyla Willoughby M.B.B.S. [address] [place] [phone] documented as of this encounter Procedures Procedure Name Priority Date/Time Associated Diagnosis Comments NEP BLOOD PRESSURE CHECK 6 HR Routine 05/04/2024 4:33 PM CDT Hypertension Essential Primary documented in this encounter Results * NEP Blood pressure check 6 hr (05/04/2024 4:33 PM CDT) Connor Bermudez M.D., M.S. PFT ORDERABLES MMODAL NA documented in this encounter Visit Diagnoses Diagnosis Hypertension Essential Primary documented in this encounter Additional Health Concerns Infection Onset Date Last Indicated Resolved Time Protective Environment 04/07/2023 04/07/2023 documented as of this encounter Care Teams Director Agency & Strategic Partnerships Relationship Specialty Start Date End Date Elsewhere, Pcp PCP - General Internal Medicine 10/05/23 documented as of this encounter
--- OUTSIDE RECORDS SUMMARY | 2024-05-25 10:52 | XMS_ITS | Encounter Summary ---
Author Organization [facility] Address [address] [place] [address] Care Team Providers Care Ergonomics Engineer Name Role Phone Elsewhere, Pcp Primary Care Provider Unavailabl e Encounter Details Date Type Department Care Team (Latest Contact Info) Description 03/31/2024 10:02 AM CDT - 03/31/2024 11:59 PM CDT Hospital Encounter Department of Radiation Oncology in [place], [place] [address] [place] [phone] Milad Nair M.D. [address] [place] [address] Discharge Disposition: Home or Self Care Social [...] any clubs o r organizations such as amish groups, unions, fraternal or athletic groups, or [...] and heating? Not hard at all 08/27/2023 [facility] of Occupat ional Health - Occupational [...] NEEDED. MAX DOSE: 6/DAY. WEAN TOLERATED 02/14/2022 Stool Softener-Stimulant Laxat 8.6-50 mg per tablet [...] 12/23/2022 04/11/2024 documented as of this encounter Plan of Treatment Upcoming Encounters Date Type Department Care Team (Late st Contact Info) Description 06/01/2024 10:00 AM CDT Nurse Only Division of Nephrology and Hypertension in [place], [place] [address] [place] [phone] Lyric Isaacs M.D., Ph.D. [address] [place] [phone] Lyric Briones, R.N. 07/01/2024 3:45 PM CDT Clinical Communication Virtual Review in [place], [place] 200 [place] [address] 07/05/2024 8:30 AM CDT Appointment Department of Radiology, [facility] in [place], [place] [address] [place] [phone] Connor Bermudez M.D., M.S. 07/05/2024 9:00 AM CDT Lab Department of Laboratory Medicine and Pathology, [facility] in [address] [phone] Connor Bermudez M.D., M.S. 07/05/2024 2:00 PM CDT Office Visit Division of Hematology in [address] [phone] Keyla Willoughby M.B.B.S. [address] [place] [phone] documented as of this encounter Visit Diagnoses Not on filedocumented in this encounter Additional Health Concerns Infection Onset Date Last Indicated Resolved Time Protective Environment 04/07/2023 04/07/2023 documented as of this encounter Care Teams Ergonomics Engineer Relationship Specialty Start Date End Date Elsewhere, Pcp PCP - General Internal Medicine 10/05/23 documented as of this encounter
--- OUTSIDE RECORDS SUMMARY | 2024-05-25 10:52 | XMS_ITS | Encounter Summary ---
Author Organization [facility] Address [address] [place] [address] Care Team Providers Care Kelp Cutter Name Role Phone Elsewhere, Pcp Primary Care Provider Unavailabl e Reason for Visit * Reason Onset Date Comments May 04? 04/07/2024 Encounter Details Date Type Department Care Team (Late st Contact Info) Description 04/07/2024 Clinical Communication Division of Hematology in [place], [place] [address] [place] [address] Connor Bermudez M.D., M.S. May 04? Social History Tobacco Use Types Packs/Day Years [...] often do you attend chur ch or pentecostalism services? Never 06/23/2022 Do you belong to any clubs o r organizations such as sikhism groups, unions, fraternal or athletic groups, or [...] and heating? Not hard at all 08/27/2023 [facility] of Occupat ional Health - Occupational Stress [...] your living situation today? I have a [facility] place to live 08/27/2023 Education Answer [...] Only Division of Nephrology and Hypertension in [place], [place] [address] [place] [phone] Lyric Isaacs M.D., Ph.D. [address] [place] [phone] Lyric Briones L, R.N. 07/01/2024 3:45 PM CDT Clinical Communication Virtual Review in [place], [place] 200 [place] [address] 07/05/2024 8:30 AM CDT Appointment Department of Radiology, [facility], in [place], [place] [address] [place] [phone] Connor Bermudez M.D., M.S. 07/05/2024 9:00 AM CDT Lab Department of Laboratory Medicine and Pathology, [facility], in [place], [place] [address] [place] [phone] Connor Bermudez M.D., M.S. 07/05/2024 2:00 PM CDT Office Visit Division of Hematology in [place], [place] [address] [place] [address] Keyla Willoughby M.B.B.S. [address] [place] [phone] documented as of this encounter Visit Diagnoses Not on filedocumented in this encounter Additional Health Concerns Infection Onset Date Last Indicated Resolved Time Protective Environment 04/07/2023 04/07/2023 documented as of this encounter Care Teams Kelp Cutter Relationship Specialty Start Date End Date Elsewhere, Pcp PCP - General Internal Medicine 10/05/23 documented as of this encounter
--- OUTSIDE RECORDS SUMMARY | 2024-05-25 10:52 | XMS_ITS | Encounter Summary ---
Author Organization [facility] Address [address] [place] [address] Care Team Providers Care Newcomer Hostess Name Role Phone Elsewhere, Pcp Primary Care Provider Unavailabl e Encounter Details Date Type Department Care Team (Latest Contact Info) Description 04/01/2024 8:58 AM CDT - 04/01/2024 11:59 PM CDT Hospital Encounter Department of Radiation Oncology in [place], [place] [address] [place] [phone] Milad Nair M.D. [address] [place] [address] Discharge Disposition: Home or Self Care Social [...] any clubs o r organizations such as sabianist groups, unions, fraternal or athletic groups, or [...] and heating? Not hard at all 08/27/2023 [facility] of Occupat ional Health - [...] your living situation today? I have a [facility] place to live 08/27/2023 Education [...] Only Division of Nephrology and Hypertension in [place], [place] [address] [place] [phone] Lyric Isaacs M.D., Ph.D. [address] [place] [phone] Lyric Briones, R.N. 07/01/2024 3:45 PM CDT Clinical Communication Virtual Review in [place], [place] 200 [place] [address] 07/05/2024 8:30 AM CDT Appointment Department of Radiology, [facility] in [place], [place] [address] [place] [phone] Connor Bermudez M.D., M.S. 07/05/2024 9:00 AM CDT Lab Department of Laboratory Medicine and Pathology, [facility] in [address] [phone] Connor Bermudez M.D., M.S. 07/05/2024 2:00 PM CDT Office Visit Division of Hematology in [address] [phone] Keyla Willoughby M.B.B.S. [address] [place] [phone] documented as of this encounter Visit Diagnoses Not on filedocumented in this encounter Additional Health Concerns Infection Onset Date Last Indicated Resolved Time Protective Environment 04/07/2023 04/07/2023 documented as of this encounter Care Teams Newcomer Hostess Relationship Specialty Start Date End Date Elsewhere, Pcp PCP - General Internal Medicine 10/05/23 documented as of this encounter
--- OUTSIDE RECORDS SUMMARY | 2024-05-25 10:52 | XMS_ITS | Encounter Summary ---
Author Organization [facility] Address [address] [place] [address] Care Team Providers Care Application Administrator Name Role Phone Elsewhere, Pcp Primary Care Provider Unavailabl e Encounter Details Date Type Department Care Team (Late st Contact Info) Description 04/01/2024 Documentation Department of Radiation Oncology in [place], [place] [address] [place] [address] Milad Nair M.D. [address] [place] [address] Social History Tobacco Use Types Packs/Day Years [...] often do you attend chur ch or christian services? Never 06/23/2022 Do you [...] heating? Not hard at all 08/27/2023 [facility] of Occupat ional Health - [...] as of this encounter Miscellaneous Notes * Radiation Completion Notes - Brittney Black R.N. 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 ([id number]) Treatment Intent: Palliative Concomitant Therapy: None Single Plan Treatment Course: 1xAxilla Plan ID Fractions Dose / Fraction (cGy) Dose Treated (cGy) Dose Planned (cGy) First Treatment Last Treatment Elapsed Days [id number] 300 4500 4500 03/14/2024 04/01/2024 18 Course Summary 03/14/2024 04/01/2024 18 Radiation Modality: Photons CLINICAL SUMMARY Jaky Lara completed radiation treatment as planned without interruptions. The course of treatment was tolerated well. The patient experienced fatigue as her only toxicity during radiation treatment. TREATMENT RESPONSE: Response to treatment will be determined by post-treatment imaging and/or laboratory work. RECOMMENDED FOLLOW UP: Radiation Oncologist and Primary Medical Oncologist. Dr. Nair Signed by: Brittney Black R.N., 04/14/2024 1:[address] [facility] [address] [place] [address] documented in this encounter Plan of Treatment Upcoming Encounters Date Type Department Care Team (Late st Contact Info) Description 06/01/2024 10:00 AM CDT Nurse Only Division of Nephrology and Hypertension in [place], [place] [address] [place] [phone] Lyric Isaacs M.D., Ph.D. [address] [place] [phone] Lyric Briones, R.NPhoenix 07/01/2024 3:45 PM CDT Clinical Communication Virtual Review in [place], [place] 200 [place] [address] 07/05/2024 8:30 AM CDT Appointment Department of Radiology, [facility], in [place], [place] [address] [place] [phone] Connor Bermudez M.D., M.S. 07/05/2024 9:00 AM CDT Lab Department of Laboratory Medicine and Pathology, [facility], in [place], [place] [address] [place] [phone] Connor Bermudez M.D., M.S. 07/05/2024 2:00 PM CDT Office Visit Division of Hematology in [place], [place] [address] [place] [phone] Keyla Willoughby M.B.B.S. 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
--- OUTSIDE RECORDS SUMMARY | 2024-05-25 10:52 | XMS_ITS | Encounter Summary ---
Author Organization [facility] Address [address] [place] [address] Care Team Providers Care Sausage Stuffer Name Role Phone Elsewhere, Pcp Primary Care Provider Unavailabl e Reason for Visit * Reason Comments Med Refill prochlorperazine Encounter Details Date Type Department Care Team (Late st Contact Info) Description 04/06/2024 Refill Department of Oncology in [place], [place] [address] [place] [address] Connor Bermudez M.D., M.S. Med Refill (prochlorperazine ) Social History Tobacco Use Types Packs/Day Years [...] often do you attend chur ch or alevism services? Never 06/23/2022 Do you belong to [...] and heating? Not hard at all 08/27/2023 [facility] of Occupat ional Health - [...] your living situation today? I have a [facility] place to live 08/27/2023 Education Answer [...] Only Division of Nephrology and Hypertension in [place], [place] [address] [place] [phone] Lyric Isaacs M.D., Ph.D. [address] [place] [phone] Lyric Briones L, R.N. 07/01/2024 3:45 PM CDT Clinical Communication Virtual Review in [place], [place] 200 [place] [address] 07/05/2024 8:30 AM CDT Appointment Department of Radiology, [facility], in [place], [place] [address] [place] [phone] Connor Bermudez M.D., M.S. 07/05/2024 9:00 AM CDT Lab Department of Laboratory Medicine and Pathology, [facility], in [place], [place] [address] [place] [phone] Connor Bermudez M.D., M.S. 07/05/2024 2:00 PM CDT Office Visit Division of Hematology in [place], [place] [address] [place] [address] Keyla Willoughby M.B.B.S. 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
--- OUTSIDE RECORDS SUMMARY | 2024-05-25 10:52 | XMS_ITS | Encounter Summary ---
Author Organization [facility] Address [address] [place] [address] Care Team Providers Care Laborer Heading Name Role Phone Elsewhere, Pcp Primary Care Provider Unavailabl e Reason for Referral * Outpatient (Routine) - Authorized Specialty Diagnoses / Procedures Referred By Luigi kumar Referred To Contact Hematology Oncology Connor Bermudez M.D., M.S. 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 [facility] Referral ID Status Reason Start Date Expiration Date V isits Requested Visits Authorized [id number] Authorized 05/10/2024 05/10/2025 1 1 Reason for Visit * Outpatient (Routine) - Closed Specialty Diagnoses / Procedures Referred By Luigi kumar Referred To Contact Hematology Oncology Connor Bermudez M.D., M.S. [facility] Referral ID Status Reason Start Date Expiration Date Visits Re quested Visits Authorized [id number] Closed 04/04/2024 10/04/2025 1 1 Encounter Details Date Type Department Care Team (Late st Contact Info) Description 05/03/2024 12:00 PM CDT Office Visit Department of Oncology in [place], [place] [address] [place] [address] Connor Bermudez M.D., M.S. Nodular Lymphocyte Predominant [...] any clubs o r organizations such as cheondoism groups, unions, fraternal or athletic groups, or [...] and heating? Not hard at all 08/27/2023 [facility] - Occupational Stress Questionnaire Answer Date Recorded [...] 05/03/2024 12:06 PM C DT Respiratory Rate - - Oxygen Saturation - - Inhaled Oxygen Concentration - - Weight 105 kg (230 lb 11.4 oz) 05/03/2024 12:06 PM CDT Height 164 cm (5' 4.57) 05/03/2024 12:06 PM CDT Body Mass Index 38.91 05/03/2024 12:06 PM CDT documented in this encounter Progress Notes * Connor Bermudez M.D., M.S. - 05/03/2024 12:00 PM CDT Images from the original note were not included. [facility] - Hematology SUBJECTIVE PRIMARY CARE PHYSICIAN ELSEWHERE, PCP PRIMARY [place] RELATIONSHIP ADVISOR Primary peoplesoft consultant: Dr. Croft Primary fellow: Dr. Bermudez CHIEF COMPLAINT / REASON FOR VISIT Jaky Lara is a 68 y.o. female who presents for evaluation of [...] Has uterus and ovaries and in menopause. Brief oncology history: 01/2022: Right axillary enlargement noted 05/15/2022: Excisional lymph node biopsy with nodular lymphocyte predominant B- cell lymphoma Rituximab monotherapy: 07/01/2022 07/09/2022 07/15/2022 07/22/2022 10/09/2022: PET CT Near complete metabolic response but with persistent avidity in the right axillary LAD and distal right external iliac node Rituximab monotherapy 10/28/2022 12/23/2022 02/17/2023 05/26/202307/2023: PET CT Complete metabolic response 01/04/2024: PET CT Findings for recurrent FDG avid right axillary ludy lymphoma Oncology History Nodular Lymphocyte Predominant Hodgkin Lymphoma [...] biopsy, which may or may not be medical office representative of the entire lymph node, is entirely diffuse (Fan pattern E; see PMID [id number]). 03/14/2024 - 04/01/2024 Radiation Therapy Radiation Therapy Treatment Details (03/14/2024 - 04/01/2024) Site: Axillary lymph node Fractions: 15 Technique: IMRT Dose: 4500 cGy Goal: Palliative Planned Treatment Start Date: 03/14/2024 The following portions of the patient's history [...] and spleen. She has no evidence of PLANT QUALITY MANAGER disease either on MRI or on CSF sampling. She was placed on Rituximab therapy and required 8 total cycles. The patient was sick with COVID between [...] [address] up PET [address]. Patient completed her therapy and her post-therapy PET CT demonstrated CR. She has been having a small amount of discomfort under the right axilla. Patient said she is also having an occasional instance of vertigo, such as recently when packing / moving boxes. Possibly BPPV, we discussed home Epleymaneuvers but I encouraged her to seek specific care for her symptoms. Her lymphoma appeared to be well controlled but given her need for a full 8 cycles of Rituximab, we planned for one additional PET CT to ensure maintained resolution of disease. The patient's recent PET-CT restaging scan did demonstrate recurrent disease at her primary site inthe right axilla. There is mentioned in the report of some low-level avidity of other nodes in the chest but at this time we feel these are unlikely related to her lymphoma. Repeat lymph node sampling demonstrated recurrent nodular lymphocyte-predominant B-cell lymphoma without evidence of transformation to large-cell lymphoma. Due to her isolated an indolent disease, we referred her to RadiationOncology for ISRT. During our last encounter, she was also found to have high blood pressure, SBP 190 - 209, on 5x cardiac-active anti-hypertensive medications. She is seeing a community corporate tax preparer, but patient wouldlike to transition her hypertension care to [place]. Orders were placed for Nephrology HTN clinic and she is scheduled. Today I met with the patient to check in on her as she recently completed radiation therapy on 04/01/2024. We discussed her minimal side effects to radiation treatment and this current state of her health going forward. We also reiterated the plan for PET-CT restaging 3 months after the completion of radiation therapy (mid June). I answered all the patient's questions and also spoke with her family. I did discuss that I will be completing my fellowship and moving on from [facility] but that she will be in the excellent care of my colleagues. It was my sincere pleasure being involved in Mrs. Lara's care and wish her and her family the best going forward. Updates: Patient has had significantly high blood pressure Started radiation therapy Plan summary Nephrology hypertension clinic scheduled PET-CT restaging scans and office visit 3 months from the completion of her radiation therapy (approximately 07/02/2024) Case discussed with Dr. Croft. PATIENT EDUCATION [...] Only Division of Nephrology and Hypertension in [address] [phone] Lyric Isaacs M.D., Ph.D. [address] [place] [phone] Lyric Briones L, R.N. 07/01/2024 3:45 PM CDT Clinical Communication Virtual Review in [place], [place] 200 [place] [address] 07/05/2024 8:30 AM CDT Appointment Department of Radiology, [facility], in [place], [place] [address] [place] [phone] Connor Bermudez M.D., M.S. 07/05/2024 9:00 AM CDT Lab Department of Laboratory Medicine and Pathology, [facility], in [place], [place] [address] [place] [phone] Connor Bermudez M.D., M.S. 07/05/2024 2:00 PM CDT Office Visit Division of Hematology in [address] [phone] Keyla Willoughby M.B.B.S. 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) Expected: 07/05/2024, Expires: 08/10/2025 Scheduled Referrals Name Type Priority Associated Diagnoses Order Schedule Hematology office visit (clinic) [place] [facility]; Lymphoma; General Outpatient Referral Routine Expected: 07/05/2024, Expires: 08/10/2025 documented as of this encounter Visit Diagnoses Diagnosis 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
--- OUTSIDE RECORDS SUMMARY | 2024-05-25 10:52 | XMS_ITS | Encounter Summary ---
Author Organization [facility] Address [address] [place] [address] Care Team Providers Care Nurse Aide Evaluator Name Role Phone Elsewhere, Pcp Primary Care Provider Unavailabl e Encounter Details Date Type Department Care Team (Latest Contact Info) Description 05/04/2024 4:13 PM CDT - 05/04/2024 11:59 PM CDT Hospital Encounter Department of Laboratory Medicine and Pathology, [facility], in [place], [place] [address] [place] [address] Lyric Isaacs M.D., Ph.D. [address] [place] [address] Hypertension Essential Primary Discharge Disposition: Home or Self Care Social [...] often do you attend chur ch or mu-ism services? Never 06/23/2022 Do you belong to [...] and heating? Not hard at all 08/27/2023 [facility] of Occupat ional Health - Occupational [...] your living situation today? I have a [facility] place to live 08/27/2023 Education Answer [...] 300 mg by mouth every morning. 05/06/2023 carvediloL (Coreg) 25 mg tablet Take 1 tablet (25 mg total) by mouth 2 (two) times a day with meals. 180 tablet 3 05/04/2024 05/04/2025 cholecalciferol (VITAMIN D3) 125 mcg (5,000 Unit) tablet Take 125 mcg by mouth daily. 05/21/2015 DULoxetine (CYMBALTA) [address] capsule Take 60 mg by mouth daily. finasteride (PROSCAR) 5 mg tablet Take 2.5 mg by mouth daily. 05/14/2022 furosemide (LASIX) 40 mg tablet Take 1 tablet by mouth every morning. 12/22/2011 HYDROcodone-acetami nophen (NORCO) 5-325 mg per tablet [...] daily to start. 45 g 1 03/23/2024 nystatin-triamcinol one (MYCOLOG II) 100,000 Unit/g-0.1 % cream Apply topically 2 (two) times a day as needed. 09/25/2022 oxyCODONE-acetamino phen (PERCOCET) 5-325 mg per tablet TAKE 1/2 TO 1 TABLET BY MOUTH EVERY 6 TO 8 HOURS NEEDED. MAX DOSE: 6/DAY. 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 30 tablet 2 04/11/2024 Stool Softener-Stimulant Laxat 8.6-50 mg per tablet Take 2 tablets by mouth at bedtime. 12/09/2023 triamterene-hydroCH LOROthiazide (MAXZIDE-25) 37.5-25 mg per tablet Take by [...] hours as needed for cough. 01/12/2024 05/11/2024 documented as of this encounter Plan of Treatment Upcoming Encounters Date Type Department Care Team (Late st Contact Info) Description 06/01/2024 10:00 AM CDT Nurse Only Division of Nephrology and Hypertension in [address] [place] [address] [phone] Lyric Isaacs M.D., Ph.D. [address] [place] [phone] Lyric Briones, R.N. 07/01/2024 3:45 PM CDT Clinical Communication Virtual Review in [address] [place] [address] [phone] 07/05/2024 8:30 AM CDT Appointment Department of Radiology, [facility], in [address] [place] [address] [phone] Connor Bermudez M.D., M.S. 07/05/2024 9:00 AM CDT Lab Department of Laboratory Medicine and Pathology, [facility], in [address] [place] [address] [phone] Connor Bermudez M.D., M.S. 07/05/2024 2:00 PM CDT Office Visit Division of Hematology in [address] [place] [address] [phone] Keyla Willoughby M.B.B.S. [address] [place] [phone] documented as of this encounter Procedures Procedure Name Priority Date/Time Associated Diagnosis Comments ALDOSTERONE, P Routine 05/04/2024 4:20 PM CDT Hypertension Essential Primary RENIN ACTIVITY, P Routine 05/04/2024 4:2 0 PM CDT Hypertension Essential Primary documented in this encounter Results * Renin Activity (05/04/2024 4:20 PM CDT) Pathologist [facility] Renin Activity, P <0.6 ng/mL/h 024 3:42 PM CDT [facility] Comment: ----REFERENCE VALUE---- (Peripheral vein specimen) Na-deplete, upright: ??Mean: 5.9 ??Range: 2.9-10.8 Na-replete, upright: ??Mean: 1.0 ??Range: < or =0.6-3.0 ----ADDITIONAL INFORMATION---- Testing performed by Liquid Chromatography-Tandem Mass Spectrometry (LC-MS/MS). This test was developed and its performance characteristics determined by [facility] in a manner consistent with CLIA requirements. This test has not been cleared or approved by the U.S. Food and Drug Administration. Blood (Blood, Venous) 05/04/2024 4:20 PM CDT 05/05/2024 7:01 AM CDT Lyric Pate M.D., Ph.D. LAB BL OOD NON ADD-ON [facility] [address] [place] [address] [facility] [address] [place] [address] [place] [address] * Aldosterone (05/04/2024 4:20 PM CDT) [facility] Aldosterone, P 7.3 <=21 ng/dL 05/07/2024 1:10 AM CDT [facility] Comment: ----ADDITIONAL INFORMATION---- Reference range for patients 11 years and older is based on upright A.M. collection from subjects without sodium restrictions. This test was developed and its performance characteristics determined by [facility] in a manner consistent with CLIA requirements. This test has not been cleared or approved by the U.S. Food and Drug Administration. Blood (Blood, Venous) 05/04/2024 4:20 PM CDT 05/05/2024 9:25 AM CDT Lyric Pate M.D., Ph.D. LAB BL OOD NON ADD-ON [facility] [address] [place] [address] [facility] [address] [place] [address] [place] [address] documented in this encounter Visit Diagnoses Diagnosis Hypertension Essential Primary documented in this encounter Additional Health Concerns Infection Onset Date Last Indicated Resolved Time Protective Environment 04/07/2023 04/07/2023 documented as of this encounter Care Teams Nurse Aide Evaluator Relationship Specialty Start Date End Date Elsewhere, Pcp PCP - General Internal Medicine 10/05/23 documented as of this encounter
--- OUTSIDE RECORDS SUMMARY | 2024-05-25 10:52 | XMS_ITS | Encounter Summary ---
Author Organization [facility] Address [address] [place] [address] Care Team Providers Care Access Services Librarian Name Role Phone Elsewhere, Pcp Primary Care Provider Unavailabl e Encounter Details Date Type Department Care Team (Latest Contact Info) Description 05/03/2024 9:52 AM CDT - 05/03/2024 11:59 PM CDT Hospital Encounter Department of Laboratory Medicine and Pathology, [facility], in [place], [place] [address] [place] [address] Connor Bermudez M.D., M.S. Hypertension Essential Primary [...] often do you attend chur ch or anabaptism services? Never 06/23/2022 Do you belong to any clubs o r organizations such as yarsanism groups, unions, fraternal or athletic groups, or [...] heating? Not hard at all 08/27/2023 [facility] of Occupat ional Health - Occupational Stress [...] your living situation today? I [facility] to live 08/27/2023 Education Answer [...] 100 mg by mouth daily. 03/05/2022 05/04/2024 documented as of this encounter Plan of Treatment Upcoming Encounters Date Type Department Care Team (Late st Contact Info) Description 06/01/2024 10:00 AM CDT Nurse Only Division of Nephrology and Hypertension in [place], [place] [address] [place] [phone] Lyric Isaacs M.D., Ph.D. [address] [place] [phone] Lyric Briones, R.N. 07/01/2024 3:45 PM CDT Clinical Communication Virtual Review in [place], [place] 200 [place] [address] 07/05/2024 8:30 AM CDT Appointment Department of Radiology, [facility], in [place], [place] [address] [place] [phone] Connor Bermudez M.D., M.S. 07/05/2024 9:00 AM CDT Lab Department of Laboratory Medicine and Pathology, [facility], in [place], [place] [address] [place] [phone] Connor Bermudez M.D., M.S. 07/05/2024 2:00 PM CDT Office Visit Division of Hematology in [address] [phone] Keyla Willoughby M.B.B.S. [address] [place] [phone] documented as of this encounter Procedures Procedure Name Priority Date/Time Associated Diagnosis Comments BASIC METABOLIC PANEL, S/P Routine 05/03/2024 10:08 AM CDT Hypertension Essential Primary documented in this encounter Results * (ABNORMAL) Basic Metabolic Panel (05/03/2024 10:08 [...] Bermudez M.D., M.S. LAB BLOOD ADD- ON [facility] [address] [place] [address], [facility] [address] [place] [address] documented in this encounter Visit Diagnoses Diagnosis Hypertension Essential Primary documented in this encounter Additional Health Concerns Infection Onset Date Last Indicated Resolved Time Protective Environment 04/07/2023 04/07/2023 documented as of this encounter Care Teams Access Services Librarian Relationship Specialty Start Date End Date Elsewhere, Pcp PCP - General Internal Medicine 10/05/23 documented as of this encounter
--- OUTSIDE RECORDS SUMMARY | 2024-05-25 10:52 | XMS_ITS | Encounter Summary ---
Author Organization [facility] Address [address] [place] [address] Care Team Providers Care Accountant Certified Public Name Role Phone Elsewhere, Pcp Primary Care Provider Unavailabl e Encounter Details Date Type Department Care Team (Latest Contact Info) Description 05/03/2024 9:52 AM CDT - 05/03/2024 11:59 PM CDT Hospital Encounter Department of Laboratory Medicine and Pathology, [facility], in [place], [place] [address] [place] [address] Connor Bermudez M.D., M.S. Hypertension Essential Primary [...] hard at all 08/27/2023 [facility] [place] of Occupat ional Health - Occupational Stress [...] your living situation today? I have a [employer] place to live 08/27/2023 [...] Only Division of Nephrology and Hypertension in [place], [place] [address] [place] [phone] Lyric Isaacs M.D., Ph.D. [address] [place] [phone] Lyric Briones, R.NPhoenix 07/01/2024 3:45 PM CDT Clinical Communication Virtual Review in [place], [place] 200 [place] [address] 07/05/2024 8:30 AM CDT Appointment Department of Radiology, [facility], in [place], [place] [address] [place] [phone] Connor Bermudez M.D., M.S. 07/05/2024 9:00 AM CDT Lab Department of Laboratory Medicine and Pathology, [facility], in [place], [place] [address] [place] [phone] Connor Bermudez M.D., M.S. 07/05/2024 2:00 PM CDT Office Visit Division of Hematology in [address] [phone] Keyla Willoughby M.B.B.S. [address] [place] [phone] documented as of this encounter Procedures Procedure Name Priority Date/Time Associated Diagnosis Comments DIPSTICK, U Routine 05/03/2024 11:26 AM CDT MICROSCOPIC AUTOMATED Routine 05/03/2024 11:26 AM CDT PH, U Routine 05/03/2024 11:26 AM CDT OSMOLALITY, U Routine 05/03/2024 11:26 AM CDT URINALYSIS WITH MICROSCOPIC Routine 05/03/2024 11:26 AM CDT Hypertension Essential Primary documented in this encounter Results * Dipstick, Urine (05/03/2024 11:26 AM CDT) [...] Bermudez M.D., M.S. LAB URINE ORDE DOLORES [facility] [place] [address] 200 [place] [address] * pH, Urine (05/03/2024 11:26 AM CDT) pH, U 5.3 4.5 - 8.0 05/03/2024 1:0 0 PM CDT DTL Urine 05/03/2024 11:2 6 AM CDT 05/03/2024 11:51 AM CDT Connor Bermudez M.D., M.S. LAB URINE ORDE DOLORES [facility] [place] [address] [place] [address], [facility] 200 [place] [address] * Osmolality, Urine (05/03/2024 11:26 AM CDT) Osmolality, U 763 150 - 1150 mOsm/kg 05/03/2024 1:00 PM CDT DTL Urine 05/03/2024 11:2 6 AM CDT 05/03/2024 11:51 AM CDT Connor Bermudez M.D., M.S. LAB URINE THERON BERNAL Performing Organization Address [facility] Co de Phone Number [facility] [place] 200 [place] [address], [facility] 200 [place] [address] * Microscopic Automated (05/03/2024 11:26 AM CDT) [...] Bermudez M.D., M.S. LAB URINE THERON BERNAL Performing Organization Address [facility] Co de Phone Number [facility] [place] [address] [place] [address], [facility] 200 [place] [address] * Urinalysis, with Microscopic: Urine, Midstream (05/03/2024 [...] Bermudez M.D., M.S. LAB URINE THERON BERNAL [facility] [place] [address] [place], [place] [phone] [place] [address] DTL [facility] [address] [place] [address] documented in this encounter Visit Diagnoses Diagnosis Hypertension Essential Primary documented in this encounter Additional Health Concerns Infection Onset Date Last Indicated Resolved Time Protective Environment 04/07/2023 04/07/2023 documented as of this encounter Care Teams Accountant Certified Public Relationship Specialty Start Date End Date Elsewhere, Pcp PCP - General Internal Medicine 10/05/23 documented as of this encounter
--- OUTSIDE RECORDS SUMMARY | 2024-05-25 10:52 | XMS_ITS | Encounter Summary ---
Author Organization [facility] Address [address] [place] [phone] Care Team Providers Care Stabber Name Role Phone Elsewhere, Pcp Primary Care Provider Unavailabl e Reason for Referral * Outpatient (Routine) - Closed Specialty Diagnoses / Procedures Referred By Luigi kumar Referred To Contact Nephrology and Hypertension Lyric Isaacs M.D., Ph.D. [address] [place] [address] [facility] Referral ID Status Reason Start Date Expiration Date Visits Re quested Visits Authorized [id number] Closed 05/04/2024 11/03/2025 1 1 Scheduling Instructions Phone visit Reason for Visit * Reason Comments NEP CONS HTN * Outpatient (Routine) - Closed Specialty Diagnoses / Procedures Referred By Luigi kumar Referred To Contact Nephrology and Hypertension Diagnoses Hypertension Essential Primary Connor Bermudez M.D., M.S. [facility] Referral ID Status Reason Start Date Expiration Date Visits Re quested Visits Authorized [id number] Closed 03/23/2024 09/22/2025 1 1 Encounter Details Date Type Department Care Team (Latest Contact Info) Description 05/04/2024 3:15 PM CDT Comprehensive Visit Division of Nephrology and Hypertension in [place], [place] [address] [place] [address] Lyric Isaacs M.D., Ph.D. [address] [place] [address] Hypertension Essential Primary Social History Tobacco Use [...] week 06/23/2022 How often do you attend [facility] or sabianism services? Never 06/23/2022 Do you belong to [...] and heating? Not hard at all 08/27/2023 [facility] [place] of Occupat ional Health - Occupational Stress [...] your living situation today? I have a [facility] place to live 08/27/2023 [...] - Inhaled Oxygen Concentration - - Weight 103 kg (227 lb 4.7 oz) 05/04/2024 3:15 PM CDT Height 164.8 cm (5' 4.88) 05/04/2024 3:15 PM CD T Body Mass Index 37.96 05/04/2024 3:15 PM CDT documented in this encounter Consult Notes * Lyric Isaacs M.D., Ph.D. - 05/04/2024 3:15 PM CDT Referring Provider: Connor Bermudez M.D., M.S. SUBJECTIVE CHIEF COMPLAINT / REASON FOR VISIT Hypertension management HISTORY OF PRESENT ILLNESS Jaky Lara is a 68 y.o. female with diagnosis of Hodgkin's lymphoma April 2022 treated with rituximab, there was evidence of disease in axilla, neck, external iliac, groin a skeleton and spleen. She received radiation (ISRT). She developed a lower extremity DVT requiring initiation of Xarelto. 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 Currently her regimen includes amlodipine 10 mg daily, furosemide 40 mg daily, lisinopril 40 mg twice a day, metoprolol XL 100 mg daily. She had Maxzide added to her therapy however this was discontinued due to light-headedness and dizziness. She follows a low-salt diet. No NSAID use. Patient has not noticed any lightheadedness, dizziness, vision changes, diaphoresis, chest pain, difficulty breathing, or edema. Patient has not noticed any changes in urinary habits. No hesitancy tourinate, no difficulty to urinate. Past Medical History: Diagnosis Date Anxiety Generalized Disorder 2018 Asthma NOS 2019 Defect Coagulation (HCC) 2020 Depressive Disorder 2018 Hypertension NOS 2014 Hypothyroidism 2018 Lymphoma ([facility]) 05/25/2022 Other Injury Of Unspecified Body Region 01/29/2022 Sleep Apnea 2017 Past Surgical History: Procedure Laterality Date BIOPSY OR EXCISION LYMPH NODE Right 05/15/2022 axilla DILATATION AND CURETTAGE 2020 Allergies Allergen Reactions Cefuroxime Other (see comments) Propoxyphene-Acetaminophen Other (see comments) Amoxicillin-Pot Clavulanate Hives (Reselect Reaction) Chlorthalidone Rash Spironolactone Rash Social History Tobacco Use Smoking status: Never Passive exposure: Past (Childhood exposure.) Smokeless tobacco: Never Substance Use Topics Alcohol use: Not Currently Comment: 1 or 2 drinks a year Family History Problem Relation Name Age of Onset Hypertension Mother Paris Donato Osteoporosis Mother Paris Donato Arthritis Mother Paris Donato Lung cancer Mother Paris Donato Diabetes Paternal Grandmother Farideh Donato Hypertension Sister Thania Bailey REVIEW OF SYSTEMS All other systems were reviewed and are negative, rest as per HPI. OBJECTIVE Ht 164.8 cm Wt 103 kg BMI 37.96 kg/m?? Not blood pressure taking during this visit as she has wearing a 6 hour ambulatory blood pressure monitor on her left arm and she had recent radiation to her right arm, patient politely declined to have blood pressure measure on her right arm. PHYSICAL EXAMINATION General: No acute distress, breathing comfortably. Heart: Regular rate and rhythm. No murmurs, rubs or gallops. Respiratory: Regular inspiratory effort. No wheezes, no rhonchi. Abdomen: Soft, not tender, not distended. Present bowel sounds. Extremities: Full range of motion. Normal gait. No edema in lower extremities Neuro: No focal deficits. Alert and oriented X 4. Skin: Warm. No rashes. Psych: Answers questions appropriately. No signs of anxiety or depression noted. DIAGNOSTICS Labs: Recent Labs 05/03/24 1008 NA 143 KSERUM 4.5 BICARB 29 CL 106 BUN 19 CREATININE 1.12* CALCIUM 9.4 ASSESSMENT / PLAN #1 Hypertension Essential Primary Patient is referred to Nephrology for evaluation of hypertension. 6 hour ambulatory blood pressure monitor is currently pending. Secondary causes of hypertension should be ruled out. Workup includes renal ultrasound with artery doppler to evaluate for renal artery stenosis (this is planned to be done at [facility]). Blood workup including aldosterone, and renin. BP goals are systolic readings between 100-130 mmHg and diastolic readings between 60-80 mmHg. I have recommended patient to check BP regularly at home. A BP home monitor device can be selected from the [place] Blood Pressure Validated Device Listing (VDL???) at https://www.validatebp.org. I have recommended patient to keep a record of blood pressure readings. If BP is still not at goal, medications should be adjusted. As a next step I would recommend: Switching metoprolol to carvedilol 25 mg BID (TODAY) Phone visit with Hypertension nurses in 1 week for medication adjustment. If carvedilol well tolerated, next step will be to switch lisinopril to valsartan 160 mg BID Follow up to adjust medications in 2 weeks after that If needed, next step will be to switch lasix to chlorthalidone. We discussed about salt intake and our recommendation to limit sodium intake to less than 2000 mg per day. Patient verbalizes understanding. Face to face follow up visit to be schedule at [facility]. Amy Pate M.D., Ph.D. Nephrology and Hypertension documented in this encounter Plan of Treatment Upcoming Encounters Date Type Department Care Team (Late st Contact Info) Description 06/01/2024 10:00 AM CDT Nurse Only Division of Nephrology and Hypertension in [address] [phone] Lyric Isaacs M.D., Ph.D. [address] [place] [phone] Lyric Briones, R.N. 07/01/2024 3:45 PM CDT Clinical Communication Virtual Review in [address] [phone] 07/05/2024 8:30 AM CDT Appointment Department of Radiology, [facility], in [address] [phone] Connor Bermudez M.D., M.S. 07/05/2024 9:00 AM CDT Lab Department of Laboratory Medicine and Pathology, [facility], in [address] [address] Connor Bermudez M.D., M.S. 07/05/2024 2:00 PM CDT Office Visit Division of Hematology in [address] [address] Keyla Willoughby M.B.B.S. [address] [place] [address] Scheduled Referrals Name Type Priority Associated Diagnoses Order Schedule Nephrology nurse visit (clinic) Outpatient Referral Routine Expected: 05/11/2024, Expires: 08/04/2025 documented as of this encounter Results * Renin Activity (05/04/2024 4:20 PM CDT) Renin Activity, P <0.6 ng/mL/h 024 3:42 PM CDT [facility] Comment: ----REFERENCE VALUE---- (Peripheral vein specimen) Na-deplete, upright: ??Mean: 5.9 ??Range: 2.9-10.8 Na-replete, upright: ??Mean: 1.0 ??Range: < or =0.6-3.0 ----ADDITIONAL INFORMATION---- Testing performed by Liquid Chromatography-Tandem Mass Spectrometry (LC-MS/MS). This test was developed and its performance characteristics determined by [facility] in a manner consistent with CLIA requirements. This test has not been cleared or approved by the U.S. Food and Drug Administration. Blood (Blood, Venous) 05/04/2024 4:20 PM CDT 05/05/2024 7:01 AM CDT Lyric Pate M.D., Ph.D. LAB BL OOD NON ADD-ON [facility] [place] [address] [place] [address] [facility] [address] [place] [address] [place] [address] * Aldosterone (05/04/2024 4:20 PM CDT) Pathologist [facility] Aldosterone, P 7.3 <=21 ng/dL 05/07/2024 1:10 AM CDT [facility] Comment: ----ADDITIONAL INFORMATION---- Reference range for patients 11 years and older is based on upright A.M. collection from subjects without sodium restrictions. This test was developed and its performance characteristics determined by [facility] in a manner consistent with CLIA requirements. This test has not been cleared or approved by the U.S. Food and Drug Administration. Blood (Blood, Venous) 05/04/2024 4:20 PM CDT 05/05/2024 9:25 AM CDT Lyric Pate M.D., Ph.D. LAB BL OOD NON ADD-ON [facility] [address] [place] [address] [facility] [address] [place] [address] [place] [address] documented in this encounter Visit Diagnoses Diagnosis Hypertension Essential Primary documented in this encounter Additional Health Concerns Infection Onset Date Last Indicated Resolved Time Protective Environment 04/07/2023 04/07/2023 documented as of this encounter Care Teams Stabber Relationship Specialty Start Date End Date Elsewhere, Pcp PCP - General Internal Medicine 10/05/23 documented as of this encounter
--- OUTSIDE RECORDS SUMMARY | 2024-05-25 10:53 | XMS_ITS | Encounter Summary ---
Author Organization [facility] Address [address] [place] [address] Care Team Providers Care Food Critic Name Role Phone Elsewhere, Pcp Primary Care Provider Unavailabl e Reason for Referral * Radiation Therapy (Routine) - Authorized Specialty Diagnoses / Procedures Referred By Luigi kumar Referred To Contact Diagnoses 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) Procedures Management Visit Milad Nair M.D. [address] [place] [address] [facility] Region Referral ID Status Reason Start Date Expiration Date V isits Requested Visits Authorized [id number] Authorized 03/01/2024 03/01/2025 10 10 Reason for Visit * Radiation Therapy (Routine) - Authorized Specialty Diagnoses / Procedures Referred By Luigi kumar Referred To Contact Diagnoses 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) Procedures Management Visit Milad Nair M.D. [address] [place] [address] [facility] Region Referral ID Status Reason Start Date Expiration Date V isits Requested Visits Authorized [id number] Authorized 03/01/2024 03/01/2025 10 10 Encounter Details Date Type Department Care Team (Latest Contact Info) Description 03/16/2024 10:00 AM CDT - 03/18/2024 11:41 AM CDT Hospital Encounter Department of Radiation Oncology in [place] [address] [place] [address] [place] [address] Nodular Lymphocyte Predominant Hodgkin Lymphoma Extranodal And [...] week 06/23/2022 How often do you attend [facility] or congregation services? Never 06/23/2022 Do you belong to [...] and heating? Not hard at all 08/27/2023 [facility] [place] of Occupat ional Health - Occupational Stress [...] Sign Reading Time Taken Comments Blood Pressure 173/76 03/16/2024 10:49 AM CDT Pulse 67 03/16/2024 10:49 AM CDT Temperature 36.2 ??C (97.1 ??F) 03/16/2024 10:49 AM C DT Respiratory Rate - - Oxygen Saturation - - Inhaled Oxygen Concentration - - Weight 104 kg (228 lb 6.3 oz) 03/16/2024 10:49 A M CDT Height - - Body Mass Index 38.75 02/09/2024 10:42 AM CDT documented in this encounter Medications at Time [...] 1 tablet by mouth every morning. 12/22/2011 HYDROcodone-acetaminoph en (NORCO) 5-325 mg per tablet [...] 0.5 mg by mouth as needed. 05/30/2022 nystatin-triamcinolone (MYCOLOG II) 100,000 Unit/g-0.1 % cream Apply topically 2 (two) times a day as needed. 09/25/2022 oxyCODONE-acetaminophen (PERCOCET) 5-325 mg per tablet TAKE 1/2 TO 1 TABLET BY MOUTH EVERY 6 TO 8 HOURS NEEDED. MAX DOSE: 6/DAY. WEAN TOLERATED 02/14/2022 Stool Softener-Stimulant Laxat 8.6-50 mg per tablet Take 2 tablets by mouth at bedtime. 12/09/2023 triamterene-hydroCHLORO thiazide (MAXZIDE-25) 37.5-25 mg per tablet Take by [...] daily. 03/05/2022 05/04/2024 prochlorperazine (COMPAZINE) 10 mg tabletIndications:Nodul ar Lymphocyte Predominant Hodgkin Lymphoma Extranodal And Solid Organ Sites (HCC) Take 1 tablet (10 mg total) by mouth every 6 (six) hours as needed for nausea or vomiting. 30 tablet 3 12/23/2022 04/11/2024 documented as of this encounter Progress Notes * Anisha Bashir M.D. - 03/16/2024 10:30 AM CDT PHYSICIAN ATTESTATION: I saw Ms. Lara along with Brittney and appreciate her help in caring for her through radiation! Ms. Lara is experiencing non-specific symptoms such as feeling clammy, shakiness, and fatigue. She notes occasionally feeling sweaty, as well. There is a bit of lightheadedness, too. She feels that these symptoms started after starting a new blood pressure medication earlier in February. We encouraged her to message the doctor who wrote this medication, to ask if it would be OK to stop it (blood pressure today remained elevated approximately 170/75). Ms. Lara has the ability to check her blood pressure at home. Dr. Bermudez has graciously set up a cardiology consult to address her hypertension and manage the multiple anti-hypertensives which she currently takes. Unfortunately Dr. Bermudez is taking a new position this summer, and the patient shares that she is very sad to see him go, as he has been an excellent doctor for her throughout her cancer journey. Anisha Bashir MD Resident Physician Department of Radiation Oncology SUBJECTIVE CHIEF COMPLAINT/REASON FOR VISIT Evaluation for side effects while receiving radiation treatment for 1. 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 Bashir HISTORY OF PRESENT ILLNESS Jaky Lara is a 68 y.o. 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 Treatment Course: 1xAxilla Plan ID Fractions Dose / Fraction (cGy) Dose Treated (cGy) Dose Planned (cGy) First Treatment Last Treatment Elapsed Days [id number] [phone] 03/14/2024 03/16/2024 2 Course Summary 03/14/2024 03/16/2024 2 The patient was seen and examined today with Dr. Bashir . The patient reports to be not feeling as well due her blood pressure needing to be better managed. She reports feeling flushed and shaky at times but it is intermittent and does resolve. Patient did report that she did meet with her Medical Oncologist yesterday and is getting her cardiology care transferred to [place]. She denies worsening or changes in right axillary discomfort. She does note does shoulder discomfort from treatment position. She is applying lotion twice daily to treatment field. PATIENT REPORTED SYMPTOM SCREEN: FATIGUE (Scale: 0 = no fatigue; 10 = worst fatigue you can imagine): 8 PAIN (Scale: 0 = no pain; 10 = worst pain you can imagine): 5 OVERALL QUALITY OF LIFE (Scale: 0 = as bad as can be; 10 = as good as can be): 6 OBJECTIVE BP (!) 173/76 (BP Location: Right arm, Patient Position: Sitting, Cuff Size: Regular) Pulse 67 Temp 36.2 ??C (Temporal) Wt 104 kg BMI 38.75 kg/m?? PHYSICAL EXAMINATION General: Alert and oriented, in no apparent distress. ASSESSMENT / PLAN #1 Stage IV nodular [...] axilla initiated on March 14, 2024; anticipated date of completion March The patient is tolerating radiation treatment well overall. She can continue to apply lotion to treatment field twice daily. She will continue with radiation treatment as planned. She can contact ourcare team with any questions or concerns. Signed by: Brittney Black R.N. 03/16/2024 11:02 AM CDT documented in this encounter Plan of Treatment Upcoming Encounters Date Type Department Care Team (Late st Contact Info) Description 06/01/2024 10:00 AM CDT Nurse Only Division of Nephrology and Hypertension in [address] [place] [address] Lyric Isaacs M.D., Ph.D. [address] [place] [address] Lyric Briones, R.NPhoenix 07/01/2024 3:45 PM CDT Clinical Communication Virtual Review in [address] [place] [address] 07/05/2024 8:30 AM CDT Appointment Department of Radiology, [facility] in [address] [place] [phone] Connor Bermudez M.D., M.S. 07/05/2024 9:00 AM CDT Lab Department of Laboratory Medicine and Pathology, [facility] in [address] [place] [phone] Connor Bermudez M.D., M.S. 07/05/2024 2:00 PM CDT Office Visit Division of Hematology in [address] [place] [phone] Keyla Willoughby M.B.B.S. [address] [place] [phone] Scheduled Orders Name Type Priority Associated Diagnoses Orde r Schedule Management Visit Radiation Oncology Routine 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) Once for 1 Occurrences starting 03/16/2024 until 03/16/2024 documented as of this encounter Visit Diagnoses Diagnosis 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) documented in this encounter Additional Health Concerns Infection Onset Date Last Indicated Resolved Time Protective Environment 04/07/2023 04/07/2023 documented as of this encounter Care Teams Food Critic Relationship Specialty Start Date End Date Elsewhere, Pcp PCP - General Internal Medicine 10/05/23 documented as of this encounter
--- OUTSIDE RECORDS SUMMARY | 2024-05-25 10:53 | XMS_ITS | Encounter Summary ---
Author Organization [facility] Address [address] [place] [address] Care Team Providers Care Mandarin Chinese Teacher Name Role Phone Elsewhere, Pcp Primary Care Provider Unavailabl e Encounter Details Date Type Department Care Team (Latest Contact Info) Description 03/21/2024 9:59 AM CDT - 03/21/2024 11:59 PM CDT Hospital Encounter Department of Radiation Oncology in [place], [place] [address] [place] [phone] Milad Nair M.D. [address] [place] [address] Discharge Disposition: Home or Self Care Social [...] and heating? Not hard at all 08/27/2023 [facility] of Occupat ional Health - Occupational [...] Only Division of Nephrology and Hypertension in [place], [place] [address] [place] [phone] Lyric Isaacs M.D., Ph.D. [address] [place] [phone] Lyric Briones, R.NPhoenix 07/01/2024 3:45 PM CDT Clinical Communication Virtual Review in [place], [place] 200 [place] [address] 07/05/2024 8:30 AM CDT Appointment Department of Radiology, [place], [place] [address] [place] [phone] Connor Bermudez M.D., M.S. 07/05/2024 9:00 AM CDT Lab Department of Laboratory Medicine and Pathology, [facility] in [address] [phone] Connor Bermudez M.D., M.S. 07/05/2024 2:00 PM CDT Office Visit Division of Hematology in [address] [phone] Keyla Willoughby M.B.B.S. [address] [place] [phone] documented as of this encounter Visit Diagnoses Not on filedocumented in this encounter Additional Health Concerns Infection Onset Date Last Indicated Resolved Time Protective Environment 04/07/2023 04/07/2023 documented as of this encounter Care Teams Mandarin Chinese Teacher Relationship Specialty Start Date End Date Elsewhere, Pcp PCP - General Internal Medicine 10/05/23 documented as of this encounter
--- OUTSIDE RECORDS SUMMARY | 2024-05-25 10:53 | XMS_ITS | Encounter Summary ---
Author Organization [facility] Address [address] [place] [address] Care Team Providers Care Corporate Recruiter Name Role Phone Elsewhere, Pcp Primary Care Provider Unavailabl e Encounter Details Date Type Department Care Team (Latest Contact Info) Description 03/28/2024 10:05 AM CDT - 03/28/2024 11:59 PM CDT Hospital Encounter Department of Radiation Oncology in [place], [place] [address] [place] [phone] Milad Nair M.D. [address] [place] [address] Discharge Disposition: Home or Self Care Social [...] often do you attend chur ch or caodaism services? Never 06/23/2022 Do you [...] and heating? Not hard at all 08/27/2023 [facility] of Occupat ional Health - Occupational [...] your living situation today? I have a [facility] place to live 08/27/2023 Education Answer [...] Only Division of Nephrology and Hypertension in [place], [place] [address] [place] [phone] Lyric Isaacs M.D., Ph.D. [address] [place] [phone] Lyric Briones, R.N. 07/01/2024 3:45 PM CDT Clinical Communication Virtual Review in [place], [place] 200 [place] [address] 07/05/2024 8:30 AM CDT Appointment Department of Radiology, [facility] in [place], [place] [address] [place] [phone] Connor Bermudez M.D., M.S. 07/05/2024 9:00 AM CDT Lab Department of Laboratory Medicine and Pathology, [facility] in [address] [phone] Connor Bermudez M.D., M.S. 07/05/2024 2:00 PM CDT Office Visit Division of Hematology in [address] [phone] Keyla Willoughby M.B.B.S. [address] [place] [phone] documented as of this encounter Visit Diagnoses Not on filedocumented in this encounter Additional Health Concerns Infection Onset Date Last Indicated Resolved Time Protective Environment 04/07/2023 04/07/2023 documented as of this encounter Care Teams Corporate Recruiter Relationship Specialty Start Date End Date Elsewhere, Pcp PCP - General Internal Medicine 10/05/23 documented as of this encounter
--- OUTSIDE RECORDS SUMMARY | 2024-05-25 10:53 | XMS_ITS | Encounter Summary ---
Author Organization [facility] Address [address] [place] [address] Care Team Providers Care Electronics Engineering Professor Name Role Phone Elsewhere, Pcp Primary Care Provider Unavailabl e Encounter Details Date Type Department Care Team (Latest Contact Info) Description 03/24/2024 9:54 AM CDT - 03/24/2024 11:59 PM CDT Hospital Encounter Department of Radiation Oncology in [place], [place] [address] [place] [phone] Milad Nair M.D. [address] [place] [address] Discharge Disposition: Home or Self Care Social [...] often do you attend chur ch or mosque services? Never 06/23/2022 Do you [...] and heating? Not hard at all 08/27/2023 [facility] of Occupat ional Health - [...] your living situation today? I have a [facility] place to live 08/27/2023 Education Answer [...] Only Division of Nephrology and Hypertension in [place], [place] [address] [place] [phone] Lyric Isaacs M.D., Ph.D. [address] [place] [phone] Lyric Briones, R.N. 07/01/2024 3:45 PM CDT Clinical Communication Virtual Review in [place], [place] 200 [place] [address] 07/05/2024 8:30 AM CDT Appointment Department of Radiology, [facility] in [place], [place] [address] [place] [phone] Connor Bermudez M.D., M.S. 07/05/2024 9:00 AM CDT Lab Department of Laboratory Medicine and Pathology, [facility] in [address] [address] Connor Bermudez M.D., M.S. 07/05/2024 2:00 PM CDT Office Visit Division of Hematology in [address] [phone] Keyla Willoughby M.B.B.S. [address] [place] [phone] documented as of this encounter Visit Diagnoses Not on filedocumented in this encounter Additional Health Concerns Infection Onset Date Last Indicated Resolved Time Protective Environment 04/07/2023 04/07/2023 documented as of this encounter Care Teams Electronics Engineering Professor Relationship Specialty Start Date End Date Elsewhere, Pcp PCP - General Internal Medicine 10/05/23 documented as of this encounter
--- OUTSIDE RECORDS SUMMARY | 2024-05-25 10:53 | XMS_ITS | Encounter Summary ---
Author Organization [facility] Address [address] [place] [address] Care Team Providers Care L D Rn Name Role Phone Elsewhere, Pcp Primary Care Provider Unavailabl e Encounter Details Date Type Department Care Team (Latest Contact Info) Description 03/22/2024 9:59 AM CDT - 03/22/2024 11:59 PM CDT Hospital Encounter Department of Radiation Oncology in [place], [place] [address] [place] [phone] Milad Nair M.D. [address] [place] [address] Discharge Disposition: Home or Self Care Social [...] and heating? Not hard at all 08/27/2023 [facility] of Occupat ional Health - Occupational [...] your living situation today? I have a [facility] place to live 08/27/2023 Education [...] Division of Nephrology and Hypertension in [place], [place] [address] [place] [phone] Lyric Isaacs M.D., Ph.D. [address] [place] [phone] Lyric Briones, R.NPhoenix 07/01/2024 3:45 PM CDT Clinical Communication Virtual Review in [place], [place] 200 [place] [address] 07/05/2024 8:30 AM CDT Appointment Department of Radiology, [place], [place] [address] [place] [phone] Connor Bermudez M.D., M.S. 07/05/2024 9:00 AM CDT Lab Department of Laboratory Medicine and Pathology, [facility] in [address] [phone] Connor Bermudez M.D., M.S. 07/05/2024 2:00 PM CDT Office Visit Division of Hematology in [address] [phone] Keyla Willoughby M.B.B.S. [address] [place] [phone] documented as of this encounter Visit Diagnoses Not on filedocumented in this encounter Additional Health Concerns Infection Onset Date Last Indicated Resolved Time Protective Environment 04/07/2023 04/07/2023 documented as of this encounter Care Teams L D Rn Relationship Specialty Start Date End Date Elsewhere, Pcp PCP - General Internal Medicine 10/05/23 documented as of this encounter
--- OUTSIDE RECORDS SUMMARY | 2024-05-25 10:53 | XMS_ITS | Encounter Summary ---
Author Organization [facility] Address [address] [place] [phone] Care Team Providers Care Hot Metal Charger Name Role Phone Elsewhere, Pcp Primary Care Provider Unavailabl e Reason for Referral * Specialty Diagnoses / Procedures Referred By Luigi kumar Referred To Contact Romana Mendoza APRN, C.N.P., D.N.P. [address] [place] [phone] [facility] Referral ID Status Reason Start Date Expiration Date Visits Re quested Visits Authorized Encounter Details Date Type Department Care Team (Latest Contact Info) Description 03/18/2024 9:56 AM CDT - 03/18/2024 3:20 PM CDT Hospital Encounter Department of Radiation Oncology in [place], [place] [address] [place] [phone] Milad Nair M.D. [address] [place] [phone] Renée Long R.N. [address] [place] [phone] Nodular Lymphocyte Predominant Hodgkin Lymphoma Extranodal And [...] week 06/23/2022 How often do you attend [facility] or hoahaoism services? Never 06/23/2022 Do you [...] and heating? Not hard at all 08/27/2023 [facility] of Occupat ional Health - Occupational Stress [...] your living situation today? I have a [facility] place to live 08/27/2023 Education Answer Date [...] as of this encounter Progress Notes * Renée Long R.N. - 03/18/2024 10:30 AM CDT Patient was educated on side effects of radiation therapy. Their questions were answered to the best of my ability. The patient was encouraged to contact the team at any point, with questions or concerns. documented in this encounter Plan of Treatment Upcoming Encounters Date Type Department Care Team (Late st Contact Info) Description 06/01/2024 10:00 AM CDT Nurse Only Division of Nephrology and Hypertension in [address] [phone] Lyric Isaacs M.D., Ph.D. [address] [place] [phone] Lyric Briones, R.N. 07/01/2024 3:45 PM CDT Clinical Communication Virtual Review in [place], [place] 200 [place] [address] 07/05/2024 8:30 AM CDT Appointment Department of Radiology, [facility], in [place], [place] [address] [place] [phone] Connor Bermudez M.D., M.S. 07/05/2024 9:00 AM CDT Lab Department of Laboratory Medicine and Pathology, [facility], in [place], [place] [address] [place] [address] Connor Bermudez M.D., M.S. 07/05/2024 2:00 PM CDT Office Visit Division of Hematology in [place], [place] [address] [place] [address] Keyla Willoughby M.B.B.S. 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
--- OUTSIDE RECORDS SUMMARY | 2024-05-25 10:53 | XMS_ITS | Encounter Summary ---
Author Organization [facility] Address [address] [place] [address] Care Team Providers Care Steam Cleaning Machine Operator Name Role Phone Elsewhere, Pcp Primary Care Provider Unavailabl e Encounter Details Date Type Department Care Team (Latest Contact Info) Description 03/29/2024 10:02 AM CDT - 03/29/2024 11:59 PM CDT Hospital Encounter Department of Radiation Oncology in [place], [place] [address] [place] [phone] Milad Nair M.D. [address] [place] [address] Discharge Disposition: Home or Self Care Social [...] often do you attend chur ch or voodoo services? Never 06/23/2022 Do you belong to any clubs o r organizations such as jew groups, unions, fraternal or athletic groups, or [...] and heating? Not hard at all 08/27/2023 [facility] of Occupat ional Health - [...] Only Division of Nephrology and Hypertension in [place], [place] [address] [place] [phone] Lyric Isaacs M.D., Ph.D. [address] [place] [phone] Lyric Briones, R.N. 07/01/2024 3:45 PM CDT Clinical Communication Virtual Review in [place], [place] 200 [place] [address] 07/05/2024 8:30 AM CDT Appointment Department of Radiology, [facility] in [place], [place] [address] [place] [phone] Connor Bermudez M.D., M.S. 07/05/2024 9:00 AM CDT Lab Department of Laboratory Medicine and Pathology, [facility] in [address] [phone] Connor Bermudez M.D., M.S. 07/05/2024 2:00 PM CDT Office Visit Division of Hematology in [address] [phone] Keyla Willoughby M.B.B.S. [address] [place] [phone] documented as of this encounter Visit Diagnoses Not on filedocumented in this encounter Additional Health Concerns Infection Onset Date Last Indicated Resolved Time Protective Environment 04/07/2023 04/07/2023 documented as of this encounter Care Teams Steam Cleaning Machine Operator Relationship Specialty Start Date End Date Elsewhere, Pcp PCP - General Internal Medicine 10/05/23 documented as of this encounter
--- OUTSIDE RECORDS SUMMARY | 2024-05-25 10:53 | XMS_ITS | Encounter Summary ---
Author Organization [facility] Address [address] [place] [address] Care Team Providers Care National Park Tour Guide Name Role Phone Elsewhere, Pcp Primary Care Provider Unavailabl e Encounter Details Date Type Department Care Team (Latest Contact Info) Description 03/23/2024 10:16 AM CDT - 03/23/2024 11:59 PM CDT Hospital Encounter Department of Radiation Oncology in [place], [place] [address] [place] [phone] Milad Nair M.D. [address] [place] [address] Discharge Disposition: Home or Self Care Social [...] often do you attend chur ch or rastafari services? Never 06/23/2022 Do you belong to [...] heating? Not hard at all 08/27/2023 [facility] of Occupat ional Health - Occupational [...] Only Division of Nephrology and Hypertension in [place], [place] [address] [place] [phone] Lyric Isaacs M.D., Ph.D. [address] [place] [phone] Lyric Briones, R.N. 07/01/2024 3:45 PM CDT Clinical Communication Virtual Review in [place], [place] 200 [place] [address] 07/05/2024 8:30 AM CDT Appointment Department of Radiology, [facility] in [place], [place] [address] [place] [phone] Connor Bermudez M.D., M.S. 07/05/2024 9:00 AM CDT Lab Department of Laboratory Medicine and Pathology, [facility] in [address] [phone] Connor Bermudez M.D., M.S. 07/05/2024 2:00 PM CDT Office Visit Division of Hematology in [address] [phone] Keyla Willoughby M.B.B.S. [address] [place] [phone] documented as of this encounter Visit Diagnoses Not on filedocumented in this encounter Additional Health Concerns Infection Onset Date Last Indicated Resolved Time Protective Environment 04/07/2023 04/07/2023 documented as of this encounter Care Teams National Park Tour Guide Relationship Specialty Start Date End Date Elsewhere, Pcp PCP - General Internal Medicine 10/05/23 documented as of this encounter
--- OUTSIDE RECORDS SUMMARY | 2024-05-25 10:53 | XMS_ITS | Encounter Summary ---
Author Organization [facility] Address [address] [place] [address] Care Team Providers Care Reconciliation Specialist Name Role Phone Elsewhere, Pcp Primary Care Provider Unavailabl e Encounter Details Date Type Department Care Team (Latest Contact Info) Description 03/25/2024 9:57 AM CDT - 03/25/2024 11:59 PM CDT Hospital Encounter Department of Radiation Oncology in [place], [place] [address] [place] [phone] Milad Nair M.D. [address] [place] [address] Discharge Disposition: Home or Self Care Social [...] and heating? Not hard at all 08/27/2023 [facility] of Occupat ional Health - [...] your living situation today? I have a [facility] place to live 08/27/2023 Education Answer [...] Only Division of Nephrology and Hypertension in [place], [place] [address] [place] [phone] Lyric Isaacs M.D., Ph.D. [address] [place] [phone] Lyric Briones, R.N. 07/01/2024 3:45 PM CDT Clinical Communication Virtual Review in [place], [place] 200 [place] [address] 07/05/2024 8:30 AM CDT Appointment Department of Radiology, [facility] in [place], [place] [address] [place] [phone] Connor Bermudez M.D., M.S. 07/05/2024 9:00 AM CDT Lab Department of Laboratory Medicine and Pathology, [facility] in [address] [phone] Connor Bermudez M.D., M.S. 07/05/2024 2:00 PM CDT Office Visit Division of Hematology in [address] [phone] Keyla Willoughby M.B.B.S. [address] [place] [phone] documented as of this encounter Visit Diagnoses Not on filedocumented in this encounter Additional Health Concerns Infection Onset Date Last Indicated Resolved Time Protective Environment 04/07/2023 04/07/2023 documented as of this encounter Care Teams Reconciliation Specialist Relationship Specialty Start Date End Date Elsewhere, Pcp PCP - General Internal Medicine 10/05/23 documented as of this encounter
--- OUTSIDE RECORDS SUMMARY | 2024-05-25 10:53 | XMS_ITS | Encounter Summary ---
Author Organization [facility] Address [address] [place] [address] Care Team Providers Care Machine Operator Assistant Name Role Phone Elsewhere, Pcp Primary Care Provider Unavailabl e Encounter Details Date Type Department Care Team (Latest Contact Info) Description 03/30/2024 10:06 AM CDT - 03/30/2024 11:59 PM CDT Hospital Encounter Department of Radiation Oncology in [place], [place] [address] [place] [phone] Milad Nair M.D. [address] [place] [address] Discharge Disposition: Home or Self Care Social [...] any clubs o r organizations such as gnosticism groups, unions, fraternal or athletic groups, or [...] and heating? Not hard at all 08/27/2023 [facility] of Occupat ional Health - Occupational [...] your living situation today? I have a [facility] place to live 08/27/2023 [...] Only Division of Nephrology and Hypertension in [place], [place] [address] [place] [phone] Lyric Isaacs M.D., Ph.D. [address] [place] [phone] Lyric Briones, R.N. 07/01/2024 3:45 PM CDT Clinical Communication Virtual Review in [place], [place] 200 [place] [address] 07/05/2024 8:30 AM CDT Appointment Department of Radiology, [facility] in [place], [place] [address] [place] [phone] Connor Bermudez M.D., M.S. 07/05/2024 9:00 AM CDT Lab Department of Laboratory Medicine and Pathology, [facility] in [address] [phone] Connor Bermudez M.D., M.S. 07/05/2024 2:00 PM CDT Office Visit Division of Hematology in [address] [phone] Keyla Willoughby M.B.B.S. [address] [place] [phone] documented as of this encounter Visit Diagnoses Not on filedocumented in this encounter Additional Health Concerns Infection Onset Date Last Indicated Resolved Time Protective Environment 04/07/2023 04/07/2023 documented as of this encounter Care Teams Machine Operator Assistant Relationship Specialty Start Date End Date Elsewhere, Pcp PCP - General Internal Medicine 10/05/23 documented as of this encounter
--- OUTSIDE RECORDS SUMMARY | 2024-05-25 10:53 | XMS_ITS | Encounter Summary ---
Author Organization [facility] Address [address] [place] [address] Care Team Providers Care Wheat Farmer Name Role Phone Elsewhere, Pcp Primary Care Provider Unavailabl e Encounter Details Date Type Department Care Team (Latest Contact Info) Description 03/18/2024 9:56 AM CDT - 03/18/2024 11:59 PM CDT Hospital Encounter Department of Radiation Oncology in [place], [place] [address] [place] [phone] Milad Nair M.D. [address] [place] [address] Discharge Disposition: Home or Self Care Social [...] any clubs o r organizations such as evangelical groups, unions, fraternal or athletic groups, or [...] and heating? Not hard at all 08/27/2023 [facility] of Occupat ional Health - [...] your living situation today? I have a [facility] place to live 08/27/2023 Education Answer [...] Only Division of Nephrology and Hypertension in [place], [place] [address] [place] [phone] Lyric Isaacs M.D., Ph.D. [address] [place] [phone] Lyric Briones, R.NPhoenix 07/01/2024 3:45 PM CDT Clinical Communication Virtual Review in [place], [place] 200 [place] [address] 07/05/2024 8:30 AM CDT Appointment Department of Radiology, [place], [place] [address] [place] [phone] Connor Bermudez M.D., M.S. 07/05/2024 9:00 AM CDT Lab Department of Laboratory Medicine and Pathology, [facility] in [address] [phone] Connor Bermudez M.D., M.S. 07/05/2024 2:00 PM CDT Office Visit Division of Hematology in [address] [phone] Keyla Willoughby M.B.B.S. [address] [place] [phone] documented as of this encounter Visit Diagnoses Not on filedocumented in this encounter Additional Health Concerns Infection Onset Date Last Indicated Resolved Time Protective Environment 04/07/2023 04/07/2023 documented as of this encounter Care Teams Wheat Farmer Relationship Specialty Start Date End Date Elsewhere, Pcp PCP - General Internal Medicine 10/05/23 documented as of this encounter
--- OUTSIDE RECORDS SUMMARY | 2024-05-25 10:53 | XMS_ITS | Encounter Summary ---
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 [address] [place] [address] [facility] Region Referral ID Status Reason Start Date Expiration Date V isits Requested Visits Authorized [id number] Authorized 03/01/2024 03/01/2025 10 10 Encounter Details Date Type Department Care Team (Latest Contact Info) Description 03/23/2024 10:16 AM CDT - 03/25/2024 10:33 PM CDT Hospital Encounter Department of Radiation Oncology in [address] [phone] [place] [address] Nodular Lymphocyte Predominant Hodgkin Lymphoma Extranodal And [...] [facility] or sabianism services? Never 06/23/2022 Do you [...] heating? Not hard at all 08/27/2023 [facility] [place] of Occupat ional Health - Occupational Stress [...] Sign Reading Time Taken Comments Blood Pressure 166/84 03/23/2024 11:06 AM CDT Pulse 61 03/23/2024 11:06 AM CDT Temperature - - Respiratory Rate - - [...] Progress Notes * Milad Nair M.D. - 03/23/2024 11:00 AM CDT SUBJECTIVE CHIEF COMPLAINT/REASON FOR VISIT [...] (cGy) First Treatment Last Treatment Elapsed Days [id number] 300 2400 4500 03/14/2024 03/23/2024 9 Course Summary 03/14/2024 03/23/2024 9 The patient was seen and examined today with Dr. Nair . The patient reports that she is feeling well overall and tolerating radiation well. She reports that she is applying lotion to treatment field twice daily. She denies chest or axillary discomfort. Patient does report that she is feeling emotional lately as she is stressed about her blood pressure management and the delay in getting an appointment is [place]. PATIENT REPORTED SYMPTOM SCREEN: FATIGUE (Scale: 0 = no fatigue; 10 = worst fatigue you can imagine): 8 PAIN (Scale: 0 = no pain; 10 = worst pain you can imagine): 5 OVERALL QUALITY OF LIFE (Scale: 0 = as bad as can be; 10 = as good as can be): 6 OBJECTIVE BP (!) 166/84 (BP Location: Right arm, Patient Position: Sitting, Cuff Size: Regular) Pulse 61 PHYSICAL EXAMINATION General: Alert and oriented, in no apparent distress. Skin: Mild pink toned skin to upper right chest. No erythema noted in right axilla. ASSESSMENT / PLAN #1 Stage IV nodular [...] patient is tolerating radiation treatment well overall. Dr. Nair will send patient a prescription for Mometasone cream and she can start to apply. She can continue to apply lotion twice daily. She should wait 30 minutes in between lotion and Mometasone application. We will have our front end web developer reach out and see if her appointment with the nephrology and hypertension clinic can be moved up.She will continue with radiation treatment as planned. She can contact our care team with any questions or concerns. Signed by: Brittney Black R.N. 03/23/2024 3:55 PM CDT I saw and evaluated the patient and participated in the lawson portions of the service. I reviewed thedocumentation of Brittney Black R.N. and agree with the findings and plan. The patient appears well on exam though she is tearful because of concern over her high blood pressure. I offered reassurance and discussed symptoms of headache, stroke, or chest pain that would require emergency attention. She verbalized understanding of this. We will see if we can move her appointment up in hypertension clinic. She is tolerating treatment well. She will continue with treatment as planned. Signed by: Milad Nair M.D. 03/25/2024 10:33 PM CDT [facility] [address] [place] [address] documented in this encounter Plan of Treatment Upcoming Encounters Date Type Department Care Team (Late st Contact Info) Description 06/01/2024 10:00 AM CDT Nurse Only Division of Nephrology and Hypertension in [place], [place] [address] [place] [phone] Lyric Isaacs M.D., Ph.D. [address] [place] [phone] Lyric Briones R.NPhoenix 07/01/2024 3:45 PM CDT Clinical Communication Virtual Review in [place], [place] 200 [place] [address] 07/05/2024 8:30 AM CDT Appointment Department of Radiology, [facility], in [place], [place] [address] [place] [phone] Connor Bermudez M.D., M.S. 07/05/2024 9:00 AM CDT Lab Department of Laboratory Medicine and Pathology, [facility], in [place], [place] [address] [place] [address] Connor Bermudez M.D., M.S. 07/05/2024 2:00 PM CDT Office Visit Division of Hematology in [place], [place] [address] [place] [address] Keyla Willoughby M.B.B.S. 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
--- OUTSIDE RECORDS SUMMARY | 2024-05-25 10:53 | XMS_ITS | Encounter Summary ---
Author Organization [facility] Address [address] [place] [address] Care Team Providers Care Purchasing Director Name Role Phone Elsewhere, Pcp Primary Care Provider Unavailabl e Reason for Visit * Reason Onset Date Comments Order Request 03/18/2024 Encounter Details Date Type Department Care Team (Late st Contact Info) Description 03/18/2024 Clinical Communication Division of Hematology in [place], [place] [address] [place] [address] Connor Bermudez M.D., M.S. Order Request Social History Tobacco Use Types Packs/Day Years [...] any clubs o r organizations such as episcopalian groups, unions, fraternal or athletic groups, or [...] and heating? Not hard at all 08/27/2023 [facility] [place] of Occupat ional Health - Occupational Stress [...] your living situation today? I have a [facility] place to live 08/27/2023 Education Answer [...] Only Division of Nephrology and Hypertension in [place], [place] [address] [place] [phone] Lyric Isaacs M.D., Ph.D. [address] [place] [phone] Lyric Briones L, R.N. 07/01/2024 3:45 PM CDT Clinical Communication Virtual Review in [place], [place] 200 [place] [address] 07/05/2024 8:30 AM CDT Appointment Department of Radiology, [facility], in [place], [place] [address] [place] [phone] Connor Bermudez M.D., M.S. 07/05/2024 9:00 AM CDT Lab Department of Laboratory Medicine and Pathology, [facility], in [place], [place] [address] [place] [phone] Connor Bermudez M.D., M.S. 07/05/2024 2:00 PM CDT Office Visit Division of Hematology in [place], [place] [address] [place] [address] Keyla Willoughby M.B.B.S. [address] [place] [address] documented as of this encounter Visit Diagnoses Not on filedocumented in this encounter Additional Health Concerns Infection Onset Date Last Indicated Resolved Time Protective Environment 04/07/2023 04/07/2023 documented as of this encounter Care Teams Purchasing Director Relationship Specialty Start Date End Date Elsewhere, Pcp PCP - General Internal Medicine 10/05/23 documented as of this encounter
--- OUTSIDE RECORDS SUMMARY | 2024-05-25 10:54 | XMS_ITS | Encounter Summary ---
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 [address] [place] [phone] [facility] Region Referral ID Status Reason Start Date Expiration Date Visits Re quested Visits Authorized [id number] Closed 03/01/2024 03/01/2025 1 1 Encounter Details Date Type Department Care Team (Latest Contact Info) Description 03/03/2024 2:00 PM CDT - 03/10/2024 11:21 AM CDT Hospital Encounter Department of Radiation Oncology in [place], [place] [address] [place] [phone] Milad Nair M.D. [address] [place] [phone] Brittney Black R.N. [address] [place] [phone] Nodular Lymphocyte Predominant Hodgkin Lymphoma Extranodal And [...] and heating? Not hard at all 08/27/2023 [facility] of Occupat ional Health [...] your living situation today? I have a [facility] place to live 08/27/2023 Education Answer Date [...] as of this encounter Progress Notes * Brittney Black R.N. - 03/03/2024 2:00 PM CDT Has patient received IV contrast in the past? Yes History of adverse reaction to the contrast? no History of heart problems (CHF)? No History of kidney problems (current or history of dialysis, single kidney, kidney transplant)? no History of asthma? Yes Current inhaler use? yes-Albuterol as needed Lung assessment. clear to auscultation History of diabetes? No Taking Metformin? no If yes, written instructions given: Instructions for taking metformin after an injection of iodinated contrast material, [id number] Lab Results Component Value Date CREATININE EGFR 0.9 70 03/03/24 03/03/24 Central Line: No Procedural pause conducted by RN and RTT staff to verify: correct patient identity, correct IV contrast protocol and delay time Patient tolerated the procedure well. Discharge instructions were given. Patient was provided with a bottle of water and instructed to increased hydration over the next 24-36 hours. documented in this encounter Plan of Treatment Upcoming Encounters Date Type Department Care Team (Late st Contact Info) Description 06/01/2024 10:00 AM CDT Nurse Only Division of Nephrology and Hypertension in [place], [place] [address] [place] [address] Lyric Isaacs M.D., Ph.D. [address] [place] [address] Lyric Briones, RPhoenixNPhoenix 07/01/2024 3:45 PM CDT Clinical Communication Virtual Review in [place], [place] 200 [place] [address] 07/05/2024 8:30 AM CDT Appointment Department of Radiology, [facility], [place], [place] [address] [place] [phone] Connor Bermudez M.D., M.S. 07/05/2024 9:00 AM CDT Lab Department of Laboratory Medicine and Pathology, [place], [place] [address] [place] [phone] Connor Bermudez M.D., M.S. 07/05/2024 2:00 PM CDT Office Visit Division of Hematology in [address] [phone] Keyla Willoughby M.B.B.S. 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 Given 03/03/2024 3:05 PM CDT 10 mL Given 03/03/2024 2:55 PM CDT 10 mL documented in this encounter Additional Health Concerns Infection Onset Date Last Indicated Resolved Time Protective Environment 04/07/2023 04/07/2023 documented as of this encounter Care Teams Room Manager Relationship Specialty Start Date End Date Elsewhere, Pcp PCP - General Internal Medicine 10/05/23 documented as of this encounter
--- OUTSIDE RECORDS SUMMARY | 2024-05-25 10:54 | XMS_ITS | Encounter Summary ---
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 [address] [place] [address] [facility] Region Referral ID Status Reason Start Date Expiration Date Visits Re quested Visits Authorized [id number] Closed 03/01/2024 03/01/2025 1 1 Encounter Details Date Type Department Care Team (Latest Contact Info) Description 03/03/2024 2:30 PM CDT - 03/09/2024 12:14 PM CDT Hospital Encounter Department of Radiation Oncology in [address] [place] [address] Milad Nair M.D. 200 [place] [address] Nodular Lymphocyte Predominant Hodgkin Lymphoma Extranodal And [...] often do you attend [facility] or bahai services? Never 06/23/2022 Do you belong to [...] and heating? 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 Authorized by: Milad Nair M.D. Simulation was performed under physician supervision based on physician order in preparation for radiation therapy. Physician was immediately available to provide assistance and direction throughout the procedure. Written consent for treatment was completed or confirmed. The patient was appropriately identified and placed in the treatment position using the necessary immobilization to ensure a reproducible treatment position. Reference jackson were placed to facilitate marking of isocenter. Area scanned:Chest Contrast used for the simulation procedure: IV Patient position:head first supine and arms up Custom immobilization: Vac-nigel Motion management: None Bolus: No CT guidance: Following positioning of the patient, a series of slices was obtained to be utilized in treatment planning. CT images were transferred to the Eclipse treatment planning system, after a reference isocenter was determined and marked. Segmentation and treatment planning will take place prior to treatment delivery. Patient set up and imaging was appropriate and completed without incident. Director Park use:No Associated attestation - Milad Nair M.D. - 03/09/2024 12:14 PM CDT I was available for the entirety of the procedure but only present for image review. Signed by: Milad Nair M.D. 03/09/24 12:14 PM CDT [facility] [place] documented in this encounter Plan of Treatment Upcoming Encounters Date Type Department Care Team (Late st Contact Info) Description 06/01/2024 10:00 AM CDT Nurse Only Division of Nephrology and Hypertension in [address] [phone] Lyric Isaacs M.D., Ph.D. [address] [place] [phone] Lyric Briones L, R.N. 07/01/2024 3:45 PM CDT Clinical Communication Virtual Review in [place], [place] 200 [place] [phone] 07/05/2024 8:30 AM CDT Appointment Department of Radiology, [facility], in [place], [place] [address] [place] [phone] Connor Bermudez M.D., M.S. 07/05/2024 9:00 AM CDT Lab Department of Laboratory Medicine and Pathology, [facility], in [address] [phone] Connor Bermudez M.D., M.S. 07/05/2024 2:00 PM CDT Office Visit Division of Hematology in [place], [place] [address] [place] [address] Keyla Willoughby M.B.B.S. 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 03/03/2024 ??2:50 PM Initial Rad Onc Treatment Planning CT Simulation Performed by: Milad Nair M.D. Authorized by: Milad Nair M.D. ?? Milad Nair M.D. 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
--- OUTSIDE RECORDS SUMMARY | 2024-05-25 10:54 | XMS_ITS | Encounter Summary ---
Author Organization [facility] Address [address] [place] [address] Care Team Providers Care Heavy Truck Technician Name Role Phone Elsewhere, Pcp Primary Care Provider Unavailabl e Encounter Details Date Type Department Care Team (Latest Contact Info) Description 03/15/2024 8:44 AM CDT - 03/15/2024 11:59 PM CDT Hospital Encounter Department of Radiation Oncology in [place], [place] [address] [place] [phone] Milad Nair M.D. [address] [place] [address] Discharge Disposition: Home or Self Care Social [...] often do you attend chur ch or jainism services? Never 06/23/2022 Do you belong to [...] all 08/27/2023 [facility] of Occupat ional [...] your living situation today? I have a [facility] place to live 08/27/2023 Education Answer [...] Only Division of Nephrology and Hypertension in [place], [place] [address] [place] [phone] Lyric Isaacs M.D., Ph.D. [address] [place] [phone] Lyric Briones, R.NPhoenix 07/01/2024 3:45 PM CDT Clinical Communication Virtual Review in [place], [place] 200 [place] [phone] 07/05/2024 8:30 AM CDT Appointment Department of Radiology, [place], [place] [address] [place] [phone] Connor Bermudez M.D., M.S. 07/05/2024 9:00 AM CDT Lab Department of Laboratory Medicine and Pathology, [facility] in [address] [phone] Connor Bermudez M.D., M.S. 07/05/2024 2:00 PM CDT Office Visit Division of Hematology in [address] [phone] Keyla Willoughby M.B.B.S. [address] [place] [phone] documented as of this encounter Visit Diagnoses Not on filedocumented in this encounter Additional Health Concerns Infection Onset Date Last Indicated Resolved Time Protective Environment 04/07/2023 04/07/2023 documented as of this encounter Care Teams Heavy Truck Technician Relationship Specialty Start Date End Date Elsewhere, Pcp PCP - General Internal Medicine 10/05/23 documented as of this encounter
--- OUTSIDE RECORDS SUMMARY | 2024-05-25 10:54 | XMS_ITS | Encounter Summary ---
Author Organization [facility] Address [address] [place] [address] Care Team Providers Care Welder First Class Name Role Phone Elsewhere, Pcp Primary Care Provider Unavailabl e Reason for Referral * Outpatient (Routine) - Closed Specialty Diagnoses / Procedures Referred By Luigi kumar Referred To Contact Hematology Oncology Connor Bermudez M.D., M.S. [facility] Referral ID Status Reason Start Date Expiration Date Visits Re quested Visits Authorized [id number] Closed 04/04/2024 10/04/2025 1 1 Scheduling Instructions Please let my schedule on 05/03 * Outpatient (Routine) - Authorized Specialty Diagnoses / Procedures Referred By Luigi kumar Referred To Contact Hematology Oncology Connor Bermudez M.D., M.S. 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 [facility] Referral ID Status Reason Start Date Expiration Date V isits Requested Visits Authorized [id number] Authorized 04/04/2024 04/04/2025 1 1 * Outpatient (Routine) - Closed Specialty Diagnoses / Procedures Referred By Luigi kumar Referred To Contact Diagnoses Hypertension Essential Primary Procedures ECG 12 Lead Connor Bermudez M.D., M.S. [facility] Referral ID Status Reason Start Date Expiration Date Visits Re quested Visits Authorized [id number] Closed 03/15/2024 03/15/2025 1 1 Reason for Visit * Outpatient (Routine) - Closed Specialty Diagnoses / Procedures Referred By Luigi kumar Referred To Contact Hematology Oncology Connor Bermudez M.D., M.S. [facility] Referral ID Status Reason Start Date Expiration Date Visits Re quested Visits Authorized [id number] Closed 02/24/2024 08/25/2025 1 1 Encounter Details Date Type Department Care Team (Late st Contact Info) Description 03/15/2024 11:00 AM CDT Virtual Visit Department of Oncology in [place], [place] [address] [place] [address] Connor Bermudez M.D., M.S. 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 Not hard at all 08/27/2023 [facility] - Occupational [...] your living situation today? I have a [facility] place to live 08/27/2023 Education Answer [...] as of this encounter Progress Notes * Connor Bermudez M.D., M.S. - 03/15/2024 11:00 AM CDT Images from the original note were not included. [facility] - Hematology SUBJECTIVE PRIMARY CARE PHYSICIAN ELSEWHERE, PCP PRIMARY MANVEL ELECTROPLATER Primary relationship consultant: Dr. Croft Primary fellow: Dr. Bermudez [...] biopsy, which may or may not be compliance representative of the entire lymph node, is entirely diffuse (Fan pattern E; see PMID [id number]). 03/14/2024 - Radiation Therapy Radiation Therapy Treatment Details (Noted on 03/01/2024) Site: Axillary lymph node Technique: No technique specified Goal: Palliative Planned Treatment Start Date: 03/14/2024 The following portions of the patient's history were reviewed and updated as appropriate: allergies, current medications, family history, medical history, social history, surgical history, and problem list. 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 Her also drives a [...] Skin, Eyes, Cardiovascular, Hematologic OBJECTIVE PHYSICAL EXAMINATION Virtual visit LABORATORY DATA Lab data reviewed. RADIOLOGICAL DATA [...] and spleen. She has no evidence of HOTEL ASSOCIATE disease either on MRI or on CSF [...] to her isolated an indolent disease, we would like to refer her to Radiation Oncology for possible ISRT. 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 The growth pattern present in the biopsy, which may or may not be compliance representative of the entire lymph node, is entirely diffuse (Fan pattern E; see PMID [id number]). Immunohistochemical stains were performed on block A1 (CD3, CD20, IgD, OCT2, PAX High blood pressure, SBP 190 - 209, on 5x cardiac-active anti-hypertensive medications. Seeing a community plush brusher, patient would like to transition her hypertension care to [place]. Should be seenwithin the next two weeks. Order placed for Nephrology. Updates: Patient has had significantly high blood pressure Started radiation therapy Plan summary In person visit in April for a check up prior to PET CT Consult to [facility] nephrology Roger hawthorne PET-CT restaging scans and office visit 3 months from the completion of her radiation therapy (approximately 07/02/2024) PATIENT EDUCATION Ready to learn, no apparent learning barriers were identified; learning preferences include listening. Explained diagnosis and treatment plan; patient expressed understanding of the content. ADMINISTRATIVE BILLING I personally spent 25 minutes in care of the patient today. Time includes both non face to face andface to face patient care. documented in this encounter Plan of Treatment Upcoming Encounters Date Type Department Care Team (Late st Contact Info) Description 06/01/2024 10:00 AM CDT Nurse Only Division of Nephrology and Hypertension in [place], [place] [address] [place] [address] Lyric Isaacs M.D., Ph.D. [address] [place] [address] Lyric Briones L, R.N. 07/01/2024 3:45 PM CDT Clinical Communication Virtual Review in [place], [place] [address] [place] [address] 07/05/2024 8:30 AM CDT Appointment Department of Radiology, [place], [place] [address] [place] [phone] Connor Bermudez M.D., M.S. 07/05/2024 9:00 AM CDT Lab Department of Laboratory Medicine and Pathology, [facility] in [place], [place] [address] [place] [phone] Connor Bermudez M.D., M.S. 07/05/2024 2:00 PM CDT Office Visit Division of Hematology in [address] [phone] Keyla Willoughby M.B.B.S. 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) Expected: 07/05/2024, Expires: 07/05/2025 Scheduled Referrals Name Type Priority Associated Diagnoses Order Schedule Hematology office visit (clinic) [place]; Lymphoma; General Outpatient Referral Routine Expected: 07/05/2024, Expires: 07/05/2025 Hematology office visit (clinic) [place]; Lymphoma; General Outpatient Referral Routine Expected: 05/03/2024, Expires: 07/05/2025 documented as of this encounter Results * ECG 12 Lead (03/18/2024 1:23 PM CDT) Ventricular Rate ECG/Min 65 BPM MUSE [place] Interval 212 ms MUSE QRSD Interval 98 ms MUSE QT Interval 400 ms MUSE QTC Interval 416 ms MUSE P [place] 55 degrees MUSE R [place] -4 degrees MUSE T Wave [place] -6 degrees MUSE 03/18/2024 1:23 PM CDT [...] Bermudez M.D., M.S. 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
--- OUTSIDE RECORDS SUMMARY | 2024-05-25 10:54 | XMS_ITS | Encounter Summary ---
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 [address] [place] [address] 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 [facility] Referral ID Status Reason Start Date Expiration Date Visits Re quested Visits Authorized [id number] Closed 02/10/2024 08/11/2025 1 1 Encounter Details Date Type Department Care Team (Latest Contact Info) Description 03/03/2024 12:39 PM CDT - 03/09/2024 12:13 PM CDT Hospital Encounter Department of Radiation Oncology in [place], [place] [address] [place] [address] Milad Nair M.D. [address] [place] [address] Nodular Lymphocyte Predominant Hodgkin Lymphoma Extranodal And [...] How often do you attend [facility] or orthodoxy services? Never 06/23/2022 Do [...] heating? Not hard at all 08/27/2023 [facility] [place] [facility] - Occupational [...] your living situation today? I have a [facility] place to live 08/27/2023 Education Answer Date [...] Sign Reading Time Taken Comments Blood Pressure 156/94 03/03/2024 12:53 PM CDT Pulse 84 03/03/2024 12:53 PM CDT Temperature 35.9 ??C (96.7 ??F) 03/03/2024 12:53 PM C DT Respiratory Rate - - Oxygen Saturation - - Inhaled Oxygen Concentration - - Weight 102 kg (225 lb 12 oz) 03/03/2024 12:53 PM CDT Height - - Body Mass Index 38.31 02/09/2024 10:42 AM CDT documented in this [...] 12/23/2022 04/11/2024 documented as of this encounter Consult Notes * Anisha Bashir M.D. - 03/03/2024 1:00 PM CDT RADIATION ONCOLOGY CONSULTATION Supervising Bending Roll Operator: Dr. Milad Nair REQUESTING PROVIDER Connor Bermudez M.D., M.S. 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 Lara is 68 y.o. and resides in [place] with pertinent medical history including DVT and mild cognitive changes. 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 Oncology History Nodular Lymphocyte Predominant Hodgkin Lymphoma [...] biopsy, which may or may not be outside sales account representative of the entire lymph node, is entirely diffuse (Fan pattern E; see PMID [id number]). 03/14/2024 - Radiation Therapy Radiation Therapy Treatment Details (Noted on 03/01/2024) Site: Axillary lymph node Technique: No technique specified Goal: Palliative Planned Treatment Start Date: 03/14/2024 Today: Ms. Lara is doing quite well. She notes pain in the right axilla which radiates into the lateral aspect of her right chest. This is not necessarily worse with any certain movement, and she denies any restricted range of motion in the right arm. The pain is managed with Tylenol, which does provide relief. Ms. Lara denies fevers or weight loss. She does occasionally sweat at night but this is never bad enough to change clothes or sheets. Ms. Lara had three successive respiratory infections in November; influenza, COVID, and RSV. This affected her energy level and breathing for some time, but she feels that she has finally made a near-complete recovery. The patient describes an occasional lingering cough (mostly at night) but denies any dyspnea with exertion or changes in her breathing. Fatigue: /10 Pain: /10 (mainly joint pain) Overall QOL: /10 REVIEW OF SYSTEMS Review of systems as noted in HPI. Medications, Allergies, Pertinent Past Medical History, Past Surgical History, Social History, and Family History were reviewed. Pertinent findings are as follows: - Never smoker, does not drink - Mother in June of last year which has been a challenging adjustment for the family PRIOR RADIOTHERAPY: None OTHER PREVIOUS CANCER TREATMENT: Rituximab for stage IV disease in [id number] PACEMAKER: No OBJECTIVE BP (!) 156/94 (BP Location: Right arm, Patient Position: Sitting, Cuff Size: Regular) Pulse 84 Temp (!) 35.9 ??C (Temporal) Wt 102 kg BMI 38.31 kg/m?? PHYSICAL EXAMINATION ECOG score: 0 - Fully active, able to carry on all pre-disease performance without restriction General: Well-appearing, in no acute distress. Head: Normocephalic, atraumatic Axilla: No palpable lymphadenopathy. Lungs: Normal work of breathing on room air. Skin: Warm, dry Neuro: Alert and oriented. Psychiatric: Euthymic mood and appropriate affect. Extremities: No significant edema RECENT IMAGING, independently reviewed: 04 January 2024: PET/CT: IMPRESSION: Findings for recurrent FDG avid right axillary ludy lymphoma, Deauville score 5. ASSESSMENT / PLAN #Nodular lymphocyte predominant B-cell lymphoma Ms. Lara is a 68 y.o. patient with NLP B-cell lymphoma, presenting today accompanied by her and daughter to discuss radiation therapy. We reviewed the pertinent clinical and pathologic features of the disease, including the fact that this is recurrent disease, and although radiation has ve ry high local control rates, it is possible that lymphoma may show up in another part of her body, necessitating more treatment. In this setting, we recommend utilizing radiation for this isolated recurrence, to a dose of 4005 cGy in 15 fractions. We discussed the logistics of radiation simulation, planning, and daily treatment. For simulation, we plan to utilize IV contrast. We also reviewed the acute toxicities associated with radiation treatment including, but not limited to fatigue, radiation skin changes, and associated discomfort. The patient will also likely lose the hair under her arm. The risk of late toxicities and expected long-term oncologic outcomes were also discussed, including shoulder stiffness, an small chance of arm swelling or lymphedema, and <11/999 risk of secondary malignancy at 10 years post-treatment. Ms. Lara asked several excellent questions which we discussed. She expressed understanding of theobjective of radiation therapy, the potential acute and chronic toxicities, and the radiation planning and delivery process. Ms Lara expressed her wish to go forward with radiation simulation today. The patient will meet the rest of our radiation oncology team as she progresses through simulation, treatments, and weekly management visits. Patient seen for the service of Dr. Milad Nair. PLAN - Simulation scan today - Plan to start Wednesday 03/14 - Plan for 4005 cGy in 15 fractions Signed: Anisha Bashir MD Resident Physician Department of Radiation Oncology Please don't hesitate to contact me with questions or discussion! Text Pager: [phone] Associated attestation - Milad Nair M.D. - 03/09/2024 12:12 PM CDT I saw and evaluated the patient and participated in the lawson portions of the service. I reviewed thedocumentation of Anisha Bashir M.D. and agree with the findings and plan. Ms. Jaky Lara is a 68 y.o. female who was diagnosed with stage IV nodular lymphocyte-predominant B-cell lymphoma with a right axillary core needle biopsy on April 29, 2022. She was treated with 8 cycles of rituximab achieving a PET complete response on July 17, 2023. She had biopsy-proven recurrence in the right axilla on January 28, 2024 with no other sites of active disease. We are askedby Dr. Bermudez to evaluate the patient for radiotherapy. Hematologic history is well detailed in 's note. The patient reports that she is feeling well though she does have pain in her right axilla that radiates to her right chest. She has no B symptoms. Her ECOG performance status is 1. The patient appears well. Her exam is as per Dr. Bashir's note. I reviewed the patient's pathology reports and imaging. ASSESSMENT / PLAN #1 Stage IV nodular [...] on PET/CT scan on January 04, 2024 I had a detailed discussion with the patient regarding the risks, benefits, and alternatives of salvage radiotherapy in this setting. I recommend treatment to the right axilla to a dose of 4005 cGy in 15 fractions with a likely simultaneous integrated boost to a dose of 4500 cGy in 15 fractions. Intensity modulated radiotherapy will be utilized so as to spare high radiation dose to the adjacent brachial plexus, thyroid gland, and lungs. We reviewed the acute and chronic side effects of treatment in detail. For a complete listing of these, please see Dr. Bashir's note. We provided the patient with a written summary of our recommendations. The patient's questions were answered to her verbalized satisfaction. She stated that she would like to proceed with treatment and signed the consent form. She will undergo CT simulation with IV contrast. We will endeavor to begin treatment on Thursday, March 14, 2024. She verbalized satisfaction with this plan. My thanks to Luis Armando Harper, and Guido for the opportunity to participate this patient's care. I have spent 60 minutes caring for this patient including tdsw-eo-srva and ngi-mley-yb-face time. Signed by: Milad Nair M.D. 03/09/2024 12:11 PM CDT [facility] [address] [place] [address] documented in this encounter Miscellaneous Notes * Addendum Note - Rosalba Crocker, C.N.A. - 03/03/2024 1:00 PM CDTEncounter addended by: Rosalba Crocker, C.N.A. on: 03/09/2024 1:10 PM Actions taken: Letter saved documented in this encounter Plan of Treatment Upcoming Encounters Date Type Department Care Team (Late st Contact Info) Description 06/01/2024 10:00 AM CDT Nurse Only Division of Nephrology and Hypertension in [place], [place] [address] [place] [phone] Lyric Isaacs M.D., Ph.D. [address] [place] [address] Lyric Briones L, R.N. 07/01/2024 3:45 PM CDT Clinical Communication Virtual Review in [place], [place] [address] [place] [address] 07/05/2024 8:30 AM CDT Appointment Department of Radiology, [facility], in [place], [place] [address] [place] [phone] Connor Bermudez M.D., M.S. 07/05/2024 9:00 AM CDT Lab Department of Laboratory Medicine and Pathology, [facility] in [place], [place] [address] [place] [phone] Connor Bermudez M.D., M.S. 07/05/2024 2:00 PM CDT Office Visit Division of Hematology in [place], [place] [address] [place] [phone] Keyla Willoughby M.B.B.S. 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
--- OUTSIDE RECORDS SUMMARY | 2024-05-25 10:54 | XMS_ITS | Encounter Summary ---
Author Organization [facility] Address [address] [place] [address] Care Team Providers Care Horticultural Specialty Grower Field Name Role Phone Elsewhere, Pcp Primary Care Provider Unavailabl e Encounter Details Date Type Department Care Team (Latest Contact Info) Description 03/14/2024 9:03 AM CDT - 03/14/2024 11:59 PM CDT Hospital Encounter Department of Radiation Oncology in [place], [place] [address] [place] [phone] Milad Nair M.D. [address] [place] [address] Discharge Disposition: Home or Self Care Social [...] often do you attend chur ch or latter day services? Never 06/23/2022 Do you belong to any clubs o r organizations such as methodist groups, unions, fraternal or athletic groups, or [...] your living situation today? I have a [facility] place to live 08/27/2023 Education Answer [...] Only Division of Nephrology and Hypertension in [place], [place] [address] [place] [phone] Lyric Isaacs M.D., Ph.D. [address] [place] [phone] Lyric Briones, R.NPhoenix 07/01/2024 3:45 PM CDT Clinical Communication Virtual Review in [place], [place] [address] [place] [address] 07/05/2024 8:30 AM CDT Appointment Department of Radiology, [place], [place] [address] [place] [phone] Connor Bermudez M.D., M.S. 07/05/2024 9:00 AM CDT Lab Department of Laboratory Medicine and Pathology, [facility] in [address] [phone] Connor Bermudez M.D., M.S. 07/05/2024 2:00 PM CDT Office Visit Division of Hematology in [address] [phone] Keyla Willoughby M.B.B.S. [address] [place] [phone] documented as of this encounter Visit Diagnoses Not on filedocumented in this encounter Additional Health Concerns Infection Onset Date Last Indicated Resolved Time Protective Environment 04/07/2023 04/07/2023 documented as of this encounter Care Teams Horticultural Specialty Grower Field Relationship Specialty Start Date End Date Elsewhere, Pcp PCP - General Internal Medicine 10/05/23 documented as of this encounter
--- OUTSIDE RECORDS SUMMARY | 2024-05-25 10:54 | XMS_ITS | Clinical Summary ---
Author Organization [facility] Address [place], [place] [address] Care Team Providers Care Enterprise Systems Manager Name Role Phone Haseeb Durán MD Primary [...] daily 0 05/21/2015 Active vit A,C & Z-bxvcjf-rghpzfmg (OCUVITE WITH LUTEIN) 1,000 unit-200 mg-60 unit-2 [...] mg tablet Take 300 mg by mouth. 06/24/2022 Active Biotin 1 mg tablet Take by mouth. Ac tive celecoxib (CELEBREX) 100 mg capsule Take 100 mg by mouth. 03/23/2022 Active Xarelto 20 mg tablet TAKE ONE TABLET BY MOUTH EVERY DAY. MUST ADMINISTER WITH EVENING MEAL. 11/14/2022 Active LORazepam (ATIVAN) 0.5 mg tab one time if needed. 05/30/2022 Activ e nystatin-triamcinolo ne (MYCOLOG) cream APPLY TOPICALLY TWICE A DAY. 09/25/2022 Active ondansetron (ZOFRAN ODT) 4 mg disintegrating tablet 09/19/2022 Active oxyCODONE-acetaminop hen (PERCOCET) 5-325 mg per tablet TAKE 1/2 TO 1 TABLET BY MOUTH EVERY 6 TO 8 HOURS NEEDED. MAX DOSE: 6/DAY. WEAN TOLERATED 02/14/2022 Active HYDROcodone-acetamin ophen ([place]) 5-325 mg per tabletIndications:Po st-traumatic osteoarthritis of right knee Take 1 Tablet by mouth 3 times daily if needed for Pain. Max acetaminophen dose: 4000mg in 24 hrs. 18 Tablet 03/05/2023 Active Active Problems Problem Noted Date [...] 45-75 04/20/2016 04/20/20 15 (Completed outside of [facility]), 01/13/2013, 01/11/2013, Additional history exists Lipids for age 45-75 04/20/2020 04/20/2015, 12/22/2011, 11/28/2010, Additional history exists Colonoscopy through age 75 08/02/2020 08/02/2010, DEXA/DXA scan for age 65+ 2021 Medicare Wellness for age 65+ 2021 Pneumococcal series for age 65+ (1 of 1 - PCV) 2021 Tetanus booster 06/18/2022 06/18/2012, 05/06/2006, 06/20/2004 COVID-19 vaccine series ( - 2022-24 season) 2023 03/24/2022, 10/28/2021, 01/23/2021, Additional history exists Influenza for age 65+ 07/17/2024 08/04/2022 , 09/02/2021, 09/13/2020, Additional history exists Tdap Completed 06/18/2012, 03/23/2006 Procedures Procedure Name Priority Date/Time Associated Diagnosis Comments LIPID PANEL Routine 04/20/2015 Screening cholesterol level SCAN-MAMMOGRAPHY REPORT 01/13/2013 12:00 AM DIRECTOR OF DESIGN from Last 3 Months or Most Recently Relevant to Health Maintenance Results * (ABNORMAL) LIPID PANEL (04/20/2015) CHOLESTEROL,TOTAL 220(A) 200 mg/dL [facility] TRIGLYCERIDES 152(A) 150 mg/dL [facility] HDL CHOLESTEROL 51(A) 40 mg/dL [facility] LDL CHOLESTEROL 139(EXTER NAL) 130 mg/dL [facility] Blood specimen (specimen) BLOOD SPECIMEN / Unknown 04/20/2015 Mylene Clifford DO CHEMISTRY [facility] [address] [place] [address] * SCAN-MAMMOGRAPHY REPORT (01/13/2013 12:00 AM DIRECTOR OF DESIGN) Anatomical Region Laterality Modality Other Narrative 01/13/2013 7:00 PM DIRECTOR OF DESIGN Procedure Note Scanner - 01/13/2013 12:00 AM CST Scanner OTHER from Last 3 Months or Most Recently Relevant to Health Maintenance Care Teams Enterprise Systems Manager Relationship Specialty Start Date End Date Haseeb Durán MD [address] [id number] PCP - General Family Practice 05/12/22
--- OUTSIDE RECORDS SUMMARY | 2024-05-25 10:54 | XMS_ITS | Encounter Summary ---
Author Organization [facility] Address [address] [place] [address] Care Team Providers Care Manager Of Health Name Role Phone Elsewhere, Pcp Primary Care Provider Unavailabl e Reason for Referral * Outpatient (Routine) - Closed Specialty Diagnoses / Procedures Referred By Luigi kumar Referred To Contact Hematology Oncology Connor Bermudez M.D., M.S. [facility] Referral ID Status Reason Start Date Expiration Date Visits Re quested Visits Authorized [id number] Closed 02/24/2024 08/25/2025 1 1 Encounter Details Date Type Department Care Team (Late st Contact Info) Description 02/24/2024 Orders Only Division of Hematology in [place], [place] [address] [place] [address] Connor Bermudez M.D., M.S. Social History Tobacco Use Types Packs/Day Years [...] often do you attend chur ch or quaker services? Never 06/23/2022 Do you belong to any clubs o r organizations such as confucianist groups, unions, fraternal or athletic groups, or [...] all 08/27/2023 [facility] - Occupational Stress Questionnaire Answer Date [...] Only Division of Nephrology and Hypertension in [place], [place] [address] [place] [phone] Lyric Isaacs M.D., Ph.D. [address] [place] [phone] Lyric Briones, R.N. 07/01/2024 3:45 PM CDT Clinical Communication Virtual Review in [place], [place] 200 [place] [address] 07/05/2024 8:30 AM CDT Appointment Department of Radiology, [facility], in [place], [place] [address] [place] [address] Connor Bermudez M.D., M.S. 07/05/2024 9:00 AM CDT Lab Department of Laboratory Medicine and Pathology, [facility], in [place], [place] [address] [place] [address] Connor Bermudez M.D., M.S. 07/05/2024 2:00 PM CDT Office Visit Division of Hematology in [place], [place] [address] [place] [address] Keyla Willoughby M.B.B.S. [address] [place] [address] Scheduled Referrals Name Type Priority Associated Diagnoses Order Schedule Hematology office visit (clinic) [place] [facility]; Lymphoma; General Outpatient Referral Routine Expected: 03/15/2024, Expires: 05/25/2025 documented as of this encounter Visit Diagnoses Not on filedocumented in this encounter Additional Health Concerns Infection Onset Date Last Indicated Resolved Time Protective Environment 04/07/2023 04/07/2023 documented as of this encounter Care Teams Manager Of Health Relationship Specialty Start Date End Date Elsewhere, Pcp PCP - General Internal Medicine 10/05/23 documented as of this encounter
--- OUTSIDE RECORDS SUMMARY | 2024-05-25 10:54 | XMS_ITS | Encounter Summary ---
Author Organization [facility] Address [address] [place] [address] Care Team Providers Care Hairspring Ii Inspector Name Role Phone Elsewhere, Pcp Primary Care Provider Unavailabl e Encounter Details Date Type Department Care Team (Late st Contact Info) Description 03/17/2024 Orders Only Department of Oncology in [place], [place] [address] [place] [address] Connor Bermudez M.D., M.S. Hypertension Essential Primary (Primary Dx) Social History Tobacco Use Types [...] often do you attend chur ch or orthodox services? Never 06/23/2022 Do you belong [...] and heating? Not hard at all 08/27/2023 [facility] ional Health - [...] your living situation today? I have a [facility] place to live 08/27/2023 Education Answer [...] Only Division of Nephrology and Hypertension in [place], [place] [address] [place] [phone] Lyric Isaacs M.D., Ph.D. [address] [place] [phone] Lyric Briones L, R.N. 07/01/2024 3:45 PM CDT Clinical Communication Virtual Review in [place], [place] 200 [place] [address] 07/05/2024 8:30 AM CDT Appointment Department of Radiology, [facility], in [place], [place] [address] [place] [phone] Connor Bermudez M.D., M.S. 07/05/2024 9:00 AM CDT Lab Department of Laboratory Medicine and Pathology, [facility], in [place], [place] [address] [place] [phone] Connor Bermudez M.D., M.S. 07/05/2024 2:00 PM CDT Office Visit Division of Hematology in [place], [place] [address] [place] [address] Keyla Willoughby M.B.B.S. [address] [place] [address] documented as of this encounter Visit Diagnoses Diagnosis Hypertension Essential Primary- Primary documented in this encounter Additional Health Concerns Infection Onset Date Last Indicated Resolved Time Protective Environment 04/07/2023 04/07/2023 documented as of this encounter Care Teams Hairspring Ii Inspector Relationship Specialty Start Date End Date Elsewhere, Pcp PCP - General Internal Medicine 10/05/23 documented as of this encounter
--- OUTSIDE RECORDS SUMMARY | 2024-05-25 10:54 | XMS_ITS | Encounter Summary ---
Author Organization [facility] Address [address] [place] [address] Care Team Providers Care Volunteer Coordinator Name Role Phone Elsewhere, Pcp Primary Care Provider Unavailabl e Reason for Visit * Reason Onset Date Comments Triage 03/15/2024 Encounter Details Date Type Department Care Team (Latest Contact Info) Description 03/15/2024 Clinical Communication Department of Cardiovascular Medicine in [place], [place] [address] [place] [address] Car ShifterLópez M.D. Triage Social History Tobacco Use Types Packs/Day Years [...] and heating? Not hard at all 08/27/2023 [facility] of Occupat ional Health - [...] your living situation today? I have a [facility] place to live 08/27/2023 Education Answer Date [...] Only Division of Nephrology and Hypertension in [place], [place] [address] [place] [phone] Lyric Isaacs M.D., Ph.D. [address] [place] [phone] Lyric Briones L, R.N. 07/01/2024 3:45 PM CDT Clinical Communication Virtual Review in [place], [place] 200 [place] [address] 07/05/2024 8:30 AM CDT Appointment Department of Radiology, [facility], in [place], [place] [address] [place] [phone] Connor Bermudez M.D., M.S. 07/05/2024 9:00 AM CDT Lab Department of Laboratory Medicine and Pathology, [facility], in [place], [place] [address] [place] [phone] Connor Bermudez M.D., M.S. 07/05/2024 2:00 PM CDT Office Visit Division of Hematology in [place], [place] [address] [place] [address] Keyla Willoughby M.B.B.S. [address] [place] [address] documented as of this encounter Visit Diagnoses Not on filedocumented in this encounter Additional Health Concerns Infection Onset Date Last Indicated Resolved Time Protective Environment 04/07/2023 04/07/2023 documented as of this encounter Care Teams Volunteer Coordinator Relationship Specialty Start Date End Date Elsewhere, Pcp PCP - General Internal Medicine 10/05/23 documented as of this encounter
--- OUTSIDE RECORDS SUMMARY | 2024-05-25 10:54 | XMS_ITS | Encounter Summary ---
Author Organization [facility] Address [address] [place] [phone] Care Team Providers Care Lead Case Manager Name Role Phone Elsewhere, Pcp Primary Care Provider Unavailabl e Reason for Referral * Specialty Diagnoses / Procedures Referred By Luigi kumar Referred To Contact Romana Mendoza APRN, C.N.P., D.N.P. 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 [address] [place] [address] [facility] Referral ID Status Reason Start Date Expiration Date Visits Re quested Visits Authorized [id number] Closed 03/01/2024 03/01/2025 1 1 Encounter Details Date Type Department Care Team (Late st Contact Info) Description 03/01/2024 Orders Only Department of Radiation Oncology in [place], [place] [address] [place] [address] Romana Mendoza APRN, C.N.P., D.N.P. [address] [place] [phone] Nodular Lymphocyte Predominant Hodgkin Lymphoma Extranodal And [...] How often do you attend chur or yazdanism services? Never 06/23/2022 Do you [...] your living situation today? I have a [facility] place to live 08/27/2023 Education Answer [...] Only Division of Nephrology and Hypertension in [place], [place] [address] [place] [phone] Lyric Isaacs M.D., Ph.D. [address] [place] [phone] Lyric Briones, R.N. 07/01/2024 3:45 PM CDT Clinical Communication Virtual Review in [place], [place] 200 [place] [address] 07/05/2024 8:30 AM CDT Appointment Department of Radiology, [facility], in [place], [place] [address] [place] [address] Connor Bermudez M.D., M.S. 07/05/2024 9:00 AM CDT Lab Department of Laboratory Medicine and Pathology, [facility], in [place], [place] [address] [place] [address] Connor Bermudez M.D., M.S. 07/05/2024 2:00 PM CDT Office Visit Division of Hematology in [place], [place] [address] [place] [address] Keyla Willoughby M.B.B.S. 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 03/03/2024 ??2:50 PM Initial Rad Onc Treatment Planning CT Simulation Performed by: Milad Nair M.D. Authorized by: Milad Nair M.D. ?? Milad Nair M.D. 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
--- OUTSIDE RECORDS SUMMARY | 2024-05-25 10:54 | XMS_ITS | Encounter Summary ---
Author Organization [facility] Address [address] [place] [address] Care Team Providers Care Chairman Of The Board Name Role Phone Elsewhere, Pcp Primary Care Provider Unavailabl e Encounter Details Date Type Department Care Team (Latest Contact Info) Description 03/17/2024 9:48 AM CDT - 03/17/2024 11:59 PM CDT Hospital Encounter Department of Radiation Oncology in [place], [place] [address] [place] [phone] Milad Nair M.D. [address] [place] [address] Discharge Disposition: Home or Self Care Social [...] often do you attend chur ch or faith services? Never 06/23/2022 Do you belong to [...] your living situation today? I have a [facility] place to live 08/27/2023 Education Answer [...] Only Division of Nephrology and Hypertension in [place], [place] [address] [place] [phone] Lyric Isaacs M.D., Ph.D. [address] [place] [phone] Lyric Briones, R.NPhoenix 07/01/2024 3:45 PM CDT Clinical Communication Virtual Review in [place], [place] [address] [place] [address] 07/05/2024 8:30 AM CDT Appointment Department of Radiology, [place], [place] [address] [place] [phone] Connor Bermudez M.D., M.S. 07/05/2024 9:00 AM CDT Lab Department of Laboratory Medicine and Pathology, [facility] in [address] [phone] Connor Bermudez M.D., M.S. 07/05/2024 2:00 PM CDT Office Visit Division of Hematology in [address] [phone] Keyla Willoughby M.B.B.S. [address] [place] [phone] documented as of this encounter Visit Diagnoses Not on filedocumented in this encounter Additional Health Concerns Infection Onset Date Last Indicated Resolved Time Protective Environment 04/07/2023 04/07/2023 documented as of this encounter Care Teams Chairman Of The Board Relationship Specialty Start Date End Date Elsewhere, Pcp PCP - General Internal Medicine 10/05/23 documented as of this encounter
--- OUTSIDE RECORDS SUMMARY | 2024-05-25 10:54 | XMS_ITS | Encounter Summary ---
Author Organization [facility] Address [address] [place] [address] Care Team Providers Care Employment Services Director Name Role Phone Elsewhere, Pcp Primary Care Provider Unavailabl e Encounter Details Date Type Department Care Team (Latest Contact Info) Description 03/16/2024 10:00 AM CDT - 03/16/2024 11:59 PM CDT Hospital Encounter Department of Radiation Oncology in [place], [place] [address] [place] [phone] Milad Nair M.D. [address] [place] [address] Discharge Disposition: Home or Self Care Social [...] living situation today? I have a [facility] place to live 08/27/2023 Education Answer [...] Only Division of Nephrology and Hypertension in [place], [place] [address] [place] [phone] Lyric Isaacs M.D., Ph.D. [address] [place] [phone] Lyric Briones, R.NPhoenix 07/01/2024 3:45 PM CDT Clinical Communication Virtual Review in [place], [place] 200 [place] [address] 07/05/2024 8:30 AM CDT Appointment Department of Radiology, [place], [place] [address] [place] [phone] Connor Bermudez M.D., M.S. 07/05/2024 9:00 AM CDT Lab Department of Laboratory Medicine and Pathology, [facility] in [address] [phone] Connor Bermudez M.D., M.S. 07/05/2024 2:00 PM CDT Office Visit Division of Hematology in [address] [phone] Keyla Willoughby M.B.B.S. [address] [place] [phone] documented as of this encounter Visit Diagnoses Not on filedocumented in this encounter Additional Health Concerns Infection Onset Date Last Indicated Resolved Time Protective Environment 04/07/2023 04/07/2023 documented as of this encounter Care Teams Employment Services Director Relationship Specialty Start Date End Date Elsewhere, Pcp PCP - General Internal Medicine 10/05/23 documented as of this encounter
--- NOTE | 2024-05-25 11:00 | CRLHL7_ITS ---
For Patients: As a result of the Century Cures Act, medical imaging exams and procedure reports are released immediately into your electronic medical record. You may view this report before your referring provider. If you have questions, please contact your health care provider. INDICATION: Primary hypertension TECHNIQUE: Grayscale, color Doppler and power Doppler evaluation of the kidneys and renal arteries performed. COMPARISON: None available FINDINGS: BILATERAL RENAL ARTERY DUPLEX ULTRASOUND ABDOMINAL AORTA: Peak systolic velocity = 93 cm/s. No aortic aneurysm. RIGHT KIDNEY: 10.4 cm in length. There is no hydronephrosis. 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 Peak systolic velocity 101 cm/second and 106 cm/second. Renal artery to aortic peak systolic velocity ratio = 1.1 Resistive indices: 0.6-0.7 Renal vein = patent LEFT KIDNEY: 10.7 cm in length. There is no hydronephrosis. Peak systolic velocity = 121 cm/second Renal artery to aortic peak systolic velocity ratio = 1.3 Resistive indices: 0.6-0.7 Renal vein = patent IMPRESSION: No evidence of significant renal artery stenosis. Dictated by Haseeb Orlando MD @ 05/26/2024 7:24:58 AM (Electronically Signed)
== END 2024-05-25 10:48 | disposition home or self-care (01) ==
LOC: US 10:48
PROVIDERS: Visit Provider Internal Medicine Nephrology
DX: I10 Essential (primary) hypertension (principal)
CPT/HCPCS: 76775; 93975

== ENCOUNTER 2024-07-13 11:00 | Outpatient (RCR) | payer MEDICARE, BC, SELFPAY | END 2024-11-10 23:59 | disposition home or self-care (01) | PROVIDERS: Visit Provider Family Medicine | DX: Z76.0 Encounter for issue of repeat prescription (principal) ==

== ENCOUNTER 2024-07-14 09:32 | Outpatient (CLI) | payer MEDICARE, BC, SELFPAY | END 2024-07-14 09:33 | disposition home or self-care (01) | LOC: NFLDREF 07-16 14:52 | PROVIDERS: Visit Provider Internal Medicine Nephrology | DX: I10 Essential (primary) hypertension (principal) | CPT/HCPCS: 80069 ==

== ENCOUNTER 2024-09-08 09:30 | Outpatient (RCR) | payer MEDICARE, BC, SELFPAY ==
--- NOTE | 2024-06-22 13:02 | OT.OPLE2 ---
OT Outpatient Lymphedema Eval* OT Outpatient Lymphedema Eval* Start: 06/21/24 15:37 Freq: Status: Active Protocol: Document 06/22/24 07:18 AMB (Rec: 06/22/24 12:59 AMB [id number]) E-signed By Awa Tillman, OTR/L, CLT, RUNNER OUT OT Outpatient Evaluation Details Type Type Eval Complexity Low Insurance Information Insurance Information Insurance Information Medicare B OT OP Lymphedema Evaluation Current Condition/Medical Diagnosis Referring Provider Dr Nair Medical Diagnoses I89.0 Lymphedema RUE Treatment Diagnosis I89.0 Lymphedema RUE Date Of Onset 05/29/22 Medical History Medical History Comments 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 Biopsy- proven right axillary recurrence of nodular lymphocyte-predominant B-Cell lymphoma on 01/28/24 with disease limited to the right axilla on PET/CT scan on . Pt underwent 15 rounds of XRT starting on 03/14/24 (per note from [facility] as pt could not remember when she had her chemo, states she thought she just finished it 3 weeks ago. 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 Biopsy- proven right axillary recurrence of nodular lymphocyte-predominant B-Cell lymphoma on 01/28/24 with disease limited to the right axilla on PET/CT scan on Active Problems (Updated 02/25 @ 11:33 by Haseeb Durán MD) Right knee pain (Acute) M25.561 - Pain in right knee ( ICD-10) Primary hypertension (Acute) I10 - Essential (primary) hypertension (ICD-10) Cognitive impairment (Chronic 2022) 11/11/23 Neuropsych testing: Moderate to severe multi- domain impairment. R41.89 - Other symptoms and signs involving cognitive functions and awareness (ICD- 10) Diverticulosis (Chronic) With hx diverticulitis. K57.90 - Diverticulosis of intestine, part unspecified, without perforation or abscess without bleeding (ICD-10) Internal derangement of right knee (Chronic) MRIs show numerous structural pathologies. FRANCISCO longo/ [place] 12/16/22. Ongoing symptoms. M23.91 - Unspecified internal derangement of right knee (ICD -10) Chronic constipation (Acute) K59.09 - Other constipation ( ICD-10) SUDHAKAR on CPAP (Chronic) G47.33 - Obstructive sleep apnea (adult) (pediatric) (ICD -10) Z99.89 - Dependence on other enabling machines and devices (ICD-10) YOLIS (generalized anxiety disorder) (Acute) F41.1 - Generalized anxiety disorder (ICD-10) Major depression, recurrent ( Acute) F33.9 - Major depressive disorder, recurrent, unspecified (ICD-10) External hemorrhoids (Acute) K64.4 - Residual hemorrhoidal skin tags (ICD-10) Osteoarthritis of right knee ( Chronic) severe M17.11 - Unilateral primary osteoarthritis, right knee ( ICD-10) Hypothyroidism (Chronic) E03.9 - Hypothyroidism, unspecified (ICD-10) Hodgkin lymphoma of extranodal or solid organ site (Acute ) nodular lymphocyte-predominant Hodgkin lymphoma C81.99 - Hodgkin lymphoma, unspecified, extranodal and solid organ sites (ICD-10) Obesity (BMI 30-39.9) (Acute) BMI 36.8 E66.9 - Obesity, unspecified ( ICD-10) Medical History (Updated 02/25 @ 11:33 by Haseeb Durán MD) Primary hypertension I10 - Essential (primary) hypertension (ICD-10) Cognitive impairment (2022) R41.89 - Other symptoms and signs involving cognitive functions and awareness (ICD- 10) Internal derangement of right knee M23.91 - Unspecified internal derangement of right knee (ICD -10) Chronic constipation K59.09 - Other constipation ( ICD-10) Pulmonary embolism (09/19/22) I26.99 - Other pulmonary embolism without acute cor pulmonale (ICD-10) YOLIS (generalized anxiety disorder) F41.1 - Generalized anxiety disorder (ICD-10) Major depression, recurrent F33.9 - Major depressive disorder, recurrent, unspecified (ICD-10) External hemorrhoids K64.4 - Residual hemorrhoidal skin tags (ICD-10) Hypothyroidism E03.9 - Hypothyroidism, unspecified (ICD-10) Hodgkin lymphoma of extranodal or solid organ site (04/29/22 ) C81.99 - Hodgkin lymphoma, unspecified, extranodal and solid organ sites (ICD-10) DVT (deep venous thrombosis) ( 2020) I82.409 - Acute embolism and thrombosis of unspecified deep veins of unspecified lower extremity (ICD-10) Obesity (BMI 30-39.9) E66.9 - Obesity, unspecified ( ICD-10) Diverticulosis K57.90 - Diverticulosis of intestine, part unspecified, without perforation or abscess without bleeding (ICD-10) SUDHAKAR on CPAP G47.33 - Obstructive sleep apnea (adult) (pediatric) (ICD -10) Z99.89 - Dependence on other enabling machines and devices (ICD-10) Surgical History Surgical History PSH (copied from medical chart ): Surgical History (Updated @ 10:24 by Vikki Mcdonald) History of endometrial ablation Z98.890 - Other specified postprocedural states (ICD-10) History of lymph node biopsy Z98.890 - Other specified postprocedural states (ICD-10) S/P right knee arthroscopy () Z98.890 - Other specified postprocedural states (ICD-10) Medications Medications (copied from medial chart): - Last Reconciled 02/26/24 by Kaycee Be ~ RMA, RMA albuterol sulfate 90 mcg/ actuation (ProAir HFA) 2 puffs inhalation Q4-6H PRN bupropion HCl (Wellbutrin XL) 300 mg PO QAM [cpap inhalation] duloxetine 60 mg PO QDAY furosemide (Lasix) 40 mg PO QDAY hydrocodone-acetaminophen 5- 325 mg 1 tab PO Q8H PRN hydrocortisone-pramoxine 2.5-1 % 1 applic FL BID PRN levothyroxine 75 mcg PO QDAY lisinopril 40 mg PO BID lorazepam 1 mg PO BID PRN metoprolol succinate ER 100 mg PO QDAY nystatin-triamcinolone 100,000 -0.1 unit/g-% 1 applic topical BID rivaroxaban (Xarelto) 10 mg PO QDAY sennosides-docusate sodium 8.6 -50 mg (Senna-S) 2 tab-caps (2 x 8.6-50 mg) PO QHS Contraindications Contraindications Comments Active Cancer in Right Axillary LN. 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 However, pt has been through cognitive testing and it was recommended that she not drive, pt does not feel this is a problem, states, I know I'm forgetful, but I don' t ever get lost. Subjective Subjective Pt states she started feeling like she had some swelling in her right armpit and collar bone a few weeks ago, I think , I'm not really sure. Pt states she has pain in her armpit sometimes as well, can be 8/10, today it's not so bad, maybe 3-4/10. Pt stated several times that her memory is bad, she is unable to give solid information in regard to her cancer diagnosis / treatment timeline. Pt stated crying during OT session stating she was so sad that her oncologist is leaving [facility] and that she has to switch doctors, the conversation was unrelated to this, however, pt very emotional and continued to talk about how much she loved her doctor as he would take time to call her to see how she was and explained everything so well. Provided support to pt and recommended that when she meets with her new doctor she shares all of the qualities that she loved about her previous oncologist as she may receive the same or similar care, pt agreeable and thought maybe this would be helpful. Living Situation Current Living Situation Home With Spouse Or SO Problem List Problem List Limited Knowledge of Lymphedema Treatment/Condition /Precautions,Limited Knowledge of Skin Care & Infection Precautions,Significant Risk For Infection For Lymphedema Related Complications,Does Not Have a HEP,Does Not Know How To Bandage For Limb Reduction, Does Not Have Appropriate Compression Garments For LT Management Exercise History Does Patient Exercise Regularly No Pain Pain Yes Pain Comments Pt states she has pain of 8/10 in her right axilla at times, but it's not as bad today. ROM/Strength ROM/Strength Comments AROM of all 4 extremities is WFL throughout, tightness at EROM of right shoulder flexion . Compression History Does Patient Currently Wear Compression No During Daytime Does Patient Currently Wear Compression No At Night Current Swelling (Location/Pitting/Texture) Pitting Scale: 0 = No pitting 1+ Tissue returns to normal almost immediately 2+ Tissue returns after 15-30 seconds 3+ Tissue returns after 1-1/2 minutes 4+ Tissue returns after 2-3 minutes N/A Tissue no longer pits due to induration Tissue texture: Soft or indurated Clinical Presentation Area RUE axilla, supraclavicular fossa Triggering Event & Start Date of Pt states, it's been a few Swelling/Lymphedema weeks. Skin Changes Comments Very mild pink area appreciated in the RUE axilla, likely side effects of her XRT, no redness or warmth, no s/s of infection. Positive Stemmer's Sign No Capillary Refill Brisk Swelling Comments No obvious swelling is present in the supraclavicular fossa today, however, pt states that it seems to come and go, soft, non-pitting edema is present at the right axilla, exacerbated by the fact that her bra appears to be too small and has low sides which encourages the flesh in this area to spill over the top of her bra and become trapped. Type of Swelling Secondary Staging Staging Stage 1 Circumferential Measurements Upper Extremity Left Upper Extremity MCP (in cm) 19.8 Palm (in cm) 20.5 Smallest Wrist Measurement (in cm) 16.3 10 cm Above Smallest Wrist Measurement 22.4 20 cm Above Smallest Wrist Measurement 29.6 30 cm Above Smallest Wrist Measurement 30.4 40 cm Above Smallest Wrist Measurement 37.3 50 cm Above Smallest Wrist Measurement 43.0 Total Girth in cm 219.3 UE Volume C 300.42 UE Volume D 541.38 UE Volume E 716.24 UE Volume F 914.97 UE Volume G 1284.96 Upper Extremity Volume Total in cm 3,757.97 Right Upper Extremity MCP (in cm) 19.6 Palm (in cm) 20.0 Smallest Wrist Measurement (in cm) 16.3 10 cm Above Smallest Wrist Measurement 23.4 20 cm Above Smallest Wrist Measurement 30.0 30 cm Above Smallest Wrist Measurement 31.1 40 cm Above Smallest Wrist Measurement 37.5 50 cm Above Smallest Wrist Measurement 42.7 Total Girth in cm 220.6 UE Volume C 316.89 UE Volume D 570.18 UE Volume E 742.77 UE Volume F 938.93 UE Volume G 1281.40 Upper Extremity Volume Total in cm 3,850.17 Comments/Additional Measurements Comments/Additional Measurements 06/22/24 Measurements were also taken of the trunk: Axilla = 109cm Xyphoid tkfynxy=842 cm BUE circumferential measurements were last taken in the clinic on 04/21/23, the RUE was 220.4, the LUE was 219 .7. Trunk measurments were not taken at that time. Assessment Assessment Pt is a very pleasant 68yo referred to OT to address right axillary / supraclavicular fossa swelling related to her recurrent nodular lymphocyte-predominant B-Cell Lymphoma. Pt is known in this clinic as she has been seen for lymphedema surveillance and also referred to OT who specializes in cognitive rehabilitation 2 years ago. Pt At that time, pt did not have concerns for lymphedema onset, however, she did have obvious cognitive changes which were addressed, and it was advised that pt not drive. Today, pt does have s/ s of lymphedema in her right axilla with reports of fluctuating swelling in the supraclavicular fossa. Pt will benefit from skilled OT intervention to address RUE axillary and supraclavicular fossa lymphedema and may also benefit from additional cognitive assessment / rehabilitation as she demonstrates obvious memory and concentration issue. Patient Goals Patient Goals 1. Pt will be independent and compliant with home program for lymphedema management in order to achieve and maintain best outcomes. 4 weeks 2. Pt will demonstrate a reduction of at least 2cm from axillary measurement and 2cm from the xyphoid process measurement in order to reduce risk for exacerbation of lymphedema, infection and further lymphedema related complications. 8 weeks 3. Pt will obtain appropriate compression for LT management of her lymphedema. 10 weeks. Treatment Plan Treatment Plan Evaluation,Edema Control, Manual Therapy,Wound Care/Scar Management,Therapeutic Exercise,Self-Care/Home Management,Caregiver Training, Education Expected Frequency 1-2x Week Expected Duration 8-10 Weeks Certification Certification Statement I Certify That: Therapy Services Provided, Therapy Plan Established, Therapy Plan Reviewed Certification Information Clinic ID # [id number] Initial Certification Date 06/22/24 Recertification Due Date 09/20/24 Provider Signature Required Yes Provider Signature Shows Agreement With POC & Medical Necessity Physician NPI Number Write NPI# Here Physician Comment/Change Comment or Changes Physician Signature & Date Requested Please Sign/Date Here
== END 2024-10-11 10:12 | disposition home or self-care (01) ==
PROVIDERS: Visit Provider Nurse Practitioner
DX: I89.0 Lymphedema, not elsewhere classified (principal); Z51.89 Encounter for other specified aftercare
CPT/HCPCS: 80053; 80061; 82607; 84443; 97110; 97140; 97162; 97165; 97535; X5282

== ENCOUNTER 2024-10-17 09:40 | Outpatient (CLI) | payer MEDICARE, BC, SELFPAY | END 2024-10-17 09:41 | disposition home or self-care (01) | LOC: NFLDREF 10-19 08:18 | PROVIDERS: PCP Family Medicine; Referring Provider Family Medicine; Visit Provider Family Medicine | DX: E03.9 Hypothyroidism, unspecified (principal); I10 Essential (primary) hypertension; F41.1 Generalized anxiety disorder; E66.9 Obesity, unspecified; F33.0 Major depressive disorder, recurrent, mild; R41.89 Other symptoms and signs involving cognitive functions and awareness | CPT/HCPCS: 80053; 80061; 84439; 84443 ==

== ENCOUNTER 2024-11-18 09:59 | Outpatient (CLI) | payer MEDICARE, BC, SELFPAY | END 2024-11-18 10:00 | disposition home or self-care (01) | LOC: NFLDREF 11-19 20:01 | PROVIDERS: PCP Family Medicine; Referring Provider Family Medicine; Visit Provider Internal Medicine Nephrology | DX: E16.2 Hypoglycemia, unspecified (principal) | CPT/HCPCS: 80069 ==

== ENCOUNTER 2024-11-18 17:09 | Emergency (ER) | payer MEDICARE, BC, SELFPAY ==
[2024-11-18 17:32] VITALS: BP 135/80; PULSE 62; RESP 18; TEMP 36.1; O2SAT 99; BMI 33.9
--- NOTE | 2024-11-18 17:56 | ED.GENADULT ---
HPI - General Adult General Chief complaint: Unspecified Complaint, Adult Stated complaint: BS 45 Time Seen by Provider: 11/18/24 17:23 History of Present Illness HPI narrative: Patient is a 69-year-old very pleasant woman with a history of Hodgkin's lymphoma, but without history of diabetes. She had had blood drawn earlier today ordered by her liaison inspection laboratory assistant. She was called later and told that her blood sugar had been 45 on her draw and that she needed to go to the hospital to have it rechecked. Retrospectively, she says she has had maybe 10 episodes in the past 6 months which could potentially be attributed to low blood sugars, where she will feel lightheaded and sweaty. She says that in order to treat these symptoms she simply will go lay down and when she wakes up she feels better. She has not treated them with any kind of eating or drinking. She notes that she was asymptomatic today when she had her blood drawn, but did feel lightheaded after her blood draw. She says that she went home, drink some orange juice and then laid down. She felt fine when she woke up. She was started on valsartan hand about 6-8 months ago and her carvedilol was recently increased, but she does not have any other new medications. She does have a history of hypothyroidism. Her Hodgkin's has been treated twice once with chemo once with radiation. Recently, she had a recurrence noted with a small lymph node behind her bladder. A PET scan is pending in December to determine whether not there is adequate disease to need recurrent treatment. She has not ever had any intracranial lesions that she is aware of. No prior episodes of hypoglycemia have been recorded, though looking at her prior metabolic panels her blood sugar was 62 when checked at the beginning of October. Prior to that it had been in the 80-110 range. Related Data Home Medications ?Medication ?Instructions ?Recorded ?Confirmed cpap inhalation 09/25/22 11/01/24 rivaroxaban 10 mg tablet (Xarelto) 10 mg PO QDAY 12/23/22 11/01/24 nystatin-triamcinolone 100,000 1 applic topical BID PRN 06/30/24 11/01/24 unit/g-0.1 % topical cream Previous Rx's ?Medication ?Instructions ?Recorded hydrocortisone-pramoxine 2.5 %-1 % 1 applic [place] BID PRN hemorrhoids 09/25/22 rectal cream #30 grams sennosides 8.6 mg-docusate sodium 2 tab-cap (2 x 8.6-50 mg) PO QHS 12/09/23 50 mg tablet (Senna-S) #60 tabs bupropion HCl 300 mg 24 hr tablet, 300 mg PO QAM #90 tabs 10/11/24 extended release (Wellbutrin XL) lorazepam 1 mg tablet 0.5 mg (1/2 x 1 mg) PO BID PRN 10/11/24 anxiety #30 tabs carvedilol 25 mg tablet 25 mg PO BID #180 tabs 10/20/24 celecoxib 100 mg capsule (Celebrex) 100 mg PO BID PRN pain #60 caps 10/20/24 duloxetine 60 mg capsule,delayed 60 mg PO QDAY #90 caps 10/20/24 release levothyroxine 75 mcg tablet 75 mcg PO QDAY #90 tabs 10/20/24 spironolactone 25 mg tablet 50 mg (2 x 25 mg) PO QDAY #90 tabs 10/20/24 valsartan 160 mg tablet 160 mg PO BID #180 tabs 10/20/24 Allergies Allergy/AdvReac Type Severity Reaction Status Date / Time No Known Drug Allergies Allergy Verified 11/01/24 11:31 Review of Systems Status of ROS: Reports: 10 or more systems reviewed and unremarkable except as noted in History and below [facility] Medical History Pulmonary embolism (09/19/22) ?I26.99 - Other pulmonary embolism without acute cor pulmonale (ICD-10) Primary hypertension ?I10 - Essential (primary) hypertension (ICD-10) Cognitive impairment (2022) ?R41.89 - Other symptoms and signs involving cognitive functions and awareness (ICD-10) Internal derangement of right knee ?M23.91 - Unspecified internal derangement of right knee (ICD-10) Chronic constipation ?K59.09 - Other constipation (ICD-10) YOLIS (generalized anxiety disorder) ?F41.1 - Generalized anxiety disorder (ICD-10) Major depression, recurrent ?F33.9 - Major depressive disorder, recurrent, unspecified (ICD-10) External hemorrhoids ?K64.4 - Residual hemorrhoidal skin tags (ICD-10) Hypothyroidism ?E03.9 - Hypothyroidism, unspecified (ICD-10) Hodgkin lymphoma of extranodal or solid organ site (04/29/22) ?C81.99 - Hodgkin lymphoma, unspecified, extranodal and solid organ sites (ICD-10) DVT (deep venous thrombosis) (2019) ?I82.409 - Acute embolism and thrombosis of unspecified deep veins of unspecified lower extremity (ICD-10) Obesity (BMI 30-39.9) ?E66.9 - Obesity, unspecified (ICD-10) Diverticulosis ?K57.90 - Diverticulosis of intestine, part unspecified, without perforation or abscess without bleeding (ICD-10) SUDHAKAR on CPAP ?G47.33 - Obstructive sleep apnea (adult) (pediatric) (ICD-10) ?Z99.89 - Dependence on other enabling machines and devices (ICD-10) Surgical History History of endometrial ablation (09/2021) ?Z98.890 - Other specified postprocedural states (ICD-10) History of lymph node biopsy (04/2022) ?Z98.890 - Other specified postprocedural states (ICD-10) S/P right knee arthroscopy (02/05/22) ?Z98.890 - Other specified postprocedural states (ICD-10) Family History Father COPD (chronic obstructive pulmonary disease) Mother COPD (chronic obstructive pulmonary disease) Osteoporosis Lung cancer CHF (congestive heart failure), Onset Age: 96 Paternal Grandmother Diabetes Social History Narrative: -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 Lifetime nonsmoker Very rare alcohol use No regular exercise What is your current living situation?: I presently have a place to live Problems where you live: no known problems In the past 12 months, utilities in danger of being shut off: no In past 12 months, lack of transportation kept you from medical appts, meetings, work, or getting things needed for daily living: no In the past 12 mos, have been you worried that your food would run out before you had money to buy more?: never true In the past 12 mos, the food you bought just didn't last and you didn't have money to buy more?: never true Smoking Status: Never smoker Do you use any of these nicotine containing products: None Second hand tobacco smoke exposure: No How often do you have a drink containing alcohol: never How often do you have six or more drinks on one occasion: Never AUDIT-C Alcohol total score: 0 Non-prescribed substance use: denies use Caffeine: Yes How often does anyone, including family, friends and others, physically hurt you: never How often does anyone, including family, friends and others, insult or talk down to you: never How often does anyone, including family, friends and others, threaten you with harm: never How often does anyone, including family, friends and others, scream or curse at you: never service: No Exam Narrative: Exam Narrative: Vital signs reviewed In general, alert, nontoxic Head: Normocephalic, atraumatic. Eyes: Sclera clear. Pupils equal and reactive. ENT: Mucous membranes moist. Neck: Supple without adenopathy. Heart: Regular rate and rhythm without murmur. Lungs: Clear. No increased work of breathing, crackles or wheezes. Abdomen: Soft, nontender to palpation. Extremities: Well perfused, pulses intact. No significant edema. Neurologic: Alert, conversant. Speech fluent, face symmetric. Moves all extremities equally. Skin: Warm, dry well perfused. Affect: Normal. Const: Vital Signs, click to edit/add: Vital Signs - 24 hr 11/18/24 17:32 Temperature 97.0 F L Pulse Rate [Pulse Oximeter] 62 Respiratory Rate 18 Blood Pressure [Le ft Upper Arm] 135/80 Pulse Oximetry 99 Course Course ED Course: Blood sugar here was checked on arrival and was 111, repeat about an hour later was 113. She has not been symptomatic while here. It is unclear to me whether these episodes the past 6 months are related to hypoglycemia given that they have improved without eating or drinking anything. I did check some basic labs here, CBC is normal with a slight predominance of neutrophils. Metabolic panel was checked earlier today and was normal aside from the blood sugar of 45, electrolytes and renal function were normal. Liver function tests are normal, lipase is 92. TSH is pending at this time. Given that she is feeling well and blood sugars stable I think it is reasonable to let her go home. I do think it would be helpful for her to check some blood sugars at home, particularly if she is symptomatic. They are comfortable buying a glucometer, testing strips and lancets at the pharmacy. Her is diabetic, but takes metformin and says he has not checked his blood sugars in years. Nonetheless, he is familiar with the process. They do not feel that she could have accidentally taken his metformin, and he does not have any other blood sugar medications. Reviewed management of symptoms if she does become symptomatic we hypoglycemic. If she were to become significantly hypoglycemic and was not alert enough to take anything orally, call 911. Follow-up with primary care as planned in about a week and half, unless she is having frequent episodes of symptomatic hypoglycemia in which case I would have her return to the emergency department. Vital Signs Vital signs: Initial Vital Signs Temperature 97.0 F L 11/18/24 17:32 Temperature Source Temporal Artery Scan 11/18/24 17:32 Pulse Rate 62 11/18/24 17:32 Respiratory Rate 18 11/18/24 17:32 Blood Pressure 135/80 11/18/24 17:32 Blood Pressure Mean 98 11/18/24 17:32 Blood Pressure Position Sitting 11/18/24 17:32 Pulse Oximetry 99 11/18/24 17:32 Vital Signs Temperature 97.0 F L 11/18/24 17:32 Pulse Rate 62 11/18/24 17:32 Respiratory Rate 18 11/18/24 17:32 Blood Pressure 135/80 11/18/24 17:32 Pulse Oximetry 99 11/18/24 17:32 Temperature 97.0 F L 11/18/24 17:32 Pulse Rate 62 11/18/24 17:32 Respiratory Rate 18 11/18/24 17:32 Blood Pressure 135/80 11/18/24 17:32 Pulse Oximetry 99 11/18/24 17:32 Medical Decision Making Lab Data Labs: Lab Results 11/18/24 Range/Units 18:01 WBC 6.29 (4.50-11.00) K/uL RBC 4.56 (4.00-5.20) m/uL Hgb 14.0 (12.0-16.0) gm/dL Hct 43.2 (33.0-51.0) % MCV 95 (80-100) fL MCH 31 (26-34) pg MCHC 32 (32-36) gm/dL RDW Coeff of Marti 12.8 (11.5-15.5) % Plt Count 170 (140-440) K/uL Neut % (Auto) 77.7 H (42.0-72.0) % Lymph % (Auto) 11.4 L (20-44) % Dukes % (Auto) 8.6 (0.0-11.0) % Eos % (Auto) 1.9 (0.0-7.0) % Baso % (Auto) 0.2 (0.0-3.0) % Neut # (Auto) 4.90 (1.7-7.0) K/uL Lymph # (Auto) 0.70 L (0.90-2.90) K/uL Dukes # (Auto) 0.50 (0.00-0.90) K/UL Eos # (Auto) 0.12 (0.00-0.50) K/uL Baso # (Auto) 0.01 (0.00-0.30) K/uL Abs Immat Gran (auto) 0.01 (0.00-0.30) K/uL Imm/Tot Granulo (auto) 0.2 % Total Bilirubin 0.6 (0.1-1.5) mg/dL Direct Bilirubin 0.3 (0.0-0.5) mg/dL AST 22 (12-35) U/L ALT 17 (4-35) U/L Alkaline Phosphatase 57 (40-150) U/L Total Protein 6.9 (6.0-8.3) g/dL Albumin 4.3 (3.3-5.0) g/dL Lipase 92 (23-300) U/L Discharge Plan Discharge Clinical Impression: History of hypoglycemia Patient Disposition: Home, Self-Care Condition: Stable Instructions: Non-diabetic Hypoglycemia (ED) Additional Instructions: As discussed, please get a glucometer, testing strips and lancets, and check your blood sugar if you become symptomatic. It would maybe be helpful just to check it once in the morning in general. If you have symptomatic hypoglycemia, this can be treated with oral sugar in the form of for example juice. Call 911 if not alert enough to drink juice. Follow-up with Dr. Grajeda as planned, if you are continuing to have episodes of hypoglycemia, she should be able to help with evaluation of that. If you are having frequent episodes of symptomatic hypoglycemia, return to the ER. Prescriptions: No Action sennosides-docusate sodium [Senna-S] 8.6-50 mg tablet 2 tab-cap PO QHS Qty: 60 5RF nystatin-triamcinolone 100,000-0.1 unit/g-% cream 1 applic topical BID PRN levothyroxine 75 mcg tablet 75 mcg PO QDAY Qty: 90 3RF valsartan 160 mg tablet 160 mg PO BID Qty: 180 3RF duloxetine 60 mg capsule,delayed release(DR/EC) 60 mg PO QDAY Qty: 90 1RF carvedilol 25 mg tablet 25 mg PO BID Qty: 180 3RF celecoxib [Celebrex] 100 mg capsule 100 mg PO BID PRN (Reason: pain) Qty: 60 0RF spironolactone 25 mg tablet 50 mg PO QDAY Qty: 90 3RF cpap inhalation hydrocortisone-pramoxine 2.5-1 % cream 1 applic WI BID PRN (Reason: hemorrhoids) Qty: 30 1RF Xarelto 10 mg tablet 10 mg PO QDAY Rx Instructions: for 35 days lorazepam 1 mg tablet 0.5 mg PO BID PRN (Reason: anxiety) Qty: 30 0RF bupropion HCl [Wellbutrin XL] 300 mg tablet extended release 24 hr 300 mg PO QAM Qty: 90 0RF Follow Up/Referrals: Provider,Not a Local [Primary Care Provider] - Stand Alone Forms: [place] [employer] Info Instructions
[2024-11-18 18:10] LABS: Basophils Absolute Auto 0.01 K/uL (0.00-0.30); Basophils Percent Auto 0.2 % (0.0-3.0); Eosinophils Absolute Auto 0.12 K/uL (0.00-0.50); Eosinophils Percent Auto 1.9 % (0.0-7.0); Hematocrit* 43.2 % (33.0-51.0); Immature Granulocytes Abs Auto 0.01 K/uL (0.00-0.30); Immature Granulocytes Pct Auto 0.2 %; Lymphocytes Percent Auto 11.4 % (20-44); Mean Corpuscular HGB Conc 32 gm/dL (32-36); Mean Corpuscular Hemoglobin 31 pg (26-34); Mean Corpuscular Volume 95 fL (80-100); Monocytes Percent Auto 8.6 % (0.0-11.0); Neutrophils Percent Auto 77.7 % (42.0-72.0); Platelet Count* 170 K/uL (140-440); RDW Coefficient of Variation % 12.8 % (11.5-15.5); Red Blood Count* 4.56 m/uL (4.00-5.20); White Blood Count* 6.29 K/uL (4.50-11.00)
[2024-11-18 18:24] LABS: Albumin* 4.3 g/dL (3.3-5.0)
[2024-11-18 18:27] LABS: Alkaline Phosphatase* 57 U/L (40-150); Aspartate Amino Transferase* 22 U/L (12-35); Bilirubin Direct* 0.3 mg/dL (0.0-0.5); Bilirubin Total* 0.6 mg/dL (0.1-1.5); Lipase* 92 U/L (23-300); Total Protein* 6.9 g/dL (6.0-8.3)
[2024-11-18 18:28] LABS: Alanine Aminotransferase* 17 U/L (4-35)
[2024-11-18 18:31] LABS: Slide Review Reflex No
--- OUTSIDE RECORDS SUMMARY | 2024-11-18 18:47 | XMS_ITS | Clinical Summary ---
Author Organization [facility] Address [place], [place] [address] Care Team Providers Care Rug Touch Up Painter Name Role Phone Haseeb Durán MD Primary Care Provider + Allergies Active Allergy Reactions Criticality Noted Date Comments Amoxicillin-Pot Clavulanate Hives 07/06/20 07 Aspirin 07/06/2007 Cefuroxime *Unknown 07/06/2007 Chlorthalidone Rash 05/11/2008 Propoxyphene-Acetaminophen *Unknown 7 Spironolactone Rash 05/11/2008 Medications hydrocortisone (ANUSOL-HC) 2.5 % rectal cream Apply topically to affected area(s) 3 times daily. 1 Tube 0 07/19/20 11 Active furosemide (LASIX) 40 mg tabletIndications: Unspecified essential hypertension Take 1 tablet by mouth every morning. 90 tablet 4 12/22/19 12 Active hyoscyamine SR (LEVBID) 0.375 mg CR tablet Take 1 tablet by mouth every 12 hours if needed. 60 tablet 11 12/22/19 12 Active amLODIPine (NORVASC) 10 mg tabletIndications: Unspecified essential hypertension TAKE ONE TABLET BY MOUTH DAILY 90 tablet 3 02/02/20 12 Active gabapentin (NEURONTIN) 100 mg capsule Take 1 capsule by mouth at bedtime. Taking three capsules at bedtime 0 03/23/20 12 Active amitriptyline (ELAVIL) 25 mg tablet Take 1 tablet by mouth at bedtime. 0 03/23/20 12 Active metoprolol succinate (TOPROL XL) 100 mg Sustained-Release tablet Take 1 tablet by mouth once daily. 0 05/21/20 15 Active sertraline (ZOLOFT) 50 mg tablet Take 1.5 tablets by mouth once daily. 0 05/21/20 15 Active furosemide (LASIX) 40 mg tablet Take 1 tablet by mouth every morning. 0 05/21/20 15 Active gabapentin (NEURONTIN) 100 mg capsule Take 1 capsule by mouth 3 times daily. 0 05/21/20 15 Active progesterone micronized (PROMETRIUM) 100 mg capsule Take 1 capsule by mouth at bedtime. 0 05/21/20 15 Active Cholecalciferol, Vitamin D3, (VITAMIN D-3) 5,000 unit tab Take by mouth once daily. 0 05/21/20 15 Active calcium citrate-vitamin D3 500/300 FLAVIO-D3 chew chewable tablet One daily 0 05/21/20 15 Active zinc 50 mg tablet Take 1 tablet by mouth once daily. 0 05/21/20 15 Active Estradiol (EVAMIST) 1.53 mg/spray (1.7%) spry One spray daily 0 05/21/20 15 Active vit A,C & O-vltwxy-kqhfewsp (OCUVITE WITH LUTEIN) 1,000 unit-200 mg-60 unit-2 mg tab Take 1 tablet by mouth once daily. 0 05/21/20 15 Active lisinopril (PRINIVIL; ZESTRIL) 40 mg tabletIndications: Unspecified essential hypertension Take 1 tablet by mouth once daily. 90 tablet 4 05/21/20 15 Active levothyroxine (SYNTHROID) 50 mcg tabletIndications: Congenital hypothyroidism without goiter Take 1 tablet by mouth before breakfast. 90 tablet 3 08/09/20 15 Active allopurinoL (ZYLOPRIM) 300 mg tablet Take 300 mg by mouth. 06/24/20 22 Active Biotin 1 mg tablet Take by mouth. Active celecoxib (CELEBREX) 100 mg capsule Take 100 mg by mouth. 03/23/20 22 Active Xarelto 20 mg tablet TAKE ONE TABLET BY MOUTH EVERY DAY. MUST ADMINISTER WITH EVENING MEAL. 11/14/20 Active LORazepam (ATIVAN) 0.5 mg tab one time if needed. 05/30/20 22 Active nystatin-triamcino lone (MYCOLOG) cream APPLY TOPICALLY TWICE A DAY. 09/25/20 22 Active ondansetron (ZOFRAN ODT) 4 mg disintegrating tablet 09/19/20 22 Active oxyCODONE-acetamin ophen (PERCOCET) 5-325 mg per tablet TAKE 1/2 TO 1 TABLET BY MOUTH EVERY 6 TO 8 HOURS NEEDED. MAX DOSE: 6/DAY. WEAN TOLERATED 02/15/20 22 Active HYDROcodone-acetam inophen (Hines) 5-325 mg per tabletIndications: Post-traumatic osteoarthritis of right knee Take 1 Tablet by mouth 3 times daily if needed for Pain. Max acetaminophen dose: 4000mg in 24 hrs. 18 Tablet 03/05/20 23 Active Active Problems Problem Noted Date Diagnosed Date Congenital hypothyroidism without goiter 015 Overview (05/30/2015): Started medication 05/2015 Menopausal hot flushes 05/23/2015 Overview (05/23/2015): Responded well to gabapentin. IUD (intrauterine device) in place 11/26/2010 Overview (11/26/2010): Placed 10/2008 Mirena Diverticulosis of colon (without mention of hemo rrhage) 08/02/2010 Overview (08/02/2010): Colonoscopy 07/2010 diverticulosis repeat in 10 years Unspecified essential hypertension 10/19/2007 Contact dermatitis and other eczema, due to unspecified cause 10/19/2007 Encounters Date Type Department Care Team Description 10/26/2024 Telephone [facility] [address] [place] [address] Jessica Ball MD Referral from Last 3 Months Immunizations Name Administration Dates Next Due AMB [...] and Fami ly Not on file 11/19/2022 Comments No Sex and Gender Information Value Date Recorded Sex Assigned at Not on file Legal Sex Female 6:19 AM INDUSTRIAL TRAINING SPECIALIST Gender Identity Not on file Sexual Orientation Not on file 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 on file Not on file Not on file Obstetrics History Last Filed Vital Signs Vital Sign Reading Time Taken Comments Blood Pressure 159/94 03/05/2023 8:31 AM CDT Pulse 58 03/05/2023 8:31 AM CDT Temperature 36.6 C (97.9 F) 03/05/2023 8:31 AM CDT Respiratory Rate 20 07/20/2008 1:54 PM CDT Oxygen Saturation 97% 03/05/2023 8:31 AM CDT Inhaled Oxygen Concentration - - Weight 101.9 kg (224 lb 9.6 oz) 023 11:10 AM CDT Height 165.1 cm (5' 5) 05/21/2015 9:40 AM CDT Body Mass Index 37.38 05/21/2015 9:40 AM CDT Plan of Treatment Upcoming Encounters Date Type Department Care Team (Late st Contact Info) Description 11/30/2024 12:45 PM INDUSTRIAL TRAINING SPECIALIST Office Visit [facility] [address] [place] [address] Cammie Grajeda, [address] [place] [address] Health Maintenance Due Date Last Done Comments Depression screening for age 12+ 1968 BMI (ht and wt on same day) for age 18+ 1974 Hepatitis C screening for ag e 18-79 1974 Pneumococcal series for age 50+ (1 of 1 - PCV) 2006 Zoster (shingles) series for age 50+ (2 of 3) 02/03/2013 12/09/2012 Mammogram for age 45-75 04/20/2016 04/20/20 15 (Completed outside of [facility]), 01/13/2013, 01/11/2013, Additional history exists Lipids for age 45-75 04/20/2020 04/20/2015, 12/22/2011, 11/28/2010, Additional history exists Colonoscopy through age 75 08/02/2020 08/02/2010, DEXA/DXA scan for age 65+ 2021 Medicare Wellness for age 65+ 2021 Tetanus booster 06/18/2022 06/18/2012, 06/2006, 06/20/2004 COVID-19 vaccine series ( season) 2024 03/24/2022, 10/28/2021, 01/23/2021, Additional history exists Influenza for age 65+ 07/17/2024 08/04/2022 , 09/02/2021, 09/13/2020, Additional history exists RSV vaccine for adults or (1 - 1-dose 75+ series) 2031 Tdap Completed 06/18/2012, 03/23/2006 Procedures Procedure Name Priority Date/Time Associated Diagnosis Comments LIPID PANEL Routine 04/20/2015 Screening cholesterol level SCAN-MAMMOGRAPHY REPORT 01/13/2013 12:00 AM INDUSTRIAL TRAINING SPECIALIST from Last 3 Months or Most Recently Relevant to Health Maintenance Results * (ABNORMAL) LIPID PANEL (04/20/2015) CHOLESTEROL,TOTAL 220(A) <=200 mg/dL [facility] TRIGLYCERIDES 152(A) <=150 mg/dL [facility] HDL CHOLESTEROL 51(A) <=40 mg/dL [facility] LDL CHOLESTEROL 139(EXTER NAL) <=130 mg/dL [facility] Blood specimen (specimen) BLOOD SPECIMEN / Unknown 04/20/2015 us Mylene Clifford DO CHEMISTRY Darcie l Result [facility] [address] [place], [place] [id number] * SCAN-MAMMOGRAPHY REPORT (01/13/2013 12:00 AM INDUSTRIAL TRAINING SPECIALIST) Anatomical Region Laterality Modality Other Narrative 01/13/2013 7:00 PM INDUSTRIAL TRAINING SPECIALIST Procedure Note Scanner - 01/13/2013 12:00 AM CST us Scanner OTHER Final Result from Last 3 Months or Most Recently Relevant to Health Maintenance Insurance [facility] MEDICARE PART A HB ONLY MEDICARE PART B HB ONLY MEDICARE PB ONLY Care Teams Rug Touch Up Painter Relationship Specialty Start Date End Date Haseeb Durán MD [address] [place] [id number] PCP - General Family Practice 05/12/22
--- OUTSIDE RECORDS SUMMARY | 2024-11-18 18:47 | XMS_ITS | Clinical Summary ---
Author Organization [facility] Address [address] [place] [address] Care Team Providers Care Financial Representative Name Role Phone Elsewhere, Pcp Primary Care Provider Unavailabl e Source Comments Patient records contain information from all sites at [facility]. For routine questions regarding patient records, call [phone] during business hours, M-F 8:00 AM - 5:00 PM Central Time. Record requests for emergency care only can be directed to [phone] at any time.[facility] Allergies Active Allergy Reactions Criticality Noted Date Comments Amoxicillin-Pot Clavulanate Hives (Reselect Reaction) Low 07/06/2007 Cefuroxime Other (see comments) 07/06/2007 Propoxyphene-Acetaminophen Other (see comments) 07/06/2007 Medications * This document contains information received from the source organization and may not represent a complete record from that organization. amLODIPine (NORVASC) 10 mg tablet Take 1 tablet by mouth daily. 02/02/20 12 Active cholecalciferol (VITAMIN D3) 125 mcg (5,000 Unit) tablet Take 125 mcg by mouth daily. 05/21/20 15 Active finasteride (PROSCAR) 5 mg tablet Take 2.5 mg by mouth daily. 05/14/20 22 Active HYDROcodone-acet aminophen (NORCO) 5-325 mg per tablet Take 1 tablet by mouth every 6 (six) hours as needed. for pain 05/15/20 22 Active hydrocortisone (HYTONE) 2.5 % cream Apply topically as needed. 07/19/20 11 Active levothyroxine (SYNTHROID, LEVOTHROID) 75 mcg tablet Take 75 mcg by mouth daily. 04/20/20 Active LORazepam (ATIVAN) 0.5 mg tablet Take 0.5 mg by mouth as needed. 05/30/20 Active zinc chelated 50 mg tablet tablet Take 1 tablet by mouth daily. 05/21/20 Active biotin 1 mg tablet Take 1 tablet by mouth daily. Active DULoxetine (CYMBALTA) [address] capsule Take 60 mg by mouth daily. Active nystatin-triamci nolone (MYCOLOG II) 100,000 Unit/g-0.1 % cream Apply topically 2 (two) times a day as needed. 09/25/20 22 Active oxyCODONE-acetam inophen (PERCOCET) 5-325 mg per tablet TAKE 1/2 TO 1 TABLET BY MOUTH EVERY 6 TO 8 HOURS NEEDED. MAX DOSE: 6/DAY. WEAN TOLERATED 02/15/20 22 Active buPROPion XL (WELLBUTRIN XL) 300 mg 24 hr tablet Take 300 mg by mouth every morning. 05/06/20 23 Active Stool Softener-Stimula nt Laxat 8.6-50 mg per tablet Take 2 tablets by mouth at bedtime. 12/09/19 24 Active albuterol 90 mcg/actuation inhaler Inhale 2 puffs as needed. 05/14/20 22 Active mometasone (ELOCON) 0.1 % cream Apply 1 Application topically daily. Apply to skin of the right armpit, supraclavicular region and neck once daily to start. 45 g 1 03/23/20 24 Active carvediloL (Coreg) 25 mg tablet Take 1 tablet (25 mg total) by mouth 2 (two) times a day with meals. 180 tablet 3 05/04/20 24 025 Active valsartan (Diovan) 160 mg tablet Take 1 tablet (160 mg total) by mouth 2 (two) times a day. 180 tablet 3 05/14/20 24 Active rivaroxaban (Xarelto) 10 mg tabletIndication s:[place] [facility] (Current) Anticoagulant Treatment Take 1 tablet (10 mg total) by mouth daily with evening meal. 90 tablet 3 07/05/20 24 025 Active celecoxib (CeleBREX) 100 mg capsule Take 1 capsule by mouth 2 (two) times a day. 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 30 tablet 2 10/04/20 24 Active spironolactone (Aldactone) 100 mg tablet Take 1 tablet (100 mg total) by mouth daily. 90 tablet 3 11/01/20 24 025 Active spironolactone (Aldactone) 50 mg tablet Take 1 tablet (50 mg total) by mouth daily. 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 Discussed strong recommendation to stop driving due to test findings. Patient is upset. 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 Date Type Department Care Team Description 11/18/2024 Orders Only Division of Nephrology and Hypertension in [place], [place] [address] [place] [address] External, Ordering ProviderCade 11/15/2024 3:00 PM [facility]ER ST[facility]ER Telemedicine Department of Oncology in [place], [place] [address] [place] [address] Keyla Willoughby M.B.B.S. 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 Hypertension Essential Primary (Primary Dx) 11/01/2024 Clinical Communication Division of Hematology in [place], [place] [address] [place] [phone] Keyla Willoughby M.B.B.S. Return Visit 10/25/2024 10:30 AM [facility] ST[facility]ER Telemedicine Division of Hematology in [place], [place] [address] [place] [phone] Keyla Willoughby M.B.B.S. Luis Carballo Jr., M.D., M.B.A. 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 10/11/2024 Clinical Communication Department of Radiology, [facility], in [address] [phone] Nam Cervantes M.D. Follow-up (Post procedure follow up phone call.) 10/10/2024 7:19 AM LEATHER STITCHER - 10/10/2024 10:41 AM [facility]ER STITCHER Hospital Encounter Department of Radiology in [address] [place] [address] Keyla Willoughby M.Brittny.B.S. 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 Appt Request 10/05/2024 Clinical Communication Division of Hematology in [place], [place] [address] [place] [phone] Keyla Willoughby, M.B.B.S. 10/04/2024 2:30 PM [facility]ER ST[facility]ER Office Visit Department of Oncology in [place], [place] [address] [place] [phone] Keyla Willoughby, M.B.B.S. 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 Setting up biopsy 10/03/2024 11:45 AM LEATHER STITCHER Clinical Communication Virtual Review in [place], [place] [address] [place] [address] Pre-visit Intake 08/31/2024 Orders Only Remote Patient Monitoring [facility] [address] [place] [address] Nessa Verma 08/29/2024 Refill Division of Nephrology and Hypertension in [place], [place] [address] [place] [phone] Lyric Isaacs M.D., Ph.D. Med Refill from Last 3 Months Family History Medical History Relation Name Comments Arthritis Mother Paris Donato Hypertension Mother Paris Donato Lung cancer Mother Paris Donato Osteoporosis Mother Paris Donato Diabetes Paternal Grandmother Farideh [...] alcohol) 1 or 2 drinks a year [facility] Sleep Solutionsities Answer Date Recorded In the past 12 months has e [place], gas, oil, or water [employer] threatened to shut off services in your home? No 10/18/2024 Humiliation, Afraid, Rape, and Kick questionnair e [...] often do you attend chur ch or yarsanism services? Never 06/23/2022 Do you belong to any clubs o r organizations such as buddhist groups, unions, fraternal or athletic groups, or [...] 08/27/2023 [facility] [place] of Occupat ional Health - Occupational [...] exercise (like a brisk walk)? 1 day 10/18/2024 On average, how many minutes do you engage in exercise at this level? 10 min 10/18/2024 Hunger Vital Sign Answer Date Recorded Within the past 12 months, y ou worried that your food would run out before you got the money to buy more. Never true 10/18/20 24 Within the past 12 months, t he food you bought just didn't last and you didn't have money to get more. Never true 10/18/2024 PRAPARE - Transportation Answer Date Re corded In the past 12 months, has l ack of transportation kept you from medical appointments or from getting medications? No 01/2024 In the past 12 months, has l ack of transportation kept you from meetings, work, or from getting things needed for daily living? No 10/18/2024 Nutrition Answer Date Recorded On average, how many serving s of fruits and vegetables do you eat per day (serving size is equal to 1 cup or approximately the size of a tennis ball)? 0-2 10/18/2024 Dental Answer Date Recorded Dental: Regular Dentist Yes 06/24/20 Employment Answer Date Recorded Employment status Employed and actively working without restrictions 10/18/2024 Housing Stability Answer Date Recorded What is your living situation today? I have a [facility] place to live 10/18/2024 Education Answer Date Recorded What is the highest level of school you have completed or the highest degree you have received? 12th grade 06/23/2022 Comments Unknown Sex and Gender Information Value Date Recorded Sex Assigned at Female 06/23/2022 9:00 PM CDT Legal Sex Female 8:47 PM [facility]ER Gender Identity Female 06/23/2022 9:00 PM CDT Sexual Orientation Straight 06/23/2022 9: 00 PM CDT Last Filed Vital Signs Vital Sign Reading Time Taken Comments Blood Pressure 136/80 10/10/2024 10:18 AM [facility] ST[facility]ER Pulse 68 10/10/2024 10:18 AM [facility]ER Temperature 36.7 C (98.1 F) 10/10/2024 9:44 AM [facility]ER ST[facility]ER Respiratory Rate 20 10/10/2024 10:18 AM [facility]ER STITCHER Oxygen Saturation 97% 10/10/2024 10:18 AM [facility]ER ST[facility]ER Inhaled Oxygen Concentration - - Weight 105 kg (232 lb 4.1 oz) 10/10/2024 8:12 AM [facility]ER ST[facility]ER Height 161.4 cm (5' 3.54) 10/04/2024 2:19 PM CS T Body Mass Index 40.44 10/04/2024 2:19 PM [facility]ATHER ST[facility]ER Plan of Treatment Health Maintenance Due Date Last Done Comments Bone Density Scan (Osteoporosis Screen) 1956 CT Colonography 1955 Cologuard 1955 Colonoscopy 1955 Colorectal Cancer Screening 1956 FIT 1956 Zoster Vaccines (1 of 2) 02/03/2013 12/09/2012 RSV vaccine - (32-36 weeks) or 60+ years (1 - Risk 60-74 years 1-dose series) 2016 Mammogram 04/24/2023 04/24/2022 Thyroid Stimulating Hormone (TSH) test for thyroid function 07/17/2024 07/17/2023 Depression Screening (Annual PHQ-2) 11/16/2024 Fall Risk Screen (Annual) 11/16/2024 Office Visit for Blood Pressure Check / Re-check 11/15/2025 11/15/2024, 11/15/2024, 10/04/2024 Creatinine Level (Kidney Function Test) 11/18/2025 11/18/2024, 10/19/2024, 10/04/2024, Additional history exists Potassium Level 11/18/2025 11/18/2024, 02/2024, 10/04/2024, Additional history exists Sodium Level 11/18/2025 11/18/2024, 0 02/2024, 10/04/2024, Additional history exists Fasting Glucose for Diabetes Screening 11/18/2027 11/18/2024, 10/19/2024, 10/04/2024, Additional history exists DTaP,Tdap,and Td Vaccines (4 - Td or Tdap) 03/20/2033 03/20/2023, 06/18/2012, 03/23/2006 Hepatitis C Screening Completed 06/26/2022 Pneumococcal vaccine (50+ years) Completed 03/20/2023 COVID-19 Vaccine Completed 08/22/2024, 10/2024, 03/24/2022, Additional history exists Influenza Vaccine Completed 08/22/2024, , 09/02/2021, Additional history exists HPV Vaccines Aged Out No longer eligi ble based on patient's age to complete this topic IPV Vaccines Aged Out No longer eligi ble based on patient's age to complete this topic Goals Goal Patient Goal Type Associated Problems Recent Progress Patient-Stated? Author [facility] Home Blood Pressure Monitoring Care Plan Care Plan [facility] Home Blood Pressure Monitoring Care Plan No Nessa Verma Track your blood pressure weekly Care Plan Track your blood pressure weekly No Nessa Verma Recheck your blood pressure in 15 minutes Care Plan Recheck your blood pressure in 15 minutes No Patient, Online Services Patient selects Medium to [id number] Care Plan Patient selects Medium to [id number] No Patient, Online Services Change in blood pressure monitoring - weekly to every 2 weeks Care Plan Change in blood pressure monitoring - weekly to every 2 weeks No Patient, Online Services Recheck your blood pressure again tomorrow Care Plan Recheck your blood pressure again tomorrow No Patient, Online Services Recheck your blood pressure in 15 minutes Care Plan Recheck your blood pressure in 15 minutes No Patient, Online Services Recheck your blood pressure again tomorrow Care Plan Recheck your blood pressure again tomorrow No Patient, Online Services Recheck your blood pressure in 15 minutes Care Plan Recheck your blood pressure in 15 minutes No Patient, Online Services Continue to monitor every 2 weeks Care Plan Continue to monitor every 2 weeks No Patient, Online Services Procedures Procedure Name Priority Date/Time Associated Diagnosis Comments RENAL FUNCTION PANEL, S Routine 11/18/2024 9:59 AM [facility]ATHER STITCHER COMPREHENSIVE METABOLIC PANEL, S/P Routine 10/19/2024 12:37 PM LEATHER STITCHER 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) CBC WITH DIFFERENTIAL, B Routine 10/19/2024 12:37 PM LEATHER STITCHER 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) LACTATE DEHYDROGENASE (LD), S Routine 10/19/2024 12:37 PM LEATHER STITCHER 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) LACTATE DEHYDROGENASE (LD), S Routine 10/10/2024 10:56 AM LEATHER STITCHER 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) CT LYMPH NODE BIOPSY RAD - Routine (most inpatients and all outpatients) 10/10/2024 9:43 AM LEATHER STITCHER 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) CYTOLOGY FINE NEEDLE ASPIRATION (INCLUDES CORE BIOPSIES Timed 10/10/2024 9:10 AM LEATHER STITCHER 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) PROTHROMBIN TIME (PT), P STAT 10/10/2024 8:06 AM [facility]ER ST[facility]ER PET CT WHOLE BODY RAD - Routine (most inpatients and all outpatients) 10/04/2024 11:35 AM LEATHER STITCHER 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) COMPREHENSIVE METABOLIC PANEL, S/P Routine 10/04/2024 8:24 AM LEATHER STITCHER 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) CBC WITH DIFFERENTIAL, B Routine 10/04/2024 8:24 AM LEATHER STITCHER Nodular Lymphocyte Predominant Hodgkin Lymphoma Extranodal And [...] Relevant to Health Maintenance Results * (ABNORMAL) Renal Function Panel (11/18/2024 9:59 AM LEATHER STITCHER) EXT Sodium 138 135 - 149 mmol/L [facility] EXT Potassium 4.7 3.6 - 5.1 mmol/L [facility] EXT Chloride 103 96 - 114 mmol/L [facility] EXT CO2 29 20 - 32 mmol/L [facility] EXT Anion Gap 6(L) 7 - 15 mEq/L [facility] EXT BUN (Blood Urea Nitrogen) 32(H) 7 - 30 mg/dL [facility] EXT Creatinine 1.2 0.5 - 1.5 mg/dL [facility] EXT Estimated GFR (eGFR) 49 ML [facility] EXT Calcium, Total 9.5 8.4 - 10.6 mg/dL [facility] EXT Glucose 45(L) 60 - 115 mg/dL [facility] EXT Albumin 4.2 3.3 - 5.0 g/dL [facility] EXT Phosphorus (Inorganic), S 3.1 2.5 - 4.5 mg/dL [facility] 11/18/2024 9:59 AM LEATHER STITCHER Narrative [facility] - 11/18/2024 2:03 PM LEATHER ST[facility]ER External results verified in Extract by Vikki Perez 11/18/2024 at 03:49 PM. us Ordering Provider External Cade LAB BLOOD ADD-ON Final Result [facility] [address] [id number], [facility] [phone] * (ABNORMAL) CBC with Differential, Blood (10/19/2024 12:37 PM LEATHER STITCHER) Only the most recent of2 resultswithin the time period is included. Hemoglobin 13.6 11.6 - 15.0 g/dL 10/19/2024 12:48 PM LEATHER STITCHER CNFL Hematocrit 41.4 35.5 - 44.9 % 10/19/2024 12:48 PM LEATHER STITCHER [facility] Erythrocytes 4.37 3.92 - 5.13 x10(12)/L 10/19/2024 12:48 PM LEATHER STITCHER [facility] MCV 94.7 78.2 - 97.9 fL 10/19/2024 12:48 PM LEATHER STITCHER [facility] RBC Distrib Width 13.0 12.2 - 16.1 % 10/19/2024 12:48 PM LEATHER STITCHER [facility] Platelet Count 136(L) 157 - 371 x10(9)/L 10/19/2024 12:48 PM LEATHER STITCHER CN[facility] Leukocytes 4.4 3.4 - 9.6 x10(9)/L 10/19/2024 12:48 PM LEATHER STITCHER CNFL Neutrophils 3.17 1.56 - 6.45 x10(9)/L 10/19/2024 12:48 PM LEATHER STITCHER CN[facility] Lymphocytes 0.78(L) 0.95 - 3.07 x10(9)/L 10/19/2024 12:48 PM LEATHER STITCHER CN[facility] Monocytes 0.34 0.26 - 0.81 x10(9)/L 10/19/2024 12:48 PM LEATHER STITCHER CN[facility] Eosinophils 0.10 0.03 - 0.48 x10(9)/L 10/19/2024 12:48 PM LEATHER STITCHER CN[facility] Basophils <0.04 0.01 - 0.08 x10(9)/L 10/19/2024 12:48 PM LEATHER STITCHER CN[facility] Blood (Blood, Venous) 10/19/2024 12:37 PM LEATHER STITCHER 10/19/2024 12:43 PM LEATHER STITCHER us Keyla DaiS. LAB BLOOD ADD-ON Fin al Result [facility] [address] [place] [address], [place] CNFL [facility] in [address] [address] * (ABNORMAL) LD (Lactate Dehydrogenase) (10/19/2024 12:37 PM LEATHER STITCHER) Only the most recent of2 resultswithin the time period is included. Lactate Dehydrogenase (LD), P 227(H) 122 - 222 U/L 10/19/2024 11:39 PM LEATHER STITCHER RDWG Blood (Blood, Venous) 10/19/2024 12:37 PM LEATHER STITCHER 10/19/2024 7:04 PM LEATHER STITCHER us Keyla Smith.S. LAB BLOOD NON ADD-ON Final Result Performing Organization Address City/[facility]/ZIP Co de Phone Number [facility] [address] [facility] [place] [address], [facility] RDWG [facility] in [place] [address] [place] [address], [place] [address] * (ABNORMAL) Comprehensive Metabolic Panel (10/19/2024 12:37 PM LEATHER STITCHER) Only the most recent of2 resultswithin the time period is included. Potassium, P 4.1 3.6 - 5.2 mmol/L 10/19/2024 1:06 PM LEATHER STITCHER CNFL Sodium, P 135 135 - 145 mmol/L 10/19/2024 1:06 PM LEATHER STITCHER CNFL Chloride, P 103 98 - 107 mmol/L 10/19/2024 1:06 PM LEATHER STITCHER CNFL Bicarbonate, P 27 22 - 29 mmol/L 10/19/2024 1:06 PM LEATHER STITCHER CNFL Anion Gap, P 5(L) 7 - 15 10/19/2024 1:06 PM LEATHER STITCHER CNFL BUN (Blood Urea Nitrogen), P 17 6 - 21 mg/dL 10/19/2024 1:06 PM LEATHER STITCHER CNFL Creatinine 1.09(H) 0.59 - 1.04 mg/dL 10/19/2024 1:06 PM LEATHER STITCHER CNFL Estimated GFR (eGFR) 56(L) >=60 mL/min/BS A 10/19/2024 1:06 PM LEATHER STITCHER CNFL Comment: Estimated GFR calculated using the 2020 CKD_EPI creatinine equation. Calcium, Total, P 9.2 8.8 - 10.2 mg/dL 10/19/2024 1:06 PM LEATHER STITCHER CNFL Glucose, P 172(H) 70 - 140 mg/dL 10/19/2024 1:06 PM LEATHER STITCHER CNFL Protein, Total, P 6.6 6.3 - 7.9 g/dL 10/19/2024 1:06 PM LEATHER STITCHER CNFL Albumin, P 3.8 3.5 - 5.0 g/dL 10/19/2024 1:06 PM LEATHER STITCHER CNFL Aspartate Aminotransferase (AST), P 22 8 - 43 U/L 10/19/2024 1:06 PM LEATHER STITCHER CNFL Alkaline Phosphatase, P 64 35 - 104 U/L 10/19/2024 1:06 PM LEATHER STITCHER CNFL Alanine Aminotransferase (ALT), P 16 7 - 45 U/L 10/19/2024 1:06 PM LEATHER STITCHER CNFL Bilirubin, Total, P 0.4 0.0 - 1.2 mg/dL 10/19/2024 1:06 PM LEATHER STITCHER CNFL Blood (Blood, Venous) 10/19/2024 12:37 PM LEATHER STITCHER 10/19/2024 12:43 PM LEATHER STITCHER us Keyla Dumont LAB BLOOD ADD-ON Fin al Result [facility] [address] [place] [address], [facility] in [address] [address] * CT Lymph Node Biopsy (10/10/2024 9:43 AM LEATHER STITCHER) Anatomical Region Laterality Modality Body, Abdominal RST LOS, Mus culoskeletal ARZ LOS, Neuroradiology ARZ LOS, Vascular Interventional ARZ LOS, Procedure FLA LOS, Abdominal FLA LOS, Procedural, Procedural NWWI LOS Computed Tomography, C omputed Tomography Impressions 10/10/2024 9:[address]-guided lymph node biopsy NR Narrative 10/10/2024 9:57 AM LEATHER STITCHER EXAM: CT LYMPH NODE BIOPSY PRE-PROCEDURE: Patient seen, evaluated, history reviewed, and approved for sedation. Airway, heart, and lung exam satisfactory for sedation. Discussed risks, benefits, alternatives for procedure, and/or sedation. The roles and responsibilities of care team members, residents, and fellows were discussed. Patient understands information and questions answered. Informed consent obtained from the patient. Immediately prior to starting the procedure, in the presence of the assisting personnel, a procedural pause was conducted to verify correct patient identity and verification of procedure to be performed, and as applicable, correct side and site, correct patient position, availability of implants, special equipment, or special requirements, and all image and specimen identification data. INTRAPROCEDURE: Moderate sedation was administered by sedation nurse under my supervision. The patient was continuously monitored with real time oxygen saturation, heart rate, ECG rhythm strip and blood pressure throughout administration of the sedation and performance of the procedure. The total intra-procedural sedation time was: 18 minutes. TECHNIQUE: Sterile;1% lidocaine for local anesthesia and CT Guidance. TARGET LOCATION: Right external iliac lymph node TARGET LESION SIZE: 4.2 cm BIOPSY INSTRUMENT: 17/18 gauge coaxial device NUMBER OF SAMPLES OBTAINED: Total 12 passes were made, yielding mixed fragments of tissue COMPLICATION: None BLOOD LOSS: None. PATIENT INSTRUCTIONS: Patient may be dismissed from the radiology department when dismissal criteria met. POST-PROCEDURE DIAGNOSIS: Enlarged pelvic lymph node Procedure Note Nam Cervantes M.D. - 10/10/2024 EXAM: CT LYMPH NODE BIOPSY PRE-PROCEDURE: Patient seen, evaluated, history reviewed, and approved forsedation. Airway, heart, and lung exam satisfactory for sedation.Discussed risks, benefits, alternatives for procedure, and/or sedation.The roles and responsibilities of care team members, residents, and fellows were discussed. Patient understandsinformation and questions answered. Informed consent obtained from thepatient. Immediately prior to starting the procedure, in the presence ofthe assisting personnel, a procedural pause was conducted to verify correct patient identity and verificationof procedure to be performed, and as applicable, correct side and site,correct patient position, availability of implants, special equipment, orspecial requirements, and all image and specimen identification data. INTRAPROCEDURE: Moderate sedation was administered by sedation nurse undermy supervision. The patient was continuously monitored with real timeoxygen saturation, heart rate, ECG rhythm strip and blood pressurethroughout administration of the sedation and performance of the procedure. The total intra-procedural sedation timewas: 18 minutes. TECHNIQUE: Sterile;1% lidocaine for local anesthesia and CT Guidance. TARGET LOCATION: Right external iliac lymph node TARGET LESION SIZE: 4.2 cm BIOPSY INSTRUMENT: 17/18 gauge coaxial device NUMBER OF SAMPLES OBTAINED: Total 12 passes were made, yielding mixedfragments of tissue COMPLICATION: None BLOOD LOSS: None. PATIENT INSTRUCTIONS: Patient may be dismissed from the radiologydepartment when dismissal criteria met. POST-PROCEDURE DIAGNOSIS: Enlarged pelvic lymph node IMPRESSION: CT-guided lymph node biopsy NR Keyla Dumont IMG CT PROCEDURES Fi nal Result * (ABNORMAL) Cytology Fine Needle Aspiration (including core biopsies) (10/10/2024 9:10 AM LEATHER STITCHER) (A) 10:10 AM LEATHER STITCHER DTL Disclaimer This test was developed and its performance characteristics determined by [facility] in a manner consistent with CLIA requirements. This test has not been cleared or approved by the U.S. Food and Drug Administration. Test results for (IHC or ABDOUL) testing are valid for specimens fixed between 6 and 72 hours. Delay to fixation, under fixation or over fixation fall outside of guidelines and may affect these results. (A) 10/14/2024 10:10 AM LEATHER STITCHER DTL Report electronically signed by Jacek Pierre D.O., M.S. I verify that I have examined all relevant slides/materials for the specimen(s) and rendered or confirmed the diagnosis. (A) 10/14/2024 10:10 AM LEATHER STITCHER DTL Gross Description Received 12 alcohol-fixed smears and tissue. Additionally, received in formalin labeled with the patient's name, medical record number and lymph node, right iliac are multiple pale tansoft tissue cores and fragments, ranging from minute-1.7 cm in length and averaging 0.1 cm in diameter. The specimens are submitteden toto as follows: A1-A2: Three cores in each cassette A3: Multiple fragments (A) 10/14/2024 10:10 AM LEATHER STITCHER DTL Source A. Lymph node, Right iliac, fine needle aspiration(A) 10/14/2024 10:10 AM LEATHER STITCHER DTL Interpretation A. Lymph node, Right iliac, fine needle aspiration (smears/core biopsy): Positive for malignancy. 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 Immunoperoxidase studies were performed on paraffin sections of the right iliac lymph node (block A1) using antibodies directed against the following antigens: CD3, CD20, CD21, MEF2B, OCT2, and PAX5. Histologic examination reveals effaced ludy architecture by an atypical lymphohistiocytic infiltrate with a diffuse growth pattern. Interspersed amongst small lymphocytes, which jackson as a mixture of CD3-positive T-cells and UQ16-lgittiyp B-cells, and collections of epithelioid histiocytes are large atypical lymphoid cells compatible with lymphocyte predominant (LP) cells. The LP cells are positive for PAX5, OCT2, and MEF2B but do not show definitive staining for CD20. No WV06-kkfamors follicular dendritic cell meshworks are present, but CD21 does stain the background small B-cells.(A) 10/14/2024 10:10 AM LEATHER STITCHER DTL Tissue (Ilium, Right) 10/10/2024 9:10 AM LEATHER STITCHER us Keyla Dumont LAB SURG PATH ORDERA BLES Final Result [facility] [address] [place] [address], [facility] DTL [address] [place] [address] * Prothrombin Time (PT) (10/10/2024 8:06 AM LEATHER STITCHER) Prothrombin Time, P 11.2 9.4 - 12.5 sec 10/10/2024 8:30 AM [facility] 0.9 - 1.1 10/10/2024 8:30 AM LEATHER STITCHER [facility] Comment: ----ADDITIONAL INFORMATION---- Standard intensity warfarin therapeutic range: 2.0 to 3.0 High intensity warfarin therapeutic range: 2.5 to 3.5 Blood (Blood, Venous) 10/10/2024 8:06 AM LEATHER STITCHER 10/10/2024 8:24 AM LEATHER STITCHER us Vikki Fierro APRN, C.N.P., M.S.N. LAB BLOOD ADD- ON Final Result [facility] [address] [place] [address], [facility] [address] [place] [address] * PET CT Whole Body FDG (10/04/2024 11:35 AM LEATHER STITCHER) Anatomical Region Laterality Modality Whole body, Nuclear Medicine PET RST LOS, PET ARZ LOS, Nuclear Medicine PET FLA LOS, Nuclear Medicine N/A Positron Emission Tomogr aphy (PET), Positron Emission Tomography (PET) Impressions 10/04/2024 12:43 PM LEATHER STITCHER PET findings for new/worsening FDG avid ludy lymphoma most significantly enlargement of markedly FDG avid right external iliac ludy disease since the PET/CT on 07/05/2024. Milena 5. Narrative 10/04/2024 12:43 PM LEATHER STITCHER EXAM: PET CT WHOLE BODY FDG Serum glucose at time of F-18 FDG injection was 113 mg/dL. Patient followed standard dietary/fasting requirements for this exam. RADIOPHARMACEUTICAL/MEDS: Route: intravenous fludeoxyglucose F 18 injection [facility] (FDG F-18),9.2 millicurie TECHNIQUE: F-18 FDG PET/CT scan was performed from the vertex through the toes with low dose, non-contrast, free-breathing CT images for attenuation correction and anatomic localization (AC/AL), with imaging beginning at approximately 60 minutes after radiotracer injection. COMPARISON: PET/CT 07/05/2024 INDICATION: Nodular lymphocyte predominant B-cell non-Hodgkin lymphoma. Prior rituximab therapy and axillary node radiation therapy. Subsequent treatment strategy. FINDINGS: Intensely FDG avid right external iliac node similar in its activity to the prior examination (SUV max 22.1, previously 20.7) but increased in size from 2.5 x 1.6 cm up to up to 3.2 x 2.1 cm. In addition, there are several tiny subcentimeter left axillary, bilateral iliac and bilateral inguinal/common femoral nodes new or increased in size and/or FDG avidity. As examples, new tiny FDG avid right common iliac node (PET image 265, screen capture provided), left external iliac node (CT image 273) similar in size but with increased activity (SUV max 4.2, increasing 2.6) and a left common femoral node (CT image 302) increased in size from 5 mm up to 8 mm short axis (SUV max 2.8, previously 1.1). Stable low-grade likely reactive activity associated with the treated right axillary adenopathy. Normal size spleen with normal activity. Normal-appearing marrow activity. No focal FDG avid osseous lesions. No other suspicious foci of activity. Scattered musculoskeletal reactive/degenerative type activity notably along the posterior left elbow and near the right Achilles tendon insertion on the calcaneus. Significant incidental findings on the low-dose unenhanced CT fusion images: Small anterior right upper lobe pulmonary nodule unchanged since a chest CT 05/05/2022 therefore likely benign. Scattered subpleural fibrosis/atelectasis. Mild sigmoid colonic diverticulosis. Mild aortoiliac vascular calcifications. Procedure Note Yves Joe M.D. - 10/04/2024 EXAM: PET CT WHOLE BODY FDG Serum glucose at time of F-18 FDG injection was 113 mg/dL. Patientfollowed standard dietary/fasting requirements for this exam. RADIOPHARMACEUTICAL/MEDS: Route: intravenous fludeoxyglucose F 18 injection [facility] (FDG F-18),9.2 millicurie TECHNIQUE: F-18 FDG PET/CT scan was performed from the vertex through thetoes with low dose, non-contrast, free-breathing CT images for attenuationcorrection and anatomic localization (AC/AL), with imaging beginning atapproximately 60 minutes after radiotracer injection. COMPARISON: PET/CT 07/05/2024 INDICATION: Nodular lymphocyte predominant B-cell non-Hodgkin lymphoma.Prior rituximab therapy and axillary node radiation therapy. Subsequenttreatment strategy. FINDINGS: Intensely FDG avid right external iliac node similar in itsactivity to the prior examination (SUV max 22.1, previously 20.7) butincreased in size from 2.5 x 1.6 cm up to up to 3.2 x 2.1 cm. In addition, there are several tiny subcentimeter left axillary, bilateraliliac and bilateral inguinal/common femoral nodes new or increased in sizeand/or FDG avidity. As examples, new tiny FDG avid right common iliac node(PET image 265, screen capture provided), left external iliac node (CT image 273) similar in sizebut with increased activity (SUV max 4.2, increasing 2.6) and a leftcommon femoral node (CT image 302) increased in size from 5 mm up to 8 mmshort axis (SUV max 2.8, previously 1.1). Stable low-grade likely reactive activity associated with the treatedright axillary adenopathy. Normal size spleen with normal activity. Normal-appearing marrow activity.No focal FDG avid osseous lesions. No other suspicious foci of activity. Scattered musculoskeletal reactive/degenerative type activity notablyalong the posterior left elbow and near the right Achilles tendoninsertion on the calcaneus. Significant incidental findings on the low-dose unenhanced CT fusionimages: Small anterior right upper lobe pulmonary nodule unchanged since achest CT 05/05/2022 therefore likely benign. Scattered subpleuralfibrosis/atelectasis. Mild sigmoid colonic diverticulosis. Mild aortoiliac vascular calcifications. IMPRESSION: PET findings for new/worsening FDG avid ludy lymphoma most significantlyenlargement of markedly FDG avid right external iliac ludy disease sincethe PET/CT on 07/05/2024. Milena 5. Keyla Dumont IMG NM PROCEDURES Fi nal Result * Thyroid Function [place] (07/17/2023 9:04 AM CDT) TSH, Sensitive 2.7 0.3 - 4.2 mIU/L 07/17/2023 10:08 AM CDT DTL Blood (Blood, Venous) 07/17/2023 9:04 AM CDT 07/17/2023 9:36 AM CDT us Connor Bermudez M.D. LAB BLOOD ADD-ON Final Resul t Performing Organization Address [facility] Co de Phone Number [facility] [address] [place] [address], [facility] DTL [facility] [address] [place] [address] * HCV Ab Scrn w/Reflex to HCV PCR, Serum (06/26/2022 2:34 PM CDT) HCV Ab Screen, S Negative Negative 06/27/20 2:12 AM CDT [facility] Comment: Biotin has been identified by the stopperer assembler as a potential interfering substance. Higher concentrations of biotin may be found in multivitamins, hair/nail supplements, and workout supplements. If the result does not match clinical observations, repeat testing after patient refrains from the use of supplements for at least 12 hours. Blood (Blood, Venous) 06/26/2022 2:34 PM CDT 06/26/2022 9:22 PM CDT Narrative [facility] - 06/27/2022 2:12 AM CDT Specimen Information: Specimen ID: [id number] Specimen Type: Blood Specimen Collection Start Date: 06/26/2022 2:35 PM Specimen Received Date: 06/26/2022 9:22 PM Specimen ID: [id number] Specimen Type: Blood Specimen Collection Start Date: 06/26/2022 2:34 PM Specimen Received Date: 06/26/2022 9:23 PM us Mica Romero M.D. LAB MICROBIOLOGY - BLOOD ORDERABLES Final Result Performing Organization Address City/[facility]/ZIP Co de Phone Number [facility] [place] [address], [facility] ECLR [facility] [place] [address] [place] [address] * DIAGNOSTIC MAMMO, BILAT, W/CAD-Outside Mammogram (04/24/2022 [...] overread is required please follow defined workflow. us Provider Not In System IMG BI PROCEDURES Final R esult IIMS NA from Last 3 Months or Most Recently Relevant to Health Maintenance Additional Health Concerns Active Problems Noted Date Diagnosed Date [facility] Home Blood Pressure Monitoring Care Plan 08/31/2024 Track your blood pressure weekly 08/31/2024 Recheck your blood pressure in 15 minutes 2023 Patient selects Medium to [id number] 09/01/2024 Change in blood pressure mon itoring - weekly to every 2 weeks 09/07/2024 Recheck your blood pressure again tomorrow 09/22 Recheck your blood pressure in 15 minutes 2023 Recheck your blood pressure again tomorrow 11/01 Recheck your blood pressure in 15 minutes 2023 Continue to monitor every 2 weeks 11/02/2024 Insurance [facility] Care Teams Financial Representative Relationship Specialty Start Date End Date Elsewhere, Pcp PCP - General Internal Medicine 10/05/23
--- OUTSIDE RECORDS SUMMARY | 2024-11-18 18:48 | XMS_ITS | Referral Summary ---
Author Organization [facility] Address [address] [place] [address] Care Team Providers Care Pattern Duplicator Name Role Phone Elsewhere, Pcp Primary Care Provider Unavailabl e Source Comments Patient records contain information from all sites at [facility]. For routine questions regarding patient records, call [phone] during business hours, M-F 8:00 AM - 5:00 PM Central Time. Record requests for emergency care only can be directed to [phone] at any time.[facility] Encounters * This document contains information received from the source organization and may not represent a complete record from that organization. Date Type Department Care Team Description 11/18/2024 Orders Only Division of Nephrology and Hypertension in [place], [place] [address] [place] [address] External, Ordering ProviderCade 11/15/2024 3:00 PM TOLL SETTLEMENT CLERK Telemedicine Department of Oncology in [place], [place] [address] [place] [address] Keyla Willoughby, M.B.B.S. 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 Return Visit 11/01/2024 11:30 AM TOLL SETTLEMENT CLERK External Outreach Division of Nephrology and Hypertension in [place], [place] [address] [place] [address] Lyric Isaacs M.D., Ph.D. Hypertension Essential Primary (Primary Dx) 10/25/2024 10:30 AM TOLL SETTLEMENT CLERK Telemedicine Division of Hematology in [place], [place] [address] [place] [phone] Keyla Willoughby, M.B.B.S. Luis Carballo Jr., M.D., M.B.A. 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 10/11/2024 Clinical Communication Department of Radiology, [facility], in [address] [address] Nma Cervantes M.D. Follow-up (Post procedure follow up phone call.) 10/10/2024 7:19 AM TOLL SETTLEMENT CLERK - 10/10/2024 10:41 AM TOLL SETTLEMENT CLERK Hospital Encounter Department of Radiology in [address] [phone] Keyla Willoughby, M.B.B.S. 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 Appt Request 10/05/2024 Clinical Communication Division of Hematology in [place], [place] [address] [place] [phone] Keyla Willoughby, M.B.B.S. 10/04/2024 Clinical Communication Division of Hematology in [place], [place] [address] [place] [phone] Keyla Willoughby M.B.B.S. Setting up biopsy 10/04/2024 2:30 PM TOLL SETTLEMENT CLERK Office Visit Department of Oncology in [place], [place] [address] [place] [phone] Keyla Willoughby, M.B.B.S. 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 Med Refill from Last 3 Months Allergies Active Allergy [...] mcg by mouth daily. 04/20/20 22 Active LORazepam (ATIVAN) 0.5 mg tablet [...] 24 Active rivaroxaban (Xarelto) 10 mg tabletIndication s:Halfway (Current) Anticoagulant Treatment Take 1 tablet (10 [...] daily. 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 Alcohol Use Standard Drinks/Week Comments Not Currently 0 (1 standard drink = 0.6 oz pur e alcohol) 1 or 2 drinks a year [facility] [employer] Answer Date Recorded In the past 12 months has [employer], [employer], oil, or water [employer] threatened to shut off services in your [...] often do you attend chur ch or oriental orthodox services? Never 06/23/2022 Do [...] and heating? Not hard at all 08/27/2023 [facility] Questionnaire Answer Date [...] PM CDT Legal Sex Female 8:47 PM TOLL SETTLEMENT CLERK Gender Identity Female 06/23/2022 9:00 PM CDT Sexual Orientation Straight 06/23/2022 9: 00 PM CDT Last Filed Vital Signs Vital Sign Reading Time Taken Comments Blood Pressure 136/80 10/10/2024 10:18 AM TOLL SETTLEMENT CLERK Pulse 68 10/10/2024 10:18 AM TOLL SETTLEMENT CLERK Temperature 36.7 C (98.1 F) 10/10/2024 9:44 AM TOLL SETTLEMENT CLERK Respiratory Rate 20 10/10/2024 10:18 AM TOLL SETTLEMENT CLERK Oxygen Saturation 97% 10/10/2024 10:18 AM TOLL SETTLEMENT CLERK Inhaled Oxygen Concentration - - Weight 105 kg (232 lb 4.1 oz) 10/10/2024 8:12 AM TOLL SETTLEMENT CLERK Height 161.4 cm (5' 3.54) 10/04/2024 2:19 PM CS T Body Mass Index 40.44 10/04/2024 2:19 PM TOLL SETTLEMENT CLERK Plan of Treatment Not on file Goals Goal Patient Goal Type Associated Problems Recent Progress Patient-Stated? Author [facility] Home Blood Pressure Monitoring Care Plan Care Plan [facility] Home Blood Pressure Monitoring Care Plan No Nessa Verma Track your blood pressure weekly Care Plan Track your blood pressure weekly No Nessa Verma Recheck your blood pressure in 15 minutes Care Plan Recheck your blood pressure in 15 minutes No Patient, Online Services Patient selects Medium to [id number] Care Plan Patient selects Medium to [id number] No Patient, Online Services Change in blood [...] FUNCTION PANEL, S Routine 11/18/2024 9:59 AM TOLL SETTLEMENT CLERK COMPREHENSIVE METABOLIC PANEL, S/P Routine 10/19/2024 12:37 PM TOLL SETTLEMENT CLERK 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) CBC WITH DIFFERENTIAL, B Routine 10/19/2024 12:37 PM TOLL SETTLEMENT CLERK 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) LACTATE DEHYDROGENASE (LD), S Routine 10/19/2024 12:37 PM TOLL SETTLEMENT CLERK 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) LACTATE DEHYDROGENASE (LD), S Routine 10/10/2024 10:56 AM TOLL SETTLEMENT CLERK 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) CT LYMPH NODE BIOPSY RAD - Routine (most inpatients and all outpatients) 10/10/2024 9:43 AM TOLL SETTLEMENT CLERK 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) CYTOLOGY FINE NEEDLE ASPIRATION (INCLUDES CORE BIOPSIES Timed 10/10/2024 9:10 AM TOLL SETTLEMENT CLERK 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) PROTHROMBIN TIME (PT), P STAT 10/10/2024 8:06 AM TOLL SETTLEMENT CLERK PET CT WHOLE BODY RAD - Routine (most inpatients and all outpatients) 10/04/2024 11:35 AM TOLL SETTLEMENT CLERK 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) COMPREHENSIVE METABOLIC PANEL, S/P Routine 10/04/2024 8:24 AM TOLL SETTLEMENT CLERK 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) CBC WITH DIFFERENTIAL, B Routine 10/04/2024 8:24 AM TOLL SETTLEMENT CLERK Nodular Lymphocyte Predominant Hodgkin Lymphoma Extranodal And [...] (ABNORMAL) Renal Function Panel (11/18/2024 9:59 AM TOLL SETTLEMENT CLERK) EXT Sodium 138 135 - 149 mmol/L [facility] EXT Potassium 4.7 3.6 - 5.1 mmol/L [facility] EXT Chloride 103 96 - 114 mmol/L [facility] EXT CO2 29 20 - 32 mmol/L [facility] EXT Anion Gap 6(L) 7 - 15 mEq/L [facility] EXT BUN (Blood Urea Nitrogen) 32(H) 7 - 30 mg/dL [facility] EXT Creatinine 1.2 0.5 - 1.5 mg/dL [facility] EXT Estimated GFR (eGFR) 49 ML [facility] EXT Calcium, Total 9.5 8.4 - 10.6 mg/dL [facility] EXT Glucose 45(L) 60 - 115 mg/dL [facility] EXT Albumin 4.2 3.3 - 5.0 g/dL [facility] EXT Phosphorus (Inorganic), S 3.1 2.5 - 4.5 mg/dL [facility] 11/18/2024 9:59 AM TOLL SETTLEMENT CLERK Narrative [facility] - 11/18/2024 2:03 PM TOLL SETTLEMENT CLERK External results verified in Extract by Vikki Perez on 11/18/2024 at 03:49 PM. us Ordering Provider External Cade LAB BLOOD ADD-ON Final Result [facility] [address] [place] [address] * (ABNORMAL) CBC with Differential, Blood (10/19/2024 12:37 PM TOLL SETTLEMENT CLERK) Only the most recent of2 resultswithin the time period is included. Hemoglobin 13.6 11.6 - 15.0 g/dL 10/19/2024 12:48 PM TOLL SETTLEMENT CLERK [facility] Hematocrit 41.4 35.5 - 44.9 % 10/19/2024 12:48 PM TOLL SETTLEMENT CLERK [facility] Erythrocytes 4.37 3.92 - 5.13 x10(12)/L 10/19/2024 12:48 PM TOLL SETTLEMENT CLERK [facility] MCV 94.7 78.2 - 97.9 fL 10/19/2024 12:48 PM TOLL SETTLEMENT CLERK CN[facility] RBC Distrib Width 13.0 12.2 - 16.1 % 10/19/2024 12:48 PM TOLL SETTLEMENT CLERK [facility] Platelet Count 136(L) 157 - 371 x10(9)/L 10/19/2024 12:48 PM TOLL SETTLEMENT CLERK [facility] Leukocytes 4.4 3.4 - 9.6 x10(9)/L 10/19/2024 12:48 PM TOLL SETTLEMENT CLERK [facility] Neutrophils 3.17 1.56 - 6.45 x10(9)/L 10/19/2024 12:48 PM TOLL SETTLEMENT CLERK [facility] Lymphocytes 0.78(L) 0.95 - 3.07 x10(9)/L 10/19/2024 12:48 PM TOLL SETTLEMENT CLERK [facility] Monocytes 0.34 0.26 - 0.81 x10(9)/L 10/19/2024 12:48 PM TOLL SETTLEMENT CLERK [facility] Eosinophils 0.10 0.03 - 0.48 x10(9)/L 10/19/2024 12:48 PM TOLL SETTLEMENT CLERK CN[facility] Basophils <0.04 0.01 - 0.08 x10(9)/L 10/19/2024 12:48 PM TOLL SETTLEMENT CLERK CN[facility] Blood (Blood, Venous) 10/19/2024 12:37 PM TOLL SETTLEMENT CLERK 10/19/2024 12:43 PM TOLL SETTLEMENT CLERK us Keyla Dumont LAB BLOOD ADD-ON Fin al Result [facility] [address] [place] [address], [place] CNFL [facility] in [address] [address] * (ABNORMAL) LD (Lactate Dehydrogenase) (10/19/2024 12:37 PM TOLL SETTLEMENT CLERK) Only the most recent of2 resultswithin the time period is included. Lactate Dehydrogenase (LD), P 227(H) 122 - 222 U/L 10/19/2024 11:39 PM TOLL SETTLEMENT CLERK RDWG Blood (Blood, Venous) 10/19/2024 12:37 PM TOLL SETTLEMENT CLERK 10/19/2024 7:04 PM TOLL SETTLEMENT CLERK Keyla Dumont LAB BLOOD NON ADD-ON Final Result [facility] [address] [place] [address], [facility] RDWG [facility] in [place] [address] [place] [phone] * (ABNORMAL) Comprehensive Metabolic Panel (10/19/2024 12:37 PM TOLL SETTLEMENT CLERK) Only the most recent of2 resultswithin the time period is included. Potassium, P 4.1 3.6 - 5.2 mmol/L 10/19/2024 1:06 PM TOLL SETTLEMENT CLERK CNFL Sodium, P 135 135 - 145 mmol/L 10/19/2024 1:06 PM TOLL SETTLEMENT CLERK CNFL Chloride, P 103 98 - 107 mmol/L 10/19/2024 1:06 PM TOLL SETTLEMENT CLERK CNFL Bicarbonate, P 27 22 - 29 mmol/L 10/19/2024 1:06 PM TOLL SETTLEMENT CLERK CNFL Anion Gap, P 5(L) 7 - 15 10/19/2024 1:06 PM TOLL SETTLEMENT CLERK CNFL BUN (Blood Urea Nitrogen), P 17 6 - 21 mg/dL 10/19/2024 1:06 PM TOLL SETTLEMENT CLERK CNFL Creatinine 1.09(H) 0.59 - 1.04 mg/dL 10/19/2024 1:06 PM TOLL SETTLEMENT CLERK CNFL Estimated GFR (eGFR) 56(L) >=60 mL/min/BS A 10/19/2024 1:06 PM TOLL SETTLEMENT CLERK CNFL Comment: Estimated GFR calculated using the 2020 CKD_EPI creatinine equation. Calcium, Total, P 9.2 8.8 - 10.2 mg/dL 10/19/2024 1:06 PM TOLL SETTLEMENT CLERK CNFL Glucose, P 172(H) 70 - 140 mg/dL 10/19/2024 1:06 PM TOLL SETTLEMENT CLERK CNFL Protein, Total, P 6.6 6.3 - 7.9 g/dL 10/19/2024 1:06 PM TOLL SETTLEMENT CLERK CNFL Albumin, P 3.8 3.5 - 5.0 g/dL 10/19/2024 1:06 PM TOLL SETTLEMENT CLERK CNFL Aspartate Aminotransferase (AST), P 22 8 - 43 U/L 10/19/2024 1:06 PM TOLL SETTLEMENT CLERK CNFL Alkaline Phosphatase, P 64 35 - 104 U/L 10/19/2024 1:06 PM TOLL SETTLEMENT CLERK CNFL Alanine Aminotransferase (ALT), P 16 7 - 45 U/L 10/19/2024 1:06 PM TOLL SETTLEMENT CLERK CNFL Bilirubin, Total, P 0.4 0.0 - 1.2 mg/dL 10/19/2024 1:06 PM TOLL SETTLEMENT CLERK CNFL Blood (Blood, Venous) 10/19/2024 12:37 PM TOLL SETTLEMENT CLERK 10/19/2024 12:43 PM TOLL SETTLEMENT CLERK us Keyla Dumont LAB BLOOD ADD-ON Fin al Result Performing Organization Address City/State/[facility] Co de Phone Number [facility] [address] [place] [address], [facility] CNFL [facility] in [address] [address] * CT Lymph Node Biopsy (10/10/2024 9:43 AM TOLL SETTLEMENT CLERK) Anatomical Region Laterality Modality Body, Abdominal RST LOS, Mus culoskeletal ARZ LOS, Neuroradiology ARZ LOS, Vascular Interventional ARZ LOS, Procedure FLA LOS, Abdominal FLA LOS, Procedural, Procedural NWWI LOS Computed Tomography, C omputed Tomography Impressions 10/10/2024 9:57 AM TOLL SETTLEMENT CLERK CT-guided lymph node biopsy NR Narrative 10/10/2024 9:57 AM TOLL SETTLEMENT CLERK EXAM: CT LYMPH NODE BIOPSY PRE-PROCEDURE: Patient [...] Aspiration (including core biopsies) (10/10/2024 9:10 AM TOLL SETTLEMENT CLERK) (A) 10:10 AM TOLL SETTLEMENT CLERK DTL Disclaimer This test was developed and its performance characteristics determined by [facility] in a manner consistent with CLIA requirements. This test has not been cleared or approved by the U.S. Food and Drug Administration. Test results for (IHC or ABDOUL) testing are valid for specimens fixed between 6 and 72 hours. Delay to fixation, under fixation or over fixation fall outside of guidelines and may affect these results. (A) 10/14/2024 10:10 AM TOLL SETTLEMENT CLERK DTL Report electronically signed by Jacek [place] D.O., M.S. I verify that I have examined all relevant slides/materials for the specimen(s) and rendered or confirmed the diagnosis. (A) 10/14/2024 10:10 AM TOLL SETTLEMENT CLERK DTL Gross Description Received 12 alcohol-fixed smears [...] A3: Multiple fragments (A) 10/14/2024 10:10 AM TOLL SETTLEMENT CLERK DTL Source A. Lymph node, Right iliac, fine needle aspiration(A) 10/14/2024 10:10 AM TOLL SETTLEMENT CLERK DTL Interpretation A. Lymph node, Right iliac, [...] as a mixture of CD3-positive T-cells and BP16-hyixmqss B-cells, and collections of epithelioid histiocytes are large atypical lymphoid cells compatible with lymphocyte predominant (LP) cells. The LP cells are positive for PAX5, OCT2, and MEF2B but do not show definitive staining for CD20. No LM42-karlbcte follicular dendritic cell meshworks are present, but CD21 does stain the background small B-cells.(A) 10/14/2024 10:10 AM TOLL SETTLEMENT CLERK DTL Tissue (Ilium, Right) 10/10/2024 9:10 AM TOLL SETTLEMENT CLERK Keyla Dumont LAB SURG PATH ORDERA BLES Final Result [facility] [address] [place] [address], [facility] DT [address] [place] [address] * Prothrombin Time (PT) (10/10/2024 8:06 AM TOLL SETTLEMENT CLERK) Prothrombin Time, P 11.2 9.4 - 12.5 sec 10/10/2024 8:30 AM TOLL SETTLEMENT CLERK STMA INR 1.0 0.9 - 1.1 10/10/2024 8:30 AM TOLL SETTLEMENT CLERK STMA Comment: ----ADDITIONAL INFORMATION---- Standard intensity warfarin therapeutic range: 2.0 to 3.0 High intensity warfarin therapeutic range: 2.5 to 3.5 Blood (Blood, Venous) 10/10/2024 8:06 AM TOLL SETTLEMENT CLERK 10/10/2024 8:24 AM TOLL SETTLEMENT CLERK Vikki Fierro APRN, C.N.P., M.S.N. LAB BLOOD ADD- ON Final Result [facility] [address] [place] [address], [facility] [address] [place] [address] * PET CT Whole Body FDG (10/04/2024 11:35 AM TOLL SETTLEMENT CLERK) Anatomical Region Laterality Modality Whole body, Nuclear Medicine PET RST LOS, PET ARZ LOS, Nuclear Medicine PET FLA LOS, Nuclear Medicine N/A Positron Emission Tomogr aphy (PET), Positron Emission Tomography (PET) Impressions 10/04/2024 12:43 PM TOLL SETTLEMENT CLERK PET findings for new/worsening FDG avid ludy lymphoma most significantly enlargement of markedly FDG avid right external iliac ludy disease since the PET/CT on 07/05/2024. Milena 5. Narrative 10/04/2024 12:43 PM TOLL SETTLEMENT CLERK EXAM: PET CT WHOLE BODY FDG Serum glucose at time of F-18 FDG injection was 113 mg/dL. Patient followed standard dietary/fasting requirements for this exam. RADIOPHARMACEUTICAL/MEDS: Route: intravenous fludeoxyglucose F 18 injection DETENTION (FDG F-18),9.2 millicurie TECHNIQUE: F-18 FDG PET/CT [...] RADIOPHARMACEUTICAL/MEDS: Route: intravenous fludeoxyglucose F 18 injection DETENTION (FDG F-18),9.2 millicurie TECHNIQUE: F-18 FDG PET/CT [...] PROCEDURES Fi nal Result * Thyroid Function Bowler (07/17/2023 9:04 AM CDT) TSH, Sensitive 2.7 0.3 - 4.2 mIU/L 07/17/2023 10:08 AM CDT DTL Blood (Blood, Venous) 07/17/2023 9:04 AM CDT 07/17/2023 9:36 AM CDT us Connor Bermudez M.D. LAB BLOOD ADD-ON Final Resul t Performing Organization Address [facility]/ZIP Co de Phone Number [facility] [address] [place] [address], [facility] DTL [facility] [address] [place] [address] * HCV Ab Scrn w/Reflex to HCV PCR, Serum (06/26/2022 2:34 PM CDT) HCV Ab Screen, S Negative Negative 06/27/20 2:12 AM CDT ECLR Comment: Biotin has been identified by the manufacturing engineering technologist as a potential interfering substance. Higher concentrations of biotin may be found in multivitamins, hair/nail supplements, and workout supplements. If the result does not match clinical observations, repeat testing after patient refrains from the use of supplements for at least 12 hours. Blood (Blood, Venous) 06/26/2022 2:34 PM CDT 06/26/2022 9:22 PM CDT Narrative [facility] - 06/27/2022 2:12 AM CDT Specimen Information: Specimen ID: [id number] Specimen Type: Blood Specimen Collection Start Date: 06/26/2022 2:35 PM Specimen Received Date: 06/26/2022 9:22 PM Specimen ID: [id number] Specimen Type: Blood Specimen Collection Start Date: 06/26/2022 2:34 PM Specimen Received Date: 06/26/2022 9:23 PM us Mica Romero M.D. LAB MICROBIOLOGY - BLOOD ORDERABLES Final Result [facility] [address] [place] [address], [facility] ECLR [facility] in [address] [address] * DIAGNOSTIC MAMMO, BILAT, W/CAD-Outside Mammogram (04/24/2022 [...] System IMG BI PROCEDURES Final R esult IIIN NA from Last 3 Months or Most Recently Relevant to Health Maintenance Additional Health Concerns Active Problems Noted Date Diagnosed Date [facility] Home Blood Pressure Monitoring Care Plan 08/31/2024 Track your blood pressure weekly 08/31/2024 Recheck your blood pressure in 15 minutes 2023 Patient selects Medium to [id number] 09/01/2024 Change in blood pressure mon itoring - weekly to every 2 weeks 09/07/2024 Recheck your blood pressure again tomorrow 09/22 Recheck your blood pressure in 15 minutes 2023 Recheck your blood pressure again tomorrow 11/01 Recheck your blood pressure in 15 minutes 2023 Continue to monitor every 2 weeks 11/02/[address] [place] [address] MEDICARE [facility] Care Teams Pattern Duplicator Relationship Specialty Start Date End Date Elsewhere, Pcp PCP - General Internal Medicine 10/05/23
--- OUTSIDE RECORDS SUMMARY | 2024-11-18 18:48 | XMS_ITS | Encounter Summary ---
Author Organization [facility] Address [address] [place] [id number] Care Team Providers Care Manager Aviation Name Role Phone Elsewhere, Pcp Primary Care Provider Unavailabl e Reason for Referral * Outpatient (Routine) - Authorized Specialty Diagnoses / Procedures Referred By Luigi kumar Referred To Contact Hematology Oncology Keyla Willoughby M.B.B.S. [address] [place] [phone] Phone: tel: fax: [facility] Referral ID Status Reason Start Date Expiration Date V isits Requested Visits Authorized [id number] Authorized 11/17/2024 05/19/2026 1 1 RADIOLOGIST Reason for Visit * Outpatient (Routine) - Closed Specialty Diagnoses / Procedures Referred By Luigi kumar Referred To Contact Hematology Oncology Luis Carballo Jr., M.D., M.B.A. [address] [place] [phone] Phone: tel: fax: [facility] Referral ID Status Reason Start Date Expiration Date Visits Re quested Visits Authorized [id number] Closed 10/25/2024 04/26/2026 1 1 Encounter Details Date Type Department Care Team (Late st Contact Info) Description 11/15/2024 3:00 PM TELERADIOLOGIST Telemedicine Department of Oncology in [place], [place] [address] [place] [phone] Keyla Willoughby M.B.B.S. 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 Alcohol Use Standard Drinks/Week Comments Not Currently 0 (1 standard drink = 0.6 oz pur e alcohol) 1 or 2 drinks a year [facility] Circassiaities Answer Date Recorded In the past 12 months has e electric, gas, oil, or water Anygma threatened to shut off services in your [...] week 06/23/2022 How often do you attend [facility] or catholic services? Never 06/23/2022 Do you belong [...] and heating? Not hard at all 08/27/2023 [facility] - Occupational [...] your living situation today? [facility] 10/18/2024 Education Answer Date Recorded What is the highest level of school you have completed or the highest degree you have received? 12th grade 06/23/2022 Comments Unknown Sex and Gender Information Value Date Recorded Sex Assigned at Female 06/23/2022 9:00 PM CDT Legal Sex Female 8:47 PM TELERADIOLOGIST Gender Identity Female 06/23/2022 9:00 PM CDT Sexual Orientation Straight 06/23/2022 9: 00 PM CDT documented as of this encounter Progress Notes * Keyla Willoughby M.B.BPhoenixS. 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 Croft Primary fellow: Tim Simms SUBJECTIVE CHIEF COMPLAINT/PURPOSE OF VISIT Jaky Lara is a 68 y.o. 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 HISTORY OF PRESENT ILLNESS Patient oncologic history is as follows, updated by me to reflect interim changes: Oncology History Nodular Lymphocyte Predominant Hodgkin Lymphoma [...] biopsy, which may or may not be retail wireless sales representative of the entire lymph node, is entirely diffuse (Fan pattern E; see PMID [id number]). 03/14/2024 - 04/01/2024 Radiation Therapy Radiation Therapy Treatment Details (03/14/2024 - 04/01/2024) Site: Axillary lymph node Fractions: 15 Technique: IMRT Dose: 4500 cGy Goal: Palliative 07/05/2024 Critical Imaging PET/CT IMPRESSION: 1. Normalization of previously seen avid right axillary lymph node. 2. No evidence of FDG avid lymphoma. Deauville 2. 10/04/2024 Critical Imaging PET/CT IMPRESSION: PET findings for new/worsening FDG avid ludy lymphoma most significantly enlargement of markedly FDG avid right external iliac ludy disease since the PET/CT on 07/05/2024. Deauville 5. 10/10/2024 Biopsy/Pathology A. Lymph node, Right iliac, fine needle aspiration (smears/core biopsy): Positive for malignancy. 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 Interval HPI Today was a virtual visit to discuss treatment options for recurrent nodular lymphocyte-predominantHodgkin's lymphoma. Patient remains asymptomatic and does not endorse any notable symptoms during this visit. ECOG Score--No recent values found: No recent values found SYSTEMS REVIEW A complete 10 point systems review was performed and negative except as noted above in the HPI. PAST MEDICAL/SURGICAL HISTORY/SOCIAL HISTORY/FAMILY HISTORY Reviewed and available in the EMR. VITAL SIGNS There were no vitals filed for this visit. PHYSICAL EXAMINATION General: Alert, interactive, not acutely ill, no apparent distress. LABS No results for input(s): NA, K, CL, BICARB, MG, CALCIUM, BUN, CREATININE, GLUCOSE, LABGLUC, ALBUMIN, PREALBUMIN, HGB, HCT, WBC, PLT, INR, PT, APTT, [id number], PHART, PO2ART in the last 24 hours. No lab exists for component: [id number] No results found. ASSESSMENT / PLAN Jaky Lara is a 69 y.o. female who is seen in clinic for recurrent nodular lymphocyte-predominant B-cell lymphoma. 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 Subsequent biopsy in April, was consistent with nodular lymphocyte-predominant B-cell lymphoma. Her treatment course has included 8 courses of rituximab (last dose on 05/2023). End of treatment PET showed persistent avidity in the right axillary lymph node. In January 2024, a repeat biopsy in theright axilla was consistent with recurrence of known lymphocyte-predominant B-cell lymphoma. She subsequently received 15 fractions of radiation for 4500 cGy to right axilla (completed in Mar, 2024).PET scan afterwards showed no evidence of lymphoma-Deauville 2. Surveillance PET-CT in October 05, 2024 showed new worsening FDG avidity in the right external iliac node Deauville 5 and a subsequent biopsy in September was consistent with residual/recurrent nodular lymphocyte-predominant B-cell lymphoma. PET scan also showed additional several tiny subcentimeter lymph nodes with FDG avidity. Update 11/17/24 Patient remains asymptomatic. Specifically denies night sweats, change in appetite or weight loss. Reviewed recent labs only notable for mild thrombocytopenia and LDH only mildly elevated at 227 U/L I discussed her case with Dr. Hodges. I further discussed the pros and cons of treatment versus observation in her current situation. We ultimately opted for observation. The rationale being that serial imaging and biopsies have proven the indolent nature of her disease despite high SUV max in the PET scans. Treatment options could entail chemotherapy such as R-CHOP but these I will likely to prolong life. We will proceed with surveillance scans in 2 months. Summary of plan -continue observation for now -return visit in December with interval scans Plan was discussed with Dr. Hodges PATIENT EDUCATION Patient ready to learn, no apparent learning barriers were identified; learning preferences includelistening. Explained diagnosis and treatment plan; patient expressed understanding of the content. It was my pleasure to care for Jaky Lara today. Total time of encounter: I personally spent 30 minutes in direct and indirect patient care related to today's visit Suhas SimmsS. 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 Author [facility] Home Blood Pressure Monitoring Care Plan Care Plan [facility] Home Blood Pressure Monitoring Care Plan No Nessa Verma Track your blood pressure weekly Care Plan Track your blood pressure weekly No Nessa Verma Recheck your blood pressure in 15 minutes Care Plan Recheck your blood pressure in 15 minutes No Patient, Online Services Patient selects Medium to [id number] Care Plan Patient selects Medium to [id number] No Patient, Online Services Change in blood [...] every 2 weeks No Patient, Online Services documented as of this encounter Visit Diagnoses Diagnosis 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)- Primary documented in this encounter Additional Health Concerns Active Problems Noted Date Diagnosed Date [facility] Home Blood Pressure Monitoring Care Plan 08/31/2024 Track your blood pressure weekly 08/31/2024 Recheck your blood pressure in 15 minutes 2023 Patient selects Medium to [id number] 09/01/2024 Change in blood pressure mon itoring - weekly to every 2 weeks 09/07/2024 Recheck your blood pressure again tomorrow 09/22 Recheck your blood pressure in 15 minutes 2023 Recheck your blood pressure again tomorrow 11/01 Recheck your blood pressure in 15 minutes 2023 Continue to monitor every 2 weeks 11/02/2024 documented as of this encounter Care Teams Manager Aviation Relationship Specialty Start Date End Date Elsewhere, Pcp PCP - General Internal Medicine 10/05/23 documented as of this encounter
--- OUTSIDE RECORDS SUMMARY | 2024-11-18 18:48 | XMS_ITS ---
Author Organization [facility] Address [address] [place] [address] Care Team Providers Care Wet Process Miller Name Role Phone Unavailable Unavailable Unavailable Surgery Details Not on file Complications Check Surgery Details section. Procedure Estimated Blood Loss Check Surgery Details section. Procedure Findings Check Surgery Details section. Procedure Specimens Taken Check Surgery Details section.
--- OUTSIDE RECORDS SUMMARY | 2024-11-18 18:48 | XMS_ITS | Encounter Summary ---
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 [address] [place] [phone] Phone: tel: fax: [facility] Referral ID Status Reason Start Date Expiration Date Visits Re quested Visits Authorized [id number] Closed 07/05/2024 07/05/2025 1 1 Encounter Details Date Type Department Care Team (Late st Contact Info) Description 10/04/2024 8:41 AM LITIGATION SERVICES MANAGER - 10/04/2024 11:59 PM LITIGATION SERVICES MANAGER Hospital Encounter Department of Radiology, [facility], in [place], [place] [address] [place] [phone] Keyla Willoughby M.B.B.S. [address] [place] [phone] Nodular Lymphocyte Predominant Hodgkin Lymphoma Extranodal And [...] How often do you attend [facility] or yazdanism services? Never 06/23/2022 Do you [...] and heating? Not hard at all 08/27/2023 [facility] Occupat ional Health - Occupational Stress [...] PM CDT Legal Sex Female 8:47 PM LITIGATION SERVICES MANAGER Gender Identity Female 06/23/2022 9:00 PM CDT Sexual Orientation Straight 06/23/2022 9: 00 PM CDT documented as of this encounter Medications at Time of Discharge albuterol 90 mcg/actuation inhaler Inhale 2 puffs as needed. 2 amLODIPine (NORVASC) 10 mg tablet Take 1 tablet by mouth daily. 2 biotin 1 mg tablet Take 1 tablet by mouth daily. buPROPion XL (WELLBUTRIN XL) 300 mg 24 hr tablet Take 300 mg by mouth every morning. 3 carvediloL (Coreg) 25 mg tablet Take 1 tablet (25 mg total) by mouth 2 (two) times a day with meals. 180 tablet 3 4 05/04/20 25 celecoxib (CeleBREX) 100 mg capsule Take 1 capsule by mouth 2 (two) times a day. 4 cholecalciferol (VITAMIN D3) 125 mcg (5,000 Unit) tablet Take 125 mcg by mouth daily. 5 DULoxetine (CYMBALTA) [address] capsule Take 60 mg by mouth daily. finasteride (PROSCAR) 5 mg tablet Take 2.5 mg by mouth daily. 2 HYDROcodone-acetam inophen (NORCO) 5-325 mg per tablet Take 1 tablet by mouth every 6 (six) hours as needed. for pain 2 hydrocortisone (HYTONE) 2.5 % cream Apply topically as needed. 1 levothyroxine (SYNTHROID, LEVOTHROID) 75 mcg tablet Take 75 mcg by mouth daily. 2 LORazepam (ATIVAN) 0.5 mg tablet Take 0.5 mg by mouth as needed. 2 mometasone (ELOCON) 0.1 % cream Apply 1 Application topically daily. Apply to skin of the right armpit, supraclavicular region and neck once daily to start. 45 g 1 4 nystatin-triamcino lone (MYCOLOG II) 100,000 Unit/g-0.1 % cream Apply topically 2 (two) times a day as needed. 2 oxyCODONE-acetamin ophen (PERCOCET) 5-325 mg per tablet TAKE 1/2 TO 1 TABLET BY MOUTH EVERY 6 TO 8 HOURS NEEDED. MAX DOSE: 6/DAY. 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 30 tablet 2 4 rivaroxaban (Xarelto) 10 mg tabletIndications: Snf (Current) Anticoagulant Treatment Take 1 tablet (10 mg total) by mouth daily with evening meal. 90 tablet 3 4 07/05/20 25 Stool Softener-Stimulant Laxat 8.6-50 mg per tablet Take 2 tablets by mouth at bedtime. 4 valsartan (Diovan) 160 mg tablet Take 1 tablet (160 mg total) by mouth 2 (two) times a day. 180 tablet 3 4 zinc chelated 50 mg tablet tablet Take 1 tablet by mouth daily. 5 spironolactone (Aldactone) 50 mg tablet Take 1 tablet (50 mg total) by mouth daily. 90 tablet 3 4 11/01/20 24 documented as of this encounter Plan of Treatment Not on file documented as of this encounter Goals Goal Patient Goal Type Associated Problems Recent Progress Patient-Stated? Author [facility] Home Blood Pressure Monitoring Care Plan Care Plan [facility] Home Blood Pressure Monitoring Care Plan No Nessa Verma Track your blood pressure weekly Care Plan Track your blood pressure weekly No Nessa Verma Recheck your blood pressure in 15 minutes Care Plan Recheck your blood pressure in 15 minutes No Patient, Online Services Patient selects Medium to [id number] Care Plan Patient selects Medium to [id number] No Patient, Online Services Change in blood [...] in 15 minutes No Patient, Online Services documented as of this encounter Procedures Procedure Name Priority Date/Time Associated Diagnosis Comments PET CT WHOLE BODY RAD - Routine (most inpatients and all outpatients) 10/04/2024 11:35 AM LITIGATION SERVICES MANAGER 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 Milena 5. 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) documented in this encounter Administered Medications Inactive Administered Medications - up to 3 most recent administrations Medication Order MAR Action Action Date Dose Rate Site fludeoxyglucose F 18 injection [facility] (FDG F-18) 4.5-16.5 millicurie, intravenous, Once, On Thu10/04/24 at 1015, For 1 dose, Imaging Protocol Orders Given 10/04/2024 9:45 AM LITIGATION SERVICES MANAGER 9.2 millicuries documented in this encounter Additional Health Concerns Active Problems Noted Date Diagnosed Date [facility] Home Blood Pressure Monitoring Care Plan 08/31/2024 Track your blood pressure weekly 08/31/2024 Recheck your blood pressure in 15 minutes 2023 Patient selects Medium to [id number] 09/01/2024 Change in blood pressure mon itoring - weekly to every 2 weeks 09/07/2024 Recheck your blood pressure again tomorrow 09/22 Recheck your blood pressure in 15 minutes 2023 documented as of this encounter Care Teams [employer] Special Agent Relationship Specialty Start Date End Date Elsewhere, Pcp PCP - General Internal Medicine 10/05/23 documented as of this encounter
--- OUTSIDE RECORDS SUMMARY | 2024-11-18 18:48 | XMS_ITS | Encounter Summary ---
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 [address] [place] [phone] Phone: tel: fax: [facility] Referral ID Status Reason Start Date Expiration Date Visits Re quested Visits Authorized [id number] Closed 10/04/2024 10/04/2025 1 1 Encounter Details Date Type Department Care Team (Late st Contact Info) Description 10/10/2024 7:19 AM EMERGENCY MEDICINE MEDICAL DIRECTOR - 10/10/2024 10:41 AM [facility] Hospital Encounter Department of Radiology in [place], [place] [address] [place] [phone] Keyla Willoughby, M.B.B.S. [address] [place] [phone] Nodular Lymphocyte Predominant Hodgkin Lymphoma Extranodal And [...] any clubs o r organizations such as anabaptist groups, unions, fraternal or athletic groups, or [...] heating? Not hard at all 08/27/2023 [facility] - [...] PM CDT Legal Sex Female 8:47 PM EMERGENCY MEDICINE MEDICAL DIRECTOR Gender Identity Female 06/23/2022 9:00 PM CDT Sexual Orientation Straight 06/23/2022 9: 00 PM CDT documented as of this encounter Last Filed Vital Signs Vital Sign Reading Time Taken Comments Blood Pressure 136/80 10/10/2024 10:18 AM EMERGENCY MEDICINE MEDICAL DIRECTOR Pulse 68 10/10/2024 10:18 AM EMERGENCY MEDICINE MEDICAL DIRECTOR Temperature 36.7 C (98.1 F) 10/10/2024 9:44 AM EMERGENCY MEDICINE MEDICAL DIRECTOR Respiratory Rate 20 10/10/2024 10:18 AM EMERGENCY MEDICINE MEDICAL DIRECTOR Oxygen Saturation 97% 10/10/2024 10:18 AM EMERGENCY MEDICINE MEDICAL DIRECTOR Inhaled Oxygen Concentration - - Weight 105 kg (232 lb 4.1 oz) 10/10/2024 8:12 AM EMERGENCY MEDICINE MEDICAL DIRECTOR Height - - Body Mass Index 40.44 10/04/2024 2:19 PM EMERGENCY MEDICINE MEDICAL DIRECTOR documented in this encounter Discharge Instructions * Discharge Instr - Activity* Arlyn Bhatti APRN, C.N.P., M.S. - 10/10/2024 7:07 AM EMERGENCY MEDICINE MEDICAL DIRECTOR May restart Xarelto 24 hours post biopsy Care for the percutaneous puncture site: Keep dressing in place over site for 24 hours 24 hours after procedure, it is okay to shower. Remove the dressing and clean and rinse the puncture site gently with soap and water If there is drainage or crusting at the site, gently but thoroughly clean the site using a wash cloth or cotton tip swab with soap and water After removing the dressing and cleaning the site, allow the area to air-dry or pat dry with a clean towel. Reapply a Band-Aid to the puncture site or leave open to air Do not submerge puncture site in water such as tub bathing or swimming until completely healed No vigorous or strenuous activities for 48 hours. Do not lift, push, or pull anything greater than 10 lb for 1 week. Seeking emergency care: Contact your health care provider immediately or seek emergency care for the following symptoms: A temperature of 101 degrees Fahrenheit (38.3 degrees Celsius) or higher Chills Severe pain Drainage that has blood in it for more than 24 hours For nonemergent questions or concerns: If you have questions related to the procedure please contact the [facility] matching machine operator ([phone]) and ask to be connected to the non-vascular interventional radiology fellow vice president for instruction. GENCY MEDICINE MEDICAL DIRECTOR * Attachments The following attachments cannot be sent through Care Everywhere. * Instructions After Sedation or Anesthesia for Adults documented in this encounter Medications at Time [...] 2 4 rivaroxaban (Xarelto) 10 mg tabletIndications: Jail (Current) Anticoagulant Treatment Take 1 tablet (10 [...] 11/01/20 24 documented as of this encounter Nursing Notes * Sherman Thorpe R.N. - 10/10/2024 8:30 AM CST RN completed medication reconciliation during pre-arrival phone call for radiology procedure scheduled on 10/10. The standard length of time to hold Xarelto/Rivaroxaban for CT guided lymph node biopsy is [address]/US Radiology Specialty Procedural Bleeding Risk Resource for Anticoagulation and Laboratory Testing. Patient has not received instructions for anticoagulation in relation to theprocedure. RN contacted CT/US [place] Nikolai Ford.N.Med who indicated that the patient should anticoagplan: proceed with the procedure as planned and stop taking anticoagulant today or tomorrow. Electronically signed by: Sherman Thorpe R.N. 10/06/24 10:17 AM EMERGENCY MEDICINE MEDICAL DIRECTOR GENCY MEDICINE MEDICAL DIRECTOR documented in this encounter Plan of Treatment Not on file documented as of this encounter Goals Goal Patient Goal Type Associated Problems Recent Progress Patient-Stated? Author [facility] Home Blood Pressure Monitoring Care Plan Care Plan [facility] Blood Pressure Monitoring Care Plan No Nessa Verma Track your blood pressure weekly Care Plan Track your blood pressure weekly No Nessa Verma Recheck your blood pressure in 15 minutes Care Plan Recheck your blood pressure in 15 minutes No Patient, Online Services Patient selects Medium to [id number] Care Plan Patient selects Medium to [id number] No Patient, Online Services Change in blood [...] Procedure Name Priority Date/Time Associated Diagnosis Comments CT LYMPH NODE BIOPSY RAD - Routine (most inpatients and all outpatients) 10/10/2024 9:43 AM EMERGENCY MEDICINE MEDICAL DIRECTOR 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) CYTOLOGY FINE NEEDLE ASPIRATION (INCLUDES CORE BIOPSIES Timed 10/10/2024 9:10 AM EMERGENCY MEDICINE MEDICAL DIRECTOR 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) PROTHROMBIN TIME (PT), P STAT 10/10/2024 8:06 AM EMERGENCY MEDICINE MEDICAL DIRECTOR documented in this encounter Results * CT Lymph Node Biopsy (10/10/2024 9:43 AM EMERGENCY MEDICINE MEDICAL DIRECTOR) Anatomical Region Laterality Modality Body, Abdominal RST LOS, Mus culoskeletal ARZ LOS, Neuroradiology ARZ LOS, Vascular Interventional ARZ LOS, Procedure FLA LOS, Abdominal FLA LOS, Procedural, Procedural NWWI LOS Computed Tomography, C omputed Tomography Impressions 10/10/2024 9:57 AM EMERGENCY MEDICINE MEDICAL DIRECTOR CT-guided lymph node biopsy NR Narrative 10/10/2024 9:57 AM EMERGENCY MEDICINE MEDICAL DIRECTOR EXAM: CT LYMPH NODE BIOPSY PRE-PROCEDURE: Patient [...] Aspiration (including core biopsies) (10/10/2024 9:10 AM EMERGENCY MEDICINE MEDICAL DIRECTOR) (A) 10:10 AM EMERGENCY MEDICINE MEDICAL DIRECTOR DTL Disclaimer This test was developed and its performance characteristics determined by [facility] in a manner consistent with CLIA requirements. This test has not been cleared or approved by the U.S. Food and Drug Administration. Test results for (IHC or ABDOUL) testing are valid for specimens fixed between 6 and 72 hours. Delay to fixation, under fixation or over fixation fall outside of guidelines and may affect these results. (A) 10/14/2024 10:10 AM EMERGENCY MEDICINE MEDICAL DIRECTOR DTL Report electronically signed by Jacek Read.O., M.S. I verify that I have examined all relevant slides/materials for the specimen(s) and rendered or confirmed the diagnosis. (A) 10/14/2024 10:10 AM EMERGENCY MEDICINE MEDICAL DIRECTOR DTL Gross Description Received 12 alcohol-fixed smears [...] A3: Multiple fragments (A) 10/14/2024 10:10 AM EMERGENCY MEDICINE MEDICAL DIRECTOR DTL Source A. Lymph node, Right iliac, fine needle aspiration(A) 10/14/2024 10:10 AM EMERGENCY MEDICINE MEDICAL DIRECTOR DTL Interpretation A. Lymph node, Right iliac, [...] as a mixture of CD3-positive T-cells and AG82-aztbwwcm B-cells, and collections of epithelioid histiocytes are large atypical lymphoid cells compatible with lymphocyte predominant (LP) cells. The LP cells are positive for PAX5, OCT2, and MEF2B but do not show definitive staining for CD20. No OM67-rrhkzypz follicular dendritic cell meshworks are present, but CD21 does stain the background small B-cells.(A) 10/14/2024 10:10 AM EMERGENCY MEDICINE MEDICAL DIRECTOR DTL Tissue (Ilium, Right) 10/10/2024 9:10 AM EMERGENCY MEDICINE MEDICAL DIRECTOR us Keyla Dumont LAB SURG PATH ORDERA BLES Final Result [facility] [address] [place] [address], [facility] [address] [place] [address] * Prothrombin Time (PT) (10/10/2024 8:06 AM EMERGENCY MEDICINE MEDICAL DIRECTOR) Prothrombin Time, P 11.2 9.4 - 12.5 sec 10/10/2024 8:30 AM EMERGENCY MEDICINE MEDICAL DIRECTOR [facility] INR 1.0 0.9 - 1.1 10/10/2024 8:30 AM EMERGENCY MEDICINE MEDICAL DIRECTOR [facility] Comment: ----ADDITIONAL INFORMATION---- Standard intensity warfarin therapeutic range: 2.0 to 3.0 High intensity warfarin therapeutic range: 2.5 to 3.5 Blood (Blood, Venous) 10/10/2024 8:06 AM EMERGENCY MEDICINE MEDICAL DIRECTOR 10/10/2024 8:24 AM EMERGENCY MEDICINE MEDICAL DIRECTOR us Vikki Fierro APRN, C.N.P., M.S.N. 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 May repeat every 2 minutes to a maximum of 200 mcg, until pain score of 3 or less, or until the patient meets the pain comfort goal, or RASS 0 to -2. Do not give if respiratory rate is less than 8 breaths/minute., Starting on Thu10/10/24 at 0855, For 3 hours, Intraprocedure (RAD), Subsequent doses Given 10/10/2024 9:28 AM EMERGENCY MEDICINE MEDICAL DIRECTOR 25 mcg Given 10/10/2024 9:21 AM EMERGENCY MEDICINE MEDICAL DIRECTOR 25 mcg Given 10/10/2024 9:15 AM EMERGENCY MEDICINE MEDICAL DIRECTOR 25 mcg lidocaine 10 mg/mL (1 %) injection (Xylocaine) As needed, Starting on Thu10/10/24 at 0922, Intra-Op Given 10/10/2024 9:22 AM EMERGENCY MEDICINE MEDICAL DIRECTOR 7 mL Right Hip midazolam (PF) injection 0.5 mg (Versed) 0.5 mg, intravenous, Once as needed, sedation, Starting on Thu10/10/24 at 0855, For 1 dose, Intraprocedure (RAD) Given 10/10/2024 9:20 AM EMERGENCY MEDICINE MEDICAL DIRECTOR 0.5 mg midazolam (PF) injection 0.5 mg (Versed) 0.5 mg, intravenous, Every 2 min PRN, sedation, RASS -1, Starting on Thu10/10/24 at 0855, For 3 hours, Intraprocedure (RAD), May repeat every 2 minutes for a maximum of 5 mg. Do not give if respiratory rate is less than 8 breaths/minute. Given 10/10/2024 9:27 AM EMERGENCY MEDICINE MEDICAL DIRECTOR 0.5 mg Given 10/10/2024 9:15 AM EMERGENCY MEDICINE MEDICAL DIRECTOR 0.5 mg Given 10/10/2024 9:12 AM EMERGENCY MEDICINE MEDICAL DIRECTOR 0.5 mg ondansetron (PF) injection 4 mg (Zofran) 4 mg, intravenous, Every 6 hours PRN, vomiting, nausea, Starting on Thu10/10/24 at 0947, Reassess for nausea or vomiting after at least 10 minutes. If nausea or vomiting persists administer next ordered antiemetic medications (order for antiemetic medication administration ondansetron then prochlorperazine). documented in this encounter Active and Recently Administered Medications Times are shown in EMERGENCY MEDICINE MEDICAL DIRECTOR. PRN Medication Order 10/08/2024 10/09/2024 10/10/2024 fentaNYL injection 25 mcg (Sublimaze) (CANCELED) 25 mcg, intravenous, Every 2 min PRN, sedation, Administer over 1 minute immediately prior to the procedure. May repeat every 2 minutes to a maximum of 200 mcg, until pain score of 3 or less, or until the patient meets the pain comfort goal, or RASS 0 to -2. Do not give if respiratory rate is less than 8 breaths/minute., Starting on Thu10/10/24 at 0855, For 3 hours, Intraprocedure (RAD), Subsequent doses 0912 (Given - Provid er: Analisa Fulton R.N.)0915 (Given - Provider: Analisa Fulton R.N.)0921 (Given - Provider: Romana Eden R.N.)0928 (Given - Provider: Romana Eden R.N.) lidocaine 10 mg/mL (1 %) injection (Xylocaine) (COMPLETED) As needed, Starting on Thu10/10/24 at 0922, Intra-Op 0922 (Given - Provid er: Nam Cervantes M.D.) midazolam (PF) injection 0.5 mg (Versed) (COMPLETED) 0.5 mg, intravenous, Once as needed, sedation, Starting on Thu10/10/24 at 0855, For 1 dose, Intraprocedure (RAD) 0920 (Given - Provid er: Romana Eden R.N.) midazolam (PF) injection 0.5 mg (Versed) (CANCELED) 0.5 mg, intravenous, Every 2 min PRN, sedation, RASS -1, Starting on Thu10/10/24 at 0855, For 3 hours, Intraprocedure (RAD), May repeat every 2 minutes for a maximum of 5 mg. Do not give if respiratory rate is less than 8 breaths/minute. 0912 (Given - Provid er: Analisa Fulton R.N.)0915 (Given - Provider: Analisa Fulton R.N.)0927 (Given - Provider: Romana Eden R.N.) ondansetron (PF) injection 4 mg (Zofran) 4 mg, intravenous, Every 6 hours PRN, vomiting, nausea, Starting on Thu10/10/24 at 0947, Reassess for nausea or vomiting after at least 10 minutes. If nausea or vomiting persists administer next ordered antiemetic medications (order for antiemetic medication administration ondansetron then prochlorperazine). documented in this encounter Additional Health Concerns Active Problems Noted Date Diagnosed Date [facility] Home Blood Pressure Monitoring Care Plan 08/31/2024 Track your blood pressure weekly 08/31/2024 Recheck your blood pressure in 15 minutes 2023 Patient selects Medium to [id number] 09/01/2024 Change in blood pressure mon itoring - weekly to every 2 weeks 09/07/2024 Recheck your blood pressure again tomorrow 09/22 Recheck your blood pressure in 15 minutes 2023 documented as of this encounter Care Teams Audio Narrator Relationship Specialty Start Date End Date Elsewhere, Pcp PCP - General Internal Medicine 10/05/23 documented as of this encounter
--- OUTSIDE RECORDS SUMMARY | 2024-11-18 18:48 | XMS_ITS | Encounter Summary ---
Author Organization [facility] Address [address] [place] [address] Care Team Providers Care Grocery Store Associate Name Role Phone Elsewhere, Pcp Primary Care Provider Unavailabl e Reason for Visit * Reason Onset Date Comments Setting up biopsy 10/04/2024 Encounter Details Date Type Department Care Team (Late st Contact Info) Description 10/04/2024 Clinical Communication Division of Hematology in [place], [place] [address] [place] [phone] Keyla Willoughby, M.B.B.S. [address] [place] [phone] Setting up biopsy Social History Tobacco Use Types Packs/Day Years Used Date Smoking Tobacco: Never Passive Smoke Exposure: Past Smokeless Tobacco: Never Passive Exposure Comments:Ch ildhood exposure. Alcohol Use Standard Drinks/Week Comments Not Currently 0 (1 standard drink = 0.6 oz pur e alcohol) 1 or 2 drinks a year [facility] Utilities Answer Date Recorded In the past 12 months has e [employer], gas, oil, or water [employer] threatened to shut off services in your [...] any clubs o r organizations such as anabaptism groups, unions, fraternal or athletic groups, or [...] and heating? Not hard at all 08/27/2023 [facility] Occupat ional Health - [...] your living situation today? I have a [facility] place to live 10/18/2024 Education Answer Date Recorded What is the highest level of school you have completed or the highest degree you have received? 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 Author [facility] Home Blood Pressure Monitoring Care Plan Care Plan [facility] Home Blood Pressure Monitoring Care Plan No Nessa Verma Track your blood pressure weekly Care Plan Track your blood pressure weekly No Nessa Verma Recheck your blood pressure in 15 minutes Care Plan Recheck your blood pressure in 15 minutes No Patient, Online Services Patient selects Medium to [id number] Care Plan Patient selects Medium to [id number] No Patient, Online Services Change in blood [...] filedocumented in this encounter Additional Health Concerns Active Problems Noted Date Diagnosed Date [facility] Home Blood Pressure Monitoring Care Plan 08/31/2024 Track your blood pressure weekly 08/31/2024 Recheck your blood pressure in 15 minutes 2023 Patient selects Medium to [id number] 09/01/2024 Change in blood pressure mon itoring - weekly to every 2 weeks 09/07/2024 Recheck your blood pressure again tomorrow 09/22 Recheck your blood pressure in 15 minutes 2023 documented as of this encounter Care Teams Grocery Store Associate Relationship Specialty Start Date End Date Elsewhere, Pcp PCP - General Internal Medicine 10/05/23 documented as of this encounter
--- OUTSIDE RECORDS SUMMARY | 2024-11-18 18:48 | XMS_ITS | Encounter Summary ---
Author Organization [facility] Address [address] [place] [address] Care Team Providers Care Log Sorter Name Role Phone Elsewhere, Pcp Primary Care Provider Unavailabl e Reason for Visit * Appointment Request (Routine) - Closed Specialty Diagnoses / Procedures Referred By Luigi t Referred To Contact Nephrology and Hypertension Referral ID Status Reason Start Date Expiration Date Visits Re quested Visits Authorized [id number] Closed 09/16/2024 09/16/2025 1 1 Encounter Details Date Type Department Care Team (Latest Contact Info) Description 11/01/2024 11:30 AM CIVIL CADD TECHNICIAN External Outreach Division of Nephrology and Hypertension in [place], [place] [address] [place] [phone] Lyric Isaacs M.D., Ph.D. [address] [place] [address] Hypertension Essential Primary (Primary Dx) Social History Tobacco Use Types Packs/Day Years Used Date Smoking Tobacco: Never Passive Smoke Exposure: Past Smokeless Tobacco: Never Passive Exposure Comments:Ch ildhood exposure. Alcohol Use Standard Drinks/Week Comments Not Currently 0 (1 standard drink = 0.6 oz pur e alcohol) 1 or 2 drinks a year [facility] Utilities Answer Date Recorded In the past 12 months has e [employer], gas, oil, or water [employer] threatened to shut off services in your [...] any clubs o r organizations such as taoist groups, unions, fraternal or athletic groups, or [...] and heating? Not hard at all 08/27/2023 [facility] of Occupat ional Health - Occupational Stress [...] your living situation today? I have a [facility] place to live 10/18/2024 Education Answer Date Recorded What is the highest level of school you have completed or the highest degree you have received? 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 - 11/01/2024 11:30 AM CST PROGRESS NOTE SUBJECTIVE CHIEF COMPLAINT / REASON FOR VISIT Hypertension management [facility] Out[facility] Visit Location: [facility] HISTORY OF PRESENT ILLNESS Jaky Lara is a 69 y.o. female who is seen for follow up. Her BP was under better control for few weeks in the 120s/130s/70s-80s. However, for the past 2 weeks it has increased to the 150s/70s. Her current regimen includes amlodipine 10 mg daily, carvedilol 25 mg BID, valsartan 160 mg BID andspironolactone 25 mg BID. 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 She has initially diagnosed in 2021, it was initially found on axillary lymph nodes that were resected andshe had received treatment with rituximab with complete metabolic response in 2022. A repeat PET CTshowed activity in the axilla and she received radiation therapy in 02/2024 -03/2024. A repeat PET/CTin 06/2024 showed improvement. Repeat scan in Sep 2024 showed findings in the right external iliac node, confirmed by biopsy. Patient is currently asymptomatic, no B symptoms. She is awaiting plan by her hematology/oncology team. OBJECTIVE 154/89 DIAGNOSTICS I have reviewed available labs in detail with patient. ASSESSMENT / PLAN #1 Hypertension management #2 Hodgkin lymphoma Patient returns for follow up. Kidney function remains stable. Estimated GFR is >60. No proteinuria. No hematuria. BP goals are systolic readings between 100-130 mmHg and diastolic readings between 60-80 mmHg. I have recommended patient to increase spironolactone to 100 mg daily, and continue amlodipine, carvedilol and valsartan as prescribed. Repeat labs in 2 weeks to monitor potassium, currently is at goal. If BP remains uncontrolled, as a next step I would recommend adding torsemide 10 mg daily. Low sodium intake to less than 2000 mg per day. Return visit in 6 months, or sooner as needed. Amy Pate M.D., Ph.D. L CADD TECHNICIAN documented in this encounter Plan of Treatment Not on file documented as of this encounter Goals Goal Patient Goal Type Associated Problems Recent Progress Patient-Stated? Author [facility] Home Blood Pressure Monitoring Care Plan Care Plan [facility] Home Blood Pressure Monitoring Care Plan No Nessa Verma Track your blood pressure weekly Care Plan Track your blood pressure weekly No Nessa Verma Recheck your blood pressure in 15 minutes Care Plan Recheck your blood pressure in 15 minutes No Patient, Online Services Patient selects Medium to [id number] Care Plan Patient selects Medium to [id number] No Patient, Online Services Change in blood [...] Concerns Active Problems Noted Date Diagnosed Date [facility] Home Blood Pressure Monitoring Care Plan 08/31/2024 Track your blood pressure weekly 08/31/2024 Recheck your blood pressure in 15 minutes 2023 Patient selects Medium to [id number] 09/01/2024 Change in blood pressure mon itoring - weekly to every 2 weeks 09/07/2024 Recheck your blood pressure again tomorrow 09/22 Recheck your blood pressure in 15 minutes 2023 Recheck your blood pressure again tomorrow 11/01 Recheck your blood pressure in 15 minutes 2023 documented as of this encounter Care Teams Log Sorter Relationship Specialty Start Date End Date Elsewhere, Pcp PCP - General Internal Medicine 10/05/23 documented as of this encounter
--- OUTSIDE RECORDS SUMMARY | 2024-11-18 18:48 | XMS_ITS | Encounter Summary ---
Author Organization [facility] Address [address] [place] [address] Care Team Providers Care Sales Representative Gas Service Name Role Phone Elsewhere, Pcp Primary Care Provider Unavailabl e Reason for Visit * Reason Onset Date Comments Appt Request 10/05/2024 Encounter Details Date Type Department Care Team (Late st Contact Info) Description 10/05/2024 Clinical Communication Division of Hematology in [place], [place] [address] [place] [phone] Keyla Willoughby, M.B.B.S. [address] [place] [address] Appt Request Social History Tobacco Use Types Packs/Day Years Used Date Smoking Tobacco: Never Passive Smoke Exposure: Past Smokeless Tobacco: Never Passive Exposure Comments:Ch ildhood exposure. Alcohol Use Standard Drinks/Week Comments Not Currently 0 (1 standard drink = 0.6 oz pur e alcohol) 1 or 2 drinks a year [facility] Utilities Answer Date Recorded In the past 12 months has e [email or web address], gas, oil, or water [employer] threatened to shut off services in your [...] often do you attend chur ch or taoism services? Never 06/23/2022 Do you belong to [...] and heating? Not hard at all 08/27/2023 [facility] of Occupat ional Health - Occupational [...] living situation today? I have a [facility] place to live 10/18/2024 Education Answer Date Recorded What is the highest level of school you have completed or the highest degree you have received? 12th grade 06/23/2022 Comments Unknown Sex and Gender Information Value Date Recorded Sex Assigned at Female 06/23/2022 9:00 PM CDT Legal Sex Female 8:47 PM BUDDHIST MONK Gender Identity Female 06/23/2022 9:00 PM CDT Sexual Orientation Straight 06/23/2022 9: 00 PM CDT documented as of this encounter Plan of Treatment Not on file documented as of this encounter Goals Goal Patient Goal Type Associated Problems Recent Progress Patient-Stated? Author [facility] Home Blood Pressure Monitoring Care Plan Care Plan [facility] Home Blood Pressure Monitoring Care Plan No Nessa Verma Track your blood pressure weekly Care Plan Track your blood pressure weekly No Nessa Verma Recheck your blood pressure in 15 minutes Care Plan Recheck your blood pressure in 15 minutes No Patient, Online Services Patient selects Medium to [id number] Care Plan Patient selects Medium to [id number] No Patient, Online Services Change in blood [...] Concerns Active Problems Noted Date Diagnosed Date [facility] Home Blood Pressure Monitoring Care Plan 08/31/2024 Track your blood pressure weekly 08/31/2024 Recheck your blood pressure in 15 minutes 2023 Patient selects Medium to [id number] 09/01/2024 Change in blood pressure mon itoring - weekly to every 2 weeks 09/07/2024 Recheck your blood pressure again tomorrow 09/22 Recheck your blood pressure in 15 minutes 2023 documented as of this encounter Care Teams Sales Representative Gas Service Relationship Specialty Start Date End Date Elsewhere, Pcp PCP - General Internal Medicine 10/05/23 documented as of this encounter
--- OUTSIDE RECORDS SUMMARY | 2024-11-18 18:48 | XMS_ITS | Encounter Summary ---
Author Organization [facility] Address [address] [place] [address] Care Team Providers Care Whirley Operator Name Role Phone Elsewhere, Pcp Primary Care Provider Unavailabl e Encounter Details Date Type Department Care Team (Late st Contact Info) Description 10/05/2024 Clinical Communication Division of Hematology in [place], [place] [address] [place] [phone] Keyla Willoughby, M.B.B.S. [address] [place] [phone] Social History Tobacco Use Types Packs/Day Years [...] and heating? Not hard at all 08/27/2023 [facility] of Occupat ionpr Health - Occupational Stress Questionnaire Answer Date [...] living situation today? I have a [facility] place to live 08/27/2023 Education Answer Date Recorded What is the highest level of school you have completed or the highest degree you have received? 12th grade 06/23/2022 Comments Unknown Sex and Gender Information Value Date Recorded Sex Assigned at Female 06/23/2022 9:00 PM CDT Legal Sex Female 8:47 PM SUPPLIER SPECIALIST Gender Identity Female 06/23/2022 9:00 PM CDT Sexual Orientation Straight 06/23/2022 9: 00 PM CDT documented as of this encounter Plan of Treatment Not on file documented as of this encounter Goals Goal Patient Goal Type Associated Problems Recent Progress Patient-Stated? Author [facility] Home Blood Pressure Monitoring Care Plan Care Plan [facility] Home Blood Pressure Monitoring Care Plan No Nessa Verma Track your blood pressure weekly Care Plan Track your blood pressure weekly No Nessa Verma Recheck your blood pressure in 15 minutes Care Plan Recheck your blood pressure in 15 minutes No Patient, Online Services Patient selects Medium to [id number] Care Plan Patient selects Medium to [id number] No Patient, Online Services Change in blood [...] Concerns Active Problems Noted Date Diagnosed Date [facility] Home Blood Pressure Monitoring Care Plan 08/31/2024 Track your blood pressure weekly 08/31/2024 Recheck your blood pressure in 15 minutes 2023 Patient selects Medium to [id number] 09/01/2024 Change in blood pressure mon itoring - weekly to every 2 weeks 09/07/2024 Recheck your blood pressure again tomorrow 09/22 Recheck your blood pressure in 15 minutes 2023 documented as of this encounter Care Teams Whirley Operator Relationship Specialty Start Date End Date Elsewhere, Pcp PCP - General Internal Medicine 10/05/23 documented as of this encounter
--- OUTSIDE RECORDS SUMMARY | 2024-11-18 18:48 | XMS_ITS | Encounter Summary ---
Author Organization [facility] Address [address] [place] [address] Care Team Providers Care Vocal Artist Name Role Phone Elsewhere, Pcp Primary Care Provider Unavailabl e Reason for Visit * Reason Onset Date Comments Return Visit 11/01/2024 Encounter Details Date Type Department Care Team (Late st Contact Info) Description 11/01/2024 Clinical Communication Division of Hematology in [place], [place] [address] [place] [phone] Keyla Willoughby M.B.B.S. [address] [place] [address] Return Visit Social History Tobacco Use Types Packs/Day Years Used Date Smoking Tobacco: Never Passive Smoke Exposure: Past Smokeless Tobacco: Never Passive Exposure Comments:Ch ildhood exposure. Alcohol Use Standard Drinks/Week Comments Not Currently 0 (1 standard drink = 0.6 oz pur e alcohol) 1 or 2 drinks a year [facility] Utilities Answer Date Recorded In the past 12 months has e [employer], gas, oil, or water [employer] threatened to shut off services in your [...] often do you attend chur ch or episcopal services? Never 06/23/2022 Do you belong to any clubs o r organizations such as restorationist groups, unions, fraternal or athletic groups, or [...] and heating? Not hard at all 08/27/2023 [facility] of Occupat ionpr Health - Occupational Stress [...] your living situation today? I have a [facility] place to live 10/18/2024 Education Answer Date Recorded What is the highest level of school you have completed or the highest degree you have received? 12th grade 06/23/2022 Comments Unknown Sex and Gender Information Value Date Recorded Sex Assigned at Female 06/23/2022 9:00 PM CDT Legal Sex Female 8:47 PM DEMENTIA PROGRAM DIRECTOR Gender Identity Female 06/23/2022 9:00 PM CDT Sexual Orientation Straight 06/23/2022 9: 00 PM CDT documented as of this encounter Plan of Treatment Not on file documented as of this encounter Goals Goal Patient Goal Type Associated Problems Recent Progress Patient-Stated? Author [facility] Home Blood Pressure Monitoring Care Plan Care Plan [facility] Home Blood Pressure Monitoring Care Plan No Nessa Verma Track your blood pressure weekly Care Plan Track your blood pressure weekly No Nessa Verma Recheck your blood pressure in 15 minutes Care Plan Recheck your blood pressure in 15 minutes No Patient, Online Services Patient selects Medium to [id number] Care Plan Patient selects Medium to [id number] No Patient, Online Services Change in blood [...] Concerns Active Problems Noted Date Diagnosed Date [facility] Home Blood Pressure Monitoring Care Plan 08/31/2024 Track your blood pressure weekly 08/31/2024 Recheck your blood pressure in 15 minutes 2023 Patient selects Medium to [id number] 09/01/2024 Change in blood pressure mon itoring - weekly to every 2 weeks 09/07/2024 Recheck your blood pressure again tomorrow 09/22 Recheck your blood pressure in 15 minutes 2023 Recheck your blood pressure again tomorrow 11/01 Recheck your blood pressure in 15 minutes 2023 documented as of this encounter Care Teams Vocal Artist Relationship Specialty Start Date End Date Elsewhere, Pcp PCP - General Internal Medicine 10/05/23 documented as of this encounter
--- OUTSIDE RECORDS SUMMARY | 2024-11-18 18:48 | XMS_ITS | Encounter Summary ---
Author Organization [facility] Address [address] [place] [address] Care Team Providers Care Motorboat Mechanic Inboard Name Role Phone Elsewhere, Pcp Primary Care Provider Unavailabl e Encounter Details Date Type Department Care Team (Late st Contact Info) Description 10/19/2024 12:29 PM [employer] - 10/19/2024 11:59 PM [employer] Hospital Encounter Department of Laboratory Medicine in [address] [phone] Keyla Willoughby M.B.B.S. [address] [place] [phone] Nodular Lymphocyte Predominant Hodgkin Lymphoma Extranodal And [...] 2 drinks a year [facility] Utilities Answer Date Recorded In the past 12 months has e electric, gas, oil, or water company threatened to shut off services in your [...] and heating? Not hard at all 08/27/2023 [facility] of Occupat ional Health - [...] your living situation today? I have a [facility] place to live 10/18/2024 Education Answer Date Recorded What is the highest level of school you have completed or the highest degree you have received? 12th grade 06/23/2022 Comments Unknown Sex and Gender Information Value Date Recorded Sex Assigned at Female 06/23/2022 9:00 PM CDT Legal Sex Female 8:47 PM SUPER[employer]ILDINGS Gender Identity Female 06/23/2022 9:00 PM CDT [...] 2 4 rivaroxaban (Xarelto) 10 mg tabletIndications: Plate Printer (Current) Anticoagulant Treatment Take 1 tablet (10 [...] Type Associated Problems Recent Progress Patient-Stated? Author [facility] Home Blood Pressure Monitoring Care Plan Care Plan [facility] Home Blood Pressure Monitoring Care Plan No Nessa Verma Track your blood pressure weekly Care Plan Track your blood pressure weekly No Nessa Verma Recheck your blood pressure in 15 minutes Care Plan Recheck your blood pressure in 15 minutes No Patient, Online Services Patient selects Medium to [id number] Care Plan Patient selects Medium to [id number] No Patient, Online Services Change in blood [...] Diagnosis Comments CBC WITH DIFFERENTIAL, B Routine 10/19/2024 12:37 PM [employer] 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) LACTATE DEHYDROGENASE (LD), S Routine 10/19/2024 12:37 PM [employer] 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) COMPREHENSIVE METABOLIC PANEL, S/P Routine 10/19/2024 12:37 PM [employer] 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) documented in this encounter Results * (ABNORMAL) Comprehensive Metabolic Panel (10/19/2024 12:37 PM [employer]) Pathologist [facility] Potassium, P 4.1 3.6 - 5.2 mmol/L 10/19/2024 1:06 PM [employer] CNFL Sodium, P 135 135 - 145 mmol/L 10/19/2024 1:06 PM [employer] CNFL Chloride, P 103 98 - 107 mmol/L 10/19/2024 1:06 PM [employer] CNFL Bicarbonate, P 27 22 - 29 mmol/L 10/19/2024 1:06 PM [employer] CNFL Anion Gap, P 5(L) 7 - 15 10/19/2024 1:06 PM [employer] CNFL BUN (Blood Urea Nitrogen), P 17 6 - 21 mg/dL 10/19/2024 1:06 PM [employer] CNFL Creatinine 1.09(H) 0.59 - 1.04 mg/dL 10/19/2024 1:06 PM [employer] CNFL Estimated GFR (eGFR) 56(L) >=60 mL/min/BS A 10/19/2024 1:06 PM [employer] CNFL Comment: Estimated GFR calculated using the 2020 CKD_EPI creatinine equation. Calcium, Total, P 9.2 8.8 - 10.2 mg/dL 10/19/2024 1:06 PM [employer] CNFL Glucose, P 172(H) 70 - 140 mg/dL 10/19/2024 1:06 PM [employer] CNFL Protein, Total, P 6.6 6.3 - 7.9 g/dL 10/19/2024 1:06 PM [employer] CNFL Albumin, P 3.8 3.5 - 5.0 g/dL 10/19/2024 1:06 PM [employer] CNFL Aspartate Aminotransferase (AST), P 22 8 - 43 U/L 10/19/2024 1:06 PM [employer] CNFL Alkaline Phosphatase, P 64 35 - 104 U/L 10/19/2024 1:06 PM [employer] CNFL Alanine Aminotransferase (ALT), P 16 7 - 45 U/L 10/19/2024 1:06 PM [employer] CNFL Bilirubin, Total, P 0.4 0.0 - 1.2 mg/dL 10/19/2024 1:06 PM [employer] CNFL Blood (Blood, Venous) 10/19/2024 12:37 PM [employer] 10/19/2024 12:43 PM [employer] us Keyla Dumont LAB BLOOD ADD-ON Fin al Result [facility] [address] [place] [id number], [facility] CNFL [facility] in [address] [address] * (ABNORMAL) CBC with Differential, Blood (10/19/2024 12:37 PM [employer]) Hemoglobin 13.6 11.6 - 15.0 g/dL 10/19/2024 12:48 PM [employer] CNFL Hematocrit 41.4 35.5 - 44.9 % 10/19/2024 12:48 PM [employer] CNFL Erythrocytes 4.37 3.92 - 5.13 x10(12)/L 10/19/2024 12:48 PM [employer] CNFL MCV 94.7 78.2 - 97.9 fL 10/19/2024 12:48 PM [employer] CNFL RBC Distrib Width 13.0 12.2 - 16.1 % 10/19/2024 12:48 PM [employer] CNFL Platelet Count 136(L) 157 - 371 x10(9)/L 10/19/2024 12:48 PM [employer] CNFL Leukocytes 4.4 3.4 - 9.6 x10(9)/L 10/19/2024 12:48 PM [employer] CNFL Neutrophils 3.17 1.56 - 6.45 x10(9)/L 10/19/2024 12:48 PM [employer] CNFL Lymphocytes 0.78(L) 0.95 - 3.07 x10(9)/L 10/19/2024 12:48 PM [employer] CNFL Monocytes 0.34 0.26 - 0.81 x10(9)/L 10/19/2024 12:48 PM [employer] CNFL Eosinophils 0.10 0.03 - 0.48 x10(9)/L 10/19/2024 12:48 PM [employer] CNFL Basophils <0.04 0.01 - 0.08 x10(9)/L 10/19/2024 12:48 PM [employer] CNFL Blood (Blood, Venous) 10/19/2024 12:37 PM [employer] 10/19/2024 12:43 PM [employer] us Keyla AshrafB.S. LAB BLOOD ADD-ON Fin al Result [facility] [address] [place] [id number], [place] CNFL [facility] in [address] [address] * (ABNORMAL) LD (Lactate Dehydrogenase) (10/19/2024 12:37 PM [employer]) Lactate Dehydrogenase (LD), P 227(H) 122 - 222 U/L 10/19/2024 11:39 PM [employer] RDWG Blood (Blood, Venous) 10/19/2024 12:37 PM [employer] 10/19/2024 7:04 PM [employer] us Keyla AshrafB.S. 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) documented in this encounter Additional Health Concerns Active Problems Noted Date Diagnosed Date [facility] Home Blood Pressure Monitoring Care Plan 08/31/2024 Track your blood pressure weekly 08/31/2024 Recheck your blood pressure in 15 minutes 2023 Patient selects Medium to [id number] 09/01/2024 Change in blood pressure mon itoring - weekly to every 2 weeks 09/07/2024 Recheck your blood pressure again tomorrow 09/22 Recheck your blood pressure in 15 minutes 2023 documented as of this encounter Care Teams Motorboat Mechanic Inboard Relationship Specialty Start Date End Date Elsewhere, Pcp PCP - General Internal Medicine 10/05/23 documented as of this encounter
--- OUTSIDE RECORDS SUMMARY | 2024-11-18 18:48 | XMS_ITS ---
Author Organization [facility] Address [address] [place] [address] Care Team Providers Care Careers Counsellor Name Role Phone Elsewhere, Pcp Primary Care Provider Unavailabl e Active Problems * This document contains information received from the source organization and may not represent a complete record from that organization. 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 Discussed strong recommendation to stop driving due to test findings. Patient is upset. Says she has some testing tomorrow Thrombosis Deep Vein Personal History 10/30/2022 Other Retirement Current Drug Therapy 06/27/2022 Nodular Lymphocyte Predomina nt Hodgkin Lymphoma Extranodal And Solid Organ Sites 06/09/2022 Hypertension Essential Primary 10/19/2007 Overview (10/10/2024): She has Nephrology Current Oncology Plans VASCULAR ACCESS PATENCY - [...] Treated Prescribed Fraction Dose Prescribed Total Dose [id number] 04/01/2024 18 15 of 15 300 cGy 4,500 cGy Reference Point Last Treated On Elapsed Days Session Dose Total Dose [id number] 04/01/2024 18 300 cGy 4,500 cGy
--- OUTSIDE RECORDS SUMMARY | 2024-11-18 18:48 | XMS_ITS | Encounter Summary ---
Author Organization [facility] Address [address] [place] [address] Care Team Providers Care Roller Turner Name Role Phone Elsewhere, Pcp Primary Care Provider Unavailabl e Reason for Referral * Outpatient (Routine) - Closed Specialty Diagnoses / Procedures Referred By Contac t Referred To Contact Hematology Oncology Luis Carballo Jr., M.D., M.B.A. [address] [place] [phone] Phone: tel: fax: [facility] Referral ID Status Reason Start Date Expiration Date Visits Re quested Visits Authorized [id number] Closed 10/25/2024 04/26/2026 1 1 Scheduling Instructions Please schedule with Dr. Willoughby ENT REP Reason for Visit * Outpatient (Routine) - Closed Specialty Diagnoses / Procedures Referred By Contac t Referred To Contact Hematology Oncology Keyla Willoughby, M.B.B.S. [address] [place] [phone] Phone: tel: fax: [facility] Referral ID Status Reason Start Date Expiration Date Visits Re quested Visits Authorized [id number] Closed 10/14/2024 04/15/2026 1 1 Encounter Details Date Type Department Care Team (Late st Contact Info) Description 10/25/2024 10:30 AM PAYMENT REP Telemedicine Division of Hematology in [place], [place] [address] [place] [phone] Keyla Willoughby M.B.B.S. [address] [place] [phone] Luis Carballo Jr., M.D., M.B.A. 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 Alcohol Use Standard Drinks/Week Comments Not Currently 0 (1 standard drink = 0.6 oz pur e alcohol) 1 or 2 drinks a year [facility] [employer] Answer Date Recorded In the past 12 months has Results [employer], gas, oil, or water [employer] threatened to shut off services in your [...] often do you attend [facility] or scientologist services? Never 06/23/2022 Do you belong to [...] and heating? Not hard at all 08/27/2023 [facility] [place] [facility] Occupat ional Health - Occupational Stress [...] PM CDT Legal Sex Female 8:47 PM PAYMENT REP Gender Identity Female 06/23/2022 9:00 PM CDT Sexual Orientation Straight 06/23/2022 9: 00 PM CDT documented as of this encounter Consult Notes * Darren Ortega M.D. - 10/25/2024 10:30 AM CST HEMATOLOGY CONSULT NOTE SUBJECTIVE CHIEF COMPLAINT Nodular Lymphocyte Predominant Hodgkin Lymphoma recurrence HISTORY OF PRESENT ILLNESS Ms. Jaky Lara is a 69 y.o. 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 She continues to be asymptomatic with no night sweats, fever, chills, unintended weight loss, loss of appetite. She does endorse chronic fatigue that is stable over the past several years. Oncology History Nodular Lymphocyte Predominant Hodgkin Lymphoma [...] biopsy, which may or may not be wine sales representative of the entire lymph node, is entirely diffuse (Fan pattern E; see PMID [id number]). 03/14/2024 - 04/01/2024 Radiation Therapy Radiation Therapy [...] (per ICC)/nodular lymphocyte-predominant Hodgkin lymphoma (per WHO5). I have reviewed past medical history, family history, social history, allergies and medications as relevant to this consult. REVIEW OF SYSTEMS Pertinent positives and negatives per HPI, all other systems reviewed and were otherwise negative. OBJECTIVE This was a virtual visit, no vitals or exam LABS/IMAGING I have reviewed relevant labs and imaging in the EMR ASSESSMENT / PLAN # Recurrent nodular lymphocyte-predominant Hodgkin lymphoma Ms Lara is a 69-year-old woman with nodular lymphocyte-predominant Hodgkin's lymphoma that was treated with 8 rounds of rituximab between 07/01/2022 and 05/26/2023 with subsequent PET scans showingcomplete remission. Most recent PET scan on 10/04/2024 showed new FDG avidity with subsequent rightiliac fine-needle aspiration showing recurrent nodular lymphocyte-predominant B-cell lymphoma. We discuss these biopsy results and that they are many possible treatment options. We will coordinate a return visit with the patient's primary weigh and charge worker, Dr. Willoughby, to discuss next steps in the comingweeks. Recommendations Return in 1-2 weeks to discuss treatment options with Dr. Willoughby This case has been discussed with my fellow, Dr. Carballo who is in agreement with the stated plan. Darren Ortega MD PGY-3, Internal Medicine Cosigned by Luis Carballo Jr., M.D., M.B.A. at 10/25/2024 11:30 AM PAYMENT REP ENT REP ENT REP documented in this encounter Plan of Treatment Scheduled Referrals Name Type Priority Associated Diagnoses Order Schedule Hematology office visit (clinic) [place]; Lymphoma; General Outpatient Referral Routine Expected: 11/01/2024, Expires: 01/23/2026 documented as of this encounter Goals Goal Patient Goal Type Associated Problems Recent Progress Patient-Stated? Author [facility] Home Blood Pressure Monitoring Care Plan Care Plan [facility] Home Blood Pressure Monitoring Care Plan No Nessa Verma Track your blood pressure weekly Care Plan Track your blood pressure weekly No Nessa Verma Recheck your blood pressure in 15 minutes Care Plan Recheck your blood pressure in 15 minutes No Patient, Online Services Patient selects Medium to [id number] Care Plan Patient selects Medium to [id number] No Patient, Online Services Change in blood [...] Concerns Active Problems Noted Date Diagnosed Date [facility] Home Blood Pressure Monitoring Care Plan 08/31/2024 Track your blood pressure weekly 08/31/2024 Recheck your blood pressure in 15 minutes 2023 Patient selects Medium to [id number] 09/01/2024 Change in blood pressure mon itoring - weekly to every 2 weeks 09/07/2024 Recheck your blood pressure again tomorrow 09/22 Recheck your blood pressure in 15 minutes 2023 documented as of this encounter Care Teams Roller Turner Relationship Specialty Start Date End Date Elsewhere, Pcp PCP - General Internal Medicine 10/05/23 documented as of this encounter
--- OUTSIDE RECORDS SUMMARY | 2024-11-18 18:48 | XMS_ITS | Encounter Summary ---
Author Organization [facility] Address [address] [place] [phone] Care Team Providers Care Top Screw Name Role Phone Elsewhere, Pcp Primary Care Provider Unavailabl e Reason for Referral * Outpatient (Routine) - Closed Specialty Diagnoses / Procedures Referred By Contvaleria t Referred To Contact Hematology Oncology Keyla Willoughby M.B.B.S. [address] [place] [phone] Phone: tel: fax: [facility] Referral ID Status Reason Start Date Expiration Date Visits Re quested Visits Authorized [id number] Closed 10/14/2024 04/15/2026 1 1 RE POLISHER Encounter Details Date Type Department Care Team (Late st Contact Info) Description 10/14/2024 Clinical Communication Department of Oncology in [place], [place] [address] [place] [phone] Keyla Willoughby M.B.B.S. [address] [place] [phone] Social History Tobacco Use Types Packs/Day Years [...] week 06/23/2022 How often do you attend [facility] or church services? Never 06/23/2022 Do you belong to any clubs o r organizations such as sabianism groups, unions, fraternal or athletic groups, or [...] and heating? Not hard at all 08/27/2023 [facility] [place] of Occupat ional Health - Occupational [...] your living situation today? I have a [facility] place to live 08/27/2023 Education Answer Date Recorded What is the highest level of school you have completed or the highest degree you have received? 12th grade 06/23/2022 Comments Unknown Sex and Gender Information Value Date Recorded Sex Assigned at Female 06/23/2022 9:00 PM CDT Legal Sex Female 8:47 PM SUTURE POLISHER Gender Identity Female 06/23/2022 9:00 PM CDT Sexual Orientation Straight 06/23/2022 9: 00 PM CDT documented as of this encounter Miscellaneous Notes * Telephone Encounter - Keyla Willoughby M.B.B.S. - 10/14/2024 12:19 PM SUTURE POLISHER I called Mrs. Jaky Lara to inform her about the results of her biopsy. Recall, a surveillance PET scan done on 10/04 showed new/worsening FDG avid right external lymph node Deauville 5. 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 LDH within normal limits. I will arrange for follow-up visit, at that time, we will discuss potential treatment options including radiation versus systemic therapy. Isis Simms. PGY 4 Heme-Onc fellow 10/14/24 12:21 PM SUTURE POLISHER RE POLISHER documented in this encounter Plan of Treatment Scheduled Referrals Name Type Priority Associated Diagnoses Order Schedule Hematology office visit (clinic) [place]; Lymphoma; General Outpatient Referral Routine Expected: 10/14/2024, Expires: 01/13/2026 documented as of this encounter Goals Goal Patient Goal Type Associated Problems Recent Progress Patient-Stated? Author [facility] Home Blood Pressure Monitoring Care Plan Care Plan [facility] Home Blood Pressure Monitoring Care Plan No Nessa Verma Track your blood pressure weekly Care Plan Track your blood pressure weekly No Nessa Verma Recheck your blood pressure in 15 minutes Care Plan Recheck your blood pressure in 15 minutes No Patient, Online Services Patient selects Medium to [id number] Care Plan Patient selects Medium to [id number] No Patient, Online Services Change in blood [...] Online Services documented as of this encounter Results * (ABNORMAL) Comprehensive Metabolic Panel (10/19/2024 12:37 PM SUTURE POLISHER) Potassium, P 4.1 3.6 - 5.2 mmol/L 10/19/2024 1:06 PM SUTURE POLISHER CNFL Sodium, P 135 135 - 145 mmol/L 10/19/2024 1:06 PM SUTURE POLISHER CNFL Chloride, P 103 98 - 107 mmol/L 10/19/2024 1:06 PM SUTURE POLISHER CNFL Bicarbonate, P 27 22 - 29 mmol/L 10/19/2024 1:06 PM SUTURE POLISHER CNFL Anion Gap, P 5(L) 7 - 15 10/19/2024 1:06 PM SUTURE POLISHER CNFL BUN (Blood Urea Nitrogen), P 17 6 - 21 mg/dL 10/19/2024 1:06 PM SUTURE POLISHER CNFL Creatinine 1.09(H) 0.59 - 1.04 mg/dL 10/19/2024 1:06 PM SUTURE POLISHER CNFL Estimated GFR (eGFR) 56(L) >=60 mL/min/BS A 10/19/2024 1:06 PM SUTURE POLISHER CNFL Comment: Estimated GFR calculated using the 2020 CKD_EPI creatinine equation. Calcium, Total, P 9.2 8.8 - 10.2 mg/dL 10/19/2024 1:06 PM SUTURE POLISHER CNFL Glucose, P 172(H) 70 - 140 mg/dL 10/19/2024 1:06 PM SUTURE POLISHER CNFL Protein, Total, P 6.6 6.3 - 7.9 g/dL 10/19/2024 1:06 PM SUTURE POLISHER CNFL Albumin, P 3.8 3.5 - 5.0 g/dL 10/19/2024 1:06 PM SUTURE POLISHER CNFL Aspartate Aminotransferase (AST), P 22 8 - 43 U/L 10/19/2024 1:06 PM SUTURE POLISHER CNFL Alkaline Phosphatase, P 64 35 - 104 U/L 10/19/2024 1:06 PM SUTURE POLISHER CNFL Alanine Aminotransferase (ALT), P 16 7 - 45 U/L 10/19/2024 1:06 PM SUTURE POLISHER CNFL Bilirubin, Total, P 0.4 0.0 - 1.2 mg/dL 10/19/2024 1:06 PM SUTURE POLISHER CNFL Blood (Blood, Venous) 10/19/2024 12:37 PM SUTURE POLISHER 10/19/2024 12:43 PM SUTURE POLISHER us Keyla Dumont LAB BLOOD ADD-ON Fin al Result [facility] [address] [place] [phone], [facility] CN[facility] [place] [address] * (ABNORMAL) CBC with Differential, Blood (10/19/2024 12:37 PM SUTURE POLISHER) Hemoglobin 13.6 11.6 - 15.0 g/dL 10/19/2024 12:48 PM SUTURE POLISHER CNFL Hematocrit 41.4 35.5 - 44.9 % 10/19/2024 12:48 PM SUTURE POLISHER CNFL Erythrocytes 4.37 3.92 - 5.13 x10(12)/L 10/19/2024 12:48 PM SUTURE POLISHER CNFL MCV 94.7 78.2 - 97.9 fL 10/19/2024 12:48 PM SUTURE POLISHER CNFL RBC Distrib Width 13.0 12.2 - 16.1 % 10/19/2024 12:48 PM SUTURE POLISHER CNFL Platelet Count 136(L) 157 - 371 x10(9)/L 10/19/2024 12:48 PM SUTURE POLISHER CNFL Leukocytes 4.4 3.4 - 9.6 x10(9)/L 10/19/2024 12:48 PM SUTURE POLISHER CNFL Neutrophils 3.17 1.56 - 6.45 x10(9)/L 10/19/2024 12:48 PM SUTURE POLISHER CNFL Lymphocytes 0.78(L) 0.95 - 3.07 x10(9)/L 10/19/2024 12:48 PM SUTURE POLISHER CNFL Monocytes 0.34 0.26 - 0.81 x10(9)/L 10/19/2024 12:48 PM SUTURE POLISHER CNFL Eosinophils 0.10 0.03 - 0.48 x10(9)/L 10/19/2024 12:48 PM SUTURE POLISHER CNFL Basophils <0.04 0.01 - 0.08 x10(9)/L 10/19/2024 12:48 PM SUTURE POLISHER CNFL Blood (Blood, Venous) 10/19/2024 12:37 PM SUTURE POLISHER 10/19/2024 12:43 PM SUTURE POLISHER us Keyla Dumont LAB BLOOD ADD-ON Fin al Result Performing Organization Address City/State/[facility] Co de Phone Number [facility] [address] [place] [phone], [facility] in [address] [address] * (ABNORMAL) LD (Lactate Dehydrogenase) (10/19/2024 12:37 PM SUTURE POLISHER) Lactate Dehydrogenase (LD), P 227(H) 122 - 222 U/L 10/19/2024 11:39 PM SUTURE POLISHER RDWG Blood (Blood, Venous) 10/19/2024 12:37 PM SUTURE POLISHER 10/19/2024 7:04 PM SUTURE POLISHER us Keyla Dumont LAB BLOOD NON ADD-ON Final Result [facility] [address] [place] [address], [facility] RDWG [facility] in [place] [address] [place] [phone] documented in this encounter Visit Diagnoses Diagnosis 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)- Primary documented in this encounter Additional Health Concerns Active Problems Noted Date Diagnosed Date [facility] Home Blood Pressure Monitoring Care Plan 08/31/2024 Track your blood pressure weekly 08/31/2024 Recheck your blood pressure in 15 minutes 2023 Patient selects Medium to [id number] 09/01/2024 Change in blood pressure mon itoring - weekly to every 2 weeks 09/07/2024 Recheck your blood pressure again tomorrow 09/22 Recheck your blood pressure in 15 minutes 2023 documented as of this encounter Care Teams Top Screw Relationship Specialty Start Date End Date Elsewhere, Pcp PCP - General Internal Medicine 10/05/23 documented as of this encounter
--- OUTSIDE RECORDS SUMMARY | 2024-11-18 18:48 | XMS_ITS | Encounter Summary ---
Author Organization [facility] Address [address] [place] [address] Care Team Providers Care Marketing Systems Manager Name Role Phone Elsewhere, Pcp Primary Care Provider Unavailabl e Reason for Referral * MRI/CAT/PET Scan (Routine) - Closed Specialty Diagnoses / Procedures Referred By Luigi t Referred To Contact Radiology Diagnoses 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) Procedures CT Lymph Node Biopsy CT Biopsy Other Keyla Willoughby M.B.B.S. [address] [place] [phone] Phone: tel: fax: [facility] Referral ID Status Reason Start Date Expiration Date Visits Re quested Visits Authorized [id number] Closed 10/04/2024 10/04/2025 1 1 PING SERVICES SALES REPRESENTATIVE Reason for Visit * Outpatient (Routine) - Closed Specialty Diagnoses / Procedures Referred By Contvaleria t Referred To Contact Hematology Oncology Keyla Willoughby M.B.B.S. [address] [place] [address] Phone: tel: fax: [facility] Referral ID Status Reason Start Date Expiration Date Visits Re quested Visits Authorized [id number] Closed 07/05/2024 01/04/2026 1 1 Encounter Details Date Type Department Care Team (Late st Contact Info) Description 10/04/2024 2:30 PM SHIPPING SERVICES SALES REPRESENTATIVE Office Visit Department of Oncology in [place], [place] [address] [place] [phone] Keyla Willoughby M.B.B.S. [address] [place] [phone] Nodular Lymphocyte Predominant Hodgkin Lymphoma Extranodal And [...] How often do you attend [facility] or sikh services? Never 06/23/2022 Do [...] and heating? Not hard at all 08/27/2023 [facility] Occupat ional [facility] - Occupational Stress Questionnaire Answer [...] PM CDT Legal Sex Female 8:47 PM SHIPPING SERVICES SALES REPRESENTATIVE Gender Identity Female 06/23/2022 9:00 PM CDT Sexual Orientation Straight 06/23/2022 9: 00 PM CDT documented as of this encounter Last Filed Vital Signs Vital Sign Reading Time Taken Comments Blood Pressure 143/81 10/04/2024 2:19 PM SHIPPING SERVICES SALES REPRESENTATIVE Pulse 81 10/04/2024 2:19 PM SHIPPING SERVICES SALES REPRESENTATIVE Temperature 36.1 C (97 F) 10/04/2024 2:19 PM SHIPPING SERVICES SALES REPRESENTATIVE Respiratory Rate - - Oxygen Saturation - - Inhaled Oxygen Concentration - - Weight 105 kg (230 lb 13.2 oz) 10/04/2024 2:19 P M SHIPPING SERVICES SALES REPRESENTATIVE Height 161.4 cm (5' 3.54) 10/04/2024 2:19 PM CS T Body Mass Index 40.19 10/04/2024 2:19 PM SHIPPING SERVICES SALES REPRESENTATIVE documented in this encounter Progress Notes * Keyla Willoughby M.B.B.S. - 10/04/2024 2:30 PM CST With persistent avidity in the right axillary an external iliac lymph nodes. [facility] - Hematology SUBJECTIVE PRIMARY CARE PHYSICIAN ELSEWHERE, PCP PRIMARY JESSIE ORDER ENTRY SPECIALIST Primary storage management consultant: Dr. Croft Primary fellow: Dr. Bermudez [...] biopsy, which may or may not be pharmaceutical representative of the entire lymph node, is entirely diffuse (Fan pattern E; see PMID [id number]). 03/14/2024 - 04/01/2024 Radiation Therapy Radiation Therapy Treatment Details (03/14/2024 - 04/01/2024) Site: Axillary lymph node Fractions: 15 Technique: IMRT Dose: 4500 cGy Goal: Palliative 07/05/2024 Critical Imaging PET/CT IMPRESSION: 1. Normalization of previously seen avid right axillary lymph node. 2. No evidence of FDG avid lymphoma. Deauville 2. The following portions of the patient's history were reviewed and updated as appropriate: allergies, current medications, family history, medical history, social history, surgical history, and problem list. 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 Her also drives a [...] LABORATORY DATA Lab data reviewed. RADIOLOGICAL DATA PET CT Whole Body FDG Result Date: 07/05/2024 Narrative: EXAM: PET CT WHOLE BODY FDG Serum glucose at time of F-18 FDG injection was 108 mg/dL. Patient followed standard dietary/fasting requirements for this exam. RADIOPHARMACEUTICAL/MEDS: Route: intravenous fludeoxyglucose F 18 injection INTERMEDIATE (FDG F-18),6.21 millicurie TECHNIQUE: F-18 FDG PET/CT scan was performed from the vertex through the toes with low dose, non-contrast, free- breathing CT images for attenuation correction and anatomic localization (AC/AL), with imaging beginning at approximately 60 minutes after radiotracer injection. COMPARISON: FDG PET/CT 01/04/2024 INDICATION: Hodgkin lymphoma. Prior chemotherapy. Interval radiation therapy to the right axilla. Subsequent treatment strategy. The patient reports no recent vaccinations. FINDINGS: Interval normalization of FDG uptake below blood pool of the medial subpectoral right axillary lymph node seen on prior exam (image 112). No other FDG avid adenopathy. Subpleural anterior right upper lobe increased uptake corresponding to pulmonary infiltrates likely secondary to recent local radiation therapy. Stable right anterior upper lung pulmonary nodule without tracer uptake. Diffuse increased uptake of right shoulder and chest wall musculature, with soft tissue stranding, corresponding to changes of recent radiation therapy. Improved mild bilateral hilar uptake may be inflammatory. Spleen normal in size and uptake. Normal bone marrow activity. No focal FDG avid osseous lesions. Significant incidental findings on low-dose CT: Not significantly changed. Impression: 1. Normalization of previously seen avid right axillary lymph node. 2. No evidence of FDG avid lymphoma. Deauville 2. ASSESSMENT / PLAN # Nodular lymphocyte predominant B-cell lymphoma Presents for a follow up visit. Denies any new concerning symptoms such as constitutional B symptoms, weight loss or loss of appetite. She has some residual swelling on the right arm. CBC is unremarkable, kidney function is relatively stable. Interval imaging shows new/worsening FDG avid enlargement in the right external iliac node comparedto PET scan on 07/05/2024-Deauville 5. This is concerning for disease relapse or transformation to non-Hodgkin's lymphoma. I shared the results of the PET scan with her and she was understandably emotional and upset. Plan will be to obtain a CT-guided biopsy of the right external iliac lymph node to rule out transformation. Summary of Plan -order CT-guided biopsy -serum LDH with next labs. Plan was discussed with Shay Ferguson.Brittny.B.S. PGY 4 Heme-Onc fellow 10/04/24 4:58 PM SHIPPING SERVICES SALES REPRESENTATIVE PATIENT EDUCATION Ready to learn, no apparent learning barriers were identified; learning preferences include listening. Explained diagnosis and treatment plan; patient expressed understanding of the content. ADMINISTRATIVE BILLING I personally spent 35 minutes in care of the patient today. Time includes both non face to face andface to face patient care. PING SERVICES SALES REPRESENTATIVE documented in this encounter Plan of Treatment [...] Patient, Online Services Patient selects Medium to [id number] Care Plan Patient selects Medium to [id number] No Patient, Online Services Change in blood [...] documented as of this encounter Results * LD (Lactate Dehydrogenase) (10/10/2024 10:56 AM SHIPPING SERVICES SALES REPRESENTATIVE) [facility] LD 187 122 - 222 U/L 10/10/2024 11:58 AM SHIPPING SERVICES SALES REPRESENTATIVE DTL Blood (Blood, Venous) 10/10/2024 10:56 AM SHIPPING SERVICES SALES REPRESENTATIVE 10/10/2024 11:34 AM SHIPPING SERVICES SALES REPRESENTATIVE Keyla Dumont LAB BLOOD NON ADD-ON Final Result [facility] [address] [place] [address], [facility] DTL [facility] [address] [place] [address] * CT Lymph Node Biopsy (10/10/2024 9:43 AM SHIPPING SERVICES SALES REPRESENTATIVE) Anatomical Region Laterality Modality Body, Abdominal RST LOS, Mus culoskeletal ARZ LOS, Neuroradiology ARZ LOS, Vascular Interventional ARZ LOS, Procedure FLA LOS, Abdominal FLA LOS, Procedural, Procedural NWWI LOS Computed Tomography, C omputed Tomography Impressions 10/10/2024 9:57 AM SHIPPING SERVICES SALES REPRESENTATIVE CT-guided lymph node biopsy NR Narrative 10/10/2024 9:57 AM SHIPPING SERVICES SALES REPRESENTATIVE EXAM: CT LYMPH NODE BIOPSY PRE-PROCEDURE: Patient [...] Dumont IMG CT PROCEDURES Fi nal Result documented in this encounter Visit Diagnoses Diagnosis 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) 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) documented in this encounter Additional Health Concerns Active Problems Noted Date Diagnosed Date [facility] Home Blood Pressure Monitoring Care Plan 08/31/2024 Track your blood pressure weekly 08/31/2024 Recheck your blood pressure in 15 minutes 2023 Patient selects Medium to [id number] 09/01/2024 Change in blood pressure mon itoring - weekly to every 2 weeks 09/07/2024 Recheck your blood pressure again tomorrow 09/22 Recheck your blood pressure in 15 minutes 2023 documented as of this encounter Care Teams Marketing Systems Manager Relationship Specialty Start Date End Date Elsewhere, Pcp PCP - General Internal Medicine 10/05/23 documented as of this encounter
--- OUTSIDE RECORDS SUMMARY | 2024-11-18 18:48 | XMS_ITS | Encounter Summary ---
Author Organization [facility] Address [address] [place] [address] Care Team Providers Care Manager Mortgage Name Role Phone Elsewhere, Pcp Primary Care Provider Unavailabl e Encounter Details Date Type Department Care Team (Late st Contact Info) Description 11/18/2024 Orders Only Division of Nephrology and Hypertension in [place], [place] [address] [place] [address] External, Ordering ProviderCade Social History Tobacco Use Types Packs/Day Years Used Date Smoking Tobacco: Never Passive Smoke Exposure: Past Smokeless Tobacco: Never Passive Exposure Comments:Ch ildhood exposure. Alcohol Use Standard Drinks/Week Comments Not Currently 0 (1 standard drink = 0.6 oz pur e alcohol) 1 or 2 drinks a year [facility] Utilities Answer Date Recorded In the past 12 months has [facility] [employer] gas, oil, or water [email or web address] threatened to shut off services in your [...] heating? Not hard at all 08/27/2023 [facility] - Occupational [...] living situation today? I have a [facility] place to live 10/18/2024 Education Answer Date Recorded What is the highest level of school you have completed or the highest degree you have received? 12th grade 06/23/2022 Comments Unknown Sex and Gender Information Value Date Recorded Sex Assigned at Female 06/23/2022 9:00 PM CDT Legal Sex Female 8:47 PM HEALTH PROMOTION OFFICER Gender Identity Female 06/23/2022 9:00 PM CDT Sexual Orientation Straight 06/23/2022 9: 00 PM CDT documented as of this encounter Plan of Treatment Not on file documented as of this encounter Goals Goal Patient Goal Type Associated Problems Recent Progress Patient-Stated? Author [facility] Home Blood Pressure Monitoring Care Plan Care Plan [facility] Home Blood Pressure Monitoring Care Plan No Nessa Verma Track your blood pressure weekly Care Plan Track your blood pressure weekly No Nessa Verma Recheck your blood pressure in 15 minutes Care Plan Recheck your blood pressure in 15 minutes No Patient, Online Services Patient selects Medium to [id number] Care Plan Patient selects Medium to [id number] No Patient, Online Services Change in blood [...] FUNCTION PANEL, S Routine 11/18/2024 9:59 AM HEALTH PROMOTION OFFICER documented in this encounter Results * (ABNORMAL) Renal Function Panel (11/18/2024 9:59 AM HEALTH PROMOTION OFFICER) EXT Sodium 138 135 - 149 mmol/L [facility] EXT Potassium 4.7 3.6 - 5.1 mmol/L [facility] EXT Chloride 103 96 - 114 mmol/L [facility] EXT CO2 29 20 - 32 mmol/L [facility] EXT Anion Gap 6(L) 7 - 15 mEq/L [facility] EXT BUN (Blood Urea Nitrogen) 32(H) 7 - 30 mg/dL [facility] EXT Creatinine 1.2 0.5 - 1.5 mg/dL [facility] EXT Estimated GFR (eGFR) 49 ML [facility] EXT Calcium, Total 9.5 8.4 - 10.6 mg/dL [facility] EXT Glucose 45(L) 60 - 115 mg/dL [facility] EXT Albumin 4.2 3.3 - 5.0 g/dL [facility] EXT Phosphorus (Inorganic), S 3.1 2.5 - 4.5 mg/dL [facility] 11/18/2024 9:59 AM HEALTH PROMOTION OFFICER Narrative [facility] - 11/18/2024 2:03 PM HEALTH PROMOTION OFFICER External results verified in Extract by Vikki Perez on 11/18/2024 at 03:49 PM. us Ordering Provider External Cade LAB BLOOD ADD-ON Final Result [facility] [address] [place] [address] documented in this encounter Visit Diagnoses Not on filedocumented in this encounter Additional Health Concerns Active Problems Noted Date Diagnosed Date [facility] Home Blood Pressure Monitoring Care Plan 08/31/2024 Track your blood pressure weekly 08/31/2024 Recheck your blood pressure in 15 minutes 2023 Patient selects Medium to [id number] 09/01/2024 Change in blood pressure mon itoring - weekly to every 2 weeks 09/07/2024 Recheck your blood pressure again tomorrow 09/22 Recheck your blood pressure in 15 minutes 2023 Recheck your blood pressure again tomorrow 11/01 Recheck your blood pressure in 15 minutes 2023 Continue to monitor every 2 weeks 11/02/2024 documented as of this encounter Care Teams Manager Mortgage Relationship Specialty Start Date End Date Elsewhere, Pcp PCP - General Internal Medicine 10/05/23 documented as of this encounter
--- OUTSIDE RECORDS SUMMARY | 2024-11-18 18:50 | XMS_ITS | Encounter Summary ---
Author Organization [facility] Address [address] [place] [id number] Care Team Providers Care Cone Worker Name Role Phone Elsewhere, Pcp Primary Care Provider Unavailabl e Reason for Visit * Reason Onset Date Comments Follow-up 10/11/2024 Post procedure f ollow up phone call. Encounter Details Date Type Department Care Team (Latest Contact Info) Description 10/11/2024 Clinical Communication Department of Radiology, [facility] in [place], [place] [address] [place] [address] Nam Cervantes M.D. [address] [place] [address] Follow-up (Post procedure follow up phone call.) Social History Tobacco Use Types Packs/Day Years [...] your living situation today? I have a [facility] place to live 08/27/2023 Education Answer Date Recorded What is the highest level of school you have completed or the highest degree you have received? 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 - 10/11/2024 1:35 PM CLOTH SHRINKING MACHINE OPERATOR HELPER SUBJECTIVE CHIEF COMPLAINT / REASON FOR CALL Follow-up (Post procedure follow up phone call.) Information Discussed Post procedure phone call information. Biopsy or procedure performed Lymph Node Date of procedure: 10/10/2024 Performing practitioner: Dr. Cervantes Emergent signs and symptoms: Denies emergent signs or symptoms including continuous bleeding from the biopsy/procedure site, new or worsening problems with shortness of breath, or pain at the biopsy/procedure site greater or equal to 6. Non emergent signs/symptoms: Denies non-emergent signs/symptoms including new or increasing rednessor tenderness surrounding the biopsy/procedure site, pain at biopsy/procedure site is unacceptable compared with pre-procedure pain, abnormal warmth/heating from site, new or increasing swelling, andoral temp greater than 100.4 F Other Medical Problems unrelated to biopsy: Pt denies other problems unrelated to biopsy Pt Disposition: Pt denies any biopsy complications. Pt instructed to call primary care for additional concerns PLAN Disposition/Recommendation: self-care is appropriate at this time, patient encouraged to call back with questions Information/Education: patient/caller able to teach back Caller agreeable to plan of care: yes The following references were used: nursing clinical judgement H SHRINKING MACHINE OPERATOR HELPER documented in this encounter Plan of Treatment Not on file documented as of this encounter Goals Goal Patient Goal Type Associated Problems Recent Progress Patient-Stated? Author [facility] Home Blood Pressure Monitoring Care Plan Care Plan [facility] Home Blood Pressure Monitoring Care Plan No Nessa Verma Track your blood pressure weekly Care Plan Track your blood pressure weekly No Nessa Verma Recheck your blood pressure in 15 minutes Care Plan Recheck your blood pressure in 15 minutes No Patient, Online Services Patient selects Medium to [id number] Care Plan Patient selects Medium to [id number] No Patient, Online Services Change in blood [...] Concerns Active Problems Noted Date Diagnosed Date [facility] Home Blood Pressure Monitoring Care Plan 08/31/2024 Track your blood pressure weekly 08/31/2024 Recheck your blood pressure in 15 minutes 2023 Patient selects Medium to [id number] 09/01/2024 Change in blood pressure mon itoring - weekly to every 2 weeks 09/07/2024 Recheck your blood pressure again tomorrow 09/22 Recheck your blood pressure in 15 minutes 2023 documented as of this encounter Care Teams Cone Worker Relationship Specialty Start Date End Date Elsewhere, Pcp PCP - General Internal Medicine 10/05/23 documented as of this encounter
== END 2024-11-18 19:20 | disposition home or self-care (01) ==
PROVIDERS: Emergency Provider Emergency Medicine
DX: E16.2 Hypoglycemia, unspecified (principal)
CPT/HCPCS: 36415; 80076; 83690; 84443; 85025; 99283; 99284

== ENCOUNTER 2024-12-19 10:04 | Outpatient (CLI) | payer MEDICARE, BC, SELFPAY | END 2024-12-19 10:05 | disposition home or self-care (01) | LOC: NFLDREF 12-21 00:57 | PROVIDERS: Visit Provider Internal Medicine Nephrology | DX: I10 Essential (primary) hypertension (principal); E03.9 Hypothyroidism, unspecified; E66.9 Obesity, unspecified; R41.89 Other symptoms and signs involving cognitive functions and awareness; C81.99 Hodgkin lymphoma, unspecified, extranodal and solid organ sites | CPT/HCPCS: 80069; 82043; 82570; 87086 ==

== ENCOUNTER 2025-03-06 12:30 | Outpatient (RCR) | payer MEDICARE, BC, SELFPAY | END 2025-07-04 23:59 | disposition home or self-care (01) | PROVIDERS: Visit Provider Family Medicine | DX: M53.3 Sacrococcygeal disorders, not elsewhere classified (principal); Z51.89 Encounter for other specified aftercare | CPT/HCPCS: 97110; 97140; 97162 ==

== ENCOUNTER 2025-03-07 11:29 | Outpatient (RCR) | payer MEDICARE, BC, SELFPAY ==
[2025-03-07 12:16] LABS: Creatinine* 1.3 mg/dL (0.5-1.5); Est. Creatinine Clearance* 37.27; Estimated Glomerular Filt Rate 45 ml/min
== END 2025-09-03 23:59 | disposition home or self-care (01) ==
LOC: CCIC 11:29
PROVIDERS: PCP Family Medicine; Visit Provider Clinical Nurse Specialist
DX: C81.99 Hodgkin lymphoma, unspecified, extranodal and solid organ sites (principal)
CPT/HCPCS: 36415; 82565; 99211

== ENCOUNTER 2025-03-09 15:03 | Outpatient (CLI) | payer MEDICARE, BC, SELFPAY ==
--- NOTE | 2025-03-09 15:20 | CRLHL7_ITS ---
For Patients: As a result of the Century Cures Act, medical imaging exams and procedure reports are released immediately into your electronic medical record. You may view this report before your referring provider. If you have questions, please contact your health care provider. INDICATION: BILATERAL SCREENING MAMMOGRAM, ASYMPTOMATIC 69 Y/O FEMALE COMPARISON: 12/29/23, 04/24/22, 11/30/20 TECHNIQUE: CC and MLO views were obtained. These mammographic images have been obtained using full-field digital technique. These mammographic images were interpreted with the benefit of computer aided detection and tomosynthesis. BREAST COMPOSITION: There are scattered areas of fibroglandular density. FINDINGS: No suspicious findings. ASSESSMENT: BI-RADS 2 Benign RECOMMENDATION: Annual screening mammogram. A lay language report of this examination will be provided to the patient. Dictated by: Haseeb Orlando MD @ 03/10/2025 12:38:29 (Electronically Signed)
== END 2025-03-09 15:04 | disposition home or self-care (01) ==
LOC: MAMMO 15:03
PROVIDERS: PCP Family Medicine; Visit Provider Obstetrics & Gynecology
DX: Z12.31 Encounter for screening mammogram for malignant neoplasm of breast (principal)
CPT/HCPCS: 77063; 77067